=== PATIENT | male | born 1960 | race Caucasian/White ===

== ENCOUNTER → 2016-11-02 | Outpatient (CLI) | payer OTHER ==
[~2016-11-02] MED LIST: GADAVIST IV PRN
--- NOTE | 2016-11-02 22:40 | DIAGNOSTIC IMAGING REPORT ---
BRAIN COMBO FOR IAC CLINICAL HISTORY: Acute left-sided hearing loss. Evaluate for acoustic neuroma. COMPARISON STUDY: No previous studies for comparison. TECHNIQUE: Utilizing a 1.5 Marisol magnet, multiplanar, multi echo imaging of the brain was performed pre and postcontrast administration with thin cut imaging through the internal auditory canals. Injection of 19 cc of Gadavist IV was uneventful. FINDINGS: There are no areas of restricted diffusion. No acute intracranial hemorrhage, midline shift or mass effect is present. Ventricular system is unremarkable. There is a cavum of septum pellucidum. Flow-voids for the major intracranial vessels are present. There are no intracranial masses. Scattered white matter T2 hyperintense foci suggest small vessel disease. There is inherent T1 hyperintensity within the left cochlea with possible mild enhancement. There is no mass within the left internal auditory canal or the cerebellopontine angle. IMPRESSION: Asymmetric inherent T1 hyperintensity within the left cochlea and vestibule with possible minimal enhancement. This finding raises the possibility of left labyrinthine hemorrhage. No mass identified within the left internal auditory canal. Electronically signed by: Laureano Tucker M.D. 11/02/2016 10:38 PM Dictated Date/Time: 11/02/2016 4:12 PM
== END | disposition home or self-care (01) ==
LOC: C.MRI 14:06
PROVIDERS: ATTEND Internal Medicine Critical Care Medicine
DX: H91.92 Unspecified hearing loss, left ear (principal); R90.89 Other abnormal findings on diagnostic imaging of central nervous system

== ENCOUNTER → 2017-03-15 | Outpatient (CLI) | payer OTHER ==
[2017-03-15 09:56] LABS: BASO % 0.2 %; BASO ABS # 0.02 K/uL (0-0.2); COMPLETE YES; EOS % 1.5 %; HEMATOCRIT 37.7 % (42-52); IG% 0.2 %; LYMPH % 12.1 %; MEAN CELL VOLUME 84.2 fL (80-100); MEAN CORPUSCULAR HEMOGLOBIN 26.3 pg (25-34); MEAN CORPUSCULAR HGB CONC 31.3 g/dl (32-36); MEAN PLATELET VOLUME 9.3 fL (7.4-10.4); MONO % 9.8 %; NEUT % 76.2 %; PLATELET COUNT 231 K/uL (130-400); RED BLOOD COUNT 4.48 M/uL (4.7-6.1); WHITE BLOOD COUNT 8.24 K/uL (4.8-10.8)
[2017-03-15 10:03] LABS: ALT/SGPT 13 U/L (12-78); BLOOD UREA NITROGEN 20 mg/dl (7-18); CALCIUM 8.7 mg/dl (8.5-10.1); CARBON DIOXIDE 27 mmol/L (21-32); CHLORIDE 105 mmol/L (98-107); CREATININE 0.88 mg/dl (0.60-1.40); GLUCOSE 119 mg/dl (70-99); POTASSIUM 3.6 mmol/L (3.5-5.1); SODIUM 140 mmol/L (136-145)
[2017-03-15 10:06] LABS: ALB/GLOB RATIO 0.6 (0.9-2); ALKALINE PHOSPHATASE 104 U/L (45-117); AST/SGOT 15 U/L (15-37)
[2017-03-15 11:17] LABS: ESTIMATED AVERAGE GLUCOSE 117 mg/dl; HA1C FLAG Normal (Normal)
== END ==
LOC: C.LABUPNIT 09:23
PROVIDERS: ATTEND Nurse Practitioner Family
DX: E11.29 Type 2 diabetes mellitus with other diabetic kidney complication (principal)

== ENCOUNTER → 2017-03-19 | Outpatient (CLI) | payer OTHER | LOC: C.LABUPNIT 08:15 | PROVIDERS: ATTEND Nurse Practitioner Family | DX: Z11.59 Encounter for screening for other viral diseases (principal) ==

== ENCOUNTER → 2017-04-13 | Outpatient (CLI) | payer OTHER ==
[2017-04-13 06:51] LABS: BLOOD UREA NITROGEN 14 mg/dl (7-18); BUN/CREATININE RATIO 15.3 (10-20); CALCIUM 8.8 mg/dl (8.5-10.1); CARBON DIOXIDE 29 mmol/L (21-32); CHLORIDE 106 mmol/L (98-107); CREATININE 0.92 mg/dl (0.60-1.40); GLUCOSE 202 mg/dl (70-99); POTASSIUM 3.3 mmol/L (3.5-5.1); SODIUM 142 mmol/L (136-145)
== END | disposition home or self-care (01) ==
LOC: C.LABUPNIT 15:38
PROVIDERS: ATTEND Nurse Practitioner Family
DX: I25.10 Atherosclerotic heart disease of native coronary artery without angina pectoris (principal)

== ENCOUNTER → 2017-05-16 | Outpatient (CLI) | payer OTHER ==
[2017-05-16 21:51] LABS: URINE APPEARANCE CLOUDY (CLEAR); URINE BILIRUBIN NEG (NEG); URINE COLOR DK YELLOW; URINE NITRITE POS (NEG); URINE SPECIFIC GRAVITY 1.018 (1.000-1.030); UROBILINOGEN NEG (NEG)
[2017-05-16 21:52] LABS: MANUAL MICROSCOPIC REQUIRED? NO; REVIEW REQ? NO
[2017-05-16 23:19] LABS: BASO % 0.2 %; BASO ABS # 0.02 K/uL (0-0.2); COMPLETE YES; EOS % 0.4 %; HEMATOCRIT 35.1 % (42-52); IG% 0.4 %; LYMPH % 9.7 %; LYMPH ABS # 0.78 K/uL (1.2-3.4); MEAN CORPUSCULAR HEMOGLOBIN 28.8 pg (25-34); MEAN CORPUSCULAR HGB CONC 32.8 g/dl (32-36); MEAN PLATELET VOLUME 9.4 fL (7.4-10.4); MONO % 5.1 %; NEUT % 84.2 %; PLATELET COUNT 165 K/uL (130-400); RED BLOOD COUNT 3.99 M/uL (4.7-6.1); WHITE BLOOD COUNT 8.04 K/uL (4.8-10.8)
[2017-05-16 23:26] LABS: BLOOD UREA NITROGEN 20 mg/dl (7-18); BUN/CREATININE RATIO 16.4 (10-20); CALCIUM 8.5 mg/dl (8.5-10.1); CARBON DIOXIDE 28 mmol/L (21-32); CHLORIDE 102 mmol/L (98-107); CREATININE 1.19 mg/dl (0.60-1.40); GLUCOSE 108 mg/dl (70-99); POTASSIUM 3.5 mmol/L (3.5-5.1); SODIUM 137 mmol/L (136-145)
== END ==
LOC: C.LABUPNIT 17:16
PROVIDERS: ATTEND Nurse Practitioner Family
DX: R50.9 Fever, unspecified (principal)

== ENCOUNTER → 2017-07-15 | Outpatient (CLI) | payer OTHER ==
[2017-07-15 09:40] LABS: BLOOD UREA NITROGEN 24 mg/dl (7-18); CALCIUM 8.1 mg/dl (8.5-10.1); CARBON DIOXIDE 29 mmol/L (21-32); CREATININE 1.08 mg/dl (0.60-1.40); GLUCOSE 175 mg/dl (70-99); POTASSIUM 3.6 mmol/L (3.5-5.1); SODIUM 141 mmol/L (136-145)
== END ==
LOC: C.LABUPNIT 09:14 → EDSTATUS 07-17 09:56
PROVIDERS: ATTEND Nurse Practitioner Family
DX: M62.81 Muscle weakness (generalized) (principal)

== ENCOUNTER → 2017-07-18 | Outpatient (CLI) | payer OTHER ==
[2017-07-18 09:20] LABS: BLOOD UREA NITROGEN 20 mg/dl (7-18); CALCIUM 8.4 mg/dl (8.5-10.1); CARBON DIOXIDE 31 mmol/L (21-32); CREATININE 1.06 mg/dl (0.60-1.40); GLUCOSE 279 mg/dl (70-99); POTASSIUM 3.3 mmol/L (3.5-5.1); SODIUM 140 mmol/L (136-145)
--- NOTE | 2017-07-19 11:23 | CODING QUERY NO DIAGNOSIS ---
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 Please assist us with providing a diagnosis/symptom for the test(s) below: A diagnosis/symptom was not documented on your Order. A valid diagnosis/symptom is required to bill all insurances. Please remember that we are unable to code a diagnosis of rule out, probable, possible, questionable, or suspected. DOS 07/18/17 Tests that require a diagnosis: * BMP DIAGNOSIS: Provider Signature: Date: Thank you Payton Vela [employer] Information Management Once completed, please kindly fax back to [phone] For questions please call [phone]
== END ==
LOC: C.LABUPNIT 08:40
PROVIDERS: ATTEND Nurse Practitioner Family
DX: R60.9 Edema, unspecified (principal)

== ENCOUNTER → 2017-07-22 | Outpatient (CLI) | payer OTHER | END | disposition home or self-care (01) | LOC: C.LABUPNIT 07:35 | PROVIDERS: ATTEND Nurse Practitioner Family | DX: E87.6 Hypokalemia (principal) ==

== ENCOUNTER → 2017-07-24 | Outpatient (CLI) | payer OTHER ==
[2017-07-24 10:00] LABS: BLOOD UREA NITROGEN 20 mg/dl (7-18); CALCIUM 8.8 mg/dl (8.5-10.1); CARBON DIOXIDE 31 mmol/L (21-32); CREATININE 1.07 mg/dl (0.60-1.40); GLUCOSE 189 mg/dl (70-99); POTASSIUM 3.2 mmol/L (3.5-5.1); SODIUM 140 mmol/L (136-145)
== END ==
LOC: C.LABUPNIT 07:59
PROVIDERS: ATTEND Nurse Practitioner Family
DX: E11.40 Type 2 diabetes mellitus with diabetic neuropathy, unspecified (principal)

== ENCOUNTER → 2017-07-26 | Outpatient (CLI) | payer OTHER ==
[2017-07-26 08:41] LABS: BLOOD UREA NITROGEN 20 mg/dl (7-18); CALCIUM 8.9 mg/dl (8.5-10.1); CARBON DIOXIDE 31 mmol/L (21-32); CREATININE 1.18 mg/dl (0.60-1.40); GLUCOSE 173 mg/dl (70-99); POTASSIUM 3.6 mmol/L (3.5-5.1); SODIUM 142 mmol/L (136-145)
== END ==
LOC: C.LABUPNIT 07:59
PROVIDERS: ATTEND Nurse Practitioner Family
DX: E11.40 Type 2 diabetes mellitus with diabetic neuropathy, unspecified (principal)

== ENCOUNTER → 2017-07-31 | Outpatient (CLI) | payer OTHER ==
[2017-08-02 14:57] LABS: INFLUENZA B ANTIGEN Neg for Influ B (NEG)
== END ==
LOC: C.LABUPNIT 14:27
PROVIDERS: ATTEND Nurse Practitioner Family
DX: R50.9 Fever, unspecified (principal)

== ENCOUNTER → 2017-10-08 | Outpatient (CLI) | payer OTHER ==
[2017-10-08 15:46] LABS: BASO % 0.2 %; BASO ABS # 0.02 K/uL (0-0.2); EOS % 0.9 %; EOS ABS # 0.08 K/uL (0-0.5); HEMATOCRIT 38.2 % (42-52); HEMOGLOBIN 13.1 g/dL (14.0-18.0); IG# 0.04 K/uL (0.00-0.02); LYMPH % 13.3 %; LYMPH ABS # 1.14 K/uL (1.2-3.4); MEAN CELL VOLUME 86.6 fL (80-100); MEAN CORPUSCULAR HEMOGLOBIN 29.7 pg (25-34); MEAN PLATELET VOLUME 9.5 fL (7.4-10.4); MONO % 10.2 %; MONO ABS # 0.87 K/uL (0.11-0.59); NEUT % 74.9 %; PLATELET COUNT 179 K/uL (130-400); RED CELL DISTRIBUTION WIDTH CV 14.2 % (11.5-14.5); RED CELL DISTRIBUTION WIDTH SD 44.6 fL (36.4-46.3); WHITE BLOOD COUNT 8.55 K/uL (4.8-10.8)
[2017-10-08 15:54] LABS: MEAN CORPUSCULAR HGB CONC 34.3 g/dl (32-36)
[2017-10-08 16:21] LABS: ALBUMIN 2.9 gm/dl (3.4-5.0); ALKALINE PHOSPHATASE 98 U/L (45-117); ALT/SGPT 15 U/L (12-78); AST/SGOT 10 U/L (15-37); BLOOD UREA NITROGEN 20 mg/dl (7-18); CALCIUM 8.6 mg/dl (8.5-10.1); CARBON DIOXIDE 29 mmol/L (21-32); CREATININE 1.01 mg/dl (0.60-1.40); GLUCOSE 148 mg/dl (70-99); POTASSIUM 3.7 mmol/L (3.5-5.1); SODIUM 137 mmol/L (136-145); TOTAL PROTEIN 6.9 gm/dl (6.4-8.2)
== END ==
LOC: C.LABSPEC 15:29
PROVIDERS: ATTEND Nurse Practitioner Family
DX: I48.91 Unspecified atrial fibrillation (principal)

== ENCOUNTER → 2017-10-16 | Outpatient (CLI) | payer OTHER ==
[~2017-10-16] MED LIST changes: +ACET-1311 PO; +AMLO2.5T PO; +APIX1TAB PO; +APIX1TAB3 PO; +ARTISOL12 OPB; +ASPI-435 PO; +ATOR-24 PO; +BNC/40 PO; +CARV6.25 PO; +CHOL1000 PO; +CLR10 PO; +CYCL5TAB PO; +DOXA2TAB PO; +DULO-24 PO; +DULO60CA44 PO; +FLNIN NAE; +GABA-112 PO; -GADAVIST IV PRN; +LATA0.5S OPB; +LVMI SQ; +MISCCAP80 PO; +NTRGSL/4 UT; +NVLG SQ; +ONDA4TAB46 PO; +POTA-639 PO; +POTA10CA28 PO; +SENN-61 PO; +TORS20TA2 PO; +TRAM-10 PO; +TRAZ100T29 PO; +[UNRECOGNIZED DRUG - CODE] PO
[2017-10-16 12:44] LABS: BASO % 0.2 %; BASO ABS # 0.01 K/uL (0-0.2); EOS % 0.2 %; EOS ABS # 0.01 K/uL (0-0.5); HEMATOCRIT 39.2 % (42-52); HEMOGLOBIN 13.3 g/dL (14.0-18.0); IG# 0.02 K/uL (0.00-0.02); LYMPH % 18.3 %; LYMPH ABS # 0.95 K/uL (1.2-3.4); MEAN CELL VOLUME 86.5 fL (80-100); MEAN CORPUSCULAR HEMOGLOBIN 29.4 pg (25-34); MEAN CORPUSCULAR HGB CONC 33.9 g/dl (32-36); MEAN PLATELET VOLUME 9.3 fL (7.4-10.4); MONO % 14.5 %; MONO ABS # 0.75 K/uL (0.11-0.59); NEUT % 66.4 %; NEUT ABS # 3.44 K/uL (1.4-6.5); PLATELET COUNT 157 K/uL (130-400); RED CELL DISTRIBUTION WIDTH CV 14.5 % (11.5-14.5); RED CELL DISTRIBUTION WIDTH SD 45.9 fL (36.4-46.3); WHITE BLOOD COUNT 5.18 K/uL (4.8-10.8)
[2017-10-16 13:01] LABS: ALT/SGPT 50 U/L (12-78); AST/SGOT 39 U/L (15-37); BLOOD UREA NITROGEN 23 mg/dl (7-18); CALCIUM 8.5 mg/dl (8.5-10.1); CARBON DIOXIDE 27 mmol/L (21-32); CREATININE 1.24 mg/dl (0.60-1.40); GLUCOSE 103 mg/dl (70-99); LIPASE 118 U/L (73-393); POTASSIUM 3.6 mmol/L (3.5-5.1); SODIUM 135 mmol/L (136-145)
[2017-10-16 13:03] LABS: ALKALINE PHOSPHATASE 216 U/L (45-117); TOTAL PROTEIN 7.6 gm/dl (6.4-8.2)
== END | disposition home or self-care (01) ==
LOC: C.LABUPNIT 12:11
PROVIDERS: ATTEND Nurse Practitioner Family
DX: R10.9 Unspecified abdominal pain (principal); R50.9 Fever, unspecified

== ENCOUNTER → 2017-10-17 | Outpatient (CLI) | payer OTHER ==
--- NOTE | 2017-10-17 13:47 | DIAGNOSTIC IMAGING REPORT ---
ABDOMEN COMPLETE (US) CLINICAL HISTORY: 57 years-old Male presenting with Pain, elevated TEMP, patient over 400 pounds. TECHNIQUE: Real-time grayscale and limited color Doppler ultrasound imaging of the abdomen was performed. COMPARISON: CT from 03/02/2017. FINDINGS: Pancreas: Visualized portions of the pancreatic head and body normal. Liver: Normal echogenicity and echotexture. The liver measures 21.2 cm in maximal sagittal dimension. Main portal vein patent with normal directional flow. Biliary: No intrahepatic biliary ductal dilatation. Common bile duct measures up to 6-7 mm in diameter. Gallbladder: Gallstones and gallbladder sludge. Due to patient mobility issues related to body habitus, decubitus imaging was unable to be performed. Borderline gallbladder wall thickening measuring 4 mm though this may be impacted by increased pericholecystic fat in the gallbladder fossa. No evidence of gallbladder distention, pericholecystic fluid or inflammatory change. Sonographic Jones's sign negative. Spleen: Normal in echogenicity and size, measuring 15 cm in length. Kidneys: Normal in size and echogenicity. Right kidney measures 11.4 cm, and left kidney measures 11.0 cm. No hydronephrosis. Vasculature: Visualized portions of the IVC and abdominal aorta normal. Ascites: None. IMPRESSION: 1. Image quality limited by patient body habitus. This limits diagnostic sensitivity. 2. Cholelithiasis. No evidence of biliary ductal dilatation. Borderline wall thickening without convincing evidence of cholecystitis. Despite these findings, if there is clinical concern for cholecystitis, nuclear medicine HIDA scan could be obtained. 3. Mild hepatomegaly. 4. Mild splenomegaly. Electronically signed by: Yaniv Diamond M.D. 10/17/2017 1:45 PM Dictated Date/Time: 10/17/2017 1:39 PM
== END ==
LOC: C.ULTR 12:49
PROVIDERS: ATTEND Nurse Practitioner Family
DX: R10.9 Unspecified abdominal pain (principal); R50.9 Fever, unspecified; K80.20 Calculus of gallbladder without cholecystitis without obstruction

== ENCOUNTER → 2017-10-18 | Outpatient (CLI) | payer OTHER ==
--- NOTE | 2017-10-18 10:39 | DIAGNOSTIC IMAGING REPORT ---
CHEST 2 VIEWS ROUTINE CLINICAL HISTORY: Cough. COMPARISON STUDY: No previous studies for comparison. FINDINGS: Lung volumes are normal. No pneumothorax or pleural effusion is noted. There is no consolidation to suggest pneumonia. Mild cardiomegaly is noted. Extensive anterior osteophytosis of the thoracic spine is noted on the lateral projection. IMPRESSION: 1. No acute cardiopulmonary findings. 2. Mild cardiomegaly. Electronically signed by: Laureano Tucker M.D. 10/18/2017 10:38 AM Dictated Date/Time: 10/18/2017 10:37 AM
== END | disposition home or self-care (01) ==
LOC: C.RAD 10:11
PROVIDERS: ATTEND Family Medicine
DX: R05 Cough (principal); R50.9 Fever, unspecified

== ENCOUNTER 2017-10-24 10:41 | Emergency (ER) | payer OTHER ==
[~2017-10-24] VITALS: Ht 172.7 cm; Wt 194.0 kg
[2017-10-24 11:01] VITALS: Ht 172.7 cm; Wt 194.0 kg
[2017-10-24] MEDS ORDERED: SODIUM CHLORIDE 0.9% 1000ML 1,000 ML IV ONE (11:05)
[2017-10-24 11:15] VITALS: O2SAT 96
--- NOTE | 2017-10-24 11:38 | DIAGNOSTIC IMAGING REPORT ---
CHEST ONE VIEW PORTABLE CLINICAL HISTORY: Sepsis ABDOMINAL PAIN COMPARISON STUDY: 10/18/2017 FINDINGS: The heart is borderline enlarged. Mild vascular and interstitial prominence may be related to technical factors given the patient's large body habitus. There is no focal pulmonary consolidation. There are no pleural effusions.[ IMPRESSION: Difficult study to interpret due to the patient's large body habitus. No evidence of focal pulmonary consolidation. No evidence of overt failure. Electronically signed by: Tim Menezes M.D. 10/24/2017 11:37 AM Dictated Date/Time: 10/24/2017 11:35 AM
[2017-10-24 11:41] LABS: BASO % 0.1 %; BASO ABS # 0.01 K/uL (0-0.2); EOS % 0.1 %; EOS ABS # 0.01 K/uL (0-0.5); HEMATOCRIT 40.3 % (42-52); HEMOGLOBIN 13.6 g/dL (14.0-18.0); IG# 0.08 K/uL (0.00-0.02); LYMPH % 2.2 %; LYMPH ABS # 0.39 K/uL (1.2-3.4); MEAN CELL VOLUME 86.1 fL (80-100); MEAN CORPUSCULAR HEMOGLOBIN 29.1 pg (25-34); MEAN CORPUSCULAR HGB CONC 33.7 g/dl (32-36); MEAN PLATELET VOLUME 9.2 fL (7.4-10.4); MONO % 4.3 %; MONO ABS # 0.76 K/uL (0.11-0.59); NEUT % 92.8 %; NEUT ABS # 16.38 K/uL (1.4-6.5); PLATELET COUNT 197 K/uL (130-400); RED CELL DISTRIBUTION WIDTH SD 43.8 fL (36.4-46.3); WHITE BLOOD COUNT 17.63 K/uL (4.8-10.8)
[2017-10-24 11:58] LABS: INR 1.1 (0.9-1.1); PTT PATIENT 27.1 SECONDS (21.0-31.0)
[2017-10-24 12:09] LABS: ALBUMIN 2.9 gm/dl (3.4-5.0); CREATININE 1.67 mg/dl (0.60-1.40); POTASSIUM 3.8 mmol/L (3.5-5.1)
[2017-10-24] MEDS ORDERED: NTRGSL/4 UT (12:11)
[2017-10-24] MEDS ORDERED: GABA-112 PO (12:11)
[2017-10-24] MEDS ORDERED: POTA-639 PO (12:11)
[2017-10-24] MEDS ORDERED: DULO60CA44 PO (12:11)
[2017-10-24] MEDS ORDERED: ATOR-24 PO (12:11)
[2017-10-24] MEDS ORDERED: CHOL1000 PO (12:11)
[2017-10-24] MEDS ORDERED: FLNIN NAE (12:11)
[2017-10-24] MEDS ORDERED: DOXA2TAB PO (12:11)
[2017-10-24] MEDS ORDERED: CARV6.25 PO (12:11)
[2017-10-24] MEDS ORDERED: TRAM-10 PO (12:11)
[2017-10-24] MEDS ORDERED: CYCL5TAB PO (12:11)
[2017-10-24] MEDS ORDERED: NVLG SQ (12:11)
[2017-10-24] MEDS ORDERED: POTA10CA28 PO (12:11)
[2017-10-24] MEDS ORDERED: TRAZ100T29 PO (12:11)
[2017-10-24] MEDS ORDERED: ASPI-435 PO (12:11)
[2017-10-24] MEDS ORDERED: ACET-1311 PO (12:11)
[2017-10-24] MEDS ORDERED: LVMI SQ (12:11)
[2017-10-24] MEDS ORDERED: MISCCAP80 PO (12:11)
[2017-10-24] MEDS ORDERED: ONDA4TAB46 PO (12:11)
[2017-10-24] MEDS ORDERED: CLR10 PO (12:11)
[2017-10-24] MEDS ORDERED: TORS20TA2 PO (12:11)
[2017-10-24] MEDS ORDERED: APIX1TAB PO ×2 (12:11)
[2017-10-24] MEDS ORDERED: DULO-24 PO (12:11)
[2017-10-24] MEDS ORDERED: LATA0.5S OPB (12:11)
[2017-10-24] MEDS ORDERED: BNC/40 PO (12:11)
[2017-10-24] MEDS ORDERED: ARTISOL12 OPB (12:11)
[2017-10-24] MEDS ORDERED: APIX1TAB3 PO (12:11)
[2017-10-24] MEDS ORDERED: [UNRECOGNIZED DRUG - CODE] PO (12:11)
[2017-10-24] MEDS ORDERED: SENN-61 PO (12:11)
[2017-10-24] MEDS ORDERED: AMLO2.5T PO (12:11)
[2017-10-24 12:12] LABS: TOTAL PROTEIN 7.1 gm/dl (6.4-8.2)
[2017-10-24] MEDS ORDERED: PIPERACILLIN/TAZOBACTAM 4.5 GM/100ML D5W IV STA (12:15)
[2017-10-24] MEDS ORDERED: SODIUM CHLORIDE 0.9% 1000ML 1,000 ML IV STA (12:27)
--- NOTE | 2017-10-24 12:27 | DIAGNOSTIC IMAGING REPORT ---
GALLBLADDER-ABD LIMITED CLINICAL HISTORY: eval for cholecystitis pain. Nausea. TECHNIQUE: Ultrasound COMPARISON STUDY: 10/17/2017 FINDINGS: Somewhat limited exam due to body habitus. Gallstones as well as several small polyps within the gallbladder lumen. Moderate gallbladder wall thickening at 7 to 8 mm. No significant pericholecystic fluid. Common bile duct 6 mm. Liver is uniform. Right kidney is negative for hydronephrosis. IMPRESSION: 1. Combination of gallstones and sludge/polyps within the gallbladder lumen. 2. Somewhat progressive thickening of the gallbladder wall compared to the prior study currently at 7 to 8 mm. 3. Common bile duct is normal at 6 mm. 4. Possibility of chronic calculus cholecystitis must be considered The above report was generated using voice recognition software. It may contain grammatical, syntax or spelling errors. Electronically signed by: Gregory Beatty M.D. 10/24/2017 12:26 PM Dictated Date/Time: 10/24/2017 12:23 PM
--- NOTE | 2017-10-24 14:02 | Pharmacy Progress Note ---
ED Pharmacist Progress Note Date of Service: Oct 24, 2017. Situation Was asked by Dr. Weber for recommendation on reversal of anticoagulation for emergent surgery possibility Background Patient on apixaban as outpatient for Afib. Possibly in need of emergent lap nathan as patient is septic, hypotensive, with elevated lactate per Dr. Tia Weber discussed case with surgery YAW (Zhanna) who suggested reversal of anticoagulation Assessment Apixaban has no specific reversal agent. Very limited evidence to support use of KCentra to reverse apixaban. Furthermore, most evidence available is not based on clinical outcome (was studied in a small number of healthy volunteers) or it was used for reversal of active bleed in a small group of patients with varying success * Therefore patient likely poor candidate for KCentra. * However, I also contacted Dr. Delacruz to request her opinion (see below) Dr. Delacruz consultation * Agreed that KCentra would not be indicated * Requested confirmation of last dose of apixaban administered (see below) * If surgery would like to discuss further, she noted that surgeon could contact her Most recent apixaban dose * Patient was not sure if he took his dose this AM but he did not think he did * I looked at the medication administration records sent with the patient and confirmed that apixaban was *not* charted as administered this AM - last dose was 10/23 PM Recommendation * No specific agent available for reversal of anticoagulation due to apixaban * Recommend against use of KCentra
--- NOTE | 2017-10-24 15:33 | Medical Consult ---
Consultation Date of Consultation: Oct 24, 2017. Attending Physician: Reason for Consultation: Abnormal LFTS, Chronic Cholecystitis on ultrasound. History of Present Illness Mr. Morrison is a 57-year-old male with past medical history significant for diabetes and atrial fibrillation (on daily Eliquis) who presents to [facility] with complaints of right upper quadrant abdominal pain. Patient reports that pain has been intermittent for the last 2 weeks. He states that the pain occurs after a fatty or greasy meal. He denies nausea or vomiting. He denies constipation or diarrhea. He currently resides at a local long-term. On admission, patient is febrile, WBC 17.63, LFTs elevated, Lactic acid 3.19 Gallbladder ultrasound 1. Combination of gallstones and sludge/polyps within the gallbladder lumen. 2. Somewhat progressive thickening of the gallbladder wall compared to the prior study currently at 7 to 8 mm. 3. Common bile duct is normal at 6 mm. 4. Possibility of chronic calculus cholecystitis must be considered Currently, patient is not in acute distress. He reports that his abdominal pain has resolved. Abdomen is tender with deep palpation. He is not nauseous. Family History Diabetes mellitus Social History Smoking Status: Former Smoker Allergies Coded Allergies: AVIVA Inhibitors (Unverified Allergy, Unknown, ., 10/24/17) Sulfamethoxazole w/Trimethoprim (Unverified Allergy, Unknown, ., 10/24/17) Review of Systems Constitutional: + fever, + chills, + fatigue Abdomen: + pain, No nausea, No vomiting, No diarrhea, No constipation Physical Exam Date Time Temp Pulse Resp B/P (MAP) Pulse Ox O2 Delivery O2 Flow Rate FiO2 10/24/17 13:01 72 18 107/52 98 Room Air 10/24/17 12:41 75 10/24/17 12:32 78 18 98/54 96 Room Air 10/24/17 12:32 98/54 10/24/17 12:26 76/56 10/24/17 11:52 83 18 90/49 95 Room Air 10/24/17 11:41 85 18 95 10/24/17 11:31 90/49 10/24/17 11:15 91/44 10/24/17 11:15 96 Room Air 10/24/17 11:13 70/48 10/24/17 11:02 95/56 10/24/17 11:01 77/58 10/24/17 11:01 37.8 88 20 97/56 97 Room Air 10/24/17 10:57 84/55 10/24/17 10:56 93 10/24/17 10:54 86/53 10/24/17 10:51 95/69 General Appearance: WD/WN, no apparent distress Head: normocephalic, atraumatic Abdomen/GI: soft, + tenderness (right upper quadrant into epigastric region. ) Laboratory Results Last 24 Hours Test 10/24/17 11:30 10/24/17 11:39 White Blood Count 17.63 K/uL Red Blood Count 4.68 M/uL Hemoglobin 13.6 g/dL Hematocrit 40.3 % Mean Corpuscular Volume 86.1 fL Mean Corpuscular Hemoglobin 29.1 pg Mean Corpuscular Hemoglobin Concent 33.7 g/dl Platelet Count 197 K/uL Mean Platelet Volume 9.2 fL Neutrophils (%) (Auto) 92.8 % Lymphocytes (%) (Auto) 2.2 % Monocytes (%) (Auto) 4.3 % Eosinophils (%) (Auto) 0.1 % Basophils (%) (Auto) 0.1 % Neutrophils # (Auto) 16.38 K/uL Lymphocytes # (Auto) 0.39 K/uL Monocytes # (Auto) 0.76 K/uL Eosinophils # (Auto) 0.01 K/uL Basophils # (Auto) 0.01 K/uL RDW Standard Deviation 43.8 fL RDW Coefficient of Variation 14.0 % Immature Granulocyte % (Auto) 0.5 % Immature Granulocyte # (Auto) 0.08 K/uL Prothrombin Time 11.2 SECONDS Prothromb Time International Ratio 1.1 Activated Partial Thromboplast Time 27.1 SECONDS Partial Thromboplastin Ratio 1.0 Sodium Level 137 mmol/L Potassium Level 3.8 mmol/L Chloride Level 103 mmol/L Carbon Dioxide Level 26 mmol/L Anion Gap 8.0 mmol/L Blood Urea Nitrogen 19 mg/dl Creatinine 1.67 mg/dl Est Creatinine Clear Calc Drug Dose 82.9 ml/min Estimated GFR () 52.2 Estimated GFR (Non- 45.1 BUN/Creatinine Ratio 11.5 Random Glucose 196 mg/dl Calcium Level 9.0 mg/dl Total Bilirubin 2.6 mg/dl Aspartate Amino Transf (AST/SGOT) 245 U/L Alanine Aminotransferase (ALT/SGPT) 235 U/L Alkaline Phosphatase 227 U/L Total Protein 7.1 gm/dl Albumin 2.9 gm/dl Globulin 4.2 gm/dl Albumin/Globulin Ratio 0.7 Bedside Lactic Acid Venous 3.19 mmol/L Assessment & Plan 57-year-old male, currently resides in long-term, with elevated LFTs, right upper quadrant abdominal pain Patient seen and examined with Dr. Stephenson. Labs reviewed. Gallbladder ultrasound reviewed: Impression: 1. Combination of gallstones and sludge/polyps within the gallbladder lumen. 2. Somewhat progressive thickening of the gallbladder wall compared to the prior study currently at 7 to 8 mm. 3. Common bile duct is normal at 6 mm. 4. Possibility of chronic calculus cholecystitis must be considered Patient discussed with GI. Patient is on daily Eliquis, would need to be stopped prior to cholecystectomy or ERCP. Recommend that patient be transferred [facility]- if patient should become worse, may require cholecystostomy tube. Recommendations discussed with Dr. Weber.
[2017-10-24] MEDS ORDERED: FENTANYL CITRATE INJ 50 MCG/1 ML 2 ML VIAL IV STA (15:55)
--- NOTE | 2017-10-24 16:10 | EMERGENCY ROOM VISIT NOTE ---
History Report prepared by Saul: Angella Singh Under the Supervision of: Dr. Efrem Weber M.D. First contact with patient: 10:54 Chief Complaint: ABDOMINAL PAIN Stated Complaint: ABDOMINAL PAIN History of Present Illness The patient is a 57 year old male who presents to the Emergency Room with complaints of upper abdominal pain beginning at 2200 last night. The patient was febrile at 102.8 this morning. He describes the pain as being sharp and reports that he has had this abdominal pain intermittently for about 2 weeks. The patient states that his pain is exacerbated after eating fatty foods. He reports having a cough but denies having chest pain, vomiting, and diarrhea. He does report feeling light-headed earlier but not anymore. The patient reports that he is diabetic. He states he had a ultrasound on the which showed gallstones. He also has a long-standing inguinal hernia in the scrotum. He was told they could not operate on it until he lost weight. Source of History: patient Onset: 2200 last night Position: abdomen (upper ) Quality: sharp Timing: constant Modifying Factors (Worsening): eating (fatty foods ) Associated Symptoms: + fevers, + cough, No chest pain, No vomiting, No diarrhea Review of Systems See HPI for pertinent positives & negatives. A total of 10 systems reviewed and were otherwise negative. Past Medical & Surgical Medical Problems: (1) Diabetes Family History Diabetes mellitus Social History Smoking Status: Former Smoker Marital Status: single Current/Historical Medications Scheduled Apixaban (Eliquis), 5 MG PO BID Artificial Tear Solution (Artificial Tears), 1 DROPS OPB DAILY Aspirin (Aspirin 81), 81 MG PO QAM Atorvastatin (Lipitor), 40 MG PO HS Carvedilol (Coreg), 6.25 MG PO BID Cholecalciferol (Vitamin D3), 4,000 UNITS PO DAILY Doxazosin Mesylate (Cardura), 2 MG PO HS Duloxetine Hcl (Cymbalta), 60 MG PO DAILY Duloxetine Hcl (Cymbalta), 20 MG PO DAILY Ferrous Sulfate (Ferrousul), 325 MG PO BID Fluticasone Propionate (Fluticasone Propionate), 2 SPRAYS JAGDEEP DAILY Gabapentin (Neurontin), 200 MG PO TID Insulin Aspart (Novolog), 1 DOSE SQ ACHS Insulin Detemir (Levemir), 44 UNITS SQ BID Latanoprost (Xalatan 0.005% Oph [place]), 1 DROPS OPB DAILY Olmesartan Medoxomil (Benicar), 40 MG PO DAILY Potassium Chloride (Micro-K Ext Rel), 10 MEQ PO BID Potassium Ext Rel (Klor-Con), 20 MEQ PO BID Probiotic Product (Probiotic), 1 CAP PO BID Torsemide (Demadex), 40 MG PO DAILY Trazodone Hcl (Trazodone), 100 MG PO HS Scheduled PRN Acetaminophen (Tylenol), 650 MG PO Q6 PRN for Pain Cyclobenzaprine Hcl (Flexeril), 5 MG PO Q12 PRN for Pain Loratadine (Claritin), 10 MG PO DAILY PRN for ALLERGIES Nitroglycerin (Nitrostat), 0.4 MG UT PRN PRN for Chest Pain Ondansetron Hcl (Zofran), 4 MG PO Q6 PRN for Nausea Senna (Senokot), 1 TAB PO BID PRN for Constipation Tramadol (Ultram), 50 MG PO Q6 PRN for Pain Allergies Coded Allergies: AVIVA Inhibitors (Unverified Allergy, Unknown, ., 10/24/17) Sulfamethoxazole w/Trimethoprim (Unverified Allergy, Unknown, ., 10/24/17) Physical Exam Vital Signs Date Time Temp Pulse Resp B/P (MAP) Pulse Ox O2 Delivery O2 Flow Rate FiO2 10/24/17 15:06 98 10/24/17 15:01 73 18 175/70 98 10/24/17 14:32 150/56 10/24/17 14:06 73 16 97 10/24/17 14:01 105/59 10/24/17 13:31 104/59 10/24/17 13:06 78 21 96 10/24/17 13:01 72 18 107/52 98 Room Air 10/24/17 12:41 75 10/24/17 12:32 78 18 98/54 96 Room Air 10/24/17 12:32 98/54 10/24/17 12:26 76/56 10/24/17 11:52 83 18 90/49 95 Room Air 10/24/17 11:41 85 18 95 10/24/17 11:31 90/49 10/24/17 11:15 91/44 10/24/17 11:15 96 Room Air 10/24/17 11:13 70/48 10/24/17 11:02 95/56 10/24/17 11:01 77/58 10/24/17 11:01 37.8 88 20 97/56 97 Room Air 10/24/17 10:57 84/55 10/24/17 10:56 93 10/24/17 10:54 86/53 10/24/17 10:51 95/69 Physical Exam Constitutional: Vital signs reviewed. He is hypotensive. Eyes: Pupils are equal round reactive to light. Conjunctiva are noninjected. No scleral icterus. ENT: Pharynx is clear without erythema or exudate. Mucous membranes are moist. Neck supple without meningeal signs. Respiratory: Clear to auscultation bilaterally. Breath sounds are equal bilaterally. Cardiovascular: Regular rate and rhythm. No rubs or gallops. GI: Soft, nondistended. Right upper quadrant tenderness. No Jones's sign. Bowel sounds are present. Musculoskeletal: Bilateral left lower extremity with venous stasis discoloration. No cellulitis. Integumentary: No cyanosis. No jaundice. : Melon sized scrotal hernia without significant tenderness. Neurological: The patient is awake and alert. No focal deficits. Psychiatric: Normal affect. Medical Decision & Procedures ER Provider Diagnostic Interpretation: Radiology results as stated below per my review and the radiologist's interpretation: CHEST ONE VIEW PORTABLE CLINICAL HISTORY: Sepsis ABDOMINAL PAIN COMPARISON STUDY: 10/18/2017 FINDINGS: The heart is borderline enlarged. Mild vascular and interstitial prominence may be related to technical factors given the patient's large body habitus. There is no focal pulmonary consolidation. There are no pleural effusions.[ IMPRESSION: Difficult study to interpret due to the patient's large body habitus. No evidence of focal pulmonary consolidation. No evidence of overt failure. Electronically signed by: Tim Menezes M.D. 10/24/2017 11:37 AM Dictated Date/Time: 10/24/2017 11:35 AM GALLBLADDER-ABD LIMITED CLINICAL HISTORY: eval for cholecystitis pain. Nausea. TECHNIQUE: Ultrasound COMPARISON STUDY: 10/17/2017 FINDINGS: Somewhat limited exam due to body habitus. Gallstones as well as several small polyps within the gallbladder lumen. Moderate gallbladder wall thickening at 7 to 8 mm. No significant pericholecystic fluid. Common bile duct 6 mm. Liver is uniform. Right kidney is negative for hydronephrosis. IMPRESSION: 1. Combination of gallstones and sludge/polyps within the gallbladder lumen. 2. Somewhat progressive thickening of the gallbladder wall compared to the prior study currently at 7 to 8 mm. 3. Common bile duct is normal at 6 mm. 4. Possibility of chronic calculus cholecystitis must be considered The above report was generated using voice recognition software. It may contain grammatical, syntax or spelling errors. Electronically signed by: Gregory Beatty M.D. 10/24/2017 12:26 PM Dictated Date/Time: 10/24/2017 12:23 PM Laboratory Results 10/24/17 11:30 Red Blood Count 4.68, Mean Corpuscular Volume 86.1, Mean Corpuscular Hemoglobin 29.1, Mean Corpuscular Hemoglobin Concent 33.7, Mean Platelet Volume 9.2, Neutrophils (%) (Auto) 92.8, Lymphocytes (%) (Auto) 2.2, Monocytes (%) (Auto) 4.3, Eosinophils (%) (Auto) 0.1, Basophils (%) (Auto) 0.1, Neutrophils # (Auto) 16.38, Lymphocytes # (Auto) 0.39, Monocytes # (Auto) 0.76, Eosinophils # (Auto) 0.01, Basophils # (Auto) 0.01 10/24/17 11:30 Test 10/24/17 11:30 10/24/17 11:39 White Blood Count 17.63 K/uL (4.8-10.8) Red Blood Count 4.68 M/uL (4.7-6.1) Hemoglobin 13.6 g/dL (14.0-18.0) Hematocrit 40.3 % (42-52) Mean Corpuscular Volume 86.1 fL (80-100) Mean Corpuscular Hemoglobin 29.1 pg (25-34) Mean Corpuscular Hemoglobin Concent 33.7 g/dl (32-36) Platelet Count 197 K/uL (130-400) Mean Platelet Volume 9.2 fL (7.4-10.4) Neutrophils (%) (Auto) 92.8 % Lymphocytes (%) (Auto) 2.2 % Monocytes (%) (Auto) 4.3 % Eosinophils (%) (Auto) 0.1 % Basophils (%) (Auto) 0.1 % Neutrophils # (Auto) 16.38 K/uL (1.4-6.5) Lymphocytes # (Auto) 0.39 K/uL (1.2-3.4) Monocytes # (Auto) 0.76 K/uL (0.11-0.59) Eosinophils # (Auto) 0.01 K/uL (0-0.5) Basophils # (Auto) 0.01 K/uL (0-0.2) RDW Standard Deviation 43.8 fL (36.4-46.3) RDW Coefficient of Variation 14.0 % (11.5-14.5) Immature Granulocyte % (Auto) 0.5 % Immature Granulocyte # (Auto) 0.08 K/uL (0.00-0.02) Prothrombin Time 11.2 SECONDS (9.0-12.0) Prothromb Time International Ratio 1.1 (0.9-1.1) Activated Partial Thromboplast Time 27.1 SECONDS (21.0-31.0) Partial Thromboplastin Ratio 1.0 Anion Gap 8.0 mmol/L (3-11) Est Creatinine Clear Calc Drug Dose 82.9 ml/min Estimated GFR () 52.2 Estimated GFR (Non- 45.1 BUN/Creatinine Ratio 11.5 (10-20) Calcium Level 9.0 mg/dl (8.5-10.1) Total Bilirubin 2.6 mg/dl (0.2-1) Aspartate Amino Transf (AST/SGOT) 245 U/L (15-37) Alanine Aminotransferase (ALT/SGPT) 235 U/L (12-78) Alkaline Phosphatase 227 U/L (45-117) Total Protein 7.1 gm/dl (6.4-8.2) Albumin 2.9 gm/dl (3.4-5.0) Globulin 4.2 gm/dl (2.5-4.0) Albumin/Globulin Ratio 0.7 (0.9-2) Bedside Lactic Acid Venous 3.19 mmol/L (0.90-1.70) Laboratory results as reviewed by me. Medications Administered Medications (Trade) Dose Ordered Sig/Aaliyah Route Start Time Stop Time Status Last Admin Dose Admin Sodium Chloride 1,000 ml @ 999 mls/hr Q1H1M ONCE IV 10/24/17 11:05 10/24/17 12:05 DC 10/24/17 11:49 999 MLS/HR Piperacillin Sod/ Tazobactam Sod (Zosyn Iv) 4.5 gm NOW STAT IV 10/24/17 12:15 10/24/17 12:16 DC 10/24/17 12:36 4.5 GM Sodium Chloride 1,000 ml @ 999 mls/hr Q1H1M STAT IV 10/24/17 12:27 10/24/17 13:27 DC 10/24/17 12:36 999 MLS/HR ECG Per My Interpretation Indication: abdominal pain Rate (beats per minute): 80 Rhythm: atrial fibrillation Findings: Q waves (Inferior), other (no ST elevation ) ED Course 1100: The patient was evaluated in room C9. A complete history and physical exam was performed. 1105: Ordered Sodium Chloride 1,000 ml @ 999 mls/hr IV. 1215: Ordered Zosyn Iv 4.5 gm IV. 1227: Ordered Sodium Chloride 1,000 ml @ 999 mls/hr IV. 1228: I checked on the patient. He is still hypotensive but says that he feels better. 1237: I checked on the patient and his pressure is 98/50. He has no jaundice or scleral icterus. I paged surgery. 1309: I spoke with Zhanna Ferguson PA-C of surgery. We discussed the patient and his results. She said that she will talk to Dr. Stephenson regarding the patient. 1312: The patient's blood pressure is 107/52. 1316: The patient stated that his last dose of Eliquis was last night and that he took 5 mg. 1318: The pharmacist spoke to Dr. Delacruz about reversing the Eliquis. She said that she does not recommend PCC at this time and if the surgeon wants it she request that he talk to her directly. 1336: I spoke to Dr. Stephenson who says to admit the patient to medicine. He said that there are too many medical and anticoagulation issues for him to go to surgery. Dr. Stephenson recommends admission and GI consultation. 1348: Dr. Kaur says that if the hospitalist is uncomfortable caring for the patient, then they will take him in the ICU. 1350: Dr. Christianson said that he will be happy to take care of the patient as long as GI is able to consult on the patient and provide help. 1355: I spoke to Dr. Degroot who said that he does not believe a stent would be helpful at this time based on the patient's CT. 1359: Dr. Stephenson and Zhanna Ferguson PA-C will talk to Dr. Christianson. 1440: I checked on the patient and he is resting comfortably. His blood pressure is 105 systolic. I discussed the recommendations of surgery to transfer him and he is willing to go to [facility]. 1445: I spoke with Dr. Drummond from [facility]. He said that they would be happy to take the patient but that there are no ICU beds for another 3 hours so in the mean time it would be beneficial to try to find another hospital. They are paging [facility] for me. 1500: I spoke to Dr. Astudillo of [facility] who said that they have an SICU bed. They recommend that the patient get 2L of normal saline in the meantime. 1513: I checked on the patient and his blood pressure is now 179/70. He says that he is feeling better and I let him know that we are sending him to [place]. He notes that he had congestive heart failure once so I am holding off on the fluids. 1555: [facility] is here. He is requesting something for pain. His blood pressure is elevated. He was given fentanyl 50 mcg IV. 1635: I spoke to Dr. Astudillo. He and the transfer center said that a bed should be available very shortly and to just have the transport team wait. He requested that a Warren Catheter be placed and a repeat POC. Medical Decision This is a 57-year-old male presents with fever and abdominal pain. Differential diagnosis includes cholelithiasis, cholecystitis, cholangitis, sepsis, pancreatitis. I did perform a limited focused review of portions of the patient's old chart on the electronic medical record. The patient had an abdominal ultrasound done on 10/17/17. It had gallstones with borderline wall thickening without convincing evidence of cholecystitis. Mild hepatosplenomegaly. I did evaluate the patient as noted above. The patient is presenting with right upper quadrant pain for 2 weeks. It is worse after eating fatty foods. He has tenderness in the right upper quadrant but no Jones sign. IV access was established. The patient was placed on a continuous cardiac monitor technician. The patient is hypotensive and was given a liter normal saline IV. I did order and personally review the patient's 12-lead EKG and chest x-ray as described above. I did order and review the patient's blood work as noted in the electronic medical record. His white blood cell count and lactic acid are elevated. Creatinine is also slightly elevated. His transaminases are in the 200s. Bilirubin is 2.6. I did order an ultrasound of the right upper quadrant. I did review the images myself as well as the radiology report as described above. The patient has gallstones with sludge and gallbladder wall thickening. I did reassess the patient multiple times. His blood pressure did improve slightly. He was given another liter normal saline IV. I did consult surgery regarding patient. He was seen by Dr. Stephenson who recommended the medical admission with delayed surgery given his comorbidities and the fact that he is on Eliquis. Medicine and GI were consulted. They did not feel the patient would benefit from an ERCP at this time and recommended possible cholecystotomy versus cholecystectomy. They did talk to surgery further and after discussion decided that the patient would be best served at a tertiary care center. Initially I did call [facility] but they did not have any beds readily available and recommended we check elsewhere. I did speak to Dr. Astudillo from general surgery at [facility] who did accept the patient for transfer to the SICU. He did recommend that the patient get 2 more liters of normal saline IV but I did reassess the patient and his blood pressure improved significantly and he also stated he had a history of CHF and so I did not wish to fluid overload him. He was transferred via helicopter to [facility]. Medication Reconcilliation Current Medication List: was personally reviewed by me Blood Pressure Screening Patient's blood pressure: Low blood pressure Blood pressure disposition: Referred to PCP Consults Time Called: 1237 Consulting Physician: Zhanna Ferguson PA-C- [facility] Returned Call: [phone] I spoke with Zhanna Ferguson PA-C of surgery. We discussed the patient and his results. She said that she will talk to Dr. Stephenson regarding the patient. Additional Consults: Time Called: 1348 Consulted Physician: Dr. Kaur-[employer] Returned Call: [phone] Additional Comments: Dr. Kaur says that if the hospitalist is uncomfortable caring for the patient , then they will take him in the ICU. Time Called: 1339 Consulted Physician: Dr. Christianson- [facility] Returned Call: [phone] Additional Comments: Dr. Christianson said that he will be happy to take care of the patient as long as GI is able to consult on the patient and provide help. Impression Primary Impression: Cholecystitis Additional Impression: Sepsis Critical Care I have personally spent 80 minutes of critical care time in the direct management of this patient. This includes bedside care, interpretation of diagnostic studies, and testing, discussion with consultants, patient, and family members, and other required patient management activities. This 80 minutes is in excess of all separately billable procedures. Scribe Attestation The scribe's documentation has been prepared under my direct and personally reviewed by me in its entirety. I confirm that the note above accurately reflects all work, treatment, procedures, and medical decision making performed by me. Departure Information Dispostion Transfer Acute Care Facility Referrals No Doctor, Assigned (PCP) Patient Instructions My [facility] Problem Qualifiers Additional Impression: Sepsis Sepsis type: sepsis due to unspecified organism Qualified Codes: A41.9 - Sepsis, unspecified organism
[2017-10-24 16:15] VITALS: BP 142/62
[2017-10-24 17:00] VITALS: PULSE 82; TEMP 36.8; O2SAT 95
== END 2017-10-24 17:00 | disposition short-term general hospital (02) ==
LOC: EDBD 10:41 → C.EDC 10:43
DX: K81.9 Cholecystitis, unspecified (principal); A41.9 Sepsis, unspecified organism; E11.9 Type 2 diabetes mellitus without complications; K40.90 Unilateral inguinal hernia, without obstruction or gangrene, not specified as recurrent; I48.91 Unspecified atrial fibrillation; K80.20 Calculus of gallbladder without cholecystitis without obstruction; Z79.82 Long term (current) use of aspirin; Z79.4 Long term (current) use of insulin; Z79.52 Long term (current) use of systemic steroids; Z88.2 Allergy status to sulfonamides; Z88.6 Allergy status to analgesic agent; Z87.891 Personal history of nicotine dependence

== ENCOUNTER → 2017-11-01 | Outpatient (CLI) | payer OTHER ==
[~2017-11-01] MED LIST changes: -AMLO2.5T PO; -APIX1TAB PO
[2017-11-01 10:39] LABS: HEMATOCRIT 32.2 % (42-52); HEMOGLOBIN 10.3 g/dL (14.0-18.0); MEAN CELL VOLUME 88.7 fL (80-100); MEAN CORPUSCULAR HEMOGLOBIN 28.4 pg (25-34); MEAN PLATELET VOLUME 10.2 fL (7.4-10.4); PLATELET COUNT 226 K/uL (130-400); RED CELL DISTRIBUTION WIDTH CV 15.9 % (11.5-14.5); RED CELL DISTRIBUTION WIDTH SD 51.6 fL (36.4-46.3); WHITE BLOOD COUNT 8.95 K/uL (4.8-10.8)
[2017-11-01 10:48] LABS: ALBUMIN 1.9 gm/dl (3.4-5.0); ALT/SGPT 24 U/L (12-78); AST/SGOT 21 U/L (15-37); BLOOD UREA NITROGEN 19 mg/dl (7-18); CALCIUM 7.8 mg/dl (8.5-10.1); CARBON DIOXIDE 29 mmol/L (21-32); CREATININE 1.19 mg/dl (0.60-1.40); GLUCOSE 247 mg/dl (70-99); POTASSIUM 3.2 mmol/L (3.5-5.1); SODIUM 137 mmol/L (136-145)
[2017-11-01 10:51] LABS: ALKALINE PHOSPHATASE 205 U/L (45-117); TOTAL PROTEIN 6.4 gm/dl (6.4-8.2)
[2017-11-01 11:08] LABS: BASO % 0.6 %; BASO ABS # 0.05 K/uL (0-0.2); EOS ABS # 0.09 K/uL (0-0.5); IG# 0.72 K/uL (0.00-0.02); LYMPH % 13.3 %; LYMPH ABS # 1.19 K/uL (1.2-3.4); MONO % 11.8 %; MONO ABS # 1.06 K/uL (0.11-0.59); NEUT % 65.3 %; NEUT ABS # 5.84 K/uL (1.4-6.5)
== END ==
LOC: C.LABUPNIT 09:01
PROVIDERS: ATTEND Nurse Practitioner Family
DX: I50.9 Heart failure, unspecified (principal); N39.0 Urinary tract infection, site not specified

== ENCOUNTER → 2017-11-07 | Outpatient (CLI) | payer OTHER ==
[2017-11-07 10:20] LABS: BLOOD UREA NITROGEN 17 mg/dl (7-18); CALCIUM 8.6 mg/dl (8.5-10.1); CARBON DIOXIDE 34 mmol/L (21-32); CREATININE 1.15 mg/dl (0.60-1.40); GLUCOSE 85 mg/dl (70-99); POTASSIUM 3.6 mmol/L (3.5-5.1); SODIUM 137 mmol/L (136-145)
== END ==
LOC: C.LABUPNIT 09:15
PROVIDERS: ATTEND Nurse Practitioner Family
DX: E11.21 Type 2 diabetes mellitus with diabetic nephropathy (principal)

== ENCOUNTER → 2018-01-09 | Outpatient (CLI) | payer OTHER ==
[~2018-01-09] MED LIST changes: +BISA10SU3 PR; +GLGKIT; +HYDR1CRE TOP; +LINICRE52 TOP; +NYST80OI TOP; -POTA-639 PO; +SODI1ENE PR; -[UNRECOGNIZED DRUG - CODE] PO
[2018-01-09 12:44] LABS: HEMOGLOBIN A1C 6.4 % (4.5-5.6)
--- NOTE | 2018-01-17 11:09 | CODING QUERY NO DIAGNOSIS ---
TREATMENT RENDERED WITHOUT A DIAGNOSIS To promote full compliance with coding requirements relating to patient care, physician participation is requested in all cases of business consult uncertainty. Please assist us with providing a diagnosis/symptom for the test(s) below: A diagnosis/symptom was not documented on your Order. A valid diagnosis/symptom is required to bill all insurances. Please remember that we are unable to code a diagnosis of rule out, probable, possible, questionable, or suspected. Tests that require a diagnosis: DOS: 01/09/18 * HEMOGLOBIN A1C DIAGNOSIS: Provider Signature: Date: Thank you Meredith Vick [employer] Once completed, please kindly fax back to [phone] For questions please call [phone]
== END ==
LOC: C.LABUPNIT 11:05
PROVIDERS: ATTEND Nurse Practitioner Family
DX: E11.9 Type 2 diabetes mellitus without complications (principal)

== ENCOUNTER → 2018-01-24 | Outpatient (CLI) | payer OTHER ==
[2018-01-24 10:49] LABS: HEMOGLOBIN 12.2 g/dL (14.0-18.0); MEAN CORPUSCULAR HEMOGLOBIN 27.3 pg (25-34); MEAN CORPUSCULAR HGB CONC 32.1 g/dl (32-36); MEAN PLATELET VOLUME 9.8 fL (7.4-10.4); PLATELET COUNT 168 K/uL (130-400); RED CELL DISTRIBUTION WIDTH CV 15.5 % (11.5-14.5); RED CELL DISTRIBUTION WIDTH SD 47.9 fL (36.4-46.3); WHITE BLOOD COUNT 8.94 K/uL (4.8-10.8)
[2018-01-24 10:56] LABS: BLOOD UREA NITROGEN 24 mg/dl (7-18); CALCIUM 8.5 mg/dl (8.5-10.1); CARBON DIOXIDE 30 mmol/L (21-32); GLUCOSE 129 mg/dl (70-99); POTASSIUM 3.7 mmol/L (3.5-5.1); SODIUM 139 mmol/L (136-145)
== END | disposition home or self-care (01) ==
LOC: C.LABSPEC 10:28
PROVIDERS: ATTEND Nurse Practitioner Family
DX: R50.9 Fever, unspecified (principal)

== ENCOUNTER → 2018-02-11 | Outpatient (CLI) | payer OTHER ==
[2018-02-11 10:40] LABS: BASO % 0.3 %; BASO ABS # 0.02 K/uL (0-0.2); EOS % 0.9 %; EOS ABS # 0.07 K/uL (0-0.5); HEMATOCRIT 34.9 % (42-52); IG# 0.02 K/uL (0.00-0.02); LYMPH % 10.4 %; LYMPH ABS # 0.78 K/uL (1.2-3.4); MEAN CELL VOLUME 86.2 fL (80-100); MEAN CORPUSCULAR HEMOGLOBIN 27.2 pg (25-34); MEAN CORPUSCULAR HGB CONC 31.5 g/dl (32-36); MEAN PLATELET VOLUME 9.7 fL (7.4-10.4); MONO % 8.4 %; MONO ABS # 0.63 K/uL (0.11-0.59); NEUT % 79.7 %; NEUT ABS # 5.99 K/uL (1.4-6.5); PLATELET COUNT 128 K/uL (130-400); RED CELL DISTRIBUTION WIDTH CV 16.2 % (11.5-14.5); RED CELL DISTRIBUTION WIDTH SD 51.3 fL (36.4-46.3); WHITE BLOOD COUNT 7.51 K/uL (4.8-10.8)
[2018-02-11 11:01] LABS: BLOOD UREA NITROGEN 28 mg/dl (7-18); CALCIUM 8.2 mg/dl (8.5-10.1); CARBON DIOXIDE 31 mmol/L (21-32); CREATININE 1.62 mg/dl (0.60-1.40); GLUCOSE 106 mg/dl (70-99); POTASSIUM 3.8 mmol/L (3.5-5.1); SODIUM 140 mmol/L (136-145)
== END ==
LOC: C.LABUPNIT 07:47
PROVIDERS: ATTEND Nurse Practitioner Family
DX: R68.83 Chills (without fever) (principal); I50.9 Heart failure, unspecified

== ENCOUNTER → 2018-02-18 | Outpatient (CLI) | payer OTHER ==
[2018-02-18 08:35] LABS: BLOOD UREA NITROGEN 20 mg/dl (7-18); CALCIUM 8.8 mg/dl (8.5-10.1); CARBON DIOXIDE 32 mmol/L (21-32); CREATININE 1.05 mg/dl (0.60-1.40); GLUCOSE 89 mg/dl (70-99); POTASSIUM 3.4 mmol/L (3.5-5.1); SODIUM 142 mmol/L (136-145)
== END ==
LOC: C.LABUPNIT 07:45
PROVIDERS: ATTEND Nurse Practitioner Family
DX: I50.9 Heart failure, unspecified (principal)

== ENCOUNTER → 2018-02-24 | Outpatient (CLI) | payer OTHER ==
[2018-02-24 09:34] LABS: BLOOD UREA NITROGEN 25 mg/dl (7-18); CALCIUM 8.8 mg/dl (8.5-10.1); CARBON DIOXIDE 33 mmol/L (21-32); CREATININE 1.08 mg/dl (0.60-1.40); GLUCOSE 83 mg/dl (70-99); POTASSIUM 3.3 mmol/L (3.5-5.1); SODIUM 143 mmol/L (136-145)
== END ==
LOC: C.LABUPNIT 08:58
PROVIDERS: ATTEND Nurse Practitioner Family
DX: E11.21 Type 2 diabetes mellitus with diabetic nephropathy (principal)

== ENCOUNTER 2019-12-15 12:16 | Inpatient (IN) ==
[2019-12-15] MEDS ORDERED: SODIUM CHLORIDE 0.9% 500 ML IV ONE (13:15)
[2019-12-15] MEDS ORDERED: ACETAMINOPHEN 500 MG TAB PO STA (13:15)
[2019-12-15] MEDS ORDERED: fentaNYL citrate 100 MCG/2 ML VIAL IV STA (13:15)
[2019-12-15] MEDS ORDERED: PIPERACILL/TAZOBAC CONSULT ACTIVE PRN ×2 (13:18→19:41)
[2019-12-15] MEDS ORDERED: PIPERACILLIN/TAZOBACTAM 4.5 GM/120 ML BAG IV ONE (13:18)
--- NOTE | 2019-12-15 13:32 | Emergency Department Note ---
Impression & Plan Fall, Contusion of knee, right ED Provider Note Provider: Joseph Rangel MD DATE OF SERVICE: 12/15/2019 CHIEF COMPLAINT: Fall, rectal bleeding, scrotal pannicular pain HISTORY OF PRESENT ILLNESS: Patient is a 59-year-old gentleman with past medical history including atrial fibrillation on Coumadin, gout, diabetes, spina bifida, TIA, hypertension, lymphedema, CAD, GERD, and large pannus following with the wound clinic presenting today from home via ambulance. Patient states that he has several complaints. States that for the past several weeks he has had some more difficulty getting around and suffered a fall approximately 4 days ago his right leg gave out. States he was getting ready to the bath was somewhat difficult given his habitus. Complains of little bit of right leg pain and a bruise in his right knee. Patient states both of his legs feel heavy. Does not believe he struck his head during this denies a headache at this time. States he has some diffuse pain the rest of his lower abdomen and body but particularly in a large pannus that extends below his knees. Has been having wound care with this. States that home nursing detected a fever today they visited him every other day and just detected it today. He reports that they stated that it looks more red and irritated and somewhat swollen in the lower pannus into the scrotal area. Has been putting some nystatin powder and creams in the inguinal areas which did not with a rash there. States been wiping and noted some blood in the toilet paper no blood in the toilet denies having a bloody bowel movement. Is on Eliquis. Patient states he has had some urinary frequency but has not actually been able to urinate very much. Patient states a distant history of UTI. Patient states the tramadol he is been using at home for pain is not particularly helping. REVIEW OF SYSTEMS: A total of 10 review of systems was obtained and negative except as stated above in the HPI. PAST MEDICAL HISTORY: As noted above MEDICATIONS: Reviewed medication list include significantly insulin, Eliquis SOCIAL HISTORY: Lives alone in [place], non-smoker PHYSICAL EXAM: GENERAL: alert and oriented in no acute distress on stretcher Head: normocephalic and atraumatic EYES: No injection, discharge or icterus. PERRL NECK: Trachea midline. Supple. ENT: Mucous membranes pink and moist. LUNGS: Airway patent. No retractions. Breath sounds diminished due to habitus HEART: Regular rate and rhythm. No chest wall tenderness ABDOMEN: Soft and non-tender, without guarding or rebound over the upper abdomen, a large abdominal pannus extends below the knees and the more distal portion is swollen and erythematous. Some slightly clear serous discharge is noted here. Bandaging was in place over this. : With RN factory maintenance technician patient was rolled and some scrotal erythema and mild diffuse tenderness appreciated without areas of necrotic tissue noted or crepitus. Hemoccult trace positive some bleeding noted at the anal verge but no bloody or black stools. BACK: No bilateral flank tenderness. SKIN: Acyanotic, warm, dry, without rashes EXTREMITIES: Chronic stasis change of the bilateral lower extremities trace ed mari. Some contusion over the right knee appreciated. No crepitus or obvious deformity here. NEUROLOGICAL: No focal deficits. No aphasia. No facial droop or slurred speech. Intact sensation of the bilateral feet. EKG: Atrial fibrillation at a rate of 86 bpm. Right bundle branch block is noted. No acute ST segment elevation or depressions noted. QTC at 478. CONTINUOUS CARDIAC MONITORING: was ordered and showed a heart rate of 98 bpm in atrial fibrillation Patient's hypertension was referred to the hospitalist [facility] 15. HOSPITAL COURSE: 1255 Patient was first seen and H&P performed. 1435 Patient reassessed and updated. Patient was using the bedside commode just having gas. 1652 patient was updated with findings and recommendation for further care here. 1658 discussed with the hospitalist service for further evaluation as an inpatient. Patient's laboratory studies and imaging reviewed. Differential includes Viral syndrome, otitis, pharyngitis, pneumonia, influenza, meningitis, urinary tract infection, sepsis, bacteremia, traumatic injury, panniculitis, scrotal infection, GI bleed as well as other pathologies. IMPRESSION/MEDICAL DECISION MAKING: No sick contacts with respiratory symptoms of low suspicion for coronavirus at this time. Fall several days ago and is on Eliquis. Complains of some leg heaviness since then some diffuse lower body and back pain. Lower suspicion for fracture but given the continued complaints and the fact that he is on Eliquis, CT head cervical spine, lumbar spine, chest abdomen pelvis was ordered. Knee x- ray was also completed. Laboratory studies ordered including culture and lactate. Febrile here. Given some Tylenol some fentanyl for pain. Does have some trace rectal blood noted more from the anal verge than actual bright red b lood in the stool. No bright red stools reported. Is on a blood thinner. Wonder if this is more related to irritation of the skin area rather than true GI bleed. Not tachycardic or hypotensive here. Empirically given Zosyn and vancomycin. The pannus is erythematous without purulent discharge but with the tenderness concern for infection this does extend over the scrotal area. No crepitus in 40s is considered initially less likely but included in the differential. . Leukocytosis of 14.7 noted with a CRP of 28 and a pro calcitonin 3.1. Lactate of 1.6. Acute kidney injury with a creatinine of 1.7 noted. Given additional IV fluid. CT scan shows no evidence acute intracranial, cervical, or lumbar fractures. CT the chest without acute pathology. CT the abdomen pelvis including the pannus shows no evidence of fracture or intra-abdominal intrapelvic abnormality. The large pannus shows evidence of subcutaneous edema concerning for cellulitis without evidence of drainable collection. Reactive lymphadenopathy is noted. Given lack of abscess requiring debridement feel that medical treatment at this time with antibiotics is reasonable and can be accomplished here. Discussed with the [facility] hospitalist team who will evaluate for admission. Patient has been hemodynamically stable while here in ED. Patient updated. DIAGNOSIS: Fever, fall, right knee contusion, panniculitis DISPOSITION: Hospitalist will evaluate Patient was agreeable with this plan. 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, with long-term current use of insulin (Chronic) Diabetic neuropathy (Chronic) Diabetic retinopathy (Chronic) Dyslipidemia (Chronic) GERD (gastroesophageal reflux disease) (Chronic) Glaucoma (Chronic) Gout (Resolved) Hearing loss of left ear (Chronic) History of chronic atrial fibrillation (Resolved) History of TIA (transient ischemic attack) (Chronic) HTN (hypertension) (Chronic) Hyperlipidemia Lymphedema (Chronic) Major depressive disorder (Chronic) Myocardial infarction H/o 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 MICAH (obstructive sleep apnea) (Chronic) Presence of bare metal stent in right coronary artery (Chronic) Sepsis (Resolved) Spina bifida (Chronic) Vitamin D deficiency (Chronic) Surgical History H/O cardiac catheterization H/O colonoscopy H/O nasal septoplasty Hx of tonsillectomy (Resolved) Previous back surgery (Resolved) S/P cholecystectomy (Resolved) Status post uvulopalatopharyngoplasty (Resolved) Family History Mother Coronary heart disease Diabetes Hypertension Social History Preferred Language: Kyr[place]z Communication Ability: Effective Visual Impairment: Limited Hearing Ability: Hard of Hearing Quality Control Representative Required: No Beliefs That Will Affect Care: None marital status: Single Current Living Situation: Alone current occupational status: disabled Feels Safe at Home: Yes Smoking Status: Former smoker Tobacco Type: cigarettes ; packs per day: 1 ; Second Hand Exposure: No ; Hx Alcohol Use: No Hx Substance Use: No Childhood Exposure to Second-Hand Smoke: No Allergies Allergies Allergy/AdvReac Type Severity Reaction Status Date / Time AVIVA Inhibitors Allergy Unknown . Unverified 12/15/19 14:28 Bactrim Allergy Unknown . Unverified 12/06/17 15:09 sulfamethoxazole Allergy Unknown . Unverified 12/15/19 14:28 trimethoprim Allergy Unknown . Unverified 12/15/19 14:28 Home Meds Home Medications Medication Instructions Recorded Confirmed apixaban 5 mg tablet 5 mg PO BID 09/24/18 12/15/19 aspirin 81 mg tablet,delayed 81 mg PO QAM 09/24/18 12/15/19 release atorvastatin 40 mg tablet 40 mg PO HS 09/24/18 12/15/19 carvedilol 6.25 mg tablet 6.25 mg PO BID 09/24/18 12/15/19 cholecalciferol (vitamin D3) 100 4,000 units PO QAM 09/24/18 12/15/19 mcg (4,000 unit) capsule cyclobenzaprine 5 mg tablet 5 mg PO BID PRN tab 09/24/18 12/15/19 doxazosin 2 mg tablet 2 mg PO HS 09/24/18 12/15/19 glucagon HCl 1 mg/mL solution for 1 mg SQ Q20M PRN 09/24/18 12/15/19 injection lactobacillus combination no.8 3 3,000 mmu cells PO QAM 09/24/18 12/15/19 billion cell capsule latanoprost 0.005 % eye drops 1 drops OP HS 09/24/18 12/15/19 nitroglycerin 0.4 mg sublingual 0.4 mg SL Q5M PRN 09/24/18 12/15/19 tablet olmesartan 40 mg tablet 40 mg PO QAM 09/24/18 12/15/19 ondansetron HCl 4 mg tablet 4 mg PO QID PRN 09/24/18 12/15/19 potassium chloride 10 mEq 10 meq PO BID 09/24/18 12/15/19 capsule,extended release torsemide 20 mg tablet 40 mg PO BID tab 09/24/18 12/15/19 tramadol 50 mg tablet 50 mg PO Q6H PRN 09/24/18 12/15/19 trazodone 100 mg tablet 100 mg PO HS PRN 09/24/18 12/15/19 allopurinol 100 mg tablet 100 mg PO QAM 02/04/19 12/15/19 allopurinol 300 mg tablet 300 mg PO QAM 02/04/19 12/15/19 loratadine 10 mg disintegrating 10 mg PO DAILY PRN 02/04/19 12/15/19 tablet semaglutide 0.5 mg SQ FR ml 02/04/19 12/15/19 insulin glargine [Basaglar KwikPen 50 unit SUBCUT QAM 12/15/19 12/15/19 U-100 Insulin] iron,carbonyl-vitamin C [Vitron-C] 1 tab PO BID 12/15/19 12/15/19 lanolin carnbur-gp-g.pet-ceres 1 applic TOPICAL AMHS PRN 12/15/19 12/15/19 [Eucerin] metformin 1,000 mg PO BID 12/15/19 12/15/19 propylene glycol-glycerin 1 drp OPHTHALMIC (EYE) DAILY PRN 12/15/19 12/15/19 sennosides [Senna Lax] 8.6 mg PO DAILY 12/15/19 12/15/19 Results & Data (ED) Vital Signs Vital Signs - 24 hr 12/15/19 12:22 12/15/19 12:31 12/15/19 12:40 Temperature Temperature Source Pulse Rate 84 86 85 Pulse Rate from SpO2 Sensor Respiratory Rate 17 16 20 Blood Pressure 131/74 Blood Pressure Mean 90 Pulse Oximetry Oxygen Delivery Method Sepsis Recent Fever Within 48 Hours Sepsis New/Unexplained Change in Mental Status Sepsis Action Taken by Nursing 12/15/19 12:45 12/15/19 12:50 12/15/19 13:00 Temperature 38.3 C H Temperature Source Oral Pulse Rate 91 H 93 H 96 H Pulse Rate from SpO2 Sensor 88 93 H Respiratory Rate 18 22 15 Blood Pressure 131/74 Blood Pressure Mean 93 Pulse Oximetry 98 100 100 Oxygen Delivery Method Room Air Sepsis Recent Fever Within 48 Hours Yes Sepsis New/Unexplained Change in Mental Status No Sepsis Action Taken by Nursing No Action Required 12/15/19 13:10 12/15/19 13:20 12/15/19 13:28 Temperature Temperature Source Pulse Rate 102 H 96 H Pulse Rate from SpO2 Sensor Respiratory Rate 18 24 Blood Pressure Blood Pressure Mean Pulse Oximetry 98 Oxygen Delivery Method Room Air Sepsis Recent Fever Within 48 Hours Sepsis New/Unexplained Change in Mental Status Sepsis Action Taken by Nursing 12/15/19 13:30 12/15/19 13:40 12/15/19 13:50 Temperature Temperature Source Pulse Rate 94 H 94 H 95 H Pulse Rate from SpO2 Sensor 86 Respiratory Rate 20 16 24 Blood Pressure Blood Pressure Mean Pulse Oximetry 84 L Oxygen Delivery Method Sepsis Recent Fever Within 48 Hours Sepsis New/Unexplained Change in Mental Status Sepsis Action Taken by Nursing 12/15/19 14:00 12/15/19 14:10 12/15/19 14:20 Temperature Temperature Source Pulse Rate 96 H 93 H 96 H Pulse Rate from SpO2 Sensor 91 H 182 H 96 H Respiratory Rate 15 16 13 Blood Pressure Blood Pressure Mean Pulse Oximetry 99 98 98 Oxygen Delivery Method Sepsis Recent Fever Within 48 Hours Sepsis New/Unexplained Change in Mental Status Sepsis Action Taken by Nursing 12/15/19 14:30 12/15/19 15:06 12/15/19 15:07 Temperature Temperature Source Pulse Rate 88 94 H 91 H Pulse Rate from SpO2 Sensor 95 H 98 H 92 H Respiratory Rate 22 27 H 26 H Blood Pressure 135/62 Blood Pressure Mean 90 Pulse Oximetry 99 99 98 Oxygen Delivery Method Sepsis Recent Fever Within 48 Hours Sepsis New/Unexplained Change in Mental Status Sepsis Action Taken by Nursing 12/15/19 15:10 12/15/19 15:20 12/15/19 15:30 Temperature Temperature Source Pulse Rate 94 H 93 H 86 Pulse Rate from SpO2 Sensor 89 93 H 143 H Respiratory Rate 21 24 23 Blood Pressure Blood Pressure Mean Pulse Oximetry 98 98 98 Oxygen Delivery Method Sepsis Recent Fever Within 48 Hours Sepsis New/Unexplained Change in Mental Status Sepsis Action Taken by Nursing 12/15/19 16:11 12/15/19 16:13 12/15/19 16:14 Temperature Temperature Source Pulse Rate 80 81 88 Pulse Rate from SpO2 Sensor 161 H 143 H 90 Respiratory Rate 20 26 H 23 Blood Pressure Blood Pressure Mean Pulse Oximetry 97 95 98 Oxygen Delivery Method Sepsis Recent Fever Within 48 Hours Sepsis New/Unexplained Change in Mental Status Sepsis Action Taken by Nursing 12/15/19 16:15 12/15/19 16:16 12/15/19 16:17 Temperature Temperature Source Pulse Rate 88 82 82 Pulse Rate from SpO2 Sensor 90 81 86 Respiratory Rate 31 H 20 20 Blood Pressure Blood Pressure Mean Pulse Oximetry 96 97 97 Oxygen Delivery Method Sepsis Recent Fever Within 48 Hours Sepsis New/Unexplained Change in Mental Status Sepsis Action Taken by Nursing 12/15/19 16:19 12/15/19 16:20 12/15/19 16:30 Temperature Temperature Source Pulse Rate 95 H 81 91 H Pulse Rate from SpO2 Sensor 89 84 89 Respiratory Rate 20 24 25 H Blood Pressure 135/75 Blood Pressure Mean 92 Pulse Oximetry 96 97 98 Oxygen Delivery Method Room Air Sepsis Recent Fever Within 48 Hours Sepsis New/Unexplained Change in Mental Status Sepsis Action Taken by Nursing 12/15/19 16:36 12/15/19 16:40 12/15/19 16:41 Temperature Temperature Source Pulse Rate 83 81 86 Pulse Rate from SpO2 Sensor 89 83 91 H Respiratory Rate 20 29 H 25 H Blood Pressure 113/64 119/63 Blood Pressure Mean 86 75 Pulse Oximetry 99 100 98 Oxygen Delivery Method Room Air Room Air Room Air Sepsis Recent Fever Within 48 Hours Sepsis New/Unexplained Change in Mental Status Sepsis Action Taken by Nursing 12/15/19 16:45 12/15/19 16:50 12/15/19 16:51 Temperature Temperature Source Pulse Rate 89 84 92 H Pulse Rate from SpO2 Sensor 85 90 90 Respiratory Rate 27 H 25 H 28 H Blood Pressure 112/67 116/50 L Blood Pressure Mean 74 66 Pulse Oximetry 98 98 97 Oxygen Delivery Method Room Air Room Air Room Air Sepsis Recent Fever Within 48 Hours Sepsis New/Unexplained Change in Mental Status Sepsis Action Taken by Nursing 12/15/19 16:55 12/15/19 17:00 12/15/19 17:01 Temperature Temperature Source Pulse Rate 85 91 H 94 H Pulse Rate from SpO2 Sensor 88 90 93 H Respiratory Rate 19 25 H 20 Blood Pressure 111/67 116/78 Blood Pressure Mean 71 98 Pulse Oximetry 99 100 99 Oxygen Delivery Method Room Air Room Air Room Air Sepsis Recent Fever Within 48 Hours Sepsis New/Unexplained Change in Mental Status Sepsis Action Taken by Nursing 12/15/19 17:05 12/15/19 17:10 Temperature Temperature Source Pulse Rate 88 88 Pulse Rate from SpO2 Sensor 89 88 Respiratory Rate 16 21 Blood Pressure 131/85 134/89 Blood Pressure Mean 89 104 Pulse Oximetry 100 100 Oxygen Delivery Method Room Air Room Air Sepsis Recent Fever Within 48 Hours Sepsis New/Unexplained Change in Mental Status Sepsis Action Taken by Nursing Laboratory Data Result diagrams: 12/15/19 12:40 12/15/19 12:40 Lab Results 12/15/19 12/15/19 12/15/19 Range/Units 12:40 12:40 12:40 WBC 14.70 H (4.8-10.8) K/uL RBC 3.72 L (4.7-6.1) M/uL Hgb 9.2 L (14.0-18.0) g/dL Hct 28.9 L (42-52) % MCV 77.7 L (80-100) fL MCH 24.7 L (25-34) pg MCHC 31.8 L (32-36) g/dL RDW Std Deviation 49.6 H (36.4-46.3) fL RDW Coeff of Selvin 17.4 H (11.5-14.5) % Plt Count 218 (130-400) K/uL MPV 10.3 (7.4-10.4) fL Immature Gran % (Auto) 0.5 % Neut % (Auto) 90.4 % Lymph % (Auto) 3.5 % [place] % (Auto) 5.4 % Eos % (Auto) 0.1 % Baso % (Auto) 0.1 % Immature Gran # (Auto) 0.07 H (0.00-0.02) K/uL Neut # (Auto) 13.28 H (1.4-6.5) K/uL Lymph # (Auto) 0.52 L (1.2-3.4) K/uL [place] # (Auto) 0.80 H (0.11-0.59) K/uL Eos # (Auto) 0.01 (0-0.5) K/uL Baso # (Auto) 0.02 (0-0.2) K/uL PT 12.4 H (9.0-12.0) Seconds INR 1.2 H (0.9-1.1) APTT 35.6 H (21.0-31.0) Seconds PTT Ratio 1.3 Sodium 135 L (136-145) mmol/L Potassium 4.1 (3.5-5.1) mmol/L Chloride 103 (98-107) mmol/L Carbon Dioxide 25 (21-32) mmol/L Anion Gap 7.0 (3-11) BUN 39 H (7-18) mg/dl Creatinine 1.72 H (0.6-1.4) mg/dl Est Cr Clr Drug Dosing 79.6 ml/min Est GFR ( Amer) 49.7 Est GFR (Non-Af Amer) 42.9 BUN/Creatinine Ratio 22.8 H (10-20) Glucose 116 H (70-99) mg/dl Lactate (0.4-2.0) mmol/L Calcium 8.9 (8.5-10.1) mg/dl Magnesium 2.1 (1.8-2.4) mg/dl Total Bilirubin 2.4 H (0.2-1) mg/dl AST 37 (15-37) U/L ALT 21 (12-78) U/L Alkaline Phosphatase 106 (45-117) U/L Troponin I < 0.015 (0-0.045) ng/ml C-Reactive Protein 28.20 H (0-0.29) mg/dl Total Protein 7.7 (6.4-8.2) gm/dl Albumin 2.6 L (3.4-5.0) gm/dl Globulin 5.1 H (2.5-4.0) gm/dl Albumin/Globulin Ratio 0.5 L (0.9-2) Lipase 114 (73-393) U/L Procalcitonin (0-0.5) ng/ml 12/15/19 12/15/19 Range/Units 13:48 13:48 WBC (4.8-10.8) K/uL RBC (4.7-6.1) M/uL Hgb (14.0-18.0) g/dL Hct (42-52) % MCV (80-100) fL MCH (25-34) pg MCHC (32-36) g/dL RDW Std Deviation (36.4-46.3) fL RDW Coeff of Selvin (11.5-14.5) % Plt Count (130-400) K/uL MPV (7.4-10.4) fL Immature Gran % (Auto) % Neut % (Auto) % Lymph % (Auto) % [place] % (Auto) % Eos % (Auto) % Baso % (Auto) % Immature Gran # (Auto) (0.00-0.02) K/uL Neut # (Auto) (1.4-6.5) K/uL Lymph # (Auto) (1.2-3.4) K/uL [place] # (Auto) (0.11-0.59) K/uL Eos # (Auto) (0-0.5) K/uL Baso # (Auto) (0-0.2) K/uL PT (9.0-12.0) Seconds INR (0.9-1.1) APTT (21.0-31.0) Seconds PTT Ratio Sodium (136-145) mmol/L Potassium (3.5-5.1) mmol/L Chloride (98-107) mmol/L Carbon Dioxide (21-32) mmol/L Anion Gap (3-11) BUN (7-18) mg/dl Creatinine (0.6-1.4) mg/dl Est Cr Clr Drug Dosing ml/min Est GFR ( Amer) Est GFR (Non-Af Amer) BUN/Creatinine Ratio (10-20) Glucose (70-99) mg/dl Lactate 1.6 (0.4-2.0) mmol/L Calcium (8.5-10.1) mg/dl Magnesium (1.8-2.4) mg/dl Total Bilirubin (0.2-1) mg/dl AST (15-37) U/L ALT (12-78) U/L Alkaline Phosphatase (45-117) U/L Troponin I (0-0.045) ng/ml C-Reactive Protein (0-0.29) mg/dl Total Protein (6.4-8.2) gm/dl Albumin (3.4-5.0) gm/dl Globulin (2.5-4.0) gm/dl Albumin/Globulin Ratio (0.9-2) Lipase (73-393) U/L Procalcitonin 3.18 H (0-0.5) ng/ml Administered Medications Discontinued Medications Acetaminophen (Tylenol) 1,000 mg PO NOW STA Stop: 12/15/19 13:16 Last Admin: 12/15/19 13:41 Dose: 1,000 mg Documented by: [id number] Fentanyl Citrate (Fentanyl Citrate) 50 mcg IV NOW STA Stop: 12/15/19 13:16 Last Admin: 12/15/19 13:41 Dose: 50 mcg Documented by: [id number] Sodium Chloride (Nss) 500 mls @ 999 mls/hr IV .Q31M ONE Stop: 12/15/19 13:45 Last Infusion: 12/15/19 14:16 Dose: 0 mls/hr Documented by: [id number] Admin: 12/15/19 13:42 Dose: 999 mls/hr Documented by: [id number] Piperacillin Sod/Tazobactam Sod (Zosyn) 4.5 gm in 120 mls @ 240 mls/hr IV NOW ONE Stop: 12/15/19 13:47 Last Infusion: 12/15/19 14:48 Dose: 0 mls/hr Documented by: [id number] Admin: 12/15/19 14:10 Dose: 240 mls/hr Documented by: [id number] Lactated Ringer's (Lr) 1,000 mls @ 999 mls/hr IV .Q1H1M ONE Stop: 12/15/19 14:57 Last Infusion: 12/15/19 16:27 Dose: 0 mls/hr Documented by: [id number] Admin: 12/15/19 15:09 Dose: 999 mls/hr Documented by: [id number] Vancomycin HCl 2,750 mg/ (Sodium Chloride) 555 mls @ 200 mls/hr IV NOW ONE Stop: 12/15/19 17:55 Last Infusion: 12/15/19 19:11 Dose: 0 mls/hr Documented by: [id number] Admin: 12/15/19 16:20 Dose: 200 mls/hr Documented by: [id number] Ioversol (Optiray 320 125ml) 120 ml IV ONCE PRN PRN Reason: Interaction Checking Stop: 12/19/19 15:50 Last Admin: 12/15/19 15:52 Dose: 120 ml Documented by: [id number] Discharge Plan Visit Data *Final* Discharge Date/Time: 12/15/19 18:38 Chief Complaint: Illness Stated Complaint: rectal pain ED Provider: Joseph Rangel Discharge Problem: Fall, Contusion of knee, right Patient Disposition: Admitted As Inpatient Discharge Instructions Interventions: ED Discharge Assessment Last Done: 12/15/19 18:38 Discharge Problem: Fall Qualifiers: Encounter type: initial encounter Qualified Code(s): W19.XXXA - Unspecified fall, initial encounter Contusion of knee, right Qualifiers: Encounter type: initial encounter Qualified Code(s): S80.01XA - Contusion of right knee, initial encounter
[2019-12-15 13:36] LABS: Basophils # (auto) 0.02 K/uL (0-0.2); Basophils % (auto) 0.1 %; Eosinophils # (auto) 0.01 K/uL (0-0.5); Eosinophils % (auto) 0.1 %; Hematocrit (blood only) 28.9 % (42-52); Hemoglobin 9.2 g/dL (14.0-18.0); Immature Granulocytes # (auto) 0.07 K/uL (0.00-0.02); Immature Granulocytes % (auto) 0.5 %; Lymphocytes # (auto) 0.52 K/uL (1.2-3.4); Lymphocytes % (auto) 3.5 %; Mean Corpuscular Hemoglobin 24.7 pg (25-34); Mean Corpuscular Hgb Conc 31.8 g/dL (32-36); Mean Corpuscular Volume 77.7 fL (80-100); Mean Platelet Volume 10.3 fL (7.4-10.4); Monocytes % (auto) 5.4 %; Neutrophils # (auto) 13.28 K/uL (1.4-6.5); Neutrophils % (auto) 90.4 %; Platelet Count 218 K/uL (130-400); RDW Coefficient of Variation 17.4 % (11.5-14.5); RDW Standard Deviation 49.6 fL (36.4-46.3); Red Blood Count 3.72 M/uL (4.7-6.1)
[2019-12-15 13:45] LABS: Alanine Aminotransferase 21 U/L (12-78); Albumin Level 2.6 gm/dl (3.4-5.0); Aspartate Aminotransferase 37 U/L (15-37); BUN Creatinine Ratio 22.8 (10-20); Blood Urea Nitrogen 39 mg/dl (7-18); Calcium 8.9 mg/dl (8.5-10.1); Carbon Dioxide 25 mmol/L (21-32); Chloride 103 mmol/L (98-107); Creatinine Clr Calc Pharmacy 79.6 ml/min; Est GFR (African American) 49.7; Est GFR (Non-African American) 42.9; Glucose 116 mg/dl (70-99); Lipase 114 U/L (73-393); Magnesium 2.1 mg/dl (1.8-2.4); Potassium 4.1 mmol/L (3.5-5.1); Sodium 135 mmol/L (136-145)
--- NOTE | 2019-12-15 13:46 | XRay Report ---
XR chest 1V portable CLINICAL HISTORY: Sepsis. COMPARISON STUDY: Chest radiograph October 24, 2017. FINDINGS: Lung volumes are normal. There is no pneumothorax or pleural effusion. There is moderate en largement of the cardiac silhouette. There is no evidence for pulmonary edema. No consolidation is id entified. IMPRESSION: 1. No acute findings. 2. Moderate enlargement of the cardiac silhouette, accentuated by technique. ACT 112: Negative or not required by law. Electronically signed by: Laureano Tucker M.D. 12/15/2019 1:45 PM
[2019-12-15 13:47] LABS: INR 1.2 (0.9-1.1); Partial Thromboplastin Ratio 1.3; Partial Thromboplastin Time 35.6 Seconds (21.0-31.0); Prothrombin Time 12.4 Seconds (9.0-12.0)
--- NOTE | 2019-12-15 13:48 | XRay Report ---
XR knee RT 3V CLINICAL HISTORY: Right knee pain following fall. COMPARISON: None FINDINGS: Alignment of the right knee is anatomic. No acute fracture or joint effusion is noted. Pos itioning was somewhat difficult. Tricompartmental osteophytosis within the right knee is noted. IMPRESSION: 1. No acute fracture or joint effusion within the right knee. 2. Mild to moderate right knee osteoarthritis. ACT 112: Negative or not required by law. Electronically signed by: Laureano Tucker M.D. 12/15/2019 1:46 PM
[2019-12-15 13:54] LABS: Albumin Globulin Ratio 0.5 (0.9-2); Alkaline Phosphatase 106 U/L (45-117); Bilirubin,Total 2.4 mg/dl (0.2-1); Globulin 5.1 gm/dl (2.5-4.0); Total Protein 7.7 gm/dl (6.4-8.2); Troponin I < 0.015 ng/ml (0-0.045)
[2019-12-15] MEDS ORDERED: LACTATED RINGER'S 1,000 ML IV ONE (13:57)
[2019-12-15] MEDS ORDERED: VANCOMYCIN CONSULT ACTIVE PRN (15:02)
[2019-12-15] MEDS ORDERED: VANCOMYCIN HCL 2,750 MG in SODIUM CHLORIDE 0.9% 500 ML IV ONE (15:02)
[2019-12-15] MEDS ORDERED: OPTIRAY 320 125ml IV PRN (15:51)
--- NOTE | 2019-12-15 16:13 | CT Scan Report ---
CT cervical spine wo con CT DOSE: 8739.00 mGy.cm CLINICAL HISTORY: 59 years-old Male with fall. Acute head and neck injury status post fall COMPARISON: Head CT of same day TECHNIQUE: Multiple axial CT images of the cervical spine were obtained without contrast. A dose low ering technique was utilized adhering to the principles of ALARA. FINDINGS: Moderate multilevel spondylitic spurring with mild multilevel intervertebral disc space narrowing and at least moderate facet arthrosis. No acute fracture or subluxation. Mild convex right curvature. Ev aluation of the central canal and neuroforamina is better assessed by MRI. Multilevel foraminal narro wing is noted. Lung apices are clear. Mediastinal lipomatosis. No prevertebral soft tissue swelling. Streak artifact from dental amalgam hardware. IMPRESSION: No acute cervical spine fracture or subluxation. ACT 112: Negative or not required by law. The above report was generated using voice recognition software. It may contain grammatical, syntax o r spelling errors. Electronically signed by: Jayme Meng M.D. 12/15/2019 4:11 PM
--- NOTE | 2019-12-15 16:13 | CT Scan Report ---
CT head/brain wo con CLINICAL HISTORY: 59 years-old Male with fall. Acute head and neck injury status post fall TECHNIQUE: Multiple axial CT images of the head were obtained without contrast. A dose lowering tech nique was utilized adhering to the principles of ALARA. COMPARISON: CT cervical spine of same day, head CT 12/06/2017 FINDINGS: No acute intracranial hemorrhage, midline shift, intracranial mass, hydrocephalus, territorial ischem ia or abnormal extra-axial collection. Mild patchy white matter hypodensities suggest chronic microva scular ischemic disease. Cerebral vascular calcifications. Study is mildly motion degraded. The calvarium is intact. Hyperostosis frontalis interna. Soft tissues and orbits are unremarkable. Th e paranasal sinuses, mastoid air cells, and middle ear cavities are clear. IMPRESSION: No acute intracranial abnormality or calvarial fracture. ACT 112: Negative or not required by law. The above report was generated using voice recognition software. It may contain grammatical, syntax o r spelling errors. Electronically signed by: Jayme Meng M.D. 12/15/2019 4:08 PM
--- NOTE | 2019-12-15 16:19 | CT Scan Report ---
LUMBAR SPINE CT CT DOSE: HISTORY: fall TECHNIQUE: Multiaxial CT images of the lumbar spine were performed and reformatted in the sagittal an d coronal plane without the use of contrast. A dose lowering technique was utilized adhering to the principles of ALARA. COMPARISON: Outside hospital abdomen and pelvis CT 03/02/2017. FINDINGS: No acute fracture or subluxation. Moderate disc space narrowing at L3-L4. Mild disc space n arrowing at L2-L3 and L4-5. Llcr-eo-mnueaxvr facet degenerative changes within the lumbar spine. Ther e is posterior decompression from L3 through S1. There is a bony strut through the mid aspect of the central canal at the L4-5 level. This remains unchanged and is likely congenital. Moderate to severe central canal narrowing at L3-L4 due to a broad-based posterior disc osteophyte complex. IMPRESSION: 1. No acute fractures within the cervical spine. 2. Postoperative and congenital changes within the lower lumbar spine described above. 3. Moderate to severe central canal narrowing at L3-L4 due to a broad-based posterior disc osteophyte complex. ACT 112: Negative or not required by law. Electronically signed by: Nacho Simmons M.D. 12/15/2019 4:17 PM
--- NOTE | 2019-12-15 16:29 | CT Scan Report ---
CHEST CT WITH CONTRAST CT DOSE: HISTORY: fall TECHNIQUE: Multiaxial CT images of the chest were performed following the intravenous administration of contrast. A dose lowering technique was utilized adhering to the principles of ALARA. COMPARISON: None. FINDINGS: No fractures within the visualized osseous structures of the chest. No mediastinal hematoma . Small pericardial effusion. The heart is normal in size. Normal caliber thoracic aorta with no evid ence for dissection. Moderate calcified plaque within the coronary arteries. The central pulmonary ar teries are patent. Normal esophagus. No mediastinal hematoma or lymphadenopathy. No pleural effusions . Epidural calcifications within the thoracic spine and is likely chronic. Please refer to the same d ay abdomen and pelvis CT for further evaluation of the abdominal structures. Mild bilateral gynecomas tia. No pneumothorax. The central airways are patent. A few scattered punctate calcified granulomas s een throughout the lungs. IMPRESSION: 1. Small pericardial effusion. 2. Otherwise, no acute traumatic process within the chest. ACT 112: Negative or not required by law. Electronically signed by: Nacho Simmons M.D. 12/15/2019 4:28 PM
--- NOTE | 2019-12-15 16:34 | CT Scan Report ---
ABDOMEN AND PELVIS CT WITH IV CONTRAST HISTORY: Acute abdominal trauma status post fall fall, pannus pain and erythema, fever TECHNIQUE: Multiaxial CT images of the abdomen and pelvis were performed following the IV administrat ion of 120 cc of Optiray 320, A dose lowering technique was utilized adhering to the principles of A CHARLES. COMPARISON STUDY: CT chest of same day, CT abdomen and pelvis 03/02/2017 FINDINGS: Limited exam secondary to patient body habitus. Portions of the patient's anatomy extend outside the field of view. Cardiomegaly. Small pericardial effusion. Clear lung bases. No pneumatosis or pneumope ritoneum identified. Intrahepatic and extrahepatic pneumobilia is noted compatible with prior single carotid knee. Cholecystectomy. Hepatomegaly with suggestion of probable hepatic steatosis. Unremarkab le spleen. Pancreas and adrenal glands are unremarkable. Kidneys are within normal limits. Mild urina ry bladder distention. Calcific plaque of the abdominal aorta. No bowel obstruction or bowel wall thickening. Moderate fecal retention. There is a large pannus whic h extends inferiorly. A large amount of skin thickening with subcutaneous edema is again noted within this distribution which appears similar to the 2017 exam. Enlarged bilateral inguinal chain lymph no thompson measure up to approximately 1.46 cm in short axis. These are noted within the bilateral lower extremities. Calcifications of the posterior thecal sac ar e noted at the level of the lower thoracic spine, nonspecific. There is a minimal retained radiopaque linear device noted projecting over the posterior elements of the lumbar spine at L4. Large posterio r disc osteophyte complex at L3-L4. No acute fracture identified. IMPRESSION: 1. No acute posttraumatic intra-abdominal or intrapelvic abnormality identified. 2. No acute fracture. 3. Large lower abdominal wall pannus is again noted extending inferiorly below the level of the knees . Extensive associated skin thickening with subcutaneous edema is suggestive of cellulitis, similar t o the 2017 exam. No drainable fluid collection. 4. Bilateral inguinal chain adenopathy, likely reactive. 5. Additional findings as above. ACT 112: Negative or not required by law. The above report was generated using voice recognition software. It may contain grammatical, syntax o r spelling errors. Electronically signed by: Jayme Meng M.D. 12/15/2019 4:33 PM
--- NOTE | 2019-12-15 18:04 | History & Physical Report ---
Date of Service December 15, 2019 Assessment & Plan (1) Sepsis: (2) Cellulitis: (3) Abdominal pannus: This is a 59yo M with a PMH of DM II, atrial fibrillation on anticoagulation, spina bifida, gout, HTN, CAD (s/p stent) and large pannus following with the wound clinic who presents with pain of abdomen/pannus as well as generalized weakness and was found to have sepsis 2/2 cellulitis of pannus and acute kidney injury. -Increased pain, erythema and edema in distal pannus and scrotal area -Leukocytosis of 14.7, febrile at 38 C, HR of 95, RR of 25, procalcitonin of 3 -Continue empiric antibiotic coverage with Zosyn and Dapto. Follow cultures -Concern for possible UTI but difficult to obtain UA due to body habitus - receiving broad-spectrum antibiotics -Wound care for pannus. Continue nystatin powder (4) Generalized weakness: (5) Fall: (6) Contusion of knee, right: Deconditioning due to body habitus. PT/OT evaluation. All other CT imaging without acute change or injury (7) Acute kidney injury: Creatinine elevated at 1.7 (baseline ~1). Likely renal cause due to medications. Holding olmesartan and tonight's dose of torsemide. Continue Eliquis as prescribed (does not need to be renally dosed) (8) Diabetes mellitus, type II, insulin dependent: -Hold home agents -Basal/bolus insulin while in-patient -BSG AC HS (9) HTN (hypertension): Holding olmesartan in setting of HARINDER. Continue Carvedilol. May require PRN antihypertensives (10) History of chronic atrial fibrillation: Continue Carvedilol. Continue Eliquis for anticoagulation (11) CAD (coronary artery disease): History of stent placement in 2019. Continue aspirin, statin and carvedilol (12) MICAH (obstructive sleep apnea): CPAP HS DVT Ppx: Eliquis Code status: FULL PCP: Long Dispo: Admit to med tele. Discharge planning ordered. Patient seen in collaboration with Dr. Gallegos. Please see addendum. History of Present Illness Chief Complaint: Generalized weakness, abdominal/scrotal discomfort Primary Care Provider: Kalyn Brar MD This is a 59yo M with a PMH of DM II, atrial fibrillation on anticoagulation, spina bifida, gout, HTN, CAD (s/p stent) and large pannus following with the wound clinic who presents with pain of abdomen/pannus as well as generalized weakness. Patient has noted stinging constant pain of lower pannus and scrotal area for the past few weeks that is worsened. Follows with wound clinic and uses nystatin powder and barrier cream. Home health felt that area was more red and swollen than usual. Also noted more clear/yellow drainage lately and has been applying bandages to the area. Was found to be febrile today by home health but denies any chills or malaise. Also noting generalized weakness over the past few days. Ambulates with walker and wheelchair at baseline but fell onto knees 4 days ago with resulting bruise. Denies any loss of consciousness or head trauma. Feels deconditioned. Also endorses some urinary incontinence over the past few days when he gets up to use the restroom. No dysuria or hematuria noted. Had some BRB on toilet paper after bowel movement yesterday. Recent had bowel regimen adjusted by PCP and is taking senna-docusate daily. Has history of hemorrhoids but has not been experiencing the pain he normally feels. No melena. No lightheadedness, headache, visual changes, chest pain, palpitations, shortness of breath, nausea, vomiting, abdominal pain, or diarrhea. Allergies Allergy/AdvReac Type Severity Reaction Status Date / Time AVIVA Inhibitors Allergy Unknown . Unverified 12/15/19 14:28 Bactrim Allergy Unknown . Unverified 12/06/17 15:09 sulfamethoxazole Allergy Unknown . Unverified 12/15/19 14:28 trimethoprim Allergy Unknown . Unverified 12/15/19 14:28 Home Medications Home Medications Medication Instructions Recorded Confirmed Type apixaban 5 mg tablet 5 mg PO BID 09/24/18 12/15/19 History aspirin 81 mg tablet,delayed 81 mg PO QAM 09/24/18 12/15/19 History release atorvastatin 40 mg tablet 40 mg PO HS 09/24/18 12/15/19 History carvedilol 6.25 mg tablet 6.25 mg PO BID 09/24/18 12/15/19 History cholecalciferol (vitamin D3) 100 4,000 units PO QAM 09/24/18 12/15/19 History mcg (4,000 unit) capsule cyclobenzaprine 5 mg tablet 5 mg PO BID PRN tab 09/24/18 12/15/19 History doxazosin 2 mg tablet 2 mg PO HS 09/24/18 12/15/19 History glucagon HCl 1 mg/mL solution for 1 mg SQ Q20M PRN 09/24/18 12/15/19 History injection lactobacillus combination no.8 3 3,000 mmu cells PO QAM 09/24/18 12/15/19 History billion cell capsule latanoprost 0.005 % eye drops 1 drops OP HS 09/24/18 12/15/19 History nitroglycerin 0.4 mg sublingual 0.4 mg SL Q5M PRN 09/24/18 12/15/19 History tablet olmesartan 40 mg tablet 40 mg PO QAM 09/24/18 12/15/19 History ondansetron HCl 4 mg tablet 4 mg PO QID PRN 09/24/18 12/15/19 History potassium chloride 10 mEq 10 meq PO BID 09/24/18 12/15/19 History capsule,extended release torsemide 20 mg tablet 40 mg PO BID tab 09/24/18 12/15/19 History tramadol 50 mg tablet 50 mg PO Q6H PRN 09/24/18 12/15/19 History trazodone 100 mg tablet 100 mg PO HS PRN 09/24/18 12/15/19 History allopurinol 100 mg tablet 100 mg PO QAM 02/04/19 12/15/19 History allopurinol 300 mg tablet 300 mg PO QAM 02/04/19 12/15/19 History loratadine 10 mg disintegrating 10 mg PO DAILY PRN 02/04/19 12/15/19 History tablet semaglutide 0.5 mg SQ FR ml 02/04/19 12/15/19 History insulin glargine [Basaglar KwikPen 50 unit SUBCUT QAM 12/15/19 12/15/19 History U-100 Insulin] iron,carbonyl-vitamin C [Vitron-C] 1 tab PO BID 12/15/19 12/15/19 History lanolin hssknoz-hu-f.pet-ceres 1 applic TOPICAL AMHS PRN 12/15/19 12/15/19 History [Eucerin] metformin 1,000 mg PO BID 12/15/19 12/15/19 History propylene glycol-glycerin 1 drp OPHTHALMIC (EYE) DAILY PRN 12/15/19 12/15/19 History sennosides [Senna Lax] 8.6 mg PO DAILY 12/15/19 12/15/19 History 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, with long-term current use of insulin (Chronic) Diabetic neuropathy (Chronic) Diabetic retinopathy (Chronic) Dyslipidemia (Chronic) GERD (gastroesophageal reflux disease) (Chronic) Glaucoma (Chronic) Gout (Resolved) Hearing loss of left ear (Chronic) History of chronic atrial fibrillation (Resolved) History of TIA (transient ischemic attack) (Chronic) HTN (hypertension) (Chronic) Hyperlipidemia Lymphedema (Chronic) Major depressive disorder (Chronic) Myocardial infarction H/o 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 MICAH (obstructive sleep apnea) (Chronic) Presence of bare metal stent in right coronary artery (Chronic) Sepsis (Resolved) Spina bifida (Chronic) Vitamin D deficiency (Chronic) Surgical History H/O cardiac catheterization H/O colonoscopy H/O nasal septoplasty Hx of tonsillectomy (Resolved) Previous back surgery (Resolved) S/P cholecystectomy (Resolved) Status post uvulopalatopharyngoplasty (Resolved) Family History Mother Coronary heart disease Diabetes Hypertension Social History Preferred Language: Mohawk Communication Ability: Effective Visual Impairment: Limited Hearing 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 Beliefs That Will Affect Care: None marital status: Single Current Living Situation: Alone Current Living Situation Comment: ine apartment current occupational status: disabled Other Information That Helps Us Care for You: No Feels Safe at Home: Yes Safety Concerns: Feels Safe At This Time Smoking Status: Former smoker Tobacco Type: cigarettes ; packs per day: 1 ; Do You Dip or Chew Tobacco: No ; Second Hand Exposure: No ; Tobacco Cessation Education Requested by Patient: No Hx Alcohol Use: No Hx Substance Use: No Childhood Exposure to Second-Hand Smoke: No Review of Systems Review of Systems: At least ten systems reviewed and negative except as noted in the HPI. Physical Exam Physical Exam: General Appearance: WD/WN, vitals as above, NAD, sitting up in bed, pleasant, conversing easily, morbidly obese Head: normocephalic, atraumatic Eyes: normal inspection, PERRL, conjunctivae normal, anicteric sclerae ENT: external ear and nose normal, oropharynx normal Neck: trachea midline, no thyromegaly normal visual inspection Respiratory: normal respiratory effort, lungs clear to auscultation, no wheeze, rales, rhonchi. Normal insp/exp effort, no accessory muscle use Cardiovascular: regular rate, rhythm, no murmur, normal peripheral pulses. Vessels: no JVD or carotid bruit Abdomen/GI: normal bowel sounds, soft, nontender, no hepatosplenomegaly. Large pannus extending to knees with erythema and edema of distal portion, extending to scrotum. Serous drainage noted with bandages in place Extremities/Musculoskeletal: Hyperpigmentation noted on BLE. No cyanosis or clubbing, extremities motor strength 5/5 Neurologic: PERRL, EOMI, accommodation nl, no face palsy, no dysarthria, CN's II-XI intact bilaterally and moves all extremities Psychiatric: A+Ox3, euthymic affect Skin: no rashes, normal color, warm/dry Results & Data Results & Data ([facility]) Vital Signs (Past 12 Hours) Vital Signs Temp Pulse Resp BP Pulse Ox 12/15/19 17:55 93 H 24 148/94 H 100 12/15/19 17:51 96 H 21 93 12/15/19 17:50 91 H 28 H 131/81 93 12/15/19 17:45 87 24 135/88 100 12/15/19 17:41 94 H 22 152/100 H 100 12/15/19 17:40 91 H 23 100 12/15/19 17:35 94 H 25 H 159/99 H 100 12/15/19 17:31 97 H 26 H 172/93 H 100 12/15/19 17:30 86 23 100 12/15/19 17:25 91 H 23 131/70 100 12/15/19 17:21 90 22 129/68 100 12/15/19 17:20 89 23 100 12/15/19 17:16 83 23 156/89 H 94 12/15/19 17:11 87 24 99 12/15/19 17:10 88 21 134/89 100 12/15/19 17:05 88 16 131/85 100 12/15/19 17:01 94 H 20 116/78 99 12/15/19 17:00 91 H 25 H 100 12/15/19 16:55 85 19 111/67 99 12/15/19 16:51 92 H 28 H 97 12/15/19 16:50 84 25 H 116/50 L 98 12/15/19 16:45 89 27 H 112/67 98 12/15/19 16:41 86 25 H 98 12/15/19 16:40 81 29 H 119/63 100 12/15/19 16:36 83 20 113/64 99 12/15/19 16:30 91 H 25 H 98 12/15/19 16:20 81 24 97 12/15/19 16:19 95 H 20 135/75 96 12/15/19 16:17 82 20 97 12/15/19 16:16 82 20 97 12/15/19 16:15 88 31 H 96 12/15/19 16:14 88 23 98 12/15/19 16:13 81 26 H 95 12/15/19 16:11 80 20 97 12/15/19 15:30 86 23 98 12/15/19 15:20 93 H 24 98 12/15/19 15:10 94 H 21 98 12/15/19 15:07 91 H 26 H 98 12/15/19 15:06 94 H 27 H 135/62 99 12/15/19 14:30 88 22 99 12/15/19 14:20 96 H 13 98 12/15/19 14:10 93 H 16 98 12/15/19 14:00 96 H 15 99 12/15/19 13:50 95 H 24 84 L 12/15/19 13:40 94 H 16 12/15/19 13:30 94 H 20 12/15/19 13:28 98 12/15/19 13:20 96 H 24 06/09/20 13:10 102 H 18 12/15/19 13:00 96 H 15 100 12/15/19 12:50 93 H 22 100 12/15/19 12:45 38.3 C H 91 H 18 131/74 98 12/15/19 12:40 85 20 12/15/19 12:31 86 16 12/15/19 12:22 84 17 131/74 Laboratory Results Short CBC 12/15/19 Range/Units 12:40 WBC 14.70 H (4.8-10.8) K/uL Hgb 9.2 L (14.0-18.0) g/dL Hct 28.9 L (42-52) % Plt Count 218 (130-400) K/uL BMP 12/15/19 12:40 Sodium 135 L Potassium 4.1 Chloride 103 Carbon Dioxide 25 BUN 39 H Creatinine 1.72 H Glucose 116 H Calcium 8.9 Cardiac Enzymes 12/15/19 Range/Units 12:40 Troponin I < 0.015 (0-0.045) ng/ml Liver Function 12/15/19 Range/Units 12:40 Total Bilirubin 2.4 H (0.2-1) mg/dl AST 37 (15-37) U/L ALT 21 (12-78) U/L Alkaline Phosphatase 106 (45-117) U/L Albumin 2.6 L (3.4-5.0) gm/dl Diagnostic Findings CT head: IMPRESSION: No acute intracranial abnormality or calvarial fracture CT cervical spine: IMPRESSION: No acute cervical spine fracture or subluxation CXR: IMPRESSION: 1. No acute findings. 2. Moderate enlargement of the cardiac silhouette, accentuated by technique. CT chest: IMPRESSION: 1. Small pericardial effusion. 2. Otherwise, no acute traumatic process within the chest. R knee XR: IMPRESSION: 1. No acute fracture or joint effusion within the right knee. 2. Mild to moderate right knee osteoarthritis. CT lumbar: IMPRESSION: 1. No acute fractures within the cervical spine. 2. Postoperative and congenital changes within the lower lumbar spine described above. 3. Moderate to severe central canal narrowing at L3-L4 due to a broad-based post erior disc osteophyte complex. Code Status & VTE Plan VTE Prophylaxis Plan VTE Prophylaxis will be ordered: Yes Supervising Physician Co-Signing Physician Notes Attending Addendum: care coordinated with NIKOLAS Larkin please refer to her notes for full details, I agree with her notes patient seen and examined, records reviewed by myself as well on exam, patient seen sitting up in bed, and examined when laying flat Not in distress, comfortable appearing Reports some discomfort, intermittently on the lower part of the abdominal pannus Had some chills at home couple of days ago Denies unusual cough, shortness of breath, sputum production, chest pain no other symptoms VS noted and reviewed oriented x 3, not in distress, speaks in sentences with no effort nor accessory muscle use normal rate, regular rhythm, no murmurs clear breath sounds bilaterally non distended, soft, nontender Pannus-positive erythema at the base, with scant serous drainage, positive moderate tenderness, and erythema no bipedal edema, erythema, warmth no neuro deficits WBC 14.7 Hg 9[address] abdomen pelvis: 1. Findings consistent with a moderate grade small bowel obstruction with transition point within the right mid abdomen. Nonspecific mild wall thickening at site of obstruction with small bowel feces sign. 2. Loop of small bowel slightly extends into a right inguinal hernia which does not result in the obstruction. 3. Colonic and small bowel diverticulosis without evidence for acute diverticulitis. ASSESSMENT AND PLAN Sepsis likely secondary to underlying cellulitis of the abdominal pannus Follows with wound care center for the abdominal pannus Lactic acid level normal Blood cultures pending Covered with daptomycin plus Zosyn Per wound care center notes as of November 17, 2019: "Patient will follow-up with general surgery and plastic surgery in [place] on December 21, 2019." Acute kidney injury Likely secondary to underlying sepsis, component of dehydration Hold torsemide, potassium, olmesartan Received total of 1.5 L of IV fluids at the ER, will continue with NSS at 60 cc/h Monitor closely History of A. fib Continue carvedilol and a Eliquis other diagnoses and plan of care as per NIKOLAS Larkin's notes Rodney Gallegos MD (1) Fall Encounter type: initial encounter Qualified Code(s): W19.XXXA - Unspecified fall, initial encounter (2) Contusion of knee, right Encounter type: initial encounter Qualified Code(s): S80.01XA - Contusion of right knee, initial encounter
[2019-12-15] MEDS ORDERED: POLYETHYLENE (MIRALAX) 17 GM PACK PO PRN (19:10)
[2019-12-15] MEDS ORDERED: GLUCOSE 40% GEL 15 GM TUBE PO PRN (19:10)
[2019-12-15] MEDS ORDERED: TRAZODONE HCL 100 MG TAB PO PRN (19:10)
[2019-12-15] MEDS ORDERED: DEXTROSE 50% 50 ML SYRINGE IV PRN (19:10)
[2019-12-15] MEDS ORDERED: CONSULT PHARMACY STA (19:10)
[2019-12-15] MEDS ORDERED: CARBOHYDRATES FOR HYPOGLYCEMIA PO PRN (19:10)
[2019-12-15] MEDS ORDERED: CYCLOBENZAPRINE HCL 5 MG TAB PO PRN (19:10)
[2019-12-15] MEDS ORDERED: GLUCOSE 10 TABS/TUBE PO PRN (19:10)
[2019-12-15] MEDS ORDERED: GLUCAGON FOR INJ 1 MG VIAL SQ PRN (19:10)
[2019-12-15] MEDS ORDERED: ONDANSETRON INJ 2 MG/ML 2 ML VIAL IV PRN (19:10)
[2019-12-15] MEDS ORDERED: TRAMADOL HCL 50 MG TABLET PO PRN (19:10)
[2019-12-15] MEDS ORDERED: LORATADINE 10 MG TAB PO PRN (19:23)
[2019-12-15] MEDS ORDERED: EUCERIN CR 120 GM JAR EXT PRN (19:28)
[2019-12-15] MEDS ORDERED: NYSTATIN POWDER 15GM BTL EXT PRN (19:46)
[2019-12-15] MEDS ORDERED: ARTIFICIAL TEARS OP PRN (19:49)
[2019-12-15] MEDS ORDERED: DAPTOMYCIN CONSULT ACTIVE PRN (19:52)
[2019-12-15] MEDS ORDERED: SODIUM CHLORIDE 0.9% 1000ML 1,000 ML IV SCH (20:15)
[2019-12-15] MEDS: ACETAMINOPHEN 325 MG TAB PO PRN (20:47)
[2019-12-15] MEDS: APIXABAN 5 MG TABLET PO SCH (20:48)
[2019-12-15] MEDS: INSULIN GLARGINE SOLOSTAR 100 UNITS/ML 3 ML PEN SC SCH (20:49)
[2019-12-15] MEDS: carvediloL 6.25 MG TAB PO SCH (20:49)
[2019-12-15] MEDS: INSULIN ASPART 100 UNITS/ML 3 ML PEN SC SCH (20:50)
[2019-12-15] MEDS: PIPERACILLIN/TAZOBACTAM 4.5 GM in DEXTROSE 5% 100 ML IV SCH (20:53)
[2019-12-15] MEDS ORDERED: ATORVASTATIN 40 MG TAB PO SCH (21:00)
[2019-12-15] MEDS ORDERED: DOXAZosin MESYLATE TAB 2 MG TAB PO SCH (21:00)
[2019-12-15] MEDS ORDERED: NON-FORMULARY MEDICATION (Iron,Carbonyl-Vitamin C [Vitron-C] 1 TAB) PO SCH (21:00)
[2019-12-15] MEDS ORDERED: LATANOPROST 0.005% OP SOLN 2.5 ML BTL OP SCH (21:00)
[2019-12-15] MEDS ORDERED: DAPTOmycin 500 MG in SYRINGE 0 ML IV SCH (21:00)
--- NOTE | 2019-12-15 21:56 | Electrocardiogram Report ---
Test Reason : Blood Pressure : / mmHG Vent. Rate : 086 BPM Atrial Rate : 091 BPM P-R Int : 000 ms QRS Dur : 142 ms QT Int : 400 ms P-R-T Axes : 000 -26 038 degrees QTc Int : 478 ms Atrial fibrillation Right bundle branch block Cannot rule out Inferior infarct (cited on or before 24-OCT-2017) Abnormal ECG When compared with ECG of 24-OCT-2017 11:42, Right bundle branch block is now Present Confirmed by Garrett Barrios ([id number]) on 12/15/2019 9:55:25 PM Referred By: REFERRED SELF Confirmed By:Garrett Barrios
[2019-12-16] MEDS: ACETAMINOPHEN 325 MG TAB PO PRN (01:07)
[2019-12-16] MEDS: PIPERACILLIN/TAZOBACTAM 4.5 GM in DEXTROSE 5% 100 ML IV SCH ×2 (03:10→12:51)
[2019-12-16] MEDS ORDERED: SODIUM CHLORIDE 0.9% 500 ML IV ONE (03:53)
[2019-12-16 04:21] LABS: Basophils # (auto) 0.02 K/uL (0-0.2); Basophils % (auto) 0.1 %; Eosinophils # (auto) 0.03 K/uL (0-0.5); Eosinophils % (auto) 0.2 %; Hematocrit (blood only) 25.6 % (42-52); Hemoglobin 8.2 g/dL (14.0-18.0); Immature Granulocytes # (auto) 0.15 K/uL (0.00-0.02); Immature Granulocytes % (auto) 0.9 %; Lymphocytes # (auto) 0.66 K/uL (1.2-3.4); Lymphocytes % (auto) 3.8 %; Mean Corpuscular Hemoglobin 24.7 pg (25-34); Mean Corpuscular Volume 77.1 fL (80-100); Mean Platelet Volume 9.3 fL (7.4-10.4); Monocytes # (auto) 0.66 K/uL (0.11-0.59); Monocytes % (auto) 3.8 %; Neutrophils # (auto) 15.77 K/uL (1.4-6.5); Neutrophils % (auto) 91.2 %; Platelet Count 183 K/uL (130-400); RDW Coefficient of Variation 17.6 % (11.5-14.5); RDW Standard Deviation 50.1 fL (36.4-46.3); Red Blood Count 3.32 M/uL (4.7-6.1); White Blood Count 17.29 K/uL (4.8-10.8)
[2019-12-16 04:43] LABS: Albumin Level 2.1 gm/dl (3.4-5.0); BUN Creatinine Ratio 20.5 (10-20); Calcium 8.1 mg/dl (8.5-10.1); Creatinine Clr Calc Pharmacy 68.8 ml/min; Est GFR (African American) 41.7; Est GFR (Non-African American) 35.9; Magnesium 1.9 mg/dl (1.8-2.4); Potassium 4.1 mmol/L (3.5-5.1)
[2019-12-16 04:54] LABS: Albumin Globulin Ratio 0.5 (0.9-2); Bilirubin,Total 2.8 mg/dl (0.2-1); Globulin 4.5 gm/dl (2.5-4.0); Thyroid Stimulating Hormone 1.3 uIu/ml (0.300-4.500); Total Protein 6.6 gm/dl (6.4-8.2)
[2019-12-16] MEDS: SODIUM CHLORIDE 0.9% 1000ML 1,000 ML IV SCH ×2 (05:23→16:27)
[2019-12-16] MEDS ORDERED: SODIUM CHLORIDE 0.9% 1000ML 500 ML IV ONE (06:53)
[2019-12-16] MEDS ORDERED: ACETAMINOPHEN 325 MG TAB PO PRN (06:54)
[2019-12-16] MEDS: carvediloL 6.25 MG TAB PO SCH (07:59)
[2019-12-16] MEDS: APIXABAN 5 MG TABLET PO SCH (08:08)
[2019-12-16] MEDS ORDERED: ASPIRIN 81 MG ECTAB PO SCH (09:00)
[2019-12-16] MEDS ORDERED: SENNA 8.6 MG TAB PO SCH (09:00)
[2019-12-16] MEDS ORDERED: LACTOBACILLUS ACIDOPHILUS 1 GM PACK PO SCH (09:00)
[2019-12-16] MEDS ORDERED: allopurinoL 300 MG TAB PO SCH (09:00)
[2019-12-16] MEDS ORDERED: allopurinoL 100 MG TAB PO SCH (09:00)
[2019-12-16] MEDS ORDERED: POTASSIUM CHLORIDE 10 MEQ TABCR PO SCH (09:00)
[2019-12-16] MEDS ORDERED: CHOLECALCIFEROL 1,000 UNITS 25 MCG TAB PO SCH (09:00)
[2019-12-16] MEDS: INSULIN GLARGINE SOLOSTAR 100 UNITS/ML 3 ML PEN SC SCH (09:18)
[2019-12-16] MEDS: INSULIN ASPART 100 UNITS/ML 3 ML PEN SC SCH ×3 (09:20→17:39)
[2019-12-16] MEDS ORDERED: SODIUM CHLORIDE 0.9% 1000ML 250 ML IV ONE (12:37)
[2019-12-16 13:31] LABS: BUN Creatinine Ratio 19.1 (10-20); Calcium 8.3 mg/dl (8.5-10.1); Creatinine Clr Calc Pharmacy 56.6 ml/min; Est GFR (African American) 33.4; Est GFR (Non-African American) 28.8; Potassium 4.1 mmol/L (3.5-5.1)
--- NOTE | 2019-12-16 15:08 | Surgery Consultation ---
Date of Consultation December 16, 2019 Assessment & Plan (1) Cellulitis: This patient has a cellulitis of the skin that is quite thickened of the extension below his pubic area. This does not have the classic appearance of a pannus and that its origin seems to be below the pubic bone and is not originated above the lower abdominal crease. There is what appears to be scrotal skin extending off the back of this. It is difficult to tell whether this is an extension of the scrotum. There is no abscess requiring drainage however. I would continue with the antibiotics and symptomatic management. I feel that he would need to be transferred to a tertiary care center for evaluation and removal and that this will most likely require a multidisciplinary approach to most likely include general surgery, urology and plastic surgery. He was scheduled to be seen in [place] however those appoi ntments were delayed as a result of the COVID crisis. History of Present Illness Reason for Consultation: Large "pannus" with possible infection Requesting Physician: Jonathan Butler MD Attending Physician: Jonathan Butler MD History of Present Illness I been asked by Dr. Butler to see this 59-year-old male who was recommended to come to the emergency room by the staff at the wound care clinic. They have been following him regarding his large "pannus". It is been present for many years and has been increasing in size. It is an extension of his lower abdominal wall that extends between his thighs and extends down to below his knees. He has had cellulitis periodically associated with this. His blood pressure was slightly on the low side at one point. He has never had mental status changes however. He states that there is been pain associated with this but that is not new. He has had no fever since admission. He underwent a CT scan that demonstrated evidence of cellulitis. There was no fluid collection consistent with abscess. He has not noted any drainage from the skin although the posterior side of this would be difficult to evaluate. Allergies Allergy/AdvReac Type Severity Reaction Status Date / Time sulfamethoxazole Allergy Intermediate Rash Unverified 12/16/19 07:00 trimethoprim Allergy Intermediate Rash Unverified 12/16/19 07:00 AVIVA Inhibitors Allergy Unknown . Unverified 12/15/19 14:28 Bactrim Allergy Unknown . Unverified 12/06/17 15:09 lisinopril Allergy Unknown Unknown Verified 12/16/19 07:01 Home Medications Home Medications Medication Instructions Recorded Confirmed Type apixaban 5 mg tablet 5 mg PO BID 09/24/18 12/15/19 History aspirin 81 mg tablet,delayed 81 mg PO QAM 09/24/18 12/15/19 History release atorvastatin 40 mg tablet 40 mg PO HS 09/24/18 12/15/19 History carvedilol 6.25 mg tablet 6.25 mg PO BID 09/24/18 12/15/19 History cholecalciferol (vitamin D3) 100 4,000 units PO QAM 09/24/18 12/15/19 History mcg (4,000 unit) capsule cyclobenzaprine 5 mg tablet 5 mg PO BID PRN tab 09/24/18 12/15/19 History doxazosin 2 mg tablet 2 mg PO HS 09/24/18 12/15/19 History glucagon HCl 1 mg/mL solution for 1 mg SQ Q20M PRN 09/24/18 12/15/19 History injection lactobacillus combination no.8 3 3,000 mmu cells PO QAM 09/24/18 12/15/19 History billion cell capsule latanoprost 0.005 % eye drops 1 drops OP HS 09/24/18 12/15/19 History nitroglycerin 0.4 mg sublingual 0.4 mg SL Q5M PRN 09/24/18 12/15/19 History tablet olmesartan 40 mg tablet 40 mg PO QAM 09/24/18 12/15/19 History ondansetron HCl 4 mg tablet 4 mg PO QID PRN 09/24/18 12/15/19 History potassium chloride 10 mEq 10 meq PO BID 09/24/18 12/15/19 History capsule,extended release torsemide 20 mg tablet 40 mg PO BID tab 09/24/18 12/15/19 History tramadol 50 mg tablet 50 mg PO Q6H PRN 09/24/18 12/15/19 History trazodone 100 mg tablet 100 mg PO HS PRN 09/24/18 12/15/19 History allopurinol 100 mg tablet 100 mg PO QAM 02/04/19 12/15/19 History allopurinol 300 mg tablet 300 mg PO QAM 02/04/19 12/15/19 History loratadine 10 mg disintegrating 10 mg PO DAILY PRN 02/04/19 12/15/19 History tablet semaglutide 0.5 mg SQ FR ml 02/04/19 12/15/19 History insulin glargine [Basaglar KwikPen 50 unit SUBCUT QAM 12/15/19 12/15/19 History U-100 Insulin] iron,carbonyl-vitamin C [Vitron-C] 1 tab PO BID 12/15/19 12/15/19 History lanolin nmfspjw-vo-g.pet-ceres 1 applic TOPICAL AMHS PRN 12/15/19 12/15/19 History [Eucerin] metformin 1,000 mg PO BID 12/15/19 12/15/19 History propylene glycol-glycerin 1 drp OPHTHALMIC (EYE) DAILY PRN 12/15/19 12/15/19 Hi story sennosides [Senna Lax] 8.6 mg PO DAILY 12/15/19 12/15/19 History Patient History Medical History (Updated 12/15/19 @ 18:33 by Fransisca Larkin PA-C) Abdominal pannus (Chronic) Acquired buried penis Allergic rhinitis (Chronic) Arthritis of knee (Chronic) B-complex deficiency (Chronic) Bilateral scrotal hernia (Resolved) CAD (coronary artery disease) (Chronic) Decreased ambulation status (Chronic) 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, with long-term current use of insulin (Chronic) Diabetic neuropathy (Chronic) Diabetic retinopathy (Chronic) Dyslipidemia (Chronic) GERD (gastroesophageal reflux disease) (Chronic) Glaucoma (Chronic) Gout (Resolved) Hearing loss of left ear (Chronic) History of chronic atrial fibrillation (Resolved) History of TIA (transient ischemic attack) (Chronic) HTN (hypertension) (Chronic) Hyperlipidemia Lymphedema (Chronic) Major depressive disorder (Chronic) Myocardial infarction H/o 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 MICAH (obstructive sleep apnea) (Chronic) Presence of bare metal stent in right coronary artery (Chronic) Sepsis (Resolved) Spina bifida (Chronic) Vitamin D deficiency (Chronic) Surgical History H/O cardiac catheterization H/O colonoscopy H/O nasal septoplasty Hx of tonsillectomy (Resolved) Previous back surgery (Resolved) S/P cholecystectomy (Resolved) Status post uvulopalatopharyngoplasty (Resolved) Family History Mother Coronary heart disease Diabetes Hypertension Social History Preferred Language: Uzbek Communication Ability: Effective Visual Impairment: Limited Hearing Ability: Hard of Hearing [employer] 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 Beliefs That Will Affect Care: None marital status: Single Current Living Situation: Alone Current Living Situation Comment: ine apartment current occupational status: disabled Other Information That Helps Us Care for You: No Feels Safe at Home: Yes Safety Concerns: Feels Safe At This Time Smoking Status: Former smoker Tobacco Type: cigarettes ; packs per day: 1 ; Do You Dip or Chew Tobacco: No ; Second Hand Exposure: No ; Tobacco Cessation Education Requested by Patient: No Hx Alcohol Use: No Hx Substance Use: No Childhood Exposure to Second-Hand Smoke: No Physical Exam Constitutional: no acute distress Gastrointestinal (Abdomen): Inspection/Auscultation: abdomen not distended Percussion/Palpation: + abdomen tender (Mild diffuse) and abdomen soft Genitourinary: There is an extension of his lower abdominal wall that begins over the pubic area. It is large enough to extend below his knees while he is lying supine. This seems to begin below the lower abdominal crease. He does have an obese abdomen but this does not seem to be an extension of the abdominal wall skin musculature or fat. While laying on his side there was a redundant amount of skin that was more consistent with scrotal skin that extended off the posterior aspect of this enlargement. There was a cleft between the 2 areas that he said was where his urine drained from although the penile head was not visible. Results & Data Vital Signs (Past 12 Hours) Vital Signs Temp Pulse Pulse Resp BP BP Pulse Ox 12/16/19 11:43 37.0 C 110 H 20 71/43 L 97 12/16/19 08:00 94 H 12/16/19 07:49 37.6 C H 94 H 18 94/54 L 95 12/16/19 06:40 111/60 12/16/19 05:24 36.8 C 95/54 L 12/16/19 03:06 83/46 L 12/16/19 03:05 37.4 C 91 H 18 87/56 L 93 Laboratory Results 12/16/19 12/16/19 12/16/19 Range/Units 14:49 12:48 12:47 WBC (4.8-10.8) K/uL RBC (4.7-6.1) M/uL Hgb (14.0-18.0) g/dL Hct (42-52) % MCV (80-100) fL MCH (25-34) pg MCHC (32-36) g/dL RDW Std Deviation (36.4-46.3) fL RDW Coeff of Selvin (11.5-14.5) % Plt Count (130-400) K/uL MPV (7.4-10.4) fL Immature Gran % (Auto) % Neut % (Auto) % Lymph % (Auto) % [place] % (Auto) % Eos % (Auto) % Baso % (Auto) % Immature Gran # (Auto) (0.00-0.02) K/uL Neut # (Auto) (1.4-6.5) K/uL Lymph # (Auto) (1.2-3.4) K/uL [place] # (Auto) (0.11-0.59) K/uL Eos # (Auto) (0-0.5) K/uL Baso # (Auto) (0-0.2) K/uL Sodium 134 L (136-145) mmol/L Potassium 4.1 (3.5-5.1) mmol/L Chloride 102 (98-107) mmol/L Carbon Dioxide 23 (21-32) mmol/L Anion Gap 9.0 (3-11) BUN 46 H (7-18) mg/dl Creatinine 2.39 H D (0.6-1.4) mg/dl Est Cr Clr Drug Dosing 56.6 ml/min Est GFR ( Amer) 33.4 Est GFR (Non-Af Amer) 28.8 BUN/Creatinine Ratio 19.1 (10-20) Glucose 142 H (70-99) mg/dl POC Glucose (70-99) mg/dl Lactate Pending 2.5 H* (0.4-2.0) mmol/L Calcium 8.3 L (8.5-10.1) mg/dl Magnesium (1.8-2.4) mg/dl Total Bilirubin (0.2-1) mg/dl AST (15-37) U/L ALT (12-78) U/L Alkaline Phosphatase (45-117) U/L Total Protein (6.4-8.2) gm/dl Albumin (3.4-5.0) gm/dl Globulin (2.5-4.0) gm/dl Albumin/Globulin Ratio (0.9-2) TSH (0.300-4.500) uIu/ml Nasal Screen MRSA (PCR) (Negative) Hepatitis C Ab Screen (Neg) Blood Type Antibody Screen 12/16/19 12/16/19 12/16/19 Range/Units 11:25 07:58 04:12 WBC (4.8-10.8) K/uL RBC (4.7-6.1) M/uL Hgb (14.0-18.0) g/dL Hct (42-52) % MCV (80-100) fL MCH (25-34) pg MCHC (32-36) g/dL RDW Std Deviation (36.4-46.3) fL RDW Coeff of Selvin (11.5-14.5) % Plt Count (130-400) K/uL MPV (7.4-10.4) fL Immature Gran % (Auto) % Neut % (Auto) % Lymph % (Auto) % [place] % (Auto) % Eos % (Auto) % Baso % (Auto) % Immature Gran # (Auto) (0.00-0.02) K/uL Neut # (Auto) (1.4-6.5) K/uL Lymph # (Auto) (1.2-3.4) K/uL [place] # (Auto) (0.11-0.59) K/uL Eos # (Auto) (0-0.5) K/uL Baso # (Auto) (0-0.2) K/uL Sodium (136-145) mmol/L Potassium (3.5-5.1) mmol/L Chloride (98-107) mmol/L Carbon Dioxide (21-32) mmol/L Anion Gap (3-11) BUN (7-18) mg/dl Creatinine (0.6-1.4) mg/dl Est Cr Clr Drug Dosing ml/min Est GFR ( Amer) Est GFR (Non-Af Amer) BUN/Creatinine Ratio (10-20) Glucose (70-99) mg/dl POC Glucose 143 H 106 H (70-99) mg/dl Lactate (0.4-2.0) mmol/L Calcium (8.5-10.1) mg/dl Magnesium (1.8-2.4) mg/dl Total Bilirubin (0.2-1) mg/dl AST (15-37) U/L ALT (12-78) U/L Alkaline Phosphatase (45-117) U/L Total Protein (6.4-8.2) gm/dl Albumin (3.4-5.0) gm/dl Globulin (2.5-4.0) gm/dl Albumin/Globulin Ratio (0.9-2) TSH (0.300-4.500) uIu/ml Nasal Screen MRSA (PCR) (Negative) Hepatitis C Ab Screen (Neg) Blood Type O Positive Antibody Screen NEGATIVE 12/16/19 12/16/19 12/16/19 Range/Units 04:12 04:12 04:12 WBC 17.29 H (4.8-10.8) K/uL RBC 3.32 L (4.7-6.1) M/uL Hgb 8.2 L (14.0-18.0) g/dL Hct 25.6 L (42-52) % MCV 77.1 L (80-100) fL MCH 24.7 L (25-34) pg MCHC 32.0 (32-36) g/dL RDW Std Deviation 50.1 H (36.4-46.3) fL RDW Coeff of Selvin 17.6 H (11.5-14.5) % Plt Count 183 (130-400) K/uL MPV 9.3 (7.4-10.4) fL Immature Gran % (Auto) 0.9 % Neut % (Auto) 91.2 % Lymph % (Auto) 3.8 % [place] % (Auto) 3.8 % Eos % (Auto) 0.2 % Baso % (Auto) 0.1 % Immature Gran # (Auto) 0.15 H (0.00-0.02) K/uL Neut # (Auto) 15.77 H (1.4-6.5) K/uL Lymph # (Auto) 0.66 L (1.2-3.4) K/uL [place] # (Auto) 0.66 H (0.11-0.59) K/uL Eos # (Auto) 0.03 (0-0.5) K/uL Baso # (Auto) 0.02 (0-0.2) K/uL Sodium 136 (136-145) mmol/L Potassium 4.1 (3.5-5.1) mmol/L Chloride 105 (98-107) mmol/L Carbon Dioxide 24 (21-32) mmol/L Anion Gap 7.0 (3-11) BUN 41 H (7-18) mg/dl Creatinine 1.99 H (0.6-1.4) mg/dl Est Cr Clr Drug Dosing 68.8 ml/min Est GFR ( Amer) 41.7 Est GFR (Non-Af Amer) 35.9 BUN/Creatinine Ratio 20.5 H (10-20) Glucose 100 H (70-99) mg/dl POC Glucose (70-99) mg/dl Lactate 1.8 (0.4-2.0) mmol/L Calcium 8.1 L (8.5-10.1) mg/dl Magnesium 1.9 (1.8-2.4) mg/dl Total Bilirubin 2.8 H (0.2-1) mg/dl AST 27 (15-37) U/L ALT 18 (12-78) U/L Alkaline Phosphatase 98 (45-117) U/L Total Protein 6.6 (6.4-8.2) gm/dl Albumin 2.1 L (3.4-5.0) gm/dl Globulin 4.5 H (2.5-4.0) gm/dl Albumin/Globulin Ratio 0.5 L (0.9-2) TSH 1.300 (0.300-4.500) uIu/ml Nasal Screen MRSA (PCR) (Negative) Hepatitis C Ab Screen (Neg) Blood Type Antibody Screen 12/16/19 12/16/19 12/15/19 Range/Units 01:10 00:05 19:52 WBC (4.8-10.8) K/uL RBC (4.7-6.1) M/uL Hgb (14.0-18.0) g/dL Hct (42-52) % MCV (80-100) fL MCH (25-34) pg MCHC (32-36) g/dL RDW Std Deviation (36.4-46.3) fL RDW Coeff of Selvin (11.5-14.5) % Plt Count (130-400) K/uL MPV (7.4-10.4) fL Immature Gran % (Auto) % Neut % (Auto) % Lymph % (Auto) % [place] % (Auto) % Eos % (Auto) % Baso % (Auto) % Immature Gran # (Auto) (0.00-0.02) K/uL Neut # (Auto) (1.4-6.5) K/uL Lymph # (Auto) (1.2-3.4) K/uL [place] # (Auto) (0.11-0.59) K/uL Eos # (Auto) (0-0.5) K/uL Baso # (Auto) (0-0.2) K/uL Sodium (136-145) mmol/L Potassium (3.5-5.1) mmol/L Chloride (98-107) mmol/L Carbon Dioxide (21-32) mmol/L Anion Gap (3-11) BUN (7-18) mg/dl Creatinine (0.6-1.4) mg/dl Est Cr Clr Drug Dosing ml/min Est GFR ( Amer) Est GFR (Non-Af Amer) BUN/Creatinine Ratio (10-20) Glucose (70-99) mg/dl POC Glucose 102 H 108 H 102 H (70-99) mg/dl Lactate (0.4-2.0) mmol/L Calcium (8.5-10.1) mg/dl Magnesium (1.8-2.4) mg/dl Total Bilirubin (0.2-1) mg/dl AST (15-37) U/L ALT (12-78) U/L Alkaline Phosphatase (45-117) U/L Total Protein (6.4-8.2) gm/dl Albumin (3.4-5.0) gm/dl Globulin (2.5-4.0) gm/dl Albumin/Globulin Ratio (0.9-2) TSH (0.300-4.500) uIu/ml Nasal Screen MRSA (PCR) (Negative) Hepatitis C Ab Screen (Neg) Blood Type Antibody Screen 12/15/19 12/15/19 Range/Units 17:05 13:48 WBC (4.8-10.8) K/uL RBC (4.7-6.1) M/uL Hgb (14.0-18.0) g/dL Hct (42-52) % MCV (80-100) fL MCH (25-34) pg MCHC (32-36) g/dL RDW Std Deviation (36.4-46.3) fL RDW Coeff of Selvin (11.5-14.5) % Plt Count (130-400) K/uL MPV (7.4-10.4) fL Immature Gran % (Auto) % Neut % (Auto) % Lymph % (Auto) % [place] % (Auto) % Eos % (Auto) % Baso % (Auto) % Immature Gran # (Auto) (0.00-0.02) K/uL Neut # (Auto) (1.4-6.5) K/uL Lymph # (Auto) (1.2-3.4) K/uL [place] # (Auto) (0.11-0.59) K/uL Eos # (Auto) (0-0.5) K/uL Baso # (Auto) (0-0.2) K/uL Sodium (136-145) mmol/L Potassium (3.5-5.1) mmol/L Chloride (98-107) mmol/L Carbon Dioxide (21-32) mmol/L Anion Gap (3-11) BUN (7-18) mg/dl Creatinine (0.6-1.4) mg/dl Est Cr Clr Drug Dosing ml/min Est GFR ( Amer) Est GFR (Non-Af Amer) BUN/Creatinine Ratio (10-20) Glucose (70-99) mg/dl POC Glucose (70-99) mg/dl Lactate (0.4-2.0) mmol/L Calcium (8.5-10.1) mg/dl Magnesium (1.8-2.4) mg/dl Total Bilirubin (0.2-1) mg/dl AST (15-37) U/L ALT (12-78) U/L Alkaline Phosphatase (45-117) U/L Total Protein (6.4-8.2) gm/dl Albumin (3.4-5.0) gm/dl Globulin (2.5-4.0) gm/dl Albumin/Globulin Ratio (0.9-2) TSH (0.300-4.500) uIu/ml Nasal Screen MRSA (PCR) Negative (Negative) Hepatitis C Ab Screen Neg (Neg) Blood Type Antibody Screen Diagnostic Findings ABDOMEN AND PELVIS CT WITH IV CONTRAST HISTORY: Acute abdominal trauma status post fall fall, pannus pain and erythema, fever TECHNIQUE: Multiaxial CT images of the abdomen and pelvis were performed following the IV administration of 120 cc of Optiray 320, A dose lowering technique was utilized adhering to the principles of ALARA. COMPARISON STUDY: CT chest of same day, CT abdomen and pelvis 03/02/2017 FINDINGS: Limited exam secondary to patient body habitus. Portions of the patient's anatomy extend outside the field of view. Cardiomegaly. Small pericardial effusion. Clear lung bases. No pneumatosis or pneumoperitoneum identified. Intrahepatic and extrahepatic pneumobilia is noted compatible with prior single carotid knee. Cholecystectomy. Hepatomegaly with suggestion of probable hepatic steatosis. Unremarkable spleen. Pancreas and adrenal glands are unremarkable. Kidneys are within normal limits. Mild urinary bladder distention. Calcific plaque of the abdominal aorta. No bowel obstruction or bowel wall thickening. Moderate fecal retention. There is a large pannus which extends inferiorly. A large amount of skin thickening with subcutaneous edema is again noted within this distribution which appears similar to the 2017 exam. Enlarged bilateral inguinal chain lymph nodes measure up to approximately 1.46 cm in short axis. These are noted within the bilateral lower extremities. Calcifications of the posterior thecal sac are noted at the level of the lower thoracic spine, nonspecific. There is a minimal retained radiopaque linear device noted projecting over the posterior elements of the lumbar spine at L4. Large posterior disc osteophyte complex at L3-L4. No acute fracture identified. IMPRESSION: 1. No acute posttraumatic intra-abdominal or intrapelvic abnormality identified. 2. No acute fracture. 3. Large lower abdominal wall pannus is again noted extending inferiorly below the level of the knees. Extensive associated skin thickening with subcutaneous edema is suggestive of cellulitis, similar to the 2017 exam. No drainable fluid collection. 4. Bilateral inguinal chain adenopathy, likely reactive. 5. Additional findings as above.
--- NOTE | 2019-12-16 17:15 | Hospitalist Progress Note ---
Date of Service December 16, 2019 Assessment & Plan (1) Sepsis: (2) Cellulitis: as per 12/15/2019 HPI -This is a 59yo M with a PMH of DM II, atrial fibrillation on anticoagulation, spina bifida, gout, HTN, CAD (s/p stent) and large pannus following with the wound clinic who presents with pain of abdomen/pannus as well as generalized weakness. Patient has noted stinging constant pain of lower pannus and scrotal area for the past few weeks that is worsened. Follows with wound clinic and uses nystatin powder and barrier cream. Home health felt that area was more red and swollen than usual. Also noted more clear/yellow drainage lately and has been applying bandages to the area. Was found to be febrile today by home health but denies any chills or malaise. Also noting generalized weakness over the past few days. Ambulates with walker and wheelchair at baseline but fell onto knees 4 days ago with resulting bruise. Denies any loss of consciousness or head trauma. Feels deconditioned. Also endorses some urinary incontinence over the past few days when he gets up to use the restroom. No dysuria or hematuria noted. Had some BRB on toilet paper after bowel movement yesterday. Recent had bowel regimen adjusted by PCP and is taking senna-docusate daily. Has history of hemorrhoids but has not been experiencing the pain he normally feels. No melena. No lightheadedness, headache, visual changes, chest pain, palpitations, shortness of breath, nausea, vomiting, abdominal pain, or diarrhea. -on admission on 12/15/2019 with increased pain, erythema and edema in distal pannus and scrotal area, Leukocytosis of 14.7, febrile at 38 C, HR of 95, RR of 25, procalcitonin of 3 -patient was given a loading dose of Vancomycin of 2750 mg in the ED which is a large dose but patient of large body habitus and weight (194.3 kg), because of hospitalist team noted acute kidney injury on admission, patient was instead switch to Daptomycin and Zosyn on admission -continue IV Zosyn as 4.5 mg IV q8 hours and daptomycin 500 mg IV q24 hours, patient given additional IV fluids because of elevated lactic acid as 2.5 and for soft blood pressures - lactic acid last checked is normalized as 1.6 -general surgery completed initial consult evaluation on 12/16/2019 -see below on hospitalist concerns in regards to abdominal pannus and scrotal abnormality (3) Abdominal pannus: -12/15/2019 CT abdomen: Limited exam secondary to patient body habitus. Portions of the patient's anatomy extend outside the field of view. Cardiomegaly. Small pericardial effusion. Clear lung bases. No pneumatosis or pneumoperitoneum identified. Intrahepatic and extrahepatic pneumobilia is noted compatible with prior single carotid knee. Cholecystectomy. Hepatomegaly with suggestion of probable hepatic steatosis. Unremarkable spleen. Pancreas and adrenal glands are unremarkable. Kidneys are within normal limits. Mild urinary bladder distention. Calcific plaque of the abdominal aorta. No bowel obstruction or bowel wall thickening. Moderate fecal retention. There is a large pannus which extends inferiorly. A large amount of skin thickening with subcutaneous edema is again noted within this distribution which appears similar to the 2017 exam. Enlarged bilateral inguinal chain lymph nodes measure up to approximately 1.46 cm in short axis. These are noted within the bilateral lower extremities. Calcifications of the posterior thecal sac are noted at the level of the lower thoracic spine, nonspecific. There is a minimal retained radiopaque linear device noted projecting over the posterior elements of the lumbar spine at L4. Large posterior disc osteophyte complex at L3-L4. No acute fracture identified. IMPRESSION of radiologist 1. No acute posttraumatic intra-abdominal or intrapelvic abnormality identified. 2. No acute fracture. 3. Large lower abdominal wall pannus is again noted extending inferiorly below the level of the knees. Extensive associated skin thickening with subcutaneous edema is suggestive of cellulitis, similar to the 2017 exam. No drainable fluid collection. 4. Bilateral inguinal chain adenopathy, likely reactive. - 12/16/[address] Elliott "This patient has a cellulitis of the skin that is quite thickened of the extension below his pubic area. This does not have the classic appearance of a pannus and that its origin seems to be below the pubic bone and is not originated above the lower abdominal crease. There is what appears to be scrotal skin extending off the back of this. It is difficult to tell whether this is an extension of the scrotum. There is no abscess requiring drainage however. I would continue with the antibiotics and symptomatic management. I feel that he would need to be transferred to a tertiary care center for evaluation and removal and that this will most likely require a multidisciplinary approach to most likely include general surgery, urology and plastic surgery. He was scheduled to be seen in [place] however those appointments were delayed as a result of the COVID crisis" -discussed with patient that he may benefit with transfer to tertiary care center to evaluate abdominal and scrotal abnormality and perhaps with surgical approach to prevent recurrent infection of the skin. Dr. Bazan from [facility] in [place] is the accepting hospitalist (4) Acute kidney injury: -baseline creatinine of 1 -creatinine 1.7 on admission on 12/16/2019. -creatinine rising despite IV fluids likely due to vancomycin in the ED, recent lab on 12/16/2019 with creatinine 2.62 -continue IV fluids (5) HTN (hypertension): -Holding olmesartan in setting of HARINDER. Continue Carvedilol (6) History of chronic atrial fibrillation: -Continue Carvedilol. Continue Eliquis for anticoagulation until surgery assessment at [facility] in [place] (7) CAD (coronary artery disease): History of stent placement in 2019. Continue aspirin, statin and carvedilol (8) Generalized weakness: History of spinal bifida a per patient -CT spin 12/15/2019 radiology impressions "Moderate multilevel spondylitic spurring with mild multilevel intervertebral disc space narrowing and at least moderate facet arthrosis. No acute fracture or subluxation. Mild convex right curvature. Evaluation of the central canal and neuroforamina is better assessed by MRI. Multilevel foraminal narrowing is noted. Lung apices are clear. Mediastinal lipomatosis. No prevertebral soft tissue swelling. Streak artifact from dental amalgam hardware." -patient likely cannot fit into hospital MRI machine -weakness unlikeley due to spinal issues and more to large body habitus with encumbrance of abdomen pannus/scrotum (9) Fall: -fall at home with acute fractures (10) Contusion of knee, right: -Deconditioning due to body habitus. PT/OT evaluations as needed. All other CT imaging without acute change or injury (11) Diabetes mellitus, type II, insulin dependent: -Hold home agents -Basal/bolus insulin while in-patient -BSG AC HS (12) MICAH (obstructive sleep apnea): CPAP HS DVT Ppx: Eliquis Code status: FULL PCP: Long Admission and Anticipated Discharge Date Admission Date: December 15, 2019 Subjective patient breathing on room air. no shortness of breath. no dizziness. no headache. no chest pain. no acute abdomen pain. no vomiting. multiple evaluations by hospitalist and also with surgical evaluation. patient agreed to transfer to [facility] in [place] for further treatment and multi-specialty evaluation Review of Systems Review of Systems: All systems reviewed & are unremarkable except as noted in Subjective Physical Exam Constitutional: + obese and comfortable Eyes: PERRL, conjunctivae normal, anicteric sclerae EOM intact bilaterally ENMT: external ear and nose normal, oropharynx normal Neck: normal visual inspection Respiratory: normal respiratory effort, lungs clear to auscultation Cardiovascular: Rate/Rhythm: regular rate and regular rhythm Gastrointestinal (Abdomen): normal bowel sounds, soft, nontender, no hepatosplenomegaly Musculoskeletal: Head/Neck/Chest: normocephalic Skin: + skin hypertrophy (patient has merging of abdomen pannus into the scrotum) Neurologic: PERRL, EOMI, accommodation nl, no face palsy, no dysarthria CN's II-XI intact bilaterally Psychiatric: A+Ox3, euthymic affect Results & Data Results & Data ([facility]) Vital Signs (Past 12 Hours) Vital Signs Temp Pulse Pulse Resp BP BP Pulse Ox 12/16/19 15:31 37.1 C 98 H 18 98/62 L 95 12/16/19 11:43 37.0 C 110 H 20 71/43 L 97 12/16/19 08:00 94 H 12/16/19 07:49 37.6 C H 94 H 18 94/54 L 95 12/16/19 06:40 111/60 12/16/19 05:24 36.8 C 95/54 L (1) Fall Encounter type: initial encounter Qualified Code(s): W19.XXXA - Unspecified fall, initial encounter (2) Contusion of knee, right Encounter type: initial encounter Qualified Code(s): S80.01XA - Contusion of right knee, initial encounter
[2019-12-16 17:16] LABS: BUN Creatinine Ratio 18.2 (10-20); Calcium 8.4 mg/dl (8.5-10.1); Creatinine Clr Calc Pharmacy 51.6 ml/min; Est GFR (African American) 29.9; Est GFR (Non-African American) 25.8; Potassium 4.2 mmol/L (3.5-5.1)
--- NOTE | 2019-12-16 18:05 | Discharge Summary ---
Date of Service December 16, 2019 Admission HPI Per Admitting Provider This is a 59yo M with a PMH of DM II, atrial fibrillation on anticoagulation, spina bifida, gout, HTN, CAD (s/p stent) and large pannus following with the wound clinic who presents with pain of abdomen/pannus as well as generalized weakness. Patient has noted stinging constant pain of lower pannus and scrotal area for the past few weeks that is worsened. Follows with wound clinic and uses nystatin powder and barrier cream. Home health felt that area was more red and swollen than usual. Also noted more clear/yellow drainage lately and has been applying bandages to the area. Was found to be febrile today by home health but denies any chills or malaise. Also noting generalized weakness over the past few days. Ambulates with walker and wheelchair at baseline but fell onto knees 4 days ago with resulting bruise. Denies any loss of consciousness or head trauma. Feels deconditioned. Also endorses some urinary incontinence over the past few days when he gets up to use the restroom. No dysuria or hematuria noted. Had some BRB on toilet paper after bowel movement yesterday. Recent had bowel regimen adjusted by PCP and is taking senna-docusate daily. Has history of hemorrhoids but has not been experiencing the pain he normally feels. No melena. No lightheadedness, headache, visual changes, chest pain, palpitations, shortness of breath, nausea, vomiting, abdominal pain, or diarrhea. Principal Diagnosis Sepsis Cellulitis Abdominal pannus with scrotal deformity Acute kidney injury (possibly from vancomycin toxicity) HTN (hypertension) chronic atrial fibrillation on Eliquis anticoagulation Diabetes mellitus, type II, insulin dependent Discharge Exam Constitutional + obese and comfortable Eyes PERRL, conjunctivae normal, anicteric sclerae EOM intact bilaterally ENMT external ear and nose normal, oropharynx normal Neck normal visual inspection Respiratory normal respiratory effort, lungs clear to auscultation Cardiovascular Rate/Rhythm: regular rate and + irregularly irregular (atrial fibrillation) Gastrointestinal (Abdomen) normal bowel sounds, soft, nontender, no hepatosplenomegaly Musculoskeletal Head/Neck/Chest: normocephalic Skin + skin hypertrophy (patient has merging of abdomen pannus into the scrotum) Neurologic PERRL, EOMI, accommodation nl, no face palsy, no dysarthria CN's II-XI intact bilaterally Psychiatric A+Ox3, euthymic affect Discharge Data Allergies Allergy/AdvReac Type Severity Reaction Status Date / Time sulfamethoxazole Allergy Intermediate Rash Unverified 12/16/19 07:00 trimethoprim Allergy Intermediate Rash Unverified 12/16/19 07:00 AVIVA Inhibitors Allergy Unknown . Unverified 12/15/19 14:28 Bactrim Allergy Unknown . Unverified 12/06/17 15:09 lisinopril Allergy Unknown Unknown Verified 12/16/19 07:01 Consultations 12/15/19 16:58 ED Decision to Admit Stat 12/15/19 19:10 Consult Case Management - Discharge Planning Routine 12/16/19 11:50 Consult General Surgery Routine 12/16/19 15:52 Consult Nephrology Routine 12/16/19 17:11 Burn CD for patient Stat Ordered Studies 12/15/19 13:15 CT abd pelvis IV con only Stat CT cervical spine wo con Stat CT chest w con Stat CT head/brain wo con Stat CT lumbar spine wo con Stat Hospital Course (1) Sepsis: (2) Cellulitis: as per 12/15/2019 HPI -This is a 59yo M with a PMH of DM II, atrial fibrillation on anticoagulation, spina bifida, gout, HTN, CAD (s/p stent) and large pannus following with the wound clinic who presents with pain of abdomen/pannus as well as generalized weakness. Patient has noted stinging constant pain of lower pannus and scrotal area for the past few weeks that is worsened. Follows with wound clinic and uses nystatin powder and barrier cream. Home health felt that area was more red and swollen than usual. Also noted more clear/yellow drainage lately and has been applying bandages to the area. Was found to be febrile today by home health but denies any chills or malaise. Also noting generalized weakness over the past few days. Ambulates with walker and wheelchair at baseline but fell onto knees 4 days ago with resulting bruise. Denies any loss of consciousness or head trauma. Feels deconditioned. Also endorses some urinary incontinence over the past few days when he gets up to use the restroom. No dysuria or h ematuria noted. Had some BRB on toilet paper after bowel movement yesterday. Recent had bowel regimen adjusted by PCP and is taking senna-docusate daily. Has history of hemorrhoids but has not been experiencing the pain he normally feels. No melena. No lightheadedness, headache, visual changes, chest pain, palpitations, shortness of breath, nausea, vomiting, abdominal pain, or diarrhea. -on admission on 12/15/2019 with increased pain, erythema and edema in distal pannus and scrotal area, Leukocytosis of 14.7, febrile at 38 C, HR of 95, RR of 25, procalcitonin of 3 -patient was given a loading dose of Vancomycin of 2750 mg in the ED which is a large dose but patient of large body habitus and weight (194.3 kg), because of hospitalist team noted acute kidney injury on admission, patient was instead switch to Daptomycin and Zosyn on admission -continue IV Zosyn as 4.5 mg IV q8 hours and daptomycin 500 mg IV q24 hours, patient given additional IV fluids because of elevated lactic acid as 2.5 and for soft blood pressures - lactic acid last checked is normalized as 1.6 -general surgery completed initial consult evaluation on 12/16/2019 -see below on hospitalist concerns in regards to abdominal pannus and scrotal abnormality (3) Abdominal pannus: with scrotal deformity -12/15/2019 CT abdomen: Limited exam secondary to patient body habitus. Portions of the patient's anatomy extend outside the field of view. Cardiomegaly. Small pericardial effusion. Clear lung bases. No pneumatosis or pneumoperitoneum identified. Intrahepatic and extrahepatic pneumobilia is noted compatible with prior single carotid knee. Cholecystectomy. Hepatomegaly with suggestion of probable hepatic steatosis. Unremarkable spleen. Pancreas and adrenal glands are unremarkable. Kidneys are within normal limits. Mild urinary bladder distention. Calcific plaque of the abdominal aorta. No bowel obstruction or bowel wall thickening. Moderate fecal retention. There is a large pannus which extends inferiorly. A large amount of skin thickening with subcutaneous edema is again noted within this distribution which appears similar to the 2017 exam. Enlarged bilateral inguinal chain lymph nodes measure up to approximately 1.46 cm in short axis. These are noted within the bilateral lower extremities. Calcifications of the posterior thecal sac are noted at the level of the lower thoracic spine, nonspecific. There is a minimal retained radiopaque linear device noted projecting over the posterior elements of the lumbar spine at L4. Large posterior disc osteophyte complex at L3-L4. No acute fracture identified. IMPRESSION of radiologist 1. No acute posttraumatic intra-abdominal or intrapelvic abnormality identified. 2. No acute fracture. 3. Large lower abdominal wall pannus is again noted extending inferiorly below the level of the knees. Extensive associated skin thickening with subcutaneous edema is suggestive of cellulitis, similar to the 2017 exam. No drainable fluid collection. 4. Bilateral inguinal chain adenopathy, likely reactive. - 12/16/[address] Dr[address] Elliott "This patient has a cellulitis of the skin that is quite thickened of the extension below his pubic area. This does not have the classic appearance of a pannus and that its origin seems to be below the pubic bone and is not originated above the lower abdominal crease. There is what appears to be scrotal skin extending off the back of this. It is difficult to tell whether this is an extension of the scrotum. There is no abscess requiring drainage however. I would continue with the antibiotics and symptomatic management. I feel that he would need to be transferred to a tertiary care center for evaluation and removal and that this will most likely require a multidisciplinary approach to most likely include general surgery, urology and plastic surgery. He was scheduled to be seen in [place] however those appointments were delayed as a result of the COVID crisis" -discussed with patient that he may benefit with transfer to tertiary care center to evaluate abdominal and scrotal abnormality and perhaps with surgical approach to prevent recurrent infection of the skin. Dr. Bazan from [facility] in [place] is the accepting hospitalist (4) Acute kidney injury: Acute kidney injury (possibly from vancomycin toxicity) -baseline creatinine of 1 -creatinine 1.7 on admission on 12/16/2019. -creatinine rising despite IV fluids likely due to vancomycin in the ED, recent lab on 12/16/2019 with creatinine 2.62 -continue IV fluids (5) HTN (hypertension): -Holding olmesartan in setting of HARINDER. Continue Carvedilol (6) History of chronic atrial fibrillation: with Eliquis anticoagulation -Continue Carvedilol. Continue Eliquis for anticoagulation until surgery assessment at [facility] in [place] (7) CAD (coronary artery disease): History of stent placement in 2019. Continue aspirin, statin and carvedilol (8) Generalized weakness: History of spinal bifida a per patient -CT spin 12/15/2019 radiology impressions "Moderate multilevel spondylitic spurring with mild multilevel intervertebral disc space narrowing and at least moderate facet arthrosis. No acute fracture or subluxation. Mild convex right curvature. Evaluation of the central canal and neuroforamina is better assessed by MRI. Multilevel foraminal narrowing is noted. Lung apices are clear. Mediastinal lipomatosis. No prevertebral soft tissue swelling. Streak artifact from dental amalgam hardware." -patient likely cannot fit into hospital MRI machine -weakness unlikeley due to spinal issues and more to large body habitus with encumbrance of abdomen pannus/scrotum (9) Fall: -fall at home with acute fractures (10) Contusion of knee, right: -Deconditioning due to body habitus. PT/OT evaluations as needed. All other CT imaging without acute change or injury (11) Diabetes mellitus, type II, insulin dependent: -Hold home agents -Basal/bolus insulin while in-patient -BSG AC HS (12) MICAH (obstructive sleep apnea): CPAP HS DVT Ppx: Eliquis Code status: FULL PCP: Long Total Time Total Time Spent Total Time Spent (In Minutes): 40 minutes Total Time Includes: Examination of the Patient, Discharge Planning, Medication Reconciliation and Communication With Other Providers Discharge Plan Discharge Items Patient Disposition: Transfer Acute Care Hospital Reason For Visit: SEPSIS 2/2 CELLULITIS,HARINDER Discharge Diagnosis: Sepsis Cellulitis Abdominal pannus with scrotal deformity Acute kidney injury (possibly from vancomycin toxicity) HTN (hypertension) chronic atrial fibrillation on Eliquis anticoagulation Diabetes mellitus, type II, insulin dependent Condition on Discharge: Fair Activity: Per Instructions section Non-emergency contact: Primary Care Provider Call non-emergency contact if: you have any medication questions Follow-up/Referrals: Kalyn Brar MD [Primary Care Provider] - Diet: Carb Consistent or DM2 Addtl Attending Provider Instructions: (1) Sepsis: (2) Cellulitis: as per 12/15/2019 HPI -This is a 59yo M with a PMH of DM II, atrial fibrillation on anticoagulation, spina bifida, gout, HTN, CAD (s/p stent) and large pannus following with the wound clinic who presents with pain of abdomen/pannus as well as generalized weakness. Patient has noted stinging constant pain of lower pannus and scrotal area for the past few weeks that is worsened. Follows with wound clinic and uses nystatin powder and barrier cream. Home health felt that area was more red and swollen than usual. Also noted more clear/yellow drainage lately and has been applying bandages to the area. Was found to be febrile today by home health but denies any chills or malaise. Also noting generalized weakness over the past few days. Ambulates with walker and wheelchair at baseline but fell onto knees 4 days ago with resulting bruise. Denies any loss of consciousness or head trauma. Feels deconditioned. Also endorses some urinary incontinence over the past few days when he gets up to use the restroom. No dysuria or hematuria noted. Had some BRB on toilet paper after bowel movement yesterday. Recent had bowel regimen adjusted by PCP and is taking senna-docusate daily. Has history of hemorrhoids but has not been experiencing the pain he normally feels. No melena. No lightheadedness, headache, visual changes, chest pain, palpitations, shortness of breath, nausea, vomiting, abdominal pain, or diarrhea. -on admission on 12/15/2019 with increased pain, erythema and edema in distal pannus and scrotal area, Leukocytosis of 14.7, febrile at 38 C, HR of 95, RR of 25, procalcitonin of 3 -patient was given a loading dose of Vancomycin of 2750 mg in the ED which is a large dose but patient of large body habitus and weight (194.3 kg), because of hospitalist team noted acute kidney injury on admission, patient was instead switch to Daptomycin and Zosyn on admission -continue IV Zosyn as 4.5 mg IV q8 hours and daptomycin 500 mg IV q24 hours, patient given additional IV fluids because of elevated lactic acid as 2.5 and for soft blood pressures - lactic acid last checked is normalized as 1.6 -general surgery completed initial consult evaluation on 12/16/2019 -see below on hospitalist concerns in regards to abdominal pannus and scrotal abnormality (3) Abdominal pannus: -12/15/2019 CT abdomen: Limited exam secondary to patient body habitus. Portions of the patient's anatomy extend outside the field of view. Cardiomegaly. Small pericardial effusion. Clear lung bases. No pneumatosis or pneumoperitoneum identified. Intrahepatic and extrahepatic pneumobilia is noted compatible with prior single carotid knee. Cholecystectomy. Hepatomegaly with suggestion of probable hepatic steatosis. Unremarkable spleen. Pancreas and adrenal glands are unremarkable. Kidneys are within normal limits. Mild urinary bladder distention. Calcific plaque of the abdominal aorta. No bowel obstruction or bowel wall thickening. Moderate fecal retention. There is a large pannus which extends inferiorly. A large amount of skin thickening with subcutaneous edema is again noted within this distribution which appears similar to the 2017 exam. Enlarged bilateral inguinal chain lymph nodes measure up to approximately 1.46 cm in short axis. These are noted within the bilateral lower extremities. Calcifications of the posterior thecal sac are noted at the level of the lower thoracic spine, nonspecific. There is a minimal retained radiopaque linear device noted projecting over the posterior elements of the lumbar spine at L4. Large posterior disc osteophyte complex at L3-L4. No acute fracture identified. IMPRESSION of radiologist 1. No acute posttraumatic intra-abdominal or intrapelvic abnormality identified. 2. No acute fracture. 3. Large lower abdominal wall pannus is again noted extending inferiorly below the level of the knees. Extensive associated skin thickening with subcutaneous edema is suggestive of cellulitis, similar to the 2017 exam. No drainable fluid collection. 4. Bilateral inguinal chain adenopathy, likely reactive. - 12/16/[address] general [address] evaluation [address] Dr[address] Elliott "This patient has a cellulitis of the skin that is quite thickened of the extension below his pubic area. This does not have the classic appearance of a pannus and that its origin seems to be below the pubic bone and is not origin ated above the lower abdominal crease. There is what appears to be scrotal skin extending off the back of this. It is difficult to tell whether this is an extension of the scrotum. There is no abscess requiring drainage however. I would continue with the antibiotics and symptomatic management. I feel that he would need to be transferred to a tertiary care center for evaluation and removal and that this will most likely require a multidisciplinary approach to most likely include general surgery, urology and plastic surgery. He was scheduled to be seen in [place] however those appointments were delayed as a result of the COVID crisis" -discussed with patient that he may benefit with transfer to tertiary care center to evaluate abdominal and scrotal abnormality and perhaps with surgical approach to prevent recurrent infection of the skin. Dr. Bazan from [facility] in [place] is the accepting hospitalist (4) Acute kidney injury: -baseline creatinine of 1 -creatinine 1.7 on admission on 12/16/2019. -creatinine rising despite IV fluids likely due to vancomycin in the ED, recent lab on 12/16/2019 with creatinine 2.62 -continue IV fluids (5) HTN (hypertension): -Holding olmesartan in setting of HARINDER. Continue Carvedilol (6) History of chronic atrial fibrillation: -Continue Carvedilol. Continue Eliquis for anticoagulation until surgery assessment at [facility] in [place] (7) CAD (coronary artery disease): History of stent placement in 2019. Continue aspirin, statin and carvedilol (8) Generalized weakness: History of spinal bifida a per patient -CT spin 12/15/2019 radiology impressions "Moderate multilevel spondylitic spurring with mild multilevel intervertebral disc space narrowing and at least moderate facet arthrosis. No acute fracture or subluxation. Mild convex right curvature. Evaluation of the central canal and neuroforamina is better assessed by MRI. Multilevel foraminal narrowing is noted. Lung apices are clear. Mediastinal lipomatosis. No prevertebral soft tissue swelling. Streak artifact from dental amalgam hardware." -patient likely cannot fit into hospital MRI machine -weakness unlikeley due to spinal issues and more to large body habitus with encumbrance of abdomen pannus/scrotum (9) Fall: -fall at home with acute fractures (10) Contusion of knee, right: -Deconditioning due to body habitus. PT/OT evaluations as needed. All other CT imaging without acute change or injury (11) Diabetes mellitus, type II, insulin dependent: -Hold home agents -Basal/bolus insulin while in-patient -BSG AC HS (12) MICAH (obstructive sleep apnea): CPAP HS DVT Ppx: Eliquis Code status: FULL PCP: Long Pending Studies at Discharge: Yes Studies:: blood cultures from 12/15/2019 admission Stand-Alone Forms: My [facility] Skilled Items Patient informed of condition?: Yes DNR: No Discharge Level of Care: Other Communicable Disease: No Discharge Prognosis: Other Lines: Peripheral IV Urinary Catheter: No Medications and DC Order Prescriptions: Continued apixaban 5 mg tablet 5 mg PO BID RF: 0 aspirin 81 mg tablet,delayed release (DR/EC) 81 mg PO QAM RF: 0 atorvastatin 40 mg tablet 40 mg PO HS RF: 0 carvedilol 6.25 mg tablet 6.25 mg PO BID RF: 0 cholecalciferol (vitamin D3) 4,000 unit capsule 4,000 units PO QAM RF: 0 cyclobenzaprine 5 mg tablet 5 mg PO BID PRN (Reason: Muscle Spasm) RF: 0 doxazosin [Cardura] 2 mg tablet 2 mg PO HS RF: 0 glucagon HCl 1 mg recon soln 1 mg SQ Q20M PRN (Reason: .) RF: 0 ondansetron HCl [Zofran] 4 mg tablet 4 mg PO QID PRN (Reason: Nausea) RF: 0 Adult Probiotic 3 billion cell capsule 3,000 mmu cells PO QAM RF: 0 tramadol 50 mg tablet 50 mg PO Q6H PRN (Reason: pain) RF: 0 trazodone 100 mg tablet 100 mg PO HS PRN (Reason: Insomnia) RF: 0 nitroglycerin [Nitrostat] 0.4 mg tablet, sublingual 0.4 mg SL Q5M PRN (Reason: Chest Pain) RF: 0 latanoprost 0.005 % drops 1 drops OP HS RF: 0 loratadine [Claritin RediTabs] 10 mg tablet,disintegrating 10 mg PO DAILY PRN (Reason: allergy symptoms) RF: 0 allopurinol 100 mg tablet 100 mg PO QAM RF: 0 allopurinol 300 mg tablet 300 mg PO QAM RF: 0 Basagljose RegaladoikPen U-100 Insulin 100 unit/mL (3 mL) insulin pen 50 unit SUBCUT QAM RF: 0 sennosides [Senna Lax] 8.6 mg Tablet 8.6 mg PO DAILY RF: 0 propylene glycol-glycerin 1-0.3 % Drops 1 drp OPHTHALMIC (EYE) DAILY PRN (Reason: Dry Eye(S)) RF: 0 Eucerin Cream 1 applic TOPICAL AMHS PRN (Reason: skin) RF: 0 Vitron-C 65 mg iron- 125 mg Tablet,Delayed Release (Dr/Ec) 1 tab PO BID RF: 0 Discontinued olmesartan [Benicar] 40 mg tablet 40 mg PO QAM RF: 0 potassium chloride 10 mEq capsule, extended release 10 meq PO BID RF: 0 torsemide 20 mg tablet 40 mg PO BID RF: 0 Ozempic 0.25 mg or 0.5 mg(2 mg/1.5 mL) pen injector 0.5 mg SQ FR RF: 0 metformin 500 mg Tablet 1,000 mg PO BID RF: 0 Discharge Orders: Discharge Order (Routine); Ordered 12/16/19 Ordered By: Jonathan Butler Admission Data Admit Date/Time: 12/15/19 17:11 Attending Provider: Jonathan Butler Admit Provider: Rodney Gallegos Primary Care Provider: Kalyn Brar Other Providers: Rodney Gallegos ; Gregory Elliott Roshan
== END 2019-12-16 19:55 | disposition short-term general hospital (02) | DRG 872 ==
LOC: ED 12:16 → 2N 17:11 → SUATTDRO 17:11 → 2N 18:38

== ENCOUNTER 2020-04-17 21:52 | Observation (INO) ==
[2020-04-17] MEDS ORDERED: SODIUM CHLORIDE 0.9% 1000ML 1,000 ML IV SCH (22:15)
--- NOTE | 2020-04-17 22:19 | Emergency Department Note ---
History of Present Illness General Chief complaint: Hematuria Time Seen by Provider: 04/17/20 21:56 History of Present Illness This is a 59yo M with a PMH of DM II, atrial fibrillation on anticoagulation, spina bifida, gout, HTN, CAD (s/p stent) and large pannus following with the wound clinic who presents with pain of hematuria as well as generalized weakness and not feeling well. Location: Generalized Quality: Weak Severity: Moderate Duration: Today Timing: Today Context: Symptoms got worse and patient came in Modifying factors: better with nothing; worse with activity Patient states initially he noticed blood in his Warren and then he started to feel weak and achy. He then summoned EMS. He has an indwelling Warren. He follows with the wound clinic. He is to have pannus surgery next month in [place]. Patient denies chest pain, dyspnea, vomiting, diarrhea. Home Medications Home Medications Medication Instructions Recorded Confirmed Type apixaban 5 mg tablet 5 mg PO BID 09/24/18 04/17/20 History aspirin 81 mg tablet,delayed 81 mg PO QAM 09/24/18 04/17/20 History release atorvastatin 40 mg tablet 40 mg PO HS 09/24/18 04/17/20 History carvedilol 6.25 mg tablet 6.25 mg PO BID 09/24/18 04/17/20 History cholecalciferol (vitamin D3) 100 4,000 units PO QAM 09/24/18 04/17/20 History mcg (4,000 unit) capsule cyclobenzaprine 5 mg tablet 5 mg PO BID PRN tab 09/24/18 04/17/20 History doxazosin 2 mg tablet 2 mg PO HS 09/24/18 04/17/20 History glucagon HCl 1 mg/mL solution for 1 mg SQ Q20M PRN 09/24/18 04/17/20 History injection lactobacillus combination no.8 3 3,000 mmu cells PO QAM 09/24/18 04/17/20 History billion cell capsule latanoprost 0.005 % eye drops 1 drops OP HS 09/24/18 04/17/20 History nitroglycerin 0.4 mg sublingual 0.4 mg SL Q5M PRN 09/24/18 04/17/20 History tablet ondansetron HCl 4 mg tablet 4 mg PO QID PRN 09/24/18 04/17/20 History tramadol 50 mg tablet 50 mg PO Q6H PRN 09/24/18 04/17/20 History trazodone 100 mg tablet 100 mg PO HS PRN 09/24/18 04/17/20 History allopurinol 300 mg tablet 300 mg PO QAM 02/04/19 04/17/20 History loratadine 10 mg disintegrating 10 mg PO DAILY PRN 02/04/19 04/17/20 History tablet Basaglar KwikPen U-100 Insulin 50 unit SUBCUT QPM 12/15/19 04/17/20 History Eucerin 1 applic TOPICAL AMHS PRN 12/15/19 04/17/20 History Vitron-C 1 tab PO BID 12/15/19 04/17/20 History propylene glycol-glycerin 1 drp OPHTHALMIC (EYE) DAILY PRN 12/15/19 04/17/20 History sennosides [Senna Lax] 8.6 mg PO DAILY 12/15/19 04/17/20 History metformin 500 mg PO BID 04/17/20 04/17/20 History nystatin [Nystop] 1 applic TOPICAL BID 04/17/20 04/17/20 History Allergies Allergy/AdvReac Type Severity Reaction Status Date / Time sulfamethoxazole Allergy Intermediate Rash Unverified 04/14/20 12:53 trimethoprim Allergy Intermediate Rash Unverified 04/14/20 12:53 AVIVA Inhibitors Allergy Unknown . Unverified 04/14/20 12:53 Bactrim Allergy Unknown . Unverified 12/06/17 15:09 lisinopril Allergy Unknown Unknown Verified 04/14/20 12:53 Past Med/Surg History Medical History Abdominal pannus Acquired buried penis Allergic rhinitis Arthritis of knee B-complex deficiency Bilateral scrotal hernia CAD (coronary artery disease) Decreased ambulation status 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, with long-term current use of insulin Diabetic neuropathy Diabetic retinopathy Dyslipidemia GERD (gastroesophageal reflux disease) Glaucoma Gout Hearing loss of left ear History of chronic atrial fibrillation History of TIA (transient ischemic attack) HTN (hypertension) Hyperlipidemia Lymphedema Major depressive disorder Myocardial infarction H/o 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 MICAH (obstructive sleep apnea) Presence of bare metal stent in right coronary artery Sepsis Spina bifida Vitamin D deficiency Surgical History H/O cardiac catheterization H/O colonoscopy H/O nasal septoplasty Hx of tonsillectomy Previous back surgery S/P cholecystectomy Status post uvulopalatopharyngoplasty Family History Mother Coronary heart disease Diabetes Hypertension Social History Smoking Status: Former smoker packs per day: 1; Second Hand Exposure: No; Hx Alcohol Use: No Hx Substance Use: No Preferred Language: Sinhala Communication Ability: Effective Visual Impairment: Limited Hearing Ability: Hard of Hearing Desk Interviewer Required: No Beliefs That Will Affect Care: None marital status: Single Current Living Situation: Alone Current Living Situation Comment: ine apartment current occupational status: disabled Feels Safe at Home: Yes Childhood Exposure to Second-Hand Smoke: No Assistive Devices: Walker Review of Systems A total of 10 systems reviewed and were otherwise negative Physical Exam Vital Signs Vital Signs - 24 hr 04/17/20 22:55 04/17/20 23:09 Temperature 36.8 C Temperature Source Oral Pulse Rate 68 Pulse Rhythm Irregular Respiratory Rate 16 Respiratory Effort / Characteristics Non-Labored Non-Labored Blood Pressure 173/88 H Blood Pressure Mean 116 Pulse Oximetry 98 Oxygen Delivery Method Room Air Sepsis Recent Fever Within 48 Hours No Sepsis New/Unexplained Change in Mental Status N/A Sepsis Action Taken by Nursing No Action Required VITALS: Vitals are noted on the nurse's note and reviewed by myself. Vital signs stable. GENERAL: Pleasant male, in no acute distress, nondiaphoretic, well-developed well-nourished. SKIN: Capillary reflex less than 2 seconds. Wound ulcers to the pannus and scrotum appearing worse than the pictures from the wound clinic from the other day HEENT: Normocephalic. PERRLA. EOMI. Nares patent. Mucous membranes moist. Neck is supple without nuchal rigidity. HEART: Regular rate and rhythm LUNGS: Clear to auscultation bilaterally without wheezes, rales or rhonchi. No retractions or accessory muscle use. ABDOMEN: Positive bowel sounds x 4. Normal tympanic percussion. Soft, tender to palpation lower abdomen, large pannus present, without masses or organomegaly. Jones sign negative. No guarding or rebound tenderness. No CVA tenderness exam: Large pannus and underneath the pannus is the opening to where the Warren tube is seen but I am unable to visualize the penis. I am unable to visualize the penis. Warren is draining but urine appears cloudy and bloody. No perineum tenderness. MUSCULOSKELETAL: No gross musculoskeletal defects. NEURO: Patient was alert and oriented to person place and time. No focal neurological deficits. Course Administered Medications Discontinued Medications Sodium Chloride (Nss 1000ml) 1,000 mls @ 999 mls/hr IV .Q1H1M RAJWINDER Stop: 04/17/20 23:15 Last Infusion: 04/18/20 01:05 Dose: 0 mls/hr Documented by: [id number] Admin: 04/18/20 00:00 Dose: 999 mls/hr Documented by: [id number] Ceftriaxone Sodium (Rocephin) 2,000 mg in 70 mls @ 140 mls/hr IV NOW STA Stop: 04/18/20 00:23 Last Infusion: 04/18/20 00:30 Dose: 0 mls/hr Documented by: [id number] Admin: 04/18/20 00:00 Dose: 140 mls/hr Documented by: [id number] Medical Decision Making Medical Records Attestation: I reviewed the patient's medical records. Home Medications Current Medication List: was personally reviewed by me Laboratory Data Attestation: I reviewed the patient's lab results. Result diagrams: 04/17/20 22:26 04/17/20 22:26 Lab Results 04/17/20 04/17/20 04/17/20 Range/Units 22:26 22:26 22:26 WBC 9.13 (4.8-10.8) K/uL RBC 3.96 L (4.7-6.1) M/uL Hgb 10.6 L (14.0-18.0) g/dL Hct 33.2 L (42-52) % MCV 83.8 (80-100) fL MCH 26.8 (25-34) pg MCHC 31.9 L (32-36) g/dL RDW Std Deviation 48.2 H (36.4-46.3) fL RDW Coeff of Selvin 15.6 H (11.5-14.5) % Plt Count 212 (130-400) K/uL MPV 9.0 (7.4-10.4) fL Immature Gran % (Auto) 0.2 % Neut % (Auto) 79.1 % Lymph % (Auto) 13.5 % [place] % (Auto) 5.4 % Eos % (Auto) 1.6 % Baso % (Auto) 0.2 % Neut # (Auto) 7.22 H (1.4-6.5) K/uL Lymph # (Auto) 1.23 (1.2-3.4) K/uL Sp[place] # (Auto) 0.49 (0.11-0.59) K/uL Eos # (Auto) 0.15 (0-0.5) K/uL Baso # (Auto) 0.02 (0-0.2) K/uL Immature Gran # (Auto) 0.02 (0.00-0.02) K/uL PT 12.1 H (9.0-12.0) Seconds INR 1.2 H (0.9-1.1) APTT 28.2 (21.0-31.0) Seconds PTT Ratio 1.0 Sodium 142 (136-145) mmol/L Potassium 3.4 L (3.5-5.1) mmol/L Chloride 106 (98-107) mmol/L Carbon Dioxide 28 (21-32) mmol/L Anion Gap 7.0 (3-11) BUN 18 (7-18) mg/dl Creatinine 1.24 (0.6-1.4) mg/dl Est Cr Clr Drug Dosing Not Reportable Est GFR ( Amer) 73.8 Est GFR (Non-Af Amer) 63.7 BUN/Creatinine Ratio 14.4 (10-20) Glucose 100 H (70-99) mg/dl Lactate (0.4-2.0) mmol/L Calcium 9.4 (8.5-10.1) mg/dl Magnesium 2.3 (1.8-2.4) mg/dl Total Bilirubin 1.5 H (0.2-1) mg/dl AST 15 (15-37) U/L ALT 14 (12-78) U/L Alkaline Phosphatase 100 (45-117) U/L Total Creatine Kinase 67 (39-308) U/L Troponin I < 0.015 (0-0.045) ng/ml Total Protein 7.4 (6.4-8.2) gm/dl Albumin 3.2 L (3.4-5.0) gm/dl Globulin 4.2 H (2.5-4.0) gm/dl Albumin/Globulin Ratio 0.8 L (0.9-2) Urine Color Urine Appearance (Clear) Urine pH (4.5-7.5) Ur Specific [place] (1.000-1.030) Urine Protein (Negative) Urine Glucose (UA) (Negative) Urine Ketones (Negative) Urine Blood (Negative) Urine Nitrite (Negative) Urine Bilirubin (Negative) Urine Urobilinogen (Negative) Ur Leukocyte Esterase (Negative) Urine WBC (Auto) (0-5) /hpf Urine RBC (Auto) (0-4) /hpf U Hyaline Cast (Auto) (0-5) /lpf U Epithel Cells (Auto) (0-5) /lpf Urine Bacteria (Auto) (Negative) Triple Phos Crystals (None Prsent) Urine Yeast 04/17/20 04/17/20 Range/Units 22:26 23:05 WBC (4.8-10.8) K/uL RBC (4.7-6.1) M/uL Hgb (14.0-18.0) g/dL Hct (42-52) % MCV (80-100) fL MCH (25-34) pg MCHC (32-36) g/dL RDW Std Deviation (36.4-46.3) fL RDW Coeff of Selvin (11.5-14.5) % Plt Count (130-400) K/uL MPV (7.4-10.4) fL Immature Gran % (Auto) % Neut % (Auto) % Lymph % (Auto) % [place] % (Auto) % Eos % (Auto) % Baso % (Auto) % Neut # (Auto) (1.4-6.5) K/uL Lymph # (Auto) (1.2-3.4) K/uL [place] # (Auto) (0.11-0.59) K/uL Eos # (Auto) (0-0.5) K/uL Baso # (Auto) (0-0.2) K/uL Immature Gran # (Auto) (0.00-0.02) K/uL PT (9.0-12.0) Seconds INR (0.9-1.1) APTT (21.0-31.0) Seconds PTT Ratio Sodium (136-145) mmol/L Potassium (3.5-5.1) mmol/L Chloride (98-107) mmol/L Carbon Dioxide (21-32) mmol/L Anion Gap (3-11) BUN (7-18) mg/dl Creatinine (0.6-1.4) mg/dl Est Cr Clr Drug Dosing Est GFR ( Amer) Est GFR (Non-Af Amer) BUN/Creatinine Ratio (10-20) Glucose (70-99) mg/dl Lactate 0.8 (0.4-2.0) mmol/L Calcium (8.5-10.1) mg/dl Magnesium (1.8-2.4) mg/dl Total Bilirubin (0.2-1) mg/dl AST (15-37) U/L ALT (12-78) U/L Alkaline Phosphatase (45-117) U/L Total Creatine Kinase (39-308) U/L Troponin I (0-0.045) ng/ml Total Protein (6.4-8.2) gm/dl Albumin (3.4-5.0) gm/dl Globulin (2.5-4.0) gm/dl Albumin/Globulin Ratio (0.9-2) Urine Color Red Urine Appearance Turbid A (Clear) Urine pH >= 9.0 H (4.5-7.5) Ur Specific [place] 1.015 (1.000-1.030) Urine Protein 2+ H (Negative) Urine Glucose (UA) Negative (Negative) Urine Ketones Negative (Negative) Urine Blood 3+ H (Negative) Urine Nitrite Positive A (Negative) Urine Bilirubin Negative (Negative) Urine Urobilinogen Negative (Negative) Ur Leukocyte Esterase 3+ H (Negative) Urine WBC (Auto) >30 H (0-5) /hpf Urine RBC (Auto) >30 H (0-4) /hpf U Hyaline Cast (Auto) 0 (0-5) /lpf U Epithel Cells (Auto) >30 H (0-5) /lpf Urine Bacteria (Auto) 4+ H (Negative) Triple Phos Crystals Present A (None Prsent) Urine Yeast Not Reportable Imaging Data Attestation: I personally reviewed and interpreted this imaging study as follows: MDM Narrative Prior records/ancillary studies reviewed and summarized above. Nursing notes reviewed. Additional history obtained from EMS. The patient's history was concerning for Warren problems and feeling weak. Differential diagnosis: Etiologies such as metabolic, infection, hypo/hyperglycemia, electrolyte abnormalities, cardiac sources, intracerebral event, toxicologic, neurologic, as well as others were entertained. Physical examination: As above. ER treatment provided: IV Lock An order was placed for continuous cardiac monitoring. The monitor shows a rate of 60-1 10 with a sinus rhythm. IV fluids, Rocephin, vancomycin On reassessment the patient felt better. Diagnostics interpretation by me: ECG: Ordered for weakness EKG: Irregularly irregular with no acute ST-T wave changes, right bundle branch block, rate of 64. Impression A. fib with a right bundle branch block interpreted myself The labs revealed no leukocytosis. Negative lactic acid Urine concerning for infection sent for culture Blood cultures pending Spec: [id number] Collected: 09/07/19-UNK Received: 09/08/[address]: Erika Kendall CRNP Source: Abdomen OV Order: Ordered: Surf Wnd Cul/Sm Comments: PANNUS Procedure Result Verified Site Gram Stain Final 09/08/19 Gram Stain Result Many Gram Positive Cocci Many Gram Negative Bacilli Few Gram Positive Bacilli Rare Gram Positive Cocci Surface Wound Culture Final 09/10/19-1242 Organism 1 Group B Beta Strep Quantity Moderate Sens Sensitivities to Follow Organism 2 Staphylococcus aureus Quantity Few Sens Sensitivities to Follow Grp.B Strp S aureus RX M.I.C. RX M.I.C. --- --------- --- --------- Ampicillin S 0.12 Azithromycin S <=0.25 Cefepime S <=0.25 Cefotaxime S <=0.25 Ceftriaxone S <=0.25 Chloramphenicol S 4 Clindamycin S <=0.06 S <=0.5 Daptomycin S <=0.5 Erythromycin S <=0.06 S <=0.5 Oxacillin S <=0.25 Penicillin S 0.06 Tetracycline S <=4 Trimeth/Sulfa S <=0.5/9.5 Vancomycin S 0.5 S 1 S = SENSITIVE I = INTERMEDIATE R = RESISTANT Imaging studies: Preliminary Findings Only See Final Report For Complete Findings CT ABDOMEN & PELVIS With Contrast: Comparison: 12/15/2019. Mild posterior dependent atelectasis. Normal cardiac size with mild pericardial effusion. Coronary artery calcifications. No pleural effusion or pneumothorax. Status post cholecystectomy otherwise unremarkable liver, spleen, bilateral adrenal glands. There is evidence of pneumobilia. Bilateral kidneys within normal limits. No hydronephrosis. Atherosclerotic disease of aorta and bilateral renal arteries. No aneurysm. Normal small bowel. Nonspecific fecal debris within the colon. Normal appendix. Large pannus extending from the perineal region to the level of the knee with extensive edema/diffuse fluid accumulation mostly in the dependent portion. A catheter following the trajectory of the urethra with the balloon demonstrated just below the prostate gland and tip below the urinary bladder requiring repositioning if this represents a Warren catheter. There is a low-attenuation fluid collection just to the right of the entry site of the catheter noted posteriorly on image 623, series 3 measuring 4.9 x 4.2 cm. Very small the wall demonstrated this could represent a cyst, infectious process or abscess not entirely excluded. Radiologist: Yloande Dominguez MD Consultation: A consultation was placed with Dr. Leo and recommends keeping the Warren as is as it is draining and consulting urology in the morning. He agrees with antibiotics. I consulted Dr. Monteiro, the hospitalist. The case was discussed and diagnostics were reviewed. The patient was evaluated in the ER for further treatment. Exam and history seem consistent with UTI and pannus infection. Patient was started antibiotics. Medicine was consulted. Urology was consulted. He will be admitted. Urology states that the Warren is draining and not to move the Fo paulo. Patient is agreeable to treatment plan of admission. By the evaluation outlined above emergent etiologies such as electrolyte abnormalities, cardiac sources, intracerebral event, toxologic, neurologic, abnormalities blood glucose, metabolic, as well as others were deemed relatively unlikely. The pt informed about the findings as listed above. All questions were answered and pleased with the treatment. The chart was completed utilizing [employer] voice recognition software. Grammatical errors, random word insertions, pronoun errors, and incomplete sentences are an occassional consequence of this system due to software limitations, ambient noise, and hardware issues. Any formal questions or concerns about the content, text, or information contained within the body of this dictation should be directly addressed to the physician bus assistant for clarification. Impression & Plan Urinary tract infection, Cellulitis, Dislodged Warren catheter Discharge Plan Visit Data Chief Complaint: Hematuria ED Provider: Huan Fung ED Midlevel Provider: Marixa Gamboa Discharge Problem: Urinary tract infection, Cellulitis, Dislodged Warren catheter Patient Disposition: Admitted As Inpatient Condition: Fair Forms Stand Alone Forms: [facility] Prescriptions Prescriptions: No Action apixaban 5 mg tablet 5 mg PO BID RF: 0 aspirin 81 mg tablet,delayed release (DR/EC) 81 mg PO QAM RF: 0 atorvastatin 40 mg tablet 40 mg PO HS RF: 0 carvedilol 6.25 mg tablet 6.25 mg PO BID RF: 0 cholecalciferol (vitamin D3) 4,000 unit capsule 4,000 units PO QAM RF: 0 cyclobenzaprine 5 mg tablet 5 mg PO BID PRN (Reason: Muscle Spasm) RF: 0 doxazosin [Cardura] 2 mg tablet 2 mg PO HS RF: 0 glucagon HCl 1 mg recon soln 1 mg SQ Q20M PRN (Reason: .) RF: 0 ondansetron HCl [Zofran] 4 mg tablet 4 mg PO QID PRN (Reason: Nausea) RF: 0 Adult Probiotic 3 billion cell capsule 3,000 mmu cells PO QAM RF: 0 tramadol 50 mg tablet 50 mg PO Q6H PRN (Reason: pain) RF: 0 trazodone 100 mg tablet 100 mg PO HS PRN (Reason: Insomnia) RF: 0 nitroglycerin [Nitrostat] 0.4 mg tablet, sublingual 0.4 mg SL Q5M PRN (Reason: Chest Pain) RF: 0 latanoprost 0.005 % drops 1 drops OP HS RF: 0 loratadine [Claritin RediTabs] 10 mg tablet,disintegrating 10 mg PO DAILY PRN (Reason: allergy symptoms) RF: 0 allopurinol 300 mg tablet 300 mg PO QAM RF: 0 nystatin [Nystop] 100,000 unit/gram powder 1 applic TOPICAL BID RF: 0 metformin 500 mg tablet extended release 24 hr 500 mg PO BID RF: 0 Basaglar KwikPen U-100 Insulin 100 unit/mL (3 mL) insulin pen 50 unit SUBCUT QPM RF: 0 sennosides [Senna Lax] 8.6 mg Tablet 8.6 mg PO DAILY RF: 0 propylene glycol-glycerin 1-0.3 % Drops 1 drp OPHTHALMIC (EYE) DAILY PRN (Reason: Dry Eye(S)) RF: 0 Eucerin Cream 1 applic TOPICAL AMHS PRN (Reason: skin) RF: 0 Vitron-C 65 mg iron- 125 mg Tablet,Delayed Release (Dr/Ec) 1 tab PO BID RF: 0 Referrals Referrals: Kalyn Brar MD [Primary Care Provider] - Discharge Problem: Urinary tract infection Qualifiers: Urinary tract infection type: catheter-associated UTI Indwelling urinary catheter type: indwelling urethral catheter Encounter type: initial encounter Qualified Code(s): T83.511A - Infection and inflammatory reaction due to indwelling urethral catheter, initial encounter Cellulitis Qualifiers: Site of cellulitis: trunk Site of cellulitis of trunk: unspecified site Qualified Code(s): L03.319 - Cellulitis of trunk, unspecified
[2020-04-17 22:37] LABS: Basophils # (auto) 0.02 K/uL (0-0.2); Basophils % (auto) 0.2 %; Eosinophils # (auto) 0.15 K/uL (0-0.5); Eosinophils % (auto) 1.6 %; Hematocrit (blood only) 33.2 % (42-52); Hemoglobin 10.6 g/dL (14.0-18.0); Immature Granulocytes # (auto) 0.02 K/uL (0.00-0.02); Immature Granulocytes % (auto) 0.2 %; Lymphocytes # (auto) 1.23 K/uL (1.2-3.4); Lymphocytes % (auto) 13.5 %; Mean Corpuscular Hemoglobin 26.8 pg (25-34); Mean Corpuscular Hgb Conc 31.9 g/dL (32-36); Mean Corpuscular Volume 83.8 fL (80-100); Monocytes # (auto) 0.49 K/uL (0.11-0.59); Monocytes % (auto) 5.4 %; Neutrophils # (auto) 7.22 K/uL (1.4-6.5); Neutrophils % (auto) 79.1 %; Platelet Count 212 K/uL (130-400); RDW Coefficient of Variation 15.6 % (11.5-14.5); RDW Standard Deviation 48.2 fL (36.4-46.3); Red Blood Count 3.96 M/uL (4.7-6.1); White Blood Count 9.13 K/uL (4.8-10.8)
[2020-04-17 22:48] LABS: INR 1.2 (0.9-1.1); Partial Thromboplastin Time 28.2 Seconds (21.0-31.0); Prothrombin Time 12.1 Seconds (9.0-12.0)
[2020-04-17 23:01] LABS: Alanine Aminotransferase 14 U/L (12-78); Albumin Level 3.2 gm/dl (3.4-5.0); Aspartate Aminotransferase 15 U/L (15-37); BUN Creatinine Ratio 14.4 (10-20); Blood Urea Nitrogen 18 mg/dl (7-18); Calcium 9.4 mg/dl (8.5-10.1); Carbon Dioxide 28 mmol/L (21-32); Chloride 106 mmol/L (98-107); Est GFR (African American) 73.8; Est GFR (Non-African American) 63.7; Glucose 100 mg/dl (70-99); Magnesium 2.3 mg/dl (1.8-2.4); Potassium 3.4 mmol/L (3.5-5.1); Sodium 142 mmol/L (136-145)
[2020-04-17 23:06] LABS: Albumin Globulin Ratio 0.8 (0.9-2); Alkaline Phosphatase 100 U/L (45-117); Bilirubin,Total 1.5 mg/dl (0.2-1); Creatine Kinase 67 U/L (39-308); Globulin 4.2 gm/dl (2.5-4.0); Total Protein 7.4 gm/dl (6.4-8.2); Troponin I < 0.015 ng/ml (0-0.045)
[2020-04-17 23:15] LABS: Appearance Urine Turbid (Clear); Bacteria Urine Automated 4+ (Negative); Blood Urine 3+ (Negative); Color Urine Red; Epithelial Cell Urine Auto >30 /lpf (0-5); Glucose Urine UA Negative (Negative); Ketones Urine Negative (Negative); Leukocyte Esterase Urine 3+ (Negative); Nitrite Urine Positive (Negative); Specific Gravity Urine 1.015 (1.000-1.030); Urobilinogen Urine Negative (Negative); WBC Urine Automated >30 /hpf (0-5); pH Urine >= 9.0 (4.5-7.5)
[2020-04-17 23:43] LABS: Protein Urine 2+ (Negative)
[2020-04-17 23:44] LABS: Bilirubin Urine Negative (Negative); Ictotest Urine Negative (Negative); Sulfosalicylic Acid Urine Positive (Negative)
[2020-04-17 23:49] LABS: Cast Urine Automated 0 /lpf (0-5); RBC Urine Automated >30 /hpf (0-4)
[2020-04-17 23:50] LABS: Triple Phosphate Crystal Urine Present (None Prsent)
[2020-04-17] MEDS ORDERED: cefTRIAXone SODIUM 2,000 MG/70 ML BAG IV STA (23:54)
[2020-04-18] MEDS ORDERED: DOXAZosin MESYLATE TAB 2 MG TAB PO STA (01:07)
[2020-04-18] MEDS ORDERED: VANCOMYCIN HCL 2,500 MG in SODIUM CHLORIDE 0.9% 500 ML IV ONE (01:07)
[2020-04-18] MEDS ORDERED: POTASSIUM CHLORIDE 20 MEQ TABCR PO STA (01:07)
[2020-04-18] MEDS ORDERED: VANCOMYCIN CONSULT ACTIVE PRN (01:07)
--- NOTE | 2020-04-18 01:52 | History & Physical Report ---
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 chronic diastolic heart failure as per records (EF 55-59% TTE 2018), patient euvolemic CAD status post stent A. fib on Eliquis hypertension, elevated secondary discomfort hyperlipidemia on statin Rx spina bifida as per records DM2 insulin requiring, well-controlled as of recent outpatient hemoglobin A1c of 5.12 February 2020 MICAH on CPAP chronic anemia, hemoglobin at baseline chronic lymphedema OBS GMF Follow urine cultures, IV Ceftriaxone for complicated UTI and infected lymphedematous suprapubic mass Urology consult Re: Hematuria, displaced Warren catheter (ER provider already in touch with Dr. Leo.) N.p.o. until patient seen by Urology in anticipation of procedure Hold aspirin, Eliquis for now until patient seen by Urology. Analgesia Facilitate home BP meds, may need titration Basal insulin adjusted for n.p.o. status, ISS BG goal [id number] DVT prophylaxis. SCDs while Eliquis on hold RE possible procedure, hematuria Full code Text document was generated using [employer] voice recognition software. It may contain grammatical or spelling errors. Kindly contact undersigned for clarification of any documentation item in question. 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 Medical history significant for chronic diastolic heart failure as per records (EF 55-59% TTE 2018), CAD status post stent, A. 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 Last confinement December 2019 for sepsis secondary to abdominal panniculitis with scrotal deformity. Patient transferred to [facility] for further management. No growth on cultures. No surgical intervention for panniculitis during [facility] confinement. Urinary retention noted during confinement at [facility]. External genitalia to facilitate Warren catheter placement could not be visualized due to patient morbid obesity and pannus as per documentation. Patient taken to the OR by urologist with use of flexible cystoscope to place Warren catheter. Patient seen by [facility] Plastic surgery outpatient 2 months ago for evaluation for panniculectomy. As per documentation, large suprapubic lymphedematous mass hanging between patient's legs and burying patient's genitalia was not pannus. Removal of suprapubic mass along with urologic procedure for patient's urinary retention contemplated next month at [facility] pending Cardiology preop eval/stress test. Patient seen on follow-up at [facility] urologist office 3 weeks ago. Warren catheter exchange done at the office using Soloflex wire as per documentation. Patient noted gradual swelling of suprapubic mass in the last few weeks. No fever, no chills. Increased difficulty in moving around at home. Yesterday, patient experienced urethral pain after Warren catheter inadvertently pulled during bed transfer while home health nurse was attending the patient. Patient consulted ER to evaluate displaced Warren catheter. Patient sent home with note of Warren catheter drainage. At home yesterday afternoon, patient noted hematuria symptoms with some abdominal discomfort. No fever, no chills. No chest pain, no S OB. At the ER, patient received IV ceftriaxone for UTI/suprapubic mass cellulitis. Medical History as above Surgical History : Cystoscopy urethroscopy, uvulopalatopharyngoplasty, cholecystectomy, eye surgeries, tonsillectomy, septoplasty Family History : Heart disease, diabetes, alcoholism Personal/Social history : Past tobacco abuse, no EtOH intake, disabled Allergies Allergy/AdvReac Type Severity Reaction Status Date / Time sulfamethoxazole Allergy Intermediate Rash Unverified 04/14/20 12:53 trimethoprim Allergy Intermediate Rash Unverified 04/14/20 12:53 AVIVA Inhibitors Allergy Unknown . Unverified 04/14/20 12:53 Bactrim Allergy Unknown . Unverified 12/06/17 15:09 lisinopril Allergy Unknown Unknown Verified 04/14/20 12:53 Home Medications Home Medications Medication Instructions Recorded Confirmed Type apixaban 5 mg tablet 5 mg PO BID 09/24/18 04/17/20 History aspirin 81 mg tablet,delayed 81 mg PO QAM 09/24/18 04/17/20 History release atorvastatin 40 mg tablet 40 mg PO HS 09/24/18 04/17/20 History carvedilol 6.25 mg tablet 6.25 mg PO BID 09/24/18 04/17/20 History cholecalciferol (vitamin D3) 100 4,000 units PO QAM 09/24/18 04/17/20 History mcg (4,000 unit) capsule cyclobenzaprine 5 mg tablet 5 mg PO BID PRN tab 09/24/18 04/17/20 History doxazosin 2 mg tablet 2 mg PO HS 09/24/18 04/17/20 History glucagon HCl 1 mg/mL solution for 1 mg SQ Q20M PRN 09/24/18 04/17/20 History injection lactobacillus combination no.8 3 3,000 mmu cells PO QAM 09/24/18 04/17/20 History billion cell capsule latanoprost 0.005 % eye drops 1 drops OP HS 09/24/18 04/17/20 History nitroglycerin 0.4 mg sublingual 0.4 mg SL Q5M PRN 09/24/18 04/17/20 History tablet ondansetron HCl 4 mg tablet 4 mg PO QID PRN 09/24/18 04/17/20 History tramadol 50 mg tablet 50 mg PO Q6H PRN 09/24/18 04/17/20 History trazodone 100 mg tablet 100 mg PO HS PRN 09/24/18 04/17/20 History allopurinol 300 mg tablet 300 mg PO QAM 02/04/19 04/17/20 History loratadine 10 mg disintegrating 10 mg PO DAILY PRN 02/04/19 04/17/20 History tablet Basaglar KwikPen U-100 Insulin 50 unit SUBCUT QPM 12/15/19 04/17/20 History Eucerin 1 applic TOPICAL AMHS PRN 12/15/19 04/17/20 History Vitron-C 1 tab PO BID 12/15/19 04/17/20 History propylene glycol-glycerin 1 drp OPHTHALMIC (EYE) DAILY PRN 12/15/19 04/17/20 History sennosides [Senna Lax] 8.6 mg PO DAILY 12/15/19 04/17/20 History metformin 500 mg PO BID 04/17/20 04/17/20 History nystatin [Nystop] 1 applic TOPICAL BID 04/17/20 04/17/20 History Past Med/Surg History Medical History Abdominal pannus Acquired buried penis Allergic rhinitis Arthritis of knee B-complex deficiency Bilateral scrotal hernia CAD (coronary artery disease) Decreased ambulation status 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, with long-term current use of insulin Diabetic neuropathy Diabetic retinopathy Dyslipidemia GERD (gastroesophageal reflux disease) Glaucoma Gout Hearing loss of left ear History of chronic atrial fibrillation History of TIA (transient ischemic attack) HTN (hypertension) Hyperlipidemia Lymphedema Major depressive disorder Myocardial infarction H/o 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 MICAH (obstructive sleep apnea) Presence of bare metal stent in right coronary artery Sepsis Spina bifida Vitamin D deficiency Surgical History H/O cardiac catheterization H/O colonoscopy H/O nasal septoplasty Hx of tonsillectomy Previous back surgery S/P cholecystectomy Status post uvulopalatopharyngoplasty Family History Mother Coronary heart disease Diabetes Hypertension Social History Smoking Status: Former smoker packs per day: 1; Second Hand Exposure: No; Hx Alcohol Use: No Hx Substance Use: No Preferred Language: Malaysian Communication Ability: Effective Visual Impairment: Limited Hearing Ability: Hard of Hearing Car Cooper Required: No Beliefs That Will Affect Care: None marital status: Single Current Living Situation: Alone Current Living Situation Comment: ine apartment current occupational status: disabled Feels Safe at Home: Yes Safety Concerns: Feels Safe At This Time Childhood Exposure to Second-Hand Smoke: No Assistive Devices: Glasses and Walker Review of Systems Review of Systems: As per HPI, all 10 systems reviewed, all other ROS negative Physical Exam Physical Exam: GENERAL: Comfortable, pleasant, morbidly obese, no respiratory distress SKIN: Pallor , warm HEENT: Partial alopecia, pale palpebral conjunctivae, no ptosis, dry buccal mucosa NECK : Supple, short neck, no tenderness CHEST : Decreased breath sounds , no tenderness HEART : Irregular, no obvious murmurs ABDOMEN: distention, indurated suprapubic mass dangling between patient's legs with minimal tenderness. EXTREMITIES : Bilateral LE induration/venous stasis, no LE tenderness, no other conspicuous deformities noted NEUROLOGIC : Coherent, no facial asymmetry, no other gross focality Results & Data Results & Data ([facility]) Vital Signs (Past 12 Hours) Vital Signs Temp Pulse Resp BP Pulse Ox 04/17/20 22:55 36.8 C 68 16 173/88 H 98 Laboratory Results Laboratory Results WBC 9.13 K/uL (4.8-10.8) 04/17/20 22: RBC 3.96 M/uL (4.7-6.1) L 04/17/20 22:26 Hgb 10.6 g/dL (14.0-18.0) L 04/17/20: Hct 33.2 % (42-52) L 04/17/20 22: MCV 83.8 fL (80-100) 04/17/20 22: MCH 26.8 pg (25-34) 04/17/20: MCHC 31.9 g/dL (32-36) L 04/17/20: RDW Std Deviation 48.2 fL (36.4-46.3) H 04/17/20: RDW Coeff of Selvin 15.6 % (11.5-14.5) H 04/17/20: Plt Count 212 K/uL (130-400) 04/17/20 22:26 MPV 9.0 fL (7.4-10.4) 04/17/20 22: Immature Gran % (Auto) 0.2 % 04/17/20: Neut % (Auto) 79.1 % 04/17/20: Lymph % (Auto) 13.5 % 04/17/20: [place] % (Auto) 5.4 % 04/17/20: Eos % (Auto) 1.6 % 04/17/20: Baso % (Auto) 0.2 % 04/17/20: Neut # (Auto) 7.22 K/uL (1.4-6.5) H 04/17/20 22: Lymph # (Auto) 1.23 K/uL (1.2-3.4) 04/17/20 22: [place] # (Auto) 0.49 K/uL (0.11-0.59) 04/17/20 22:26 Eos # (Auto) 0.15 K/uL (0-0.5) 04/17/20 22: Baso # (Auto) 0.02 K/uL (0-0.2) 04/17/20 22: Immature Gran # (Auto) 0.02 K/uL (0.00-0.02) 04/17/20 22: PT 12.1 Seconds (9.0-12.0) H 04/17/20 22: INR 1.2 (0.9-1.1) H 04/17/20: APTT 28.2 Seconds (21.0-31.0) 04/17/20: PTT Ratio 1.0 04/17/20 22: Sodium 142 mmol/L (136-145) 04/17/20 22: Potassium 3.4 mmol/L (3.5-5.1) L 04/17/20: Chloride 106 mmol/L (98-107) 04/17/20 22: Carbon Dioxide 28 mmol/L (21-32) 04/17/20 22:26 Anion Gap 7.0 (3-11) 04/17/20 22: BUN 18 mg/dl (7-18) 04/17/20: Creatinine 1.24 mg/dl (0.6-1.4) 04/17/20 22: Est Cr Clr Drug Dosing Not Reportable 04/17/20: Est GFR ( Amer) 73.8 04/17/20 22: Est GFR (Non-Af Amer) 63.7 04/17/20 22: BUN/Creatinine Ratio 14.4 (10-20) 04/17/20 22: Glucose 100 mg/dl (70-99) H 04/17/20: Lactate 0.8 mmol/L (0.4-2.0) 04/17/20 22: Calcium 9.4 mg/dl (8.5-10.1) 04/17/20 22: Magnesium 2.3 mg/dl (1.8-2.4) 04/17/20 22: Total Bilirubin 1.5 mg/dl (0.2-1) H 04/17/20 22:26 AST 15 U/L (15-37) 04/17/20 22: ALT 14 U/L (12-78) 04/17/20 22: Alkaline Phosphatase 100 U/L (45-117) 04/17/20 22:26 Total Creatine Kinase 67 U/L (39-308) 04/17/20 22: Troponin I < 0.015 ng/ml (0-0.045) 04/17/20 22: Total Protein 7.4 gm/dl (6.4-8.2) 04/17/20 22: Albumin 3.2 gm/dl (3.4-5.0) L 04/17/20: Globulin 4.2 gm/dl (2.5-4.0) H 04/17/20: Albumin/Globulin Ratio 0.8 (0.9-2) L 04/17/20 22:26 Urine Color Red 04/17/20 23:05 Urine Appearance Turbid (Clear) A 04/17/20 23: Urine pH >= 9.0 (4.5-7.5) H 04/17/20 23:05 Ur Specific [place] 1.015 (1.000-1.030) 04/17/20 23: Urine Protein 2+ (Negative) H 04/17/20 23:05 Urine Glucose (UA) Negative (Negative) 04/17/20 23: Urine Ketones Negative (Negative) 04/17/20 23:05 Urine Blood 3+ (Negative) H 04/17/20 23:05 Urine Nitrite Positive (Negative) A 04/17/20 23: Urine Bilirubin Negative (Negative) 04/17/20 23:05 Urine Urobilinogen Negative (Negative) 04/17/20 23:05 Ur Leukocyte Esterase 3+ (Negative) H 04/17/20 23:05 Urine WBC (Auto) >30 /hpf (0-5) H 04/17/20 23:05 Urine RBC (Auto) >30 /hpf (0-4) H 04/17/20 23:05 U Hyaline Cast (Auto) 0 /lpf (0-5) 04/17/20 23:05 U Epithel Cells (Auto) >30 /lpf (0-5) H 04/17/20 23:05 Urine Bacteria (Auto) 4+ (Negative) H 04/17/20 23:05 Triple Phos Crystals Present (None Prsent) A 04/17/20 23:05 Urine Yeast Not Reportable 04/17/20 23:[address] abdomen pelvis initial read: Large pannus extending from the renal region to the level of the knee with extensive edema/diffuse fluid accumulation mostly in the dependent portion. A catheter following the trajectory of the urethra with balloon demonstrated just below the prostate gland and tip below the urinary bladder requiring repositioning if this represents a Warren catheter. Low-attenuation fluid collection right of entry site of catheter noted posterior measuring 4.9 x 4.2 cm. Chest x-ray as per my interpretation atelectasis, cardiomegaly EKG as per my interpretation : Rate 65, A. fib, LAD, LAFB, RBBB, low voltage
[2020-04-18] MEDS ORDERED: GLUCAGON FOR INJ 1 MG VIAL SQ PRN (03:14)
[2020-04-18] MEDS ORDERED: GLUCOSE 10 TABS/TUBE PO PRN (03:14)
[2020-04-18] MEDS ORDERED: POTASSIUM CHLORIDE 40 MEQ in SODIUM CHLORIDE 0.9% 1000ML 1,000 ML IV SCH (03:14)
[2020-04-18] MEDS ORDERED: DEXTROSE 50% 50 ML SYRINGE IV PRN (03:14)
[2020-04-18] MEDS ORDERED: MoRPHine SULFATE 4 MG/ML 1 ML CARP\\VIAL IV PRN (03:14)
[2020-04-18] MEDS ORDERED: traMADol HCL 50 MG TABLET PO PRN (03:14)
[2020-04-18] MEDS ORDERED: NITROGLYCERIN SL 0.4 MG/TAB TAB SL PRN (03:14)
[2020-04-18] MEDS ORDERED: GLUCOSE 40% GEL 15 GM TUBE PO PRN (03:14)
[2020-04-18] MEDS ORDERED: ACETAMINOPHEN 325 MG TAB PO PRN (03:14)
[2020-04-18] MEDS ORDERED: CARBOHYDRATES FOR HYPOGLYCEMIA PO PRN (03:14)
[2020-04-18] MEDS ORDERED: PROMETHAZINE HCL 12.5 MG in SODIUM CHLORIDE 0.9% 50 ML IV PRN (03:14)
[2020-04-18] MEDS ORDERED: CYCLOBENZAPRINE HCL 5 MG TAB PO PRN (03:14)
[2020-04-18] MEDS ORDERED: traZODone HCL 50 MG TAB PO PRN (03:20)
[2020-04-18] MEDS ORDERED: ARTIFICIAL TEARS OP PRN (03:23)
[2020-04-18] MEDS: INSULIN ASPART 100 UNITS/ML 3 ML PEN SC SCH ×4 (03:56→18:22)
[2020-04-18] MEDS: carvediloL 6.25 MG TAB PO SCH ×2 (04:06→21:02)
[2020-04-18 06:31] LABS: Basophils # (auto) 0.02 K/uL (0-0.2); Basophils % (auto) 0.3 %; Eosinophils # (auto) 0.12 K/uL (0-0.5); Eosinophils % (auto) 1.6 %; Hematocrit (blood only) 32.1 % (42-52); Hemoglobin 10.2 g/dL (14.0-18.0); Immature Granulocytes # (auto) 0.01 K/uL (0.00-0.02); Immature Granulocytes % (auto) 0.1 %; Lymphocytes # (auto) 1.02 K/uL (1.2-3.4); Lymphocytes % (auto) 13.7 %; Mean Corpuscular Hemoglobin 26.6 pg (25-34); Mean Corpuscular Hgb Conc 31.8 g/dL (32-36); Mean Corpuscular Volume 83.8 fL (80-100); Mean Platelet Volume 8.7 fL (7.4-10.4); Monocytes # (auto) 0.48 K/uL (0.11-0.59); Monocytes % (auto) 6.5 %; Neutrophils # (auto) 5.78 K/uL (1.4-6.5); Neutrophils % (auto) 77.8 %; Platelet Count 176 K/uL (130-400); RDW Coefficient of Variation 15.7 % (11.5-14.5); RDW Standard Deviation 48.2 fL (36.4-46.3); Red Blood Count 3.83 M/uL (4.7-6.1); White Blood Count 7.43 K/uL (4.8-10.8)
[2020-04-18 07:00] LABS: BUN Creatinine Ratio 14.4 (10-20); Calcium 8.8 mg/dl (8.5-10.1); Creatinine Clr Calc Pharmacy 124.3 ml/min; Est GFR (African American) 89.2; Potassium 3.5 mmol/L (3.5-5.1)
--- NOTE | 2020-04-18 07:35 | XRay Report ---
XR chest 1V portable CLINICAL HISTORY: Sepsis. COMPARISON STUDY: Chest radiograph and chest CT December 15, 2019. FINDINGS: There is no pneumothorax or pleural effusion. There is no consolidation or evidence for pul monary edema. Cardiomegaly is noted. IMPRESSION: 1. No acute findings. 2. Cardiomegaly. ACT 112: Negative or not required by law. Electronically signed by: Laureano Tucker M.D. 04/18/2020 7:34 AM
--- NOTE | 2020-04-18 08:10 | CT Scan Report ---
ABDOMEN AND PELVIS CT WITH IV CONTRAST CT DOSE: 4547.71 mGy.cm HISTORY: lower abd pain, henriquez, hematuria TECHNIQUE: Multiaxial CT images of the abdomen and pelvis were performed following the use of intrave nous contrast. A dose lowering technique was utilized adhering to the principles of ALARA. COMPARISON STUDY: Abdomen and pelvis CT 12/15/2019. FINDINGS: There is again noted extensive pannus within the peritoneum which extends to the level of t he knees. There is diffuse skin thickening and edema within this pannus without definite loculated fl uid collection to suggest an abscess. This is similar to the prior study. Low density oval-shaped str uctures posteriorly on image 125 likely represent the patient's testes. These measure 4.8 cm. There i s a Henriquez catheter with the balloon located at the bulbous urethra. This is not located within the bl adder and should be repositioned. The bladder is not significantly distended. No bowel wall thickenin g or obstruction. Normal appendix. Redemonstration of the bony strut extending through the central ca nal at the L4-L5 level. Posterior fusion defect at S1. Small pericardial effusion, unchanged. The lidia g bases are clear. Small amount of pneumobilia. The gallbladder surgically absent. The unenhanced august creas, spleen, adrenal glands, and kidneys are unremarkable. No retroperitoneal lymphadenopathy. Norm al caliber abdominal aorta. Decrease in size in the prominent right external iliac lymph node. IMPRESSION: 1. No significant change in the large pannus extending from the perineal region to the level of the k nees with extensive edema and skin thickening. No abscess identified at this time. 2. There is a Henriquez catheter with the balloon/tip terminating at the bulbous urethra. This is not loc ated within the bladder and should be repositioned. The bladder is not significantly distended at thi s time. 3. Improvement in the right external iliac lymphadenopathy. 4. Small pericardial effusion, unchanged. ACT 112: Negative or not required by law. Electronically signed by: Nacho Simmons M.D. 04/18/2020 8:09 AM
[2020-04-18] MEDS ORDERED: Nursing to Pharmacy Communication SCH ×3 (08:30→22:45)
[2020-04-18] MEDS: allopurinoL 300 MG TAB PO SCH (08:44)
[2020-04-18] MEDS: LACTOBACILLUS ACIDOPHILUS (FLORANEX) TAB PO SCH (08:45)
[2020-04-18] MEDS: SENNA 8.6 MG TAB PO SCH (08:45)
[2020-04-18] MEDS ORDERED: carvediloL 6.25 MG TAB PO SCH (09:00)
--- NOTE | 2020-04-18 09:31 | Urology Consultation ---
Date of Consultation April 18, 2020 Assessment & Plan (1) Dislodged Henriquez catheter: 59 yo M admitted for suspected UTI and displaced Henriquez catheter. - Keep NPO. - Findings reviewed with Dr. Leo. - Will proceed with OR for cystoscopy, possible urethral fulguration, fulguration, and clot evacuation and Henriquez catheter placement with Dr. Leo. - Risks and benefits to be reviewed with patient by Dr. Leo. OR notified. Preoperative CXR and EKG completed while inpatient. He is on IV Ceftriaxone preoperatively. History of Present Illness Reason for Consultation: Hematuria, displaced henriquez Requesting Physician: Dr. Blaine Monteiro Attending Physician: Koko Galloway MD History of Present Illness 59 yo M admitted for suspected UTI and displaced Henriquez catheter. PMHx significant for chronic diastolic heart failure, CAD status post stent, atrial fibrillation on Eliquis, hypertension, hyperlipidemia, spina bifida, DM2 insulin requiring, MICAH, chronic anemia, chronic lymphedema. Past records reviewed. Pt with complicated history including urinary retention and buried genitalia secondary to chronic lymphedematous suprapubic mass with indwelling Henriquez catheter. He was hospitalized in December 2019 for sepsis secondary to abdominal panniculitis with scrotal deformity. Patient transferred to [facility] for further management. Patient taken to the OR by urology to place Henriquez catheter. Patient presented to [facility] ED on 04/17/2020 with c/o Henriquez catheter displaced at home during a transfer with home nursing. Henriquez appeared to be draining appropriately in ED, so he was discharged to home. He presented again that evening after large episode of hematuria and abdominal pain. Lab work on arrival: creatinine 1.24, WBC 9.13, Lactate 0.8. UA suggestive of infection, UC&S collected. BCx collected. He was admitted for further evaluation and management. Our service is consulted for hematuria and displaced Henriquez. Contrast-enhanced CT A/P demonstrated no significant change in the large pannus extending from the perineal region to the level of the knees with extensive edema and skin thickening. No abscess identified at this time. There is a Henriquez catheter with the balloon/tip terminating at the bulbous urethra. The bladder is not significantly distended at this time. Improvement in the right external iliac lymphadenopathy. Small pericardial effusion, unchanged. Chart review: Creatinine 1.06 WBC 7.43 Hgb 10.2 UC&S - pending BCx - pending On IV Ceftriaxone Pt examined at bedside this AM. Awake and laying in bed. No issues overnight. Reports some discomfort from Henriquez catheter. Otherwise denies pain. Reports hematuria intermittently. No dysuria. Henriquez catheter intact, draining clear yellow urine. Bowel movement yesterday. No f/c/n/v. He is following with urology at [facility] in [place], Dr. Khan. Prior to December 2019, he was voiding without difficulty. He does not take any medications for voiding. Requiring Henriquez catheter changes monthly in the OR. He is pending panniculectomy at [facility]. No additional concerns today. Allergies Allergy/AdvReac Type Severity Reaction Status Date / Time sulfamethoxazole Allergy Intermediate Rash Unverified 04/14/20 12:53 trimethoprim Allergy Intermediate Rash Unverified 04/14/20 12:53 AVIVA Inhibitors Allergy Unknown . Unverified 04/14/20 12:53 Bactrim Allergy Unknown . Unverified 12/06/17 15:09 lisinopril Allergy Unknown Unknown Verified 04/14/20 12:53 Home Medications Home Medications Medication Instructions Recorded Confirmed Type apixaban 5 mg tablet 5 mg PO BID 09/24/18 04/17/20 History aspirin 81 mg tablet,delayed 81 mg PO QAM 09/24/18 04/17/20 History release atorvastatin 40 mg tablet 40 mg PO HS 09/24/18 04/17/20 History carvedilol 6.25 mg tablet 6.25 mg PO BID 09/24/18 04/17/20 History cholecalciferol (vitamin D3) 100 4,000 units PO QAM 09/24/18 04/17/20 History mcg (4,000 unit) capsule cyclobenzaprine 5 mg tablet 5 mg PO BID PRN tab 09/24/18 04/17/20 History doxazosin 2 mg tablet 2 mg PO HS 09/24/18 04/17/20 History glucagon HCl 1 mg/mL solution for 1 mg SQ Q20M PRN 09/24/18 04/17/20 History injection lactobacillus combination no.8 3 3,000 mmu cells PO QAM 09/24/18 04/17/20 History billion cell capsule latanoprost 0.005 % eye drops 1 drops OP HS 09/24/18 04/17/20 History nitroglycerin 0.4 mg sublingual 0.4 mg SL Q5M PRN 09/24/18 04/17/20 History tablet ondansetron HCl 4 mg tablet 4 mg PO QID PRN 09/24/18 04/17/20 History tramadol 50 mg tablet 50 mg PO Q6H PRN 09/24/18 04/17/20 History trazodone 100 mg tablet 100 mg PO HS PRN 09/24/18 04/17/20 History allopurinol 300 mg tablet 300 mg PO QAM 02/04/19 04/17/20 History loratadine 10 mg disintegrating 10 mg PO DAILY PRN 02/04/19 04/17/20 History tablet Basaglar KwikPen U-100 Insulin 50 unit SUBCUT QPM 12/15/19 04/17/20 History Eucerin 1 applic TOPICAL AMHS PRN 12/15/19 04/17/20 History Vitron-C 1 tab PO BID 12/15/19 04/17/20 History propylene glycol-glycerin 1 drp OPHTHALMIC (EYE) DAILY PRN 12/15/19 04/17/20 History sennosides [Senna Lax] 8.6 mg PO DAILY 12/15/19 04/17/20 History metformin 500 mg PO BID 04/17/20 04/17/20 History nystatin [Nystop] 1 applic TOPICAL BID 04/17/20 04/17/20 History Patient History Medical History Abdominal pannus Acquired buried penis Allergic rhinitis Arthritis of knee B-complex deficiency Bilateral scrotal hernia CAD (coronary artery disease) Decreased ambulation status 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, with long-term current use of insulin Diabetic neuropathy Diabetic retinopathy Dyslipidemia GERD (gastroesophageal reflux disease) Glaucoma Gout Hearing loss of left ear History of chronic atrial fibrillation History of TIA (transient ischemic attack) HTN (hypertension) Hyperlipidemia Lymphedema Major depressive disorder Myocardial infarction H/o 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 MICAH (obstructive sleep apnea) Presence of bare metal stent in right coronary artery Sepsis Spina bifida Vitamin D deficiency Surgical History H/O cardiac catheterization H/O colonoscopy H/O nasal septoplasty Hx of tonsillectomy Previous back surgery S/P cholecystectomy Status post uvulopalatopharyngoplasty Family History Mother Coronary heart disease Diabetes Hypertension Social History Smoking Status: Former smoker packs per day: 1; Second Hand Exposure: No; Hx Alcohol Use: No Hx Substance Use: No Preferred Language: Slovak Communication Ability: Effective Visual Impairment: Limited Hearing Ability: Hard of Hearing Small Animal Veterinarian Required: No Beliefs That Will Affect Care: None marital status: Single Current Living Situation: Alone Current Living Situation Comment: ine apartment current occupational status: disabled Feels Safe at Home: Yes Safety Concerns: Feels Safe At This Time Childhood Exposure to Second-Hand Smoke: No Assistive Devices: Glasses and Walker Review of Systems Constitutional: as per Subjective / HPI Gastrointestinal: as per Subjective / HPI Genitourinary: + as per Subjective / HPI Physical Exam Constitutional: well developed, well nourished and + morbidly obese; no acute distress and not ill appearing Respiratory: normal respiratory effort and able to speak in complete sentences; no respiratory distress, no labored breathing and no audible wheezes Cardiovascular: Extremities: no pedal edema Gastrointestinal (Abdomen): Inspection/Auscultation: abdomen normal to inspection; abdomen not distended Percussion/Palpation: abdomen soft; abdomen nontender and no guarding obese abdomen, large pannus with thickened skin Musculoskeletal: Head/Neck/Chest: normocephalic and head atraumatic Neurologic: moves all extremities and awake Psychiatric: Orientation: alert, oriented x 3 and cooperative Genitourinary: Unable to assess genitalia secondary to pannus. Henriquez catheter intact, patent, draining clear yellow urine, collected bag recently emptied Results & Data ([facility]) Vital Signs (Past 12 Hours) Vital Signs Temp Pulse Pulse Resp BP BP Pulse Ox 04/18/20 07:02 36.7 C 70 18 118/62 96 04/18/20 04:25 64 18 98 04/18/20 04:03 75 158/84 H 04/18/20 03:15 36.5 C 74 18 165/77 H 99 04/18/20 03:01 137/66 04/18/20 02:00 139/65 04/18/20 00:00 124/76 04/17/20 23:45 141/75 H 04/17/20 23:30 130/71 04/17/20 23:24 142/65 H 04/17/20 23:09 136/68 04/17/20 22:55 36.8 C 68 16 173/88 H 98 PG Care Time/CCT Total # of Minutes Spent Total Time Spent with Patient: Total time spent is greater than 50% in coordination of care (as documented) at patient's floor/unit and/or counseling patient: Coding Level of Care Code 16349 Office/OBS Consult Lvl 3 Diagnoses Dislodged Henriquez catheter T83.021A
--- NOTE | 2020-04-18 10:25 | Anesthesiology Consultation ---
Date of Service April 18, 2020 Assessment & Plan (1) Encounter for pre-operative examination: Chart Review Chart Review: Acceptable Risk for Surgery and Patient NOT seen in Pre Admission Testing Consults Requested none Additional Notes Question of whether patient may have some new ECG changes, but procedure cannot be postponed. In addition, patient denying any CP per report and had a negative troponin yesterday. OK to proceed to OR without additional testing due to urgent need to place folley catheter. Patient supposed to get cardiac workup prior to planned surgery at [facility]. History Surgery Operation Date: 04/18/20 12:15 Proposed Procedures p Cystoscopy, Possible Ureteral Fulguration, Fulguration, and Clot Evacuation - Bright Leo, Height/Weight Height: 5 ft 9 in Weight: 183.1 kg Allergies Allergy/AdvReac Type Severity Reaction Status Date / Time sulfamethoxazole Allergy Intermediate Rash Unverified 04/14/20 12:53 trimethoprim Allergy Intermediate Rash Unverified 04/14/20 12:53 AVIVA Inhibitors Allergy Unknown . Unverified 04/14/20 12:53 Bactrim Allergy Unknown . Unverified 12/06/17 15:09 lisinopril Allergy Unknown Unknown Verified 04/14/20 12:53 Medications Home Medications Medication Instructions Recorded Confirmed Last Taken apixaban 5 mg tablet 5 mg PO BID 09/24/18 04/17/20 04/17/20 16:00 aspirin 81 mg tablet,delayed 81 mg PO QAM 09/24/18 04/17/20 12/15/19 release atorvastatin 40 mg tablet 40 mg PO HS 09/24/18 04/17/20 12/14/19 carvedilol 6.25 mg tablet 6.25 mg PO BID 09/24/18 04/17/20 12/15/19 cholecalciferol (vitamin D3) 100 4,000 units PO QAM 09/24/18 04/17/20 12/15/19 mcg (4,000 unit) capsule cyclobenzaprine 5 mg tablet 5 mg PO BID PRN tab 09/24/18 04/17/20 Unknown doxazosin 2 mg tablet 2 mg PO HS 09/24/18 04/17/20 12/15/19 glucagon HCl 1 mg/mL solution for 1 mg SQ Q20M PRN 09/24/18 04/17/20 Unknown injection lactobacillus combination no.8 3 3,000 mmu cells PO QAM 09/24/18 04/17/20 12/15/19 billion cell capsule latanoprost 0.005 % eye drops 1 drops OP HS 09/24/18 04/17/20 12/14/19 nitroglycerin 0.4 mg sublingual 0.4 mg SL Q5M PRN 09/24/18 04/17/20 Unknown tablet ondansetron HCl 4 mg tablet 4 mg PO QID PRN 09/24/18 04/17/20 Unknown tramadol 50 mg tablet 50 mg PO Q6H PRN 09/24/18 04/17/20 Unknown trazodone 100 mg tablet 100 mg PO HS PRN 09/24/18 04/17/20 Unknown allopurinol 300 mg tablet 300 mg PO QAM 02/04/19 04/17/20 12/15/19 loratadine 10 mg disintegrating 10 mg PO DAILY PRN 02/04/19 04/17/20 Unknown tablet Basaglar KwikPen U-100 Insulin 50 unit SUBCUT QPM 12/15/19 04/17/20 12/15/19 Eucerin 1 applic TOPICAL AMHS PRN 12/15/19 04/17/20 Unknown Vitron-C 1 tab PO BID 12/15/19 04/17/20 Unknown propylene glycol-glycerin 1 drp OPHTHALMIC (EYE) DAILY PRN 12/15/19 04/17/20 Unknown sennosides [Senna Lax] 8.6 mg PO DAILY 12/15/19 04/17/20 Unknown metformin 500 mg PO BID 04/17/20 04/17/20 Unknown nystatin [Nystop] 1 applic TOPICAL BID 04/17/20 04/17/20 Unknown Active Medications Generic Name Dose Route Start Last Admin Trade Name Freq PRN Reason Stop Dose Admin Allopurinol 300 mg 04/18/20 09:00 04/18/20 08:44 Allopurinol 300 Mg Tab PO 05/18/20 08:59 300 mg QAM RAJWINDER Administration Carvedilol 6.25 mg 04/18/20 03:45 04/18/20 04:06 Carvedilol 6.25 Mg Tab PO 05/18/20 03:44 6.25 mg BID RAJWINDER Administration Potassium Chloride 40 meq/ 1,020 mls @ 50 mls/hr 04/18/20 03:14 04/18/20 03:44 Sodium Chloride IV 05/18/20 03:13 50 mls/hr .[id number] RAJWINDER Administration Lactobacillus Acidophilus 4 tab 04/18/20 09:00 04/18/20 08:45 Lactobacillus Acidophilus (Floranex) Tab PO 05/18/20 08:59 4 tab QAM RAJWINDER Administration Sennosides 8.6 mg 04/18/20 09:00 04/18/20 08:45 Senna 8.6 Mg Tab PO 05/18/20 08:59 8.6 mg DAILY RAJWINDER Administration Past Medical History Medical History Abdominal pannus Acquired buried penis Allergic rhinitis Arthritis of knee B-complex deficiency Bilateral scrotal hernia CAD (coronary artery disease) Decreased ambulation status 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, with long-term current use of insulin Diabetic neuropathy Diabetic retinopathy Dyslipidemia GERD (gastroesophageal reflux disease) Glaucoma Gout Hearing loss of left ear History of chronic atrial fibrillation History of TIA (transient ischemic attack) HTN (hypertension) Hyperlipidemia Lymphedema Major depressive disorder Myocardial infarction H/o 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 MICAH (obstructive sleep apnea) Presence of bare metal stent in right coronary artery Sepsis Spina bifida Vitamin D deficiency Past Family History Family History Mother Coronary heart disease Diabetes Hypertension Past Surgical History Surgical History H/O cardiac catheterization H/O colonoscopy H/O nasal septoplasty Hx of tonsillectomy Previous back surgery S/P cholecystectomy Status post uvulopalatopharyngoplasty Social History Smoking Status: Former smoker tobacco type: cigarettes Hx Alcohol Use: No Hx Substance Use: No substance use type: does not use Physical Exam Vital Signs Last Vital Signs Temp 36.7 C 04/18/20 07:02 Pulse 70 04/18/20 07:02 Resp 18 04/18/20 07:02 BP 118/62 04/18/20 07:02 Pulse Ox 96 04/18/20 07:02 Testing Laboratory Results 04/18/20 06:18 04/18/20 06:18 PT 12.1 Seconds (9.0-12.0) H 04/17/20 22: INR 1.2 (0.9-1.1) H 04/17/20 22:26 APTT 28.2 Seconds (21.0-31.0) 04/17/20 22:26 Urine Color Red 04/17/20 23:05 Urine Appearance Turbid (Clear) A 04/17/20 23:05 Urine pH >= 9.0 (4.5-7.5) H 04/17/20 23:05 Ur Specific [place] 1.015 (1.000-1.030) 04/17/20 23:05 Urine Protein 2+ (Negative) H 04/17/20 23:05 Urine Glucose (UA) Negative (Negative) 04/17/20 23: Urine Ketones Negative (Negative) 04/17/20 23: Urine Nitrite Positive (Negative) A 04/17/20 23:05 Ur Leukocyte Esterase 3+ (Negative) H 04/17/20 23:05 Urine WBC (Auto) >30 /hpf (0-5) H 04/17/20 23:05 Urine RBC (Auto) >30 /hpf (0-4) H 04/17/20 23:05 U Hyaline Cast (Auto) 0 /lpf (0-5) 04/17/20 23:05 U Epithel Cells (Auto) >30 /lpf (0-5) H 04/17/20 23:05 Urine Bacteria (Auto) 4+ (Negative) H 04/17/20 23:05 Blood Type O Positive 04/18/20 06:18 Antibody Screen NEGATIVE 04/18/20 06:18 04/18/20 03:43 POC Glucose 129 H troponin negative Covid negative Electrocardiogram Date: 04/17/20 Findings: + AFIB @ (65) Left axis deviation, Right bundle branch block, Possible Lateral infarct, age undetermined, Inferior infarct (cited on or before 24-OCT-2017) When compared with ECG of 15-DEC-2019 12:25, Borderline criteria for Lateral infarct are now Present, T wave inversion now evident in Anterior leads Chest X-Ray Date: 04/17/20 cardiomegaly, NAD
--- NOTE | 2020-04-18 11:08 | History & Physical Bridge Note ---
Date of Service April 18, 2020 History & Physical Bridge Note I have examined the patient, reviewed the History & Physical and in the interval since the performance of the History & Physical I have noted the following changes of clinical significance: no changes noted
[2020-04-18] MEDS ORDERED: MIDAZOLAM HCL 1 MG/ML 2ML VIAL ONE ×2 (11:16→11:20)
[2020-04-18] MEDS ORDERED: ONDANSETRON INJ 2 MG/ML 2 ML VIAL IV PRN (11:23)
[2020-04-18] MEDS ORDERED: PROPOFOL IV EMULSION 10 MG/ML 20 ML VIAL IV ONE ×2 (11:23→12:00)
[2020-04-18] MEDS ORDERED: fentaNYL citrate 100 MCG/2 ML VIAL IV PRN (11:23)
[2020-04-18] MEDS ORDERED: ATROPINE SULFATE 0.1 MG/ML 10ML SYR IV PRN (11:23)
[2020-04-18] MEDS ORDERED: ePHEDrine sulfate 50 MG/ML AMP IV PRN (11:23)
--- NOTE | 2020-04-18 11:52 | Hospitalist Progress Note ---
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 Urology consult Re: Hematuria, displaced Warren catheter (ER provider already in touch with Dr. Leo.) Pt now s/p Warren catheter exchange in OR by Dr. Sood (04/18/20) Follow urine cultures, IV Ceftriaxone for complicated UTI and infected lymphedematous suprapubic mass Analgesia Pt presented w/ hematuria, will recheck Hgb in the afternoon chronic diastolic heart failure as per records (EF 55-59% TTE 2018), patient euvolemic CAD status post stent A. fib on Eliquis, Hold aspirin, Eliquis for now until patient seen by Urology Hypertension, elevated secondary discomfort, Facilitate home BP meds, may need titration Hyperlipidemia on statin Rx Spina bifida as per records DM2 insulin requiring, well-controlled as of recent outpatient hemoglobin A1c of 5.12 February 2020 , Basal insulin adjusted for n.p.o. status, ISS BG goal [id number] MICAH on CPAP chronic anemia, hemoglobin at baseline chronic lymphedema DVT prophylaxis. SCDs while Eliquis on hold RE possible procedure, hematuria Full code Admission and Anticipated Discharge Date Admission Date: April 18, 2020 Subjective Pt underwent procedure with urology, Warren catheter exchanged in OR. Currently pt feels well, in NAD. Denies any fever, chills, chest pain, shortness of breaths. Review of Systems Review of Systems: All systems reviewed & are unremarkable except as noted in HPI & below Constitutional: no fever and no chills Respiratory: no cough and no dyspnea Cardiovascular: no chest pain and no palpitations Gastrointestinal: no abdominal pain, no nausea and no vomiting Physical Exam Physical Exam: GENERAL: morbidly obese male, laying in bed, comfortable, in no respiratory distress HEENT: NC/AT, EOMI, PERRL, pale palpebral conjunctivae NECK : Supple, short neck, no tenderness CHEST : Decreased breath sounds , no tenderness HEART : Irregular, no obvious murmurs ABDOMEN: distention, indurated suprapubic mass between patient's legs with minimal tenderness. EXTREMITIES : Bilateral LE induration/venous stasis, no LE tenderness SKIN: Pallor , warm NEUROLOGIC : alert and oriented x3, no facial asymmetry, speech fluent, moves extremities Results & Data Results & Data ([facility]) Vital Signs (Past 12 Hours) Vital Signs Temp Pulse Pulse Resp BP BP Pulse Ox 04/18/20 10:45 36.9 C 74 22 143/73 H 98 04/18/20 10:21 36.9 C 72 18 137/65 96 04/18/20 07:02 36.7 C 70 18 118/62 96 04/18/20 04:25 64 18 98 04/18/20 04:03 75 158/84 H 04/18/20 03:15 36.5 C 74 18 165/77 H 99 04/18/20 03:01 137/66 04/18/20 02:00 139/65 04/18/20 00:00 124/76 Laboratory Results 04/18/20 04/18/20 04/18/20 Range/Units 10:28 08:45 08:45 WBC (4.8-10.8) K/uL RBC (4.7-6.1) M/uL Hgb (14.0-18.0) g/dL Hct (42-52) % MCV (80-100) fL MCH (25-34) pg MCHC (32-36) g/dL RDW Std Deviation (36.4-46.3) fL RDW Coeff of Selvin (11.5-14.5) % Plt Count (130-400) K/uL MPV (7.4-10.4) fL Immature Gran % (Auto) % Neut % (Auto) % Lymph % (Auto) % Sharkey % (Auto) % Eos % (Auto) % Baso % (Auto) % Neut # (Auto) (1.4-6.5) K/uL Lymph # (Auto) (1.2-3.4) K/uL Sharkey # (Auto) (0.11-0.59) K/uL Eos # (Auto) (0-0.5) K/uL Baso # (Auto) (0-0.2) K/uL Immature Gran # (Auto) (0.00-0.02) K/uL PT (9.0-12.0) Seconds INR (0.9-1.1) APTT (21.0-31.0) Seconds PTT Ratio Sodium (136-145) mmol/L Potassium (3.5-5.1) mmol/L Chloride (98-107) mmol/L Carbon Dioxide (21-32) mmol/L Anion Gap (3-11) BUN (7-18) mg/dl Creatinine (0.6-1.4) mg/dl Est Cr Clr Drug Dosing Est GFR ( Amer) Est GFR (Non-Af Amer) BUN/Creatinine Ratio (10-20) Glucose (70-99) mg/dl POC Glucose 105 H (70-99) mg/dl Lactate (0.4-2.0) mmol/L Calcium (8.5-10.1) mg/dl Magnesium (1.8-2.4) mg/dl Total Bilirubin (0.2-1) mg/dl AST (15-37) U/L ALT (12-78) U/L Alkaline Phosphatase (45-117) U/L Total Creatine Kinase (39-308) U/L Troponin I (0-0.045) ng/ml Total Protein (6.4-8.2) gm/dl Albumin (3.4-5.0) gm/dl Globulin (2.5-4.0) gm/dl Albumin/Globulin Ratio (0.9-2) Urine Color Urine Appearance (Clear) Urine pH (4.5-7.5) Ur Specific [place] (1.000-1.030) Urine Protein (Negative) Urine Glucose (UA) (Negative) Urine Ketones (Negative) Urine Blood (Negative) Urine Nitrite (Negative) Urine Bilirubin (Negative) Urine Urobilinogen (Negative) Ur Leukocyte Esterase (Negative) Urine WBC (Auto) (0-5) /hpf Urine RBC (Auto) (0-4) /hpf U Hyaline Cast (Auto) (0-5) /lpf U Epithel Cells (Auto) (0-5) /lpf Urine Bacteria (Auto) (Negative) Triple Phos Crystals (None Prsent) Urine Yeast COVID-19 Eval [facility] SARS-CoV-2, RNA, NAAT NEGATIVE (NEGATIVE) Blood Type Antibody Screen 04/18/20 04/18/20 04/18/20 Range/Units 06:18 06:18 06:18 WBC 7.43 (4.8-10.8) K/uL RBC 3.83 L (4.7-6.1) M/uL Hgb 10.2 L (14.0-18.0) g/dL Hct 32.1 L (42-52) % MCV 83.8 (80-100) fL MCH 26.6 (25-34) pg MCHC 31.8 L (32-36) g/dL RDW Std Deviation 48.2 H (36.4-46.3) fL RDW Coeff of Selvin 15.7 H (11.5-14.5) % Plt Count 176 (130-400) K/uL MPV 8.7 (7.4-10.4) fL Immature Gran % (Auto) 0.1 % Neut % (Auto) 77.8 % Lymph % (Auto) 13.7 % Sharkey % (Auto) 6.5 % Eos % (Auto) 1.6 % Baso % (Auto) 0.3 % Neut # (Auto) 5.78 (1.4-6.5) K/uL Lymph # (Auto) 1.02 L (1.2-3.4) K/uL Sharkey # (Auto) 0.48 (0.11-0.59) K/uL Eos # (Auto) 0.12 (0-0.5) K/uL Baso # (Auto) 0.02 (0-0.2) K/uL Immature Gran # (Auto) 0.01 (0.00-0.02) K/uL PT (9.0-12.0) Seconds INR (0.9-1.1) APTT (21.0-31.0) Seconds PTT Ratio Sodium 142 (136-145) mmol/L Potassium 3.5 (3.5-5.1) mmol/L Chloride 108 H (98-107) mmol/L Carbon Dioxide 28 (21-32) mmol/L Anion Gap 6.0 (3-11) BUN 15 (7-18) mg/dl Creatinine 1.06 (0.6-1.4) mg/dl Est Cr Clr Drug Dosing 124.3 Est GFR ( Amer) 89.2 Est GFR (Non-Af Amer) 77.0 BUN/Creatinine Ratio 14.4 (10-20) Glucose 95 (70-99) mg/dl POC Glucose (70-99) mg/dl Lactate (0.4-2.0) mmol/L Calcium 8.8 (8.5-10.1) mg/dl Magnesium (1.8-2.4) mg/dl Total Bilirubin (0.2-1) mg/dl AST (15-37) U/L ALT (12-78) U/L Alkaline Phosphatase (45-117) U/L Total Creatine Kinase (39-308) U/L Troponin I (0-0.045) ng/ml Total Protein (6.4-8.2) gm/dl Albumin (3.4-5.0) gm/dl Globulin (2.5-4.0) gm/dl Albumin/Globulin Ratio (0.9-2) Urine Color Urine Appearance (Clear) Urine pH (4.5-7.5) Ur Specific [place] (1.000-1.030) Urine Protein (Negative) Urine Glucose (UA) (Negative) Urine Ketones (Negative) Urine Blood (Negative) Urine Nitrite (Negative) Urine Bilirubin (Negative) Urine Urobilinogen (Negative) Ur Leukocyte Esterase (Negative) Urine WBC (Auto) (0-5) /hpf Urine RBC (Auto) (0-4) /hpf U Hyaline Cast (Auto) (0-5) /lpf U Epithel Cells (Auto) (0-5) /lpf Urine Bacteria (Auto) (Negative) Triple Phos Crystals (None Prsent) Urine Yeast COVID-19 Eval Order SARS-CoV-2, RNA, NAAT (NEGATIVE) Blood Type O Positive Antibody Screen NEGATIVE 04/18/20 04/17/20 04/17/20 Range/Units 03:43 23:05 22:26 WBC (4.8-10.8) K/uL RBC (4.7-6.1) M/uL Hgb (14.0-18.0) g/dL Hct (42-52) % MCV (80-100) fL MCH (25-34) pg MCHC (32-36) g/dL RDW Std Deviation (36.4-46.3) fL RDW Coeff of Selvin (11.5-14.5) % Plt Count (130-400) K/uL MPV (7.4-10.4) fL Immature Gran % (Auto) % Neut % (Auto) % Lymph % (Auto) % Sharkey % (Auto) % Eos % (Auto) % Baso % (Auto) % Neut # (Auto) (1.4-6.5) K/uL Lymph # (Auto) (1.2-3.4) K/uL Sharkey # (Auto) (0.11-0.59) K/uL Eos # (Auto) (0-0.5) K/uL Baso # (Auto) (0-0.2) K/uL Immature Gran # (Auto) (0.00-0.02) K/uL PT (9.0-12.0) Seconds INR (0.9-1.1) APTT (21.0-31.0) Seconds PTT Ratio Sodium (136-145) mmol/L Potassium (3.5-5.1) mmol/L Chloride (98-107) mmol/L Carbon Dioxide (21-32) mmol/L Anion Gap (3-11) BUN (7-18) mg/dl Creatinine (0.6-1.4) mg/dl Est Cr Clr Drug Dosing Est GFR ( Amer) Est GFR (Non-Af Amer) BUN/Creatinine Ratio (10-20) Glucose (70-99) mg/dl POC Glucose 129 H (70-99) mg/dl Lactate 0.8 (0.4-2.0) mmol/L Calcium (8.5-10.1) mg/dl Magnesium (1.8-2.4) mg/dl Total Bilirubin (0.2-1) mg/dl AST (15-37) U/L ALT (12-78) U/L Alkaline Phosphatase (45-117) U/L Total Creatine Kinase (39-308) U/L Troponin I (0-0.045) ng/ml Total Protein (6.4-8.2) gm/dl Albumin (3.4-5.0) gm/dl Globulin (2.5-4.0) gm/dl Albumin/Globulin Ratio (0.9-2) Urine Color Red Urine Appearance Turbid A (Clear) Urine pH >= 9.0 H (4.5-7.5) Ur Specific [place] 1.015 (1.000-1.030) Urine Protein 2+ H (Negative) Urine Glucose (UA) Negative (Negative) Urine Ketones Negative (Negative) Urine Blood 3+ H (Negative) Urine Nitrite Positive A (Negative) Urine Bilirubin Negative (Negative) Urine Urobilinogen Negative (Negative) Ur Leukocyte Esterase 3+ H (Negative) Urine WBC (Auto) >30 H (0-5) /hpf Urine RBC (Auto) >30 H (0-4) /hpf U Hyaline Cast (Auto) 0 (0-5) /lpf U Epithel Cells (Auto) >30 H (0-5) /lpf Urine Bacteria (Auto) 4+ H (Negative) Triple Phos Crystals Present A (None Prsent) Urine Yeast Not Reportable COVID-19 Eval Order SARS-CoV-2, RNA, NAAT (NEGATIVE) Blood Type Antibody Screen 04/17/20 04/17/20 04/17/20 Range/Units 22:26 22:26 22:26 WBC 9.13 (4.8-10.8) K/uL RBC 3.96 L (4.7-6.1) M/uL Hgb 10.6 L (14.0-18.0) g/dL Hct 33.2 L (42-52) % MCV 83.8 (80-100) fL MCH 26.8 (25-34) pg MCHC 31.9 L (32-36) g/dL RDW Std Deviation 48.2 H (36.4-46.3) fL RDW Coeff of Selvin 15.6 H (11.5-14.5) % Plt Count 212 (130-400) K/uL MPV 9.0 (7.4-10.4) fL Immature Gran % (Auto) 0.2 % Neut % (Auto) 79.1 % Lymph % (Auto) 13.5 % Sharkey % (Auto) 5.4 % Eos % (Auto) 1.6 % Baso % (Auto) 0.2 % Neut # (Auto) 7.22 H (1.4-6.5) K/uL Lymph # (Auto) 1.23 (1.2-3.4) K/uL Sharkey # (Auto) 0.49 (0.11-0.59) K/uL Eos # (Auto) 0.15 (0-0.5) K/uL Baso # (Auto) 0.02 (0-0.2) K/uL Immature Gran # (Auto) 0.02 (0.00-0.02) K/uL PT 12.1 H (9.0-12.0) Seconds INR 1.2 H (0.9-1.1) APTT 28.2 (21.0-31.0) Seconds PTT Ratio 1.0 Sodium 142 (136-145) mmol/L Potassium 3.4 L (3.5-5.1) mmol/L Chloride 106 (98-107) mmol/L Carbon Dioxide 28 (21-32) mmol/L Anion Gap 7.0 (3-11) BUN 18 (7-18) mg/dl Creatinine 1.24 (0.6-1.4) mg/dl Est Cr Clr Drug Dosing Not Reportable Est GFR ( Amer) 73.8 Est GFR (Non-Af Amer) 63.7 BUN/Creatinine Ratio 14.4 (10-20) Glucose 100 H (70-99) mg/dl POC Glucose (70-99) mg/dl Lactate (0.4-2.0) mmol/L Calcium 9.4 (8.5-10.1) mg/dl Magnesium 2.3 (1.8-2.4) mg/dl Total Bilirubin 1.5 H (0.2-1) mg/dl AST 15 (15-37) U/L ALT 14 (12-78) U/L Alkaline Phosphatase 100 (45-117) U/L Total Creatine Kinase 67 (39-308) U/L Troponin I < 0.015 (0-0.045) ng/ml Total Protein 7.4 (6.4-8.2) gm/dl Albumin 3.2 L (3.4-5.0) gm/dl Globulin 4.2 H (2.5-4.0) gm/dl Albumin/Globulin Ratio 0.8 L (0.9-2) Urine Color Urine Appearance (Clear) Urine pH (4.5-7.5) Ur Specific [place] (1.000-1.030) Urine Protein (Negative) Urine Glucose (UA) (Negative) Urine Ketones (Negative) Urine Blood (Negative) Urine Nitrite (Negative) Urine Bilirubin (Negative) Urine Urobilinogen (Negative) Ur Leukocyte Esterase (Negative) Urine WBC (Auto) (0-5) /hpf Urine RBC (Auto) (0-4) /hpf U Hyaline Cast (Auto) (0-5) /lpf U Epithel Cells (Auto) (0-5) /lpf Urine Bacteria (Auto) (Negative) Triple Phos Crystals (None Prsent) Urine Yeast COVID-19 Eval Order SARS-CoV-2, RNA, NAAT (NEGATIVE) Blood Type Antibody Screen Medications Administered Current Inpatient Medications Acetaminophen (Acetaminophen 325 Mg Tab) 650 mg PO Q4H PRN PRN Reason: pain/fever Stop: 05/18/20 03:13 Allopurinol (Allopurinol 300 Mg Tab) 300 mg PO QAM RAJWINDER Stop: 05/18/20 08:59 Last Admin: 04/18/20 08:44 Dose: 300 mg Documented by: Artificial Tears (Artificial Tears) 1 drops OP DAILY PRN PRN Reason: Dry Eye(S) Stop: 05/18/20 03:22 Atropine Sulfate (Atropine Sulfate 0.1 Mg/Ml 10ml Syr) 0.5 mg IV Q1M PRN PRN Reason: PACU Use-HR<40 &/or Bradycardi Stop: 04/18/20 19:23 Carvedilol (Carvedilol 6.25 Mg Tab) 6.25 mg PO BID RAJWINDER Stop: 05/18/20 03:44 Last Admin: 04/18/20 04:06 Dose: 6.25 mg Documented by: Cyclobenzaprine HCl (Cyclobenzaprine Hcl 5 Mg Tab) 5 mg PO BID PRN PRN Reason: Muscle Spasm Stop: 05/18/20 03:13 Dextrose (Dextrose 50% 50 Ml Syringe) 25 - 50 ml IV UD PRN; Protocol PRN Reason: Hypoglycemia Protocol Stop: 05/18/20 03:13 Doxazosin Mesylate (Doxazosin Mesylate Tab 2 Mg Tab) 2 mg PO HS RAJWINDER Stop: 05/18/20 20:59 Ephedrine Sulfate (Ephedrine Sulfate 50 Mg/Ml Amp) 5 mg IV Q5M PRN PRN Reason: PACU Use Only-SBP<90 mmHg Stop: 04/18/20 19:23 Fentanyl Citrate (Fentanyl Citrate 100 Mcg/2 Ml Vial) 50 mcg IV Q5M PRN PRN Reason: PACU Use Only-Pain Stop: 04/18/20 19:24 Glucagon (Glucagon For Inj 1 Mg Vial) 1 mg SQ UD PRN; Protocol PRN Reason: Hypoglycemia Protocol Stop: 05/18/20 03:13 Glucose (Glucose 10 Tabs/Tube) 4 - 8 tabs PO UD PRN; Protocol PRN Reason: Hypoglycemia Protocol Stop: 05/18/20 03:13 Glucose (Glucose 40% Gel 15 Gm Tube) 15 - 30 gm PO UD PRN; Protocol PRN Reason: Hypoglycemia Protocol Stop: 05/18/20 03:13 Promethazine HCl 12.5 mg/ (Sodium Chloride) 50.5 mls @ 202 mls/hr IV Q6H PRN PRN Reason: Nausea And Vomiting Stop: 05/18/20 03:13 Ceftriaxone Sodium 2,000 mg/ (Dextrose) 70 mls @ 100 mls/hr IV Q24H RAJWINDER; Protocol Stop: 04/27/20 00:41 Potassium Chloride 40 meq/ (Sodium Chloride) 1,020 mls @ 50 mls/hr IV .[id number] RAJWINDER Stop: 05/18/20 03:13 Last Admin: 04/18/20 03:44 Dose: 50 mls/hr Documented by: Influenza Virus Vaccine Quadrival (Influenza Virus Quad Vaccine 0.5 Ml Syr) 0.5 ml IM .ONCE ONE Stop: 04/21/20 09:01 Insulin Aspart (Insulin Aspart 100 Units/Ml 3 Ml Pen) 0 units SC Q6 RAJWINDER Stop: 05/18/20 11:59 Insulin Glargine (Insulin Glargine Solostar 100 Units/Ml 3 Ml Pen) 10 units SC HS [facility] Stop: 05/18/20 20:59 Lactobacillus Acidophilus (Lactobacillus Acidophilus (Floranex) Tab) 4 tab PO QAM RAJWINDER Stop: 05/18/20 08:59 Last Admin: 04/18/20 08:45 Dose: 4 tab Documented by: Latanoprost (Latanoprost 0.005% Op Soln 2.5 Ml Btl) 1 drops OP HS RAJWINDER Stop: 05/18/20 20:59 Loratadine (Loratadine 10 Mg Tab) 10 mg PO DAILY PRN PRN Reason: allergy symptoms Stop: 05/18/20 03:20 Miscellaneous (Carbohydrates For Hypoglycemia ) 15 - 30 gm PO UD PRN PRN Reason: Hypoglycemia Protocol Stop: 05/18/20 03:13 Morphine Sulfate (Morphine Sulfate 4 Mg/Ml 1 Ml Carp\Vial) 4 mg IV Q4H PRN PRN Reason: Pain Stop: 05/02/20 03:13 Nitroglycerin (Nitroglycerin Sl 0.4 Mg/Tab Tab) 0.4 mg SL Q5M PRN PRN Reason: Chest Pain Stop: 05/18/20 03:13 Ondansetron HCl (Ondansetron Inj 2 Mg/Ml 2 Ml Vial) 4 mg IV ONCE PRN PRN Reason: PACU Use Only-Nausea/Vomiting Stop: 04/18/20 19:24 Sennosides (Senna 8.6 Mg Tab) 8.6 mg PO DAILY RAJWINDER Stop: 05/18/20 08:59 Last Admin: 04/18/20 08:45 Dose: 8.6 mg Documented by: Tramadol HCl (Tramadol Hcl 50 Mg Tablet) 50 mg PO Q6H PRN PRN Reason: pain Stop: 05/18/20 03:13 Trazodone HCl (Trazodone Hcl 50 Mg Tab) 100 mg PO HS PRN PRN Reason: Insomnia Stop: 05/18/20 03:19
[2020-04-18] MEDS ORDERED: ONDANSETRON INJ 2 MG/ML 2 ML VIAL ONE (12:01)
--- NOTE | 2020-04-18 12:11 | Operative Report ---
PG Post Operative Report Pre & Post Diagnosis Operation Date: 04/18/20 12:15 Pre-Op Diagnosis: Traumatic and malfunctioning henriquez Post-Op Diagnosis: Traumatic and malfunctioning henriquez I identified the patient and participated in the time-out.: Yes Procedure Operation Date: 04/18/20 12:15 Actual Procedures p Cystoscopy, Urethral dilation, Difficult henriquez insertion - Bright Leo, Surgeon Bright Leo, II, DO [employer]iliate Marketing Specialist None Estimated Blood Loss 1 Findings Consistent with Post-Op Diagnosis Bladder lesions found and assessed. Displacement and malfunction of catheter. Extremely large edematous and ulcerated pannus Specimens None Drains 20 Tristanian chickaloon tip Anesthesia Type MAC Complications none Disposition Disposition: Recovery Room Indications Patient with extremely large pannus which obliterates the mons pubis causing an extremely buried penis. Catheter which had been placed in [place] had become disrupted and is malfunctioning and found within the urethra. Risks and benefits discussed at length. Description of Procedure Patient was consented and brought back to the operating room. Patient was placed under anesthesia in the supine position. Patient's extreme large pannus was retracted exposing the mons/penile tissue with the catheter displaced and out of position. Patient was prepped and draped in the regular sterile fashion. A time out was completed. A wire was attempted to be placed. The catheter was cut to allow wire placement. Once the wire was able to be advanced. The catheter was removed. The patient was reprepped. A flexible cystoscope was placed into the bladder and the entire bladder was examined. The urethra did appear to be injured mildl y from the henriquez being displaced into the urethra and the distal urethra had been dilated in order to place the scope. The UO's were identified as well as the bladder neck, trigone, dome, and the other important landmarks. A mild area of irritation and edema was noted. The bladder was filled. The scope was removed. A 20 Fr [place] tip catheter was placed over the wire into the bladder. It was overfilled to 30 cc and the bladder drained. The patient was cleaned, aroused from anesthesia, and transferred to the pacu in stable condition having tolerated the procedure well with no complications. I was present and participated in all aspects of the procedure. The patient will be monitored in the PACU until transferred. I attest to the content of the Intraoperative Record and any orders documented therein. Any exceptions are noted below.
--- NOTE | 2020-04-18 14:02 | Anesthesiology Progress Note ---
Date of Service April 18, 2020 Anesthesia Post Procedure Vital Signs Vital Signs: Temp Pulse Pulse Pulse Resp BP BP 04/18/20 13:35 37.2 C 63 16 142/80 H 04/18/20 13:12 37.0 C 63 16 137/71 04/18/20 12:46 71 22 04/18/20 12:36 36.2 C L 65 19 04/18/20 12:26 72 14 04/18/20 12:16 36 C L 67 22 04/18/20 10:45 36.9 C 74 22 04/18/20 10:21 36.9 C 72 18 04/18/20 07:02 36.7 C 70 18 04/18/20 04:25 64 18 04/18/20 04:03 75 04/18/20 03:15 36.5 C 74 18 04/18/20 03:01 137/66 04/18/20 02:00 04/18/20 00:00 04/17/20 23:45 04/17/20 23:30 04/17/20 23:24 04/17/20 23:09 04/17/20 22:55 36.8 C 68 16 173/88 H BP Pulse Ox 04/18/20 13:35 97 04/18/20 13:12 95 04/18/20 12:46 133/75 96 04/18/20 12:36 140/68 95 04/18/20 12:26 141/65 H 97 04/18/20 12:16 139/74 100 04/18/20 10:45 143/73 H 98 04/18/20 10:21 137/65 96 04/18/20 07:02 118/62 96 04/18/20 04:25 98 04/18/20 04:03 158/84 H 04/18/20 03:15 165/77 H 99 04/18/20 03:01 04/18/20 02:00 139/65 04/18/20 00:00 124/76 04/17/20 23:45 141/75 H 04/17/20 23:30 130/71 04/17/20 23:24 142/65 H 04/17/20 23:09 136/68 04/17/20 22:55 98 Pain Intensity Penis: Pain Intensity: 4 Transfer of Care Handoff Completed per policy Notes Mental Status: alert / awake / arousable and participated in evaluation Patient Amnestic to Procedure: Yes Nausea / Vomiting: adequately controlled Pain: adequately controlled Airway Patency, RR, SpO2: stable & adequate BP & HR: stable & adequate Hydration State: stable & adequate Anesthetic Complications: no major complications apparent and Pt Satisfied with anesthetic care
--- NOTE | 2020-04-18 16:02 | Electrocardiogram Report ---
Test Reason : Blood Pressure : / mmHG Vent. Rate : 064 BPM Atrial Rate : 375 BPM P-R Int : 000 ms QRS Dur : 158 ms QT Int : 464 ms P-R-T Axes : 000 -39 020 degrees QTc Int : 478 ms Poor data quality, interpretation may be adversely affected Atrial fibrillation Left axis deviation Right bundle branch block Inferior infarct (cited on or before 24-OCT-2017) Abnormal ECG When compared with ECG of 15-DEC-2019 12:25, T wave inversion now evident in Anterior leads Confirmed by Bob Coronel ([id number]) on 04/18/2020 4:02:07 PM Referred By: REFERRED SELF Confirmed By:Bob Coronel
[2020-04-18 17:10] LABS: Hematocrit (blood only) 32.9 % (42-52); Hemoglobin 10.3 g/dL (14.0-18.0)
[2020-04-18] MEDS: LATANOPROST 0.005% OP SOLN 2.5 ML BTL OP SCH (21:00)
[2020-04-18] MEDS: DOXAZosin MESYLATE TAB 2 MG TAB PO SCH (21:00)
[2020-04-18] MEDS: INSULIN GLARGINE SOLOSTAR 100 UNITS/ML 3 ML PEN SC SCH (21:05)
[2020-04-18] MEDS: cefTRIAXone SODIUM 2,000 MG in DEXTROSE 5% 50 ML IV SCH (23:38)
[2020-04-19] MEDS: LORATADINE 10 MG TAB PO PRN ×2 (00:52→23:49)
[2020-04-19 06:52] LABS: Hematocrit (blood only) 30.8 % (42-52); Hemoglobin 9.6 g/dL (14.0-18.0); Mean Corpuscular Hemoglobin 26.4 pg (25-34); Mean Corpuscular Hgb Conc 31.2 g/dL (32-36); Mean Corpuscular Volume 84.8 fL (80-100); Mean Platelet Volume 9.2 fL (7.4-10.4); Platelet Count 164 K/uL (130-400); RDW Coefficient of Variation 15.8 % (11.5-14.5); RDW Standard Deviation 48.5 fL (36.4-46.3); Red Blood Count 3.63 M/uL (4.7-6.1); White Blood Count 6.27 K/uL (4.8-10.8)
[2020-04-19 07:22] LABS: BUN Creatinine Ratio 12.1 (10-20); Calcium 8.4 mg/dl (8.5-10.1); Creatinine Clr Calc Pharmacy 124.3 ml/min; Est GFR (African American) 89.2; Potassium 3.7 mmol/L (3.5-5.1)
[2020-04-19] MEDS: carvediloL 6.25 MG TAB PO SCH ×2 (08:38→20:27)
[2020-04-19] MEDS: SENNA 8.6 MG TAB PO SCH (08:38)
[2020-04-19] MEDS: allopurinoL 300 MG TAB PO SCH (08:38)
[2020-04-19] MEDS: LACTOBACILLUS ACIDOPHILUS (FLORANEX) TAB PO SCH (08:38)
[2020-04-19] MEDS: INSULIN ASPART 100 UNITS/ML 3 ML PEN SC SCH ×4 (08:41→20:56)
--- NOTE | 2020-04-19 09:48 | Urology Progress Note ---
Date of Service April 19, 2020 Assessment & Plan (1) Dislodged Warren catheter: 59 yo M POD #1 s/p cystoscopy, urethral dilation and difficult Warren catheter insertion with Dr. Leo. - Doing well post-op, subjectively improved - Pt tolerating Warren catheter - functioning well - Recommend patient continue follow-up outpatient with his established urologist in [place], monthly catheter changes. Thank you for allowing us to participate in the acute care of Mr. Morrison. Please reconsult us with additional questions, concerns or changes in patient status. Admission and Anticipated Discharge Date Admission Date: April 18, 2020 Subjective 59 yo M POD #1 s/p cystoscopy, urethral dilation and difficult Warren catheter insertion with Dr. Leo. Pt sitting up in bed. Feeling well this AM, offers no complaints. No abdominal or suprapubic discomfort. Tolerating diet, no nausea or vomiting. No dysuria. He reports some hematuria post op. Tolerating Warren catheter. Warren catheter intact, patent, and draining clear yellow urine, minimal pink tinge in collection bag. No fever or chills. Chart review: UC&S showed three types of organisms present, all high counts. BCx no growth x 24 hours. On IV Ceftriaxone Creatinine 1.06 WBC 6.27 Hgb 9.6. No additional concerns today. Review of Systems Constitutional: as per Subjective / HPI Gastrointestinal: as per Subjective / HPI Genitourinary: + as per Subjective / HPI Physical Exam Constitutional: well developed, well nourished and + morbidly obese; no acute distress and not ill appearing Respiratory: normal respiratory effort and able to speak in complete sentences; no respiratory distress and no labored breathing Cardiovascular: Extremities: no pedal edema Gastrointestinal (Abdomen): Morbidly obese abdomen with large pannus Musculoskeletal: Head/Neck/Chest: normocephalic and head atraumatic Neurologic: moves all extremities and awake Psychiatric: A+Ox3, euthymic affect Genitourinary: Warren catheter intact, patent, draining clear yellow urine, minimal pink tinge in collection bag Results & Data ([facility]) Vital Signs (Past 12 Hours) Vital Signs Temp Pulse Pulse Resp BP BP Pulse Ox 04/19/20 08:22 36.8 C 64 18 110/77 95 04/19/20 03:58 36.7 C 77 16 121/71 93 04/19/20 03:05 65 16 97 04/19/20 00:12 36.4 C L 64 16 126/74 95 04/18/20 22:55 69 16 95 PG Care Time/CCT Total # of Minutes Spent Total Time Spent with Patient: Total time spent is greater than 50% in coordination of care (as documented) at patient's floor/unit and/or counseling patient: Coding Level of Care Code 69361 Subseq Hosp Care Lvl 3 Diagnoses Dislodged Warren catheter T83.021A
--- NOTE | 2020-04-19 16:58 | Hospitalist Progress Note ---
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 Urology consult Re: Hematuria, displaced Warren catheter Pt now s/p Warren catheter exchange in OR by Dr. Sood (04/18/20) Follow urine cultures, IV Ceftriaxone for complicated UTI and infected lymphedematous suprapubic mass Patient was prescribed today antibiotic, cefdinir from his wound clinic. This antibiotic will cover UTI/cellulitis as wll Pt presented w/ hematuria, will recheck Hgb in the afternoon, hemoglobin stable Patient will need to follow-up with his urologist in [place] for his monthly regular Warren exchanges chronic diastolic heart failure as per records (EF 55-59% TTE 2018), patient euvolemic CAD status post stent A. fib on Eliquis, Hold aspirin, Eliquis for now, can restart on discharge Hypertension, elevated secondary discomfort, Facilitate home BP meds, may need titration Hyperlipidemia on statin Rx Spina bifida as per records DM2 insulin requiring, well-controlled as of recent outpatient hemoglobin A1c of 5.12 February 2020 , Basal insulin adjusted for n.p.o. status, ISS BG goal [id number] MICAH on CPAP chronic anemia, hemoglobin at baseline chronic lymphedema DVT prophylaxis. SCDs while Eliquis on hold RE possible procedure, hematuria Full code Admission and Anticipated Discharge Date Admission Date: April 18, 2020 Subjective Patient is lying in bed, in no acute distress, says that he feels well. Denies any chest pain, shortness of breath, nausea vomiting, fevers or chills, abdominal pain. Draining clear yellow urine from his Warren catheter. Patient tells me that he was called from a wound clinic, and because his wound culture grew bacteria they sent antibiotic, cefdinir to his pharmacy. Review of Systems Review of Systems: All systems reviewed & are unremarkable except as noted in HPI & below Constitutional: no fever and no chills Respiratory: no cough and no dyspnea Cardiovascular: no chest pain and no palpitations Gastrointestinal: no abdominal pain, no nausea and no vomiting Physical Exam Physical Exam: GENERAL: morbidly obese male, laying in bed, comfortable, in no distress HEENT: NC/AT, EOMI, PERRL, pale palpebral conjunctivae NECK : Supple, short neck, no tenderness CHEST : Decreased breath sounds , no tenderness HEART : Irregular, no obvious murmurs ABDOMEN: distention, indurated suprapubic mass between patient's legs with minimal tenderness. : Warren catheter in place, draining clear yellow urine EXTREMITIES : Bilateral LE induration/venous stasis, no LE tenderness SKIN: warm, dry, and well-perfused NEUROLOGIC : alert and oriented x3, no facial asymmetry, speech fluent, moves extremities Results & Data Results & Data ([facility]) Vital Signs (Past 12 Hours) Vital Signs Temp Pulse Resp BP BP Pulse Ox 04/19/20 15:47 37.5 C 64 16 126/70 95 04/19/20 08:22 36.8 C 64 18 110/77 95 Laboratory Results 04/19/20 04/19/20 04/19/20 Range/Units 12:14 08:18 06:38 WBC (4.8-10.8) K/uL RBC (4.7-6.1) M/uL Hgb (14.0-18.0) g/dL Hct (42-52) % MCV (80-100) fL MCH (25-34) pg MCHC (32-36) g/dL RDW Std Deviation (36.4-46.3) fL RDW Coeff of Selvin (11.5-14.5) % Plt Count (130-400) K/uL MPV (7.4-10.4) fL Sodium 141 (136-145) mmol/L Potassium 3.7 (3.5-5.1) mmol/L Chloride 109 H (98-107) mmol/L Carbon Dioxide 27 (21-32) mmol/L Anion Gap 5.0 (3-11) BUN 13 (7-18) mg/dl Creatinine 1.06 (0.6-1.4) mg/dl Est Cr Clr Drug Dosing 124.3 ml/min Est GFR ( Amer) 89.2 Est GFR (Non-Af Amer) 77.0 BUN/Creatinine Ratio 12.1 (10-20) Glucose 93 (70-99) mg/dl POC Glucose 142 H 112 H (70-99) mg/dl Calcium 8.4 L (8.5-10.1) mg/dl 1004/18/20 04/18/20 Range/Units 06:38 20:34 17:05 WBC 6.27 (4.8-10.8) K/uL RBC 3.63 L (4.7-6.1) M/uL Hgb 9.6 L (14.0-18.0) g/dL Hct 30.8 L (42-52) % MCV 84.8 (80-100) fL MCH 26.4 (25-34) pg MCHC 31.2 L (32-36) g/dL RDW Std Deviation 48.5 H (36.4-46.3) fL RDW Coeff of Selvin 15.8 H (11.5-14.5) % Plt Count 164 (130-400) K/uL MPV 9.2 (7.4-10.4) fL Sodium (136-145) mmol/L Potassium (3.5-5.1) mmol/L Chloride (98-107) mmol/L Carbon Dioxide (21-32) mmol/L Anion Gap (3-11) BUN (7-18) mg/dl Creatinine (0.6-1.4) mg/dl Est Cr Clr Drug Dosing ml/min Est GFR ( Amer) Est GFR (Non-Af Amer) BUN/Creatinine Ratio (-20) Glucose (70-99) mg/dl POC Glucose 111 H 100 H (70-99) mg/dl Calcium (8.5-10.1) mg/dl 04/18/20 Range/Units 17:02 WBC (4.8-10.8) K/uL RBC (4.7-6.1) M/uL Hgb 10.3 L (14.0-18.0) g/dL Hct 32.9 L (42-52) % MCV (80-100) fL MCH (25-34) pg MCHC (32-36) g/dL RDW Std Deviation (36.4-46.3) fL RDW Coeff of Selvin (11.5-14.5) % Plt Count (130-400) K/uL MPV (7.4-10.4) fL Sodium (136-145) mmol/L Potassium (3.5-5.1) mmol/L Chloride (98-107) mmol/L Carbon Dioxide (21-32) mmol/L Anion Gap (3-11) BUN (7-18) mg/dl Creatinine (0.6-1.4) mg/dl Est Cr Clr Drug Dosing ml/min Est GFR ( Amer) Est GFR (Non-Af Amer) BUN/Creatinine Ratio (10-20) Glucose (70-99) mg/dl POC Glucose (70-99) mg/dl Calcium (8.5-10.1) mg/dl Medications Administered Current Inpatient Medications Acetaminophen (Acetaminophen 325 Mg Tab) 650 mg PO Q4H PRN PRN Reason: pain/fever Stop: 05/18/20 03:13 Allopurinol (Allopurinol 300 Mg Tab) 300 mg PO QAM [facility] Stop: 05/18/20 08:59 Last Admin: 04/19/20 08:38 Dose: 300 mg Documented by: Artificial Tears (Artificial Tears) 1 drops OP DAILY PRN PRN Reason: Dry Eye(S) Stop: 05/18/20 03:22 Carvedilol (Carvedilol 6.25 Mg Tab) 6.25 mg PO BID [facility] Stop: 05/18/20 03:44 Last Admin: 04/19/20 08:38 Dose: 6.25 mg Documented by: Cyclobenzaprine HCl (Cyclobenzaprine Hcl 5 Mg Tab) 5 mg PO BID PRN PRN Reason: Muscle Spasm Stop: 05/18/20 03:13 Dextrose (Dextrose 50% 50 Ml Syringe) 25 - 50 ml IV UD PRN; Protocol PRN Reason: Hypoglycemia Protocol Stop: 05/18/20 03:13 Doxazosin Mesylate (Doxazosin Mesylate Tab 2 Mg Tab) 2 mg PO HS [facility] Stop: 05/18/20 20:59 Last Admin: 04/18/20 21:00 Dose: 2 mg Documented by: Glucagon (Glucagon For Inj 1 Mg Vial) 1 mg SQ UD PRN; Protocol PRN Reason: Hypoglycemia Protocol Stop: 05/18/20 03:13 Glucose (Glucose 10 Tabs/Tube) 4 - 8 tabs PO UD PRN; Protocol PRN Reason: Hypoglycemia Protocol Stop: 05/18/20 03:13 Glucose (Glucose 40% Gel 15 Gm Tube) 15 - 30 gm PO UD PRN; Protocol PRN Reason: Hypoglycemia Protocol Stop: 05/18/20 03:13 Promethazine HCl 12.5 mg/ (Sodium Chloride) 50.5 mls @ 202 mls/hr IV Q6H PRN PRN Reason: Nausea And Vomiting Stop: 05/18/20 03:13 Ceftriaxone Sodium 2,000 mg/ (Dextrose) 70 mls @ 100 mls/hr IV Q24H [facility]; Protocol Stop: 04/27/20 00:41 Last Infusion: 04/19/20 00:24 Dose: Infused Documented by: Influenza Virus Vaccine Quadrival (Influenza Virus Quad Vaccine 0.5 Ml Syr) 0.5 ml IM .ONCE ONE Stop: 04/21/20 09:01 Insulin Aspart (Insulin Aspart 100 Units/Ml 3 Ml Pen) 0 units SC [facility] Stop: 05/19/20 07:29 Last Admin: 04/19/20 13:28 Dose: 2 units Documented by: Insulin Glargine (Insulin Glargine Solostar 100 Units/Ml 3 Ml Pen) 10 units SC [facility] Stop: 05/18/20 20:59 Last Admin: 04/18/20 21:05 Dose: 10 units Documented by: Lactobacillus Acidophilus (Lactobacillus Acidophilus (Floranex) Tab) 4 tab PO QAM [facility] Stop: 05/18/20 08:59 Last Admin: 04/19/20 08:38 Dose: 4 tab Documented by: Latanoprost (Latanoprost 0.005% Op Soln 2.5 Ml Btl) 1 drops OP HS [facility] Stop: 05/18/20 20:59 Last Admin: 04/18/20 21:00 Dose: 1 drops Documented by: Loratadine (Loratadine 10 Mg Tab) 10 mg PO DAILY PRN PRN Reason: allergy symptoms Stop: 05/18/20 03:20 Last Admin: 04/19/20 00:52 Dose: 10 mg Documented by: Miscellaneous (Carbohydrates For Hypoglycemia ) 15 - 30 gm PO UD PRN PRN Reason: Hypoglycemia Protocol Stop: 05/18/20 03:13 Morphine Sulfate (Morphine Sulfate 4 Mg/Ml 1 Ml Carp\Vial) 4 mg IV Q4H PRN PRN Reason: Pain Stop: 05/02/20 03:13 Nitroglycerin (Nitroglycerin Sl 0.4 Mg/Tab Tab) 0.4 mg SL Q5M PRN PRN Reason: Chest Pain Stop: 05/18/20 03:13 Sennosides (Senna 8.6 Mg Tab) 8.6 mg PO DAILY [facility]JWINDER Stop: 05/18/20 08:59 Last Admin: 04/19/20 08:38 Dose: 8.6 mg Documented by: Tramadol HCl (Tramadol Hcl 50 Mg Tablet) 50 mg PO Q6H PRN PRN Reason: pain Stop: 05/18/20 03:13 Trazodone HCl (Trazodone Hcl 50 Mg Tab) 100 mg PO HS PRN PRN Reason: Insomnia Stop: 05/18/20 03:19
--- NOTE | 2020-04-19 17:40 | Discharge Summary ---
Date of Service April 19, 2020 Admission HPI Per Admitting Provider History obtained from patient and records. Medical history significant for chronic diastolic heart failure as per records (EF 55-59% TTE 2018), CAD status post stent, A. 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 Last confinement December 2019 for sepsis secondary to abdominal panniculitis with scrotal deformity. Patient transferred to [facility] for further management. No growth on cultures. No surgical intervention for panniculitis during [facility] confinement. Urinary retention noted during confinement at [facility]. External genitalia to facilitate Henriquez catheter placement could not be visualized due to patient morbid obesity and pannus as per documentation. Patient taken to the OR by urologist with use of flexible cystoscope to place Henriquez catheter. Patient seen by [facility] Plastic surgery outpatient 2 months ago for evaluation for panniculectomy. As per documentation, large suprapubic lymphedematous mass hanging between patient's legs and burying patient's genitalia was not pannus. Removal of suprapubic mass along with urologic procedure for patient's urinary retention contemplated next month at [facility] pending Cardiology preop eval/stress test. Patient seen on follow-up at [facility] urologist office 3 weeks ago. Henriquez catheter exchange done at the office using Soloflex wire as per documentation. Patient noted gradual swelling of suprapubic mass in the last few weeks. No fever, no chills. Increased difficulty in moving around at home. Yesterday, patient experienced urethral pain after Henriquez catheter inadvertently pulled during bed transfer while home health nurse was attending the patient. Patient consulted ER to evaluate displaced Henriquez catheter. Patient sent home with note of Henriquez catheter drainage. At home yesterday afternoon, patient noted hematuria symptoms with some abdominal discomfort. No fever, no chills. No chest pain, no S OB. At the ER, patient received IV ceftriaxone for UTI/suprapubic mass cellulitis. Medical History as above Surgical History : Cystoscopy urethroscopy, uvulopalatopharyngoplasty, cholecystectomy, eye surgeries, tonsillectomy, septoplasty Family History : Heart disease, diabetes, alcoholism Personal/Social history : Past tobacco abuse, no EtOH intake, disabled Admission Exam Per Admitting Provider GENERAL: Comfortable, pleasant, morbidly obese, no respiratory distress SKIN: Pallor , warm HEENT: Partial alopecia, pale palpebral conjunctivae, no ptosis, dry buccal mucosa NECK : Supple, short neck, no tenderness CHEST : Decreased breath sounds , no tenderness HEART : Irregular, no obvious murmurs ABDOMEN: distention, indurated suprapubic mass dangling between patient's legs with minimal tenderness. EXTREMITIES : Bilateral LE induration/venous stasis, no LE tenderness, no other conspicuous deformities noted NEUROLOGIC : Coherent, no facial asymmetry, no other gross focality Principal Diagnosis UTI, malfunctioning Henriquez catheter, hematuria Discharge Exam GENERAL: morbidly obese male, laying in bed, comfortable, in no distress HEENT: NC/AT, EOMI, PERRL, pale palpebral conjunctivae NECK : Supple, short neck, no tenderness CHEST : Decreased breath sounds , no tenderness HEART : Irregular, no obvious murmurs ABDOMEN: distention, indurated suprapubic mass between patient's legs with minimal tenderness. : Henriquez catheter in place, draining clear yellow urine EXTREMITIES : Bilateral LE induration/venous stasis, no LE tenderness SKIN: warm, dry, and well-perfused NEUROLOGIC : alert and oriented x3, no facial asymmetry, speech fluent, moves extremities Discharge Data Allergies Allergy/AdvReac Type Severity Reaction Status Date / Time sulfamethoxazole Allergy Intermediate Rash Unverified 04/14/20 12:53 trimethoprim Allergy Intermediate Rash Unverified 04/14/20 12:53 AVIVA Inhibitors Allergy Unknown . Unverified 04/14/20 12:53 Bactrim Allergy Unknown . Unverified 12/06/17 15:09 lisinopril Allergy Unknown Unknown Verified 04/14/20 12:53 Consultations 04/18/20 00:59 ED Decision to Admit Stat 04/18/20 03:14 Consult Urology Routine Procedures Performed Operation Date: 04/18/20 12:15 Actual Procedures p Cystoscopy, Urethral dilation, Difficult henriquez insertion - Bright Leo, Ordered Studies 04/17/20 22:09 CT abd pelvis IV con only Stat IMPRESSION: 1. No significant change in the large pannus extending from the perineal region to the level of the knees with extensive edema and skin thickening. No abscess identified at this time. 2. There is a Henriquez catheter with the balloon/tip terminating at the bulbous urethra. This is not located within the bladder and should be repositioned. The bladder is not significantly distended at this time. 3. Improvement in the right external iliac lymphadenopathy. 4. Small pericardial effusion, unchanged. Hospital Course (1) Complicated UTI (urinary tract infection): Secondary to inadvertent Henriquez catheter displacement hx urinary retention/buried genitalia secondary to infected chronic lymphedematous suprapubic mass with indwelling Henriquez catheter Patient currently not septic. Urology consult Re: Hematuria, displaced Henriquez catheter Pt now s/p Henriquez catheter exchange in OR by Dr. Sood (04/18/20) Follow urine cultures, IV Ceftriaxone for complicated UTI and infected lymphed ematous suprapubic mass Patient was prescribed today antibiotic, cefdinir from his wound clinic. This antibiotic will cover UTI/cellulitis as well Pt presented w/ hematuria, will recheck Hgb in the afternoon, hemoglobin stable Patient will need to follow-up with his urologist in [place] for his monthly regular Henriquez exchanges chronic diastolic heart failure as per records (EF 55-59% TTE 2019), patient euvolemic CAD status post stent A. fib on Eliquis, Hold aspirin, Eliquis for now, can restart on discharge Hypertension, elevated secondary discomfort, Facilitate home BP meds, may need titration Hyperlipidemia on statin Rx Spina bifida as per records DM2 insulin requiring, well-controlled as of recent outpatient hemoglobin A1c of 5.12 February 2020 , Basal insulin adjusted for n.p.o. status, ISS BG goal [id number] MICAH on CPAP chronic anemia, hemoglobin at baseline chronic lymphedema Total Time Total Time Spent Total Time Spent (In Minutes): 40 Total Time Includes: Examination of the Patient, Discharge Planning, Medication Reconciliation and Communication With Other Providers Discharge Plan Discharge Items Patient Disposition: Home - Home Health Services Reason For Visit: COMP UTI Discharge Diagnosis: UTI, malfunctioning Henriquez catheter, hematuria Activity: Per Instructions section Non-emergency contact: Primary Care Provider and Urologist Call non-emergency contact if: you have any medication questions and your symptoms worsen Follow-up/Referrals: Kalyn Brar MD [Primary Care Provider] - Diet: Carb Consistent or DM2, Heart Healthy and Low Sodium (2gm) Addtl Attending Provider Instructions: Follow-up with your urologist in [place] for your regular Henriquez catheter exchanges. Continue antibiotic that was prescribed for you by wound clinic (cefdinir). This antibiotic will also cover possible UTI. Pending Studies at Discharge: Yes Studies:: Blood cultures Stand-Alone Forms: My [facility] [place], Smoking Cessation Medications and DC Order Prescriptions: Continued apixaban 5 mg tablet 5 mg PO BID RF: 0 aspirin 81 mg tablet,delayed release (DR/EC) 81 mg PO QAM RF: 0 atorvastatin 40 mg tablet 40 mg PO HS RF: 0 carvedilol 6.25 mg tablet 6.25 mg PO BID RF: 0 cholecalciferol (vitamin D3) 4,000 unit capsule 4,000 units PO QAM RF: 0 cyclobenzaprine 5 mg tablet 5 mg PO BID PRN (Reason: Muscle Spasm) RF: 0 doxazosin [Cardura] 2 mg tablet 2 mg PO HS RF: 0 glucagon HCl 1 mg recon soln 1 mg SQ Q20M PRN (Reason: .) RF: 0 ondansetron HCl [Zofran] 4 mg tablet 4 mg PO QID PRN (Reason: Nausea) RF: 0 Adult Probiotic 3 billion cell capsule 3,000 mmu cells PO QAM RF: 0 tramadol 50 mg tablet 50 mg PO Q6H PRN (Reason: pain) RF: 0 trazodone 100 mg tablet 100 mg PO HS PRN (Reason: Insomnia) RF: 0 nitroglycerin [Nitrostat] 0.4 mg tablet, sublingual 0.4 mg SL Q5M PRN (Reason: Chest Pain) RF: 0 latanoprost 0.005 % drops 1 drops OP HS RF: 0 loratadine [Claritin RediTabs] 10 mg tablet,disintegrating 10 mg PO DAILY PRN (Reason: allergy symptoms) RF: 0 allopurinol 300 mg tablet 300 mg PO QAM RF: 0 cefdinir 300 mg capsule 300 mg PO BID Qty: 20 RF: 1 nystatin [Nystop] 100,000 unit/gram powder 1 applic TOPICAL BID RF: 0 metformin 500 mg tablet extended release 24 hr 500 mg PO BID RF: 0 Basaglar KwikPen U-100 Insulin 100 unit/mL (3 mL) insulin pen 50 unit SUBCUT QPM RF: 0 sennosides [Senna Lax] 8.6 mg Tablet 8.6 mg PO DAILY RF: 0 propylene glycol-glycerin 1-0.3 % Drops 1 drp OPHTHALMIC (EYE) DAILY PRN (Reason: Dry Eye(S)) RF: 0 Eucerin Cream 1 applic TOPICAL AMHS PRN (Reason: skin) RF: 0 Vitron-C 65 mg iron- 125 mg Tablet,Delayed Release (Dr/Ec) 1 tab PO BID RF: 0 Discharge Orders: Discharge Order (Routine); Ordered 04/19/20 Ordered By: Koko Galloway Admission Data Admit Date/Time: 04/18/20 02:14 Attending Provider: Koko Galloway Admit Provider: Blaine Monteiro Primary Care Provider: Kalyn Brar Other Providers: Blaine Monteiro ; Bright Leo
[2020-04-19] MEDS: LATANOPROST 0.005% OP SOLN 2.5 ML BTL OP SCH (20:25)
[2020-04-19] MEDS: DOXAZosin MESYLATE TAB 2 MG TAB PO SCH (20:27)
[2020-04-19] MEDS: INSULIN GLARGINE SOLOSTAR 100 UNITS/ML 3 ML PEN SC SCH (20:56)
[2020-04-19] MEDS: cefTRIAXone SODIUM 2,000 MG in DEXTROSE 5% 50 ML IV SCH (23:34)
[2020-04-20] MEDS: carvediloL 6.25 MG TAB PO SCH (08:45)
[2020-04-20] MEDS: SENNA 8.6 MG TAB PO SCH (08:46)
[2020-04-20] MEDS: LACTOBACILLUS ACIDOPHILUS (FLORANEX) TAB PO SCH (08:46)
[2020-04-20] MEDS: allopurinoL 300 MG TAB PO SCH (08:46)
[2020-04-20] MEDS: INSULIN ASPART 100 UNITS/ML 3 ML PEN SC SCH (09:53)
--- NOTE | 2020-04-20 11:10 | Hospitalist Progress Note ---
Date of Service April 20, 2020 Assessment & Plan (1) Complicated UTI (urinary tract infection): Secondary to inadvertent Warren catheter displacement hx urinary retention/buried genitalia secondary to infected chronic lymphedematous suprapubic mass with indwelling Warren catheter Patient currently not septic. Had been on intravenous ceftriaxone and now on oral cefdinir Appreciate urology input and recommendation Status post Warren catheter exchange in OR by Dr. Sood (04/18/20) Follow urine cultures, IV Ceftriaxone for complicated UTI and infected lymphedematous suprapubic mass Has had hematuria which has been controlled and hemoglobin remained stable Patient will need to follow-up with his urologist in [place] for his monthly regular Warren exchanges-already has an appointmenC chronic diastolic heart failure as per records (EF 55-59% TTE 2018), patient euvolemic CAD status post stent A. fib on Eliquis, Hold aspirin, Eliquis for now, can restart on discharge Eliquis has been restarted Hypertension, elevated secondary discomfort, Facilitate home BP meds, may need titration Blood pressure seems to be controlled Hyperlipidemia on statin Rx Spina bifida as per records DM2 insulin requiring, well-controlled as of recent outpatient hemoglobin A1c of 5.12 February 2020 , Basal insulin adjusted for n.p.o. status, ISS BG goal [id number] Received SSI while in the hospital MICAH on CPAP No acute issues Chronic anemia, hemoglobin at baseline Chronic lymphedema Will be discharged this afternoon Admission and Anticipated Discharge Date Admission Date: April 18, 2020 Subjective 04/20/2020 The patient was seen and examined in the medical floor He denies any symptoms as of today and is almost ready to leave He has been waiting for the ride Review of Systems Review of Systems: All systems reviewed and are unremarkable except as noted below Genitourinary: no dysuria, no urinary frequency, no hematuria and no flank pain Physical Exam Physical Exam: Lying in bed comfortably Constitutional: well developed, well nourished and + morbidly obese; no acute distress and not ill appearing Eyes: PERRL, conjunctivae normal, anicteric sclerae ENMT: external ear and nose normal, oropharynx normal Neck: trachea midline, no thyromegaly Respiratory: normal respiratory effort; no respiratory distress Auscultation: lungs clear to auscultation bilaterally and + diminished lung so unds Cardiovascular: Rate/Rhythm: regular rate and regular rhythm Heart Sounds: no murmur Gastrointestinal (Abdomen): Inspection/Auscultation: abdomen normal to inspection, + abdomen distended and normal bowel sounds Percussion/Palpation: abdomen soft; abdomen nontender Musculoskeletal: No acute arthritis involving any joint Neurologic: moves all extremities; no focal motor deficits Psychiatric: A+Ox3, euthymic affect Genitourinary: Has indwelling Warren catheter Lymphatic: no cervical or axillary lymphadenopathy Results & Data Results & Data ([facility]) Vital Signs (Past 12 Hours) Vital Signs Temp Pulse Pulse Pulse Pulse Pulse Resp 04/20/20 10:44 36.6 C 56 L 58 L 53 L 50 L 18 04/20/20 08:31 36.6 C 50 L 18 04/20/20 03:36 48 L 22 BP BP Pulse Ox 04/20/20 10:44 144/78 H 143/78 H 97 04/20/20 08:31 144/78 H 97 04/20/20 03:36 95 Medications Administered Current Inpatient Medications Acetaminophen (Acetaminophen 325 Mg Tab) 650 mg PO Q4H PRN PRN Reason: pain/fever Stop: 05/18/20 03:13 Allopurinol (Allopurinol 300 Mg Tab) 300 mg PO QAM RAJWINDER Stop: 05/18/20 08:59 Last Admin: 04/20/20 08:46 Dose: 300 mg Documented by: Artificial Tears (Artificial Tears) 1 drops OP DAILY PRN PRN Reason: Dry Eye(S) Stop: 05/18/20 03:22 Carvedilol (Carvedilol 6.25 Mg Tab) 6.25 mg PO BID RAJWINDER Stop: 05/18/20 03:44 Last Admin: 04/20/20 08:45 Dose: Not Given Documented by: Cyclobenzaprine HCl (Cyclobenzaprine Hcl 5 Mg Tab) 5 mg PO BID PRN PRN Reason: Muscle Spasm Stop: 05/18/20 03:13 Dextrose (Dextrose 50% 50 Ml Syringe) 25 - 50 ml IV UD PRN; Protocol PRN Reason: Hypoglycemia Protocol Stop: 05/18/20 03:13 Doxazosin Mesylate (Doxazosin Mesylate Tab 2 Mg Tab) 2 mg PO HS RAJWINDER Stop: 05/18/20 20:59 Last Admin: 04/19/20 20:27 Dose: 2 mg Documented by: Glucagon (Glucagon For Inj 1 Mg Vial) 1 mg SQ UD PRN; Protocol PRN Reason: Hypoglycemia Protocol Stop: 05/18/20 03:13 Glucose (Glucose 10 Tabs/Tube) 4 - 8 tabs PO UD PRN; Protocol PRN Reason: Hypoglycemia Protocol Stop: 05/18/20 03:13 Glucose (Glucose 40% Gel 15 Gm Tube) 15 - 30 gm PO UD PRN; Protocol PRN Reason: Hypoglycemia Protocol Stop: 05/18/20 03:13 Promethazine HCl 12.5 mg/ (Sodium Chloride) 50.5 mls @ 202 mls/hr IV Q6H PRN PRN Reason: Nausea And Vomiting Stop: 05/18/20 03:13 Ceftriaxone Sodium 2,000 mg/ (Dextrose) 70 mls @ 100 mls/hr IV Q24H RAJWINDER; Protocol Stop: 04/27/20 00:41 Last Infusion: 04/20/20 00:28 Dose: Infused Documented by: Influenza Virus Vaccine Quadrival (Influenza Virus Quad Vaccine 0.5 Ml Syr) 0.5 ml IM .ONCE ONE Stop: 04/21/20 09:01 Insulin Aspart (Insulin Aspart 100 Units/Ml 3 Ml Pen) 0 units SC [facility] Stop: 05/19/20 07:29 Last Admin: 04/20/20 09:53 Dose: 2 units Documented by: Insulin Glargine (Insulin Glargine Solostar 100 Units/Ml 3 Ml Pen) 10 units SC [facility] Stop: 05/18/20 20:59 Last Admin: 04/19/20 20:56 Dose: 10 units Documented by: Lactobacillus Acidophilus (Lactobacillus Acidophilus (Floranex) Tab) 4 tab PO QAM [facility] Stop: 05/18/20 08:59 Last Admin: 04/20/20 08:46 Dose: 4 tab Documented by: Latanoprost (Latanoprost 0.005% Op Soln 2.5 Ml Btl) 1 drops OP HS [facility] Stop: 05/18/20 20:59 Last Admin: 04/19/20 20:25 Dose: 1 drops Documented by: Loratadine (Loratadine 10 Mg Tab) 10 mg PO DAILY PRN PRN Reason: allergy symptoms Stop: 05/18/20 03:20 Last Admin: 04/19/20 23:49 Dose: 10 mg Documented by: Miscellaneous (Carbohydrates For Hypoglycemia ) 15 - 30 gm PO UD PRN PRN Reason: Hypoglycemia Protocol Stop: 05/18/20 03:13 Morphine Sulfate (Morphine Sulfate 4 Mg/Ml 1 Ml Carp\Vial) 4 mg IV Q4H PRN PRN Reason: Pain Stop: 05/02/20 03:13 Nitroglycerin (Nitroglycerin Sl 0.4 Mg/Tab Tab) 0.4 mg SL Q5M PRN PRN Reason: Chest Pain Stop: 05/18/20 03:13 Sennosides (Senna 8.6 Mg Tab) 8.6 mg PO DAILY RAJWINDER Stop: 05/18/20 08:59 Last Admin: 04/20/20 08:46 Dose: 8.6 mg Documented by: Tramadol HCl (Tramadol Hcl 50 Mg Tablet) 50 mg PO Q6H PRN PRN Reason: pain Stop: 05/18/20 03:13 Trazodone HCl (Trazodone Hcl 50 Mg Tab) 100 mg PO HS PRN PRN Reason: Insomnia Stop: 05/18/20 03:19
--- NOTE | 2020-04-21 08:41 | Discharge Summary ---
Date of Service April 21, 2020 Admission HPI Per Admitting Provider History obtained from patient and records. Medical history significant for chronic diastolic heart failure as per records (EF 55-59% TTE 2018), CAD status post stent, A. 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 Last confinement December 2019 for sepsis secondary to abdominal panniculitis with scrotal deformity. Patient transferred to [facility] for further management. No growth on cultures. No surgical intervention for panniculitis during [facility] confinement. Urinary retention noted during confinement at [facility]. External genitalia to facilitate Henriquez catheter placement could not be visualized due to patient morbid obesity and pannus as per documentation. Patient taken to the OR by urologist with use of flexible cystoscope to place Henriquez catheter. Patient seen by [facility] Plastic surgery outpatient 2 months ago for evaluation for panniculectomy. As per documentation, large suprapubic lymphedematous mass hanging between patient's legs and burying patient's genitalia was not pannus. Removal of suprapubic mass along with urologic procedure for patient's urinary retention contemplated next month at [facility] pending Cardiology preop eval/stress test. Patient seen on follow-up at [facility] urologist office 3 weeks ago. Henriquez catheter exchange done at the office using Soloflex wire as per documentation. Patient noted gradual swelling of suprapubic mass in the last few weeks. No fever, no chills. Increased difficulty in moving around at home. Yesterday, patient experienced urethral pain after Henriquez catheter inadvertently pulled during bed transfer while home health nurse was attending the patient. Patient consulted ER to evaluate displaced Henriquez catheter. Patient sent home with note of Henriquez catheter drainage. At home yesterday afternoon, patient noted hematuria symptoms with some abdominal discomfort. No fever, no chills. No chest pain, no S OB. At the ER, patient received IV ceftriaxone for UTI/suprapubic mass cellulitis. Medical History as above Surgical History : Cystoscopy urethroscopy, uvulopalatopharyngoplasty, cholecystectomy, eye surgeries, tonsillectomy, septoplasty Family History : Heart disease, diabetes, alcoholism Personal/Social history : Past tobacco abuse, no EtOH intake, disabled Admission Exam Per Admitting Provider Physical Exam: GENERAL: Comfortable, pleasant, morbidly obese, no respiratory distress SKIN: Pallor , warm HEENT: Partial alopecia, pale palpebral conjunctivae, no ptosis, dry buccal mucosa NECK : Supple, short neck, no tenderness CHEST : Decreased breath sounds , no tenderness HEART : Irregular, no obvious murmurs ABDOMEN: distention, indurated suprapubic mass dangling between patient's legs with minimal tenderness. EXTREMITIES : Bilateral LE induration/venous stasis, no LE tenderness, no other conspicuous deformities noted NEUROLOGIC : Coherent, no facial asymmetry, no other gross focality Principal Diagnosis UTI, malfunctioning Henriquez catheter, hematuria Discharge Exam Constitutional well developed, well nourished and + morbidly obese; no acute distress and not ill appearing Eyes PERRL, conjunctivae normal, anicteric sclerae ENMT external ear and nose normal, oropharynx normal Neck trachea midline, no thyromegaly Respiratory normal respiratory effort; no respiratory distress Auscultation: lungs clear to auscultation bilaterally and + diminished lung sounds Cardiovascular Rate/Rhythm: regular rate and regular rhythm Heart Sounds: no murmur Gastrointestinal (Abdomen) Inspection/Auscultation: abdomen normal to inspection, + abdomen distended and normal bowel sounds Percussion/Palpation: abdomen soft; abdomen nontender Neurologic moves all extremities; no focal motor deficits Psychiatric A+Ox3, euthymic affect Lymphatic no cervical or axillary lymphadenopathy Discharge Data Allergies Allergy/AdvReac Type Severity Reaction Status Date / Time sulfamethoxazole Allergy Intermediate Rash Unverified 04/14/20 12:53 trimethoprim Allergy Intermediate Rash Unverified 04/14/20 12:53 AVIVA Inhibitors Allergy Unknown . Unverified 04/14/20 12:53 Bactrim Allergy Unknown . Unverified 12/06/17 15:09 lisinopril Allergy Unknown Unknown Verified 04/14/20 12:53 ceftriaxone AdvReac Mild Rash Verified 04/20/20 00:09 Consultations 04/18/20 00:59 ED Decision to Admit Stat 04/18/20 03:14 Consult Urology Routine Procedures Performed Operation Date: 04/18/20 12:15 Actual Procedures p Cystoscopy, Urethral dilation, Difficult henriquez insertion - Bright Leo DO Ordered Studies 04/17/20 22:09 CT abd pelvis IV con only Stat Hospital Course (1) Complicated UTI (urinary tract infection): Secondary to inadvertent Henriquez catheter displacement hx urinary retention/buried genitalia secondary to infected chronic lymphedematous suprapubic mass with indwelling Henriquez catheter Patient currently not septic. Had been on intravenous ceftriaxone and now on oral cefdinir Appreciate urology input and recommendation Status post Henriquez catheter exchange in OR by Dr. Sood (04/18/20) Follow urine cultures, IV Ceftriaxone for complicated UTI and infected lymphedematous suprapubic mass Has had hematuria which has been controlled and hemoglobin remained stable Patient will need to follow-up with his urologist in [place] for his monthly regular Henriquez exchanges-already has an appointmenC chronic diastolic heart failure as per records (EF 55-59% TTE 2019), patient euvolemic CAD status post stent A. fib on Eliquis, Hold aspirin, Eliquis for now, can restart on discharge Eliquis has been restarted Hypertension, elevated secondary discomfort, Facilitate home BP meds, may need titration Blood pressure seems to be controlled Hyperlipidemia on statin Rx Spina bifida as per records DM2 insulin requiring, well-controlled as of recent outpatient hemoglobin A1c of 5.12 February 2020 , Basal insulin adjusted for n.p.o. status, ISS BG goal [id number] Received SSI while in the hospital MICAH on CPAP No acute issues Chronic anemia, hemoglobin at baseline Chronic lymphedema Will be discharged this afternoon Total Time Total Time Spent Total Time Spent (In Minutes): 35 minutes Total Time Includes: Examination of the Patient, Discharge Planning, Medication Reconciliation and Communication With Other Providers Discharge Plan Discharge Items Patient Disposition: Home - Home Health Services Reason For Visit: COMP UTI Discharge Diagnosis: UTI, malfunctioning Henriquez catheter, hematuria Activity: Per Instructions section Non-emergency contact: Primary Care Provider and Urologist Call non-emergency contact if: you have any medication questions and your symptoms worsen Follow-up/Referrals: Kalyn Brar MD [Primary Care Provider] - (Date & Time 04/25/2020 11:20 AM Provider Gregory Botello MD [facility] ) Dorian Khan MD [Outside Practitioners] - (Date & Time 04/26/2020 1:00 PM Provider Dorian Khan MD Department Urology, [place] ) Diet: Carb Consistent or DM2, Heart Healthy and Low Sodium (2gm) Addtl Attending Provider Instructions: Follow-up with your urologist in [place] for your regular Henriquez catheter exchanges. Continue antibiotic that was prescribed for you by wound clinic (cefdinir). This antibiotic will also cover possible UTI. Pending Studies at Discharge: Yes Studies:: Blood cultures Stand-Alone Forms: My [facility], Smoking Cessation Medications and DC Order Prescriptions: Continued apixaban 5 mg tablet 5 mg PO BID RF: 0 aspirin 81 mg tablet,delayed release (DR/EC) 81 mg PO QAM RF: 0 atorvastatin 40 mg tablet 40 mg PO HS RF: 0 carvedilol 6.25 mg tablet 6.25 mg PO BID RF: 0 cholecalciferol (vitamin D3) 4,000 unit capsule 4,000 units PO QAM RF: 0 cyclobenzaprine 5 mg tablet 5 mg PO BID PRN (Reason: Muscle Spasm) RF: 0 doxazosin [Cardura] 2 mg tablet 2 mg PO HS RF: 0 glucagon HCl 1 mg recon soln 1 mg SQ Q20M PRN (Reason: .) RF: 0 ondansetron HCl [Zofran] 4 mg tablet 4 mg PO QID PRN (Reason: Nausea) RF: 0 Adult Probiotic 3 billion cell capsule 3,000 mmu cells PO QAM RF: 0 tramadol 50 mg tablet 50 mg PO Q6H PRN (Reason: pain) RF: 0 trazodone 100 mg tablet 100 mg PO HS PRN (Reason: Insomnia) RF: 0 nitroglycerin [Nitrostat] 0.4 mg tablet, sublingual 0.4 mg SL Q5M PRN (Reason: Chest Pain) RF: 0 latanoprost 0.005 % drops 1 drops OP HS RF: 0 loratadine [Claritin RediTabs] 10 mg tablet,disintegrating 10 mg PO DAILY PRN (Reason: allergy symptoms) RF: 0 allopurinol 300 mg tablet 300 mg PO QAM RF: 0 cefdinir 300 mg capsule 300 mg PO BID Qty: 20 RF: 1 nystatin [Nystop] 100,000 unit/gram powder 1 applic TOPICAL BID RF: 0 metformin 500 mg tablet extended release 24 hr 500 mg PO BID RF: 0 Basaglar KwikPen U-100 Insulin 100 unit/mL (3 mL) insulin pen 50 unit SUBCUT QPM RF: 0 sennosides [Senna Lax] 8.6 mg Tablet 8.6 mg PO DAILY RF: 0 propylene glycol-glycerin 1-0.3 % Drops 1 drp OPHTHALMIC (EYE) DAILY PRN (Reason: Dry Eye(S)) RF: 0 Eucerin Cream 1 applic TOPICAL AMHS PRN (Reason: skin) RF: 0 Vitron-C 65 mg iron- 125 mg Tablet,Delayed Release (Dr/Ec) 1 tab PO BID RF: 0 Discharge Orders: Discharge Order (Routine); Ordered 04/20/20 Ordered By: Koko Wills/Other Patient Handouts: Emptying and Cleaning Your ..., Indwelling Urinary Catheter Dc Admission Data Admit Date/Time: 04/18/20 02:14 Attending Provider: Marjorie Johnson Admit Provider: Blaine Monteiro Primary Care Provider: Kalyn Brar Other Providers: Blaine Monteiro ; Bright Leo ; Koko Galloway ; [facility] Other Interventions: Discharge Summary Assessment (RN) Last Done: 04/20/20 10:44
[2020-04-21] MEDS ORDERED: INFLUENZA VIRUS QUAD VACCINE 0.5 ML SYR IM ONE (09:00)
[2020-04-21] MEDS ORDERED: INFLUENZA ADMINISTRATION CHARGE ONE (09:00)
== END 2020-04-20 13:23 | disposition home health service (06) ==
LOC: 3N 21:52 → ED 21:52 → SUATTDRO 04-18 02:14 → 3N 04-18 03:01

== ENCOUNTER 2021-04-21 13:30 | Observation (INO) ==
[2021-04-21] MEDS ORDERED: ASPIRIN CHEW 324 MG PO STA (13:41)
[2021-04-21] MEDS ORDERED: NITROGLYCERIN 2% OINTMENT 30GM TUBE EXT STA (13:41)
--- NOTE | 2021-04-21 13:46 | Emergency Department Note ---
Impression & Plan Precordial chest pain, Hypertension, History of coronary artery disease, Hand tingling ED Provider Note NAME: ELBA GRAHAM AGE: 60 SEX: M : 1960 ARRIVES VIA: Ambulance INFORMANT: [Patient][ems] ED PROVIDER(S): [Alberto Ashby MD] CHIEF COMPLAINT: Chest pain, hypertension HISTORY OF PRESENT ILLNESS: The patient is a 60-year-old male with a history of coronary disease and hypertension. He states back in August, several months ago, his blood pressure medications were decreased. In the last week, he has noticed some higher blood pressure readings. He spoke with his doctors office yesterday and they increased his Benicar. The patient states that today, about an hour and half ago, he was sitting and suddenly developed some tightness across the chest, some shortness of breath, a mild headache, some lightheadedness, some tingling in his left arm fingers and some mid upper back pain. All the pain is a 4/10. He presents by ambulance for evaluation. He did not take any medications prior to arrival. The patient denies any cough or congestion. He has not had any recent respiratory complaints. REVIEW OF SYSTEMS: See HPI for pertinent positives and negatives. A total of ten systems were reviewed and were otherwise negative. PMHx/PSHx: See Below SOCIAL HISTORY: See Below. PHYSICAL EXAM: GENERAL: Patient is in no acute distress. HEENT: No acute trauma, normocephalic atraumatic, mucous membranes moist, no nasal congestion, no scleral icterus. NECK: No stridor, no adenopathy, no meningismus, trachea is midline. LUNGS: Clear to auscultation bilaterally, no wheeze, no rhonchi, breath sounds equal. HEART: Without murmurs gallops or rubs, regular rate and rhythm. ABDOMEN: Soft, nontender, bowel sounds positive, no hernias, no peritonitis. EXTREMITIES: No cyanosis, mild bilateral pedal edema with chronic skin change, full range of motion of all the joints without pain or difficulty, no signs for acute trauma. NEUROLOGIC: Oriented x 3, no acute motor or sensory deficits, no focal weakness. SKIN: No rash, no jaundice, no diaphoresis. DIFFERENTIAL DIAGNOSIS: Cardiac ischemia, hypertensive urgency, aortic dissection, pulmonary embolism, pneumothorax, pneumonia, pericarditis, myocarditis, esophageal rupture, GERD, cholecystitis, pancreatitis, musculoskeletal, as well as other pathologies. EMERGENCY DEPARTMENT COURSE/PROCEDURES: ECG: Indication was chest pain. The ECG shows a sinus rhythm with a long first-degree AV block. The rate is 87. There is a right bundle branch block. No ST elevation, no PVCs. There is a potential old inferior infarct noted. QTC is 534. Compared to an ECG from 10 June 2020, the atrial fibrillation has resolved. Continuous Cardiac Monitoring: An order was placed for continuous cardiac monitoring. The monitor shows a rate of 85 with sinus rhythm with a first- degree AV block. MEDICAL DECISION MAKING: There is no leukocytosis or concerning anemia. There is a normal platelet count. No significant electrolyte abnormality or kidney failure. Bilirubin is mildly elevated, the remaining liver enzymes are unremarkable. No evidence for pancreatitis. ECG shows a sinus rhythm with a first-degree AV block, no acute ischemia. Cardiac enzyme testing x1 is not consistent with acute cardiac injury. Covid testing returned negative. Chest film did not show CHF, pneumonia or mediastinal widening. The patient presented hypertensive with chest pain. He has known coronary d isease. He had not used nitroglycerin prior to arrival. The patient was given oral aspirin and nitroglycerin paste. He feels improved, his blood pressure is improved. The patient is in need of a hospital stay. His blood pressure needs controlled, he needs serial troponin testing. Certainly, cardiac ischemia is a concern with his presentation. I spoke with the patient, I talked with the egg caser. The on-call hospitalist was consulted. 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, with long-term current use of insulin Diabetic neuropathy Diabetic retinopathy Dyslipidemia GERD (gastroesophageal reflux disease) Glaucoma Gout Hearing loss of left ear History of chronic atrial fibrillation History of TIA (transient ischemic attack) HTN (hypertension) Hyperlipidemia Lymphedema Major depressive disorder Myocardial infarction H/o 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 MICAH (obstructive sleep apnea) Presence of bare metal stent in right coronary artery Sepsis Spina bifida Vitamin D deficiency Surgical History H/O cardiac catheterization H/O colonoscopy H/O nasal septoplasty Hx of tonsillectomy Previous back surgery S/P cholecystectomy Status post uvulopalatopharyngoplasty Family History Mother Coronary heart disease Diabetes Hypertension Social History Smoking Status: Never smoker Tobacco Type: Cigarettes packs per day: 1; Second Hand Exposure: No; Hx Alcohol Use: No Hx Substance Use: No Preferred Language: Kiswahili Communication Ability: Effective Visual Impairment: Limited Hearing Ability: Hard of Hearing Kosher Butcher Required: No Beliefs That Will Affect Care: None marital status: Single Current Living Situation: Alone Current Living Situation Comment: ine apartment current occupational status: disabled Feels Safe at Home: Yes Childhood Exposure to Second-Hand Smoke: No Assistive Devices: Walker Allergies Allergies Allergy/AdvReac Type Severity Reaction Status Date / Time sulfamethoxazole Allergy Intermediate Rash Unverified 09/09/20 10:20 trimethoprim Allergy Intermediate Rash Unverified 09/09/20 10:20 AVIVA Inhibitors Allergy Unknown . Unverified 09/09/20 10:20 Bactrim Allergy Unknown . Unverified 12/06/17 15:09 lisinopril Allergy Unknown Unknown Verified 09/09/20 10:20 ceftriaxone AdvReac Mild Rash Verified 09/09/20 10:20 Home Meds Home Medications Medication Instructions Recorded Confirmed aspirin 81 mg tablet,delayed 81 mg PO QAM 09/24/18 09/09/20 release cholecalciferol (vitamin D3) 100 4,000 units PO QAM 09/24/18 09/09/20 mcg (4,000 unit) capsule latanoprost 0.005 % eye drops 1 drops OPB HS 09/24/18 09/09/20 nitroglycerin 0.4 mg sublingual 0.4 mg SL Q5M PRN 09/24/18 09/09/20 tablet (Nitrostat) allopurinol 300 mg tablet 300 mg PO QAM 05/25/20 09/09/20 docusate sodium 100 mg capsule 100 mg PO BID 05/25/20 09/09/20 ferrous sulfate 325 mg (65 mg 325 mg PO BID 05/25/20 09/09/20 iron) tablet folic acid 1 mg tablet 1 mg PO QAM 05/25/20 09/09/20 multivitamin with minerals 1 tab PO QAM 05/25/20 09/09/20 (Multiple Vitamin-Minerals) torsemide 20 mg tablet 40 mg PO BID 05/25/20 09/09/20 Floranex 1 tab PO BID 09/04/20 09/09/20 acetaminophen 325 mg tablet 650 mg PO QID PRN 09/04/20 09/09/20 ascorbic acid (vitamin C) 250 mg 250 mg PO BID 09/04/20 09/09/20 tablet atorvastatin 10 mg tablet 5 mg PO HS 09/04/20 09/09/20 bisacodyl 10 mg rectal suppository 10 mg NE DAILY PRN 09/04/20 09/09/20 heparin (porcine) 7,500 unit/mL 7,500 unit Q8H 09/04/20 09/09/20 injection syringe insulin glargine 100 unit/mL 10 unit SUBCUT HS 09/04/20 09/09/20 subcutaneous cartridge insulin regular human 100 unit/mL 1 sliding scale dose SUBCUT 09/04/20 09/09/20 injection solution cartridge USEASDIRECTD PRN polyethylene glycol 3350 17 gram 17 g PO DAILY PRN 09/04/20 09/09/20 oral powder packet (Miralax) psyllium husk 3.4 gram/5.4 gram 1 tbsp PO DAILY PRN 09/04/20 09/09/20 oral powder (Metamucil) semaglutide 1 mg/dose (2 mg/1.5 2 mg SUBCUT Q7D 09/04/20 09/09/20 mL) subcutaneous pen injector (Ozempic) sennosides 8.6 mg tablet (Senokot) 8.6 mg PO PM PRN 09/04/20 09/09/20 vancomycin 1,000 mg intravenous 1,500 g IV Q12 09/09/20 09/09/20 injection Results & Data (ED) Vital Signs Vital Signs - 24 hr 04/21/21 13:40 04/21/21 13:45 04/21/21 14:00 Temperature 36.8 C Temperature Source Oral Pulse Rate 85 86 Pulse Rate [Apical] Pulse Rate from SpO2 Sensor 85 Pulse Rhythm Regular Pulse Rhythm [Apical] Pulse Strength Normal Pulse Strength [Apical] Respiratory Rate 17 19 Respiratory Effort / Characteristics Non-Labored Spontaneous Non-Labored Spontaneous Respiratory Depth Normal Normal Respiratory Pattern Regular Blood Pressure 185/113 H 182/95 H Blood Pressure [Right Arm] Blood Pressure Mean 137 124 Blood Pressure Mean [Right Arm] Blood Pressure Position Lying Blood Pressure Position [Right Arm] Pulse Oximetry 97 97 Oxygen Delivery Method Room Air Sepsis Recent Fever Within 48 Hours No Sepsis New/Unexplained Change in Mental Status N/A Sepsis Action Taken by Nursing No Action Required 04/21/21 14:30 04/21/21 15:00 04/21/21 15:05 Temperature Temperature Source Pulse Rate 85 82 Pulse Rate [Apical] 83 Pulse Rate from SpO2 Sensor 86 82 Pulse Rhythm Pulse Rhythm [Apical] Regular Pulse Strength Pulse Strength [Apical] Normal Respiratory Rate 22 20 17 Respiratory Effort / Characteristics Non-Labored Respiratory Depth Normal Respiratory Pattern Regular Blood Pressure 168/96 H 183/92 H Blood Pressure [Right Arm] 183/92 H Blood Pressure Mean 120 122 Blood Pressure Mean [Right Arm] 122 Blood Pressure Position Blood Pressure Position [Right Arm] Lying Pulse Oximetry 98 97 98 Oxygen Delivery Method Room Air Sepsis Recent Fever Within 48 Hours Sepsis New/Unexplained Change in Mental Status Sepsis Action Taken by Correction Medications Current Medication List: was personally reviewed by me Laboratory Data Attestation: I reviewed the patient's lab results. Result diagrams: 04/21/21 13:40 04/21/21 13:40 Lab Results 04/21/21 04/21/21 04/21/21 Range/Units 13:40 13:40 14:03 WBC 6.09 (4.8-10.8) K/uL RBC 4.55 L (4.7-6.1) M/uL Hgb 14.0 (14.0-18.0) g/dL Hct 40.3 L (42-52) % MCV 88.6 (80-100) fL MCH 30.8 (25-34) pg MCHC 34.7 (32-36) g/dL RDW Std Deviation 44.4 (36.4-46.3) fL RDW Coeff of Selvin 13.7 (11.5-14.5) % Plt Count 166 (130-400) K/uL MPV 9.2 (7.4-10.4) fL Immature Gran % (Auto) 0.2 % Neut % (Auto) 68.9 % Lymph % (Auto) 19.4 % Crane % (Auto) 9.7 % Eos % (Auto) 1.5 % Baso % (Auto) 0.3 % Neut # (Auto) 4.20 (1.4-6.5) K/uL Lymph # (Auto) 1.18 L (1.2-3.4) K/uL Crane # (Auto) 0.59 (0.11-0.59) K/uL Eos # (Auto) 0.09 (0-0.5) K/uL Baso # (Auto) 0.02 (0-0.2) K/uL Immature Gran # (Auto) 0.01 (0.00-0.02) K/uL Sodium 137 (136-145) mmol/L Potassium 3.4 L (3.5-5.1) mmol/L Chloride 103 (98-107) mmol/L Carbon Dioxide 29 (21-32) mmol/L Anion Gap 5.0 (3-11) BUN 12 (7-18) mg/dl Creatinine 1.25 (0.6-1.4) mg/dl Est Cr Clr Drug Dosing 100.9 ml/min Est GFR ( Amer) 72.6 ml/min Est GFR (Non-Af Amer) 62.6 ml/min BUN/Creatinine Ratio 9.9 L (10-20) Glucose 188 H (70-99) mg/dl Calcium 9.1 (8.5-10.1) mg/dl Magnesium 2.9 H (1.8-2.4) mg/dl Total Bilirubin 2.6 H (0.2-1) mg/dl AST 11 L (15-37) U/L ALT 19 (12-78) U/L Alkaline Phosphatase 103 (45-117) U/L Troponin I < 0.015 (0-0.045) ng/ml Total Protein 7.3 (6.4-8.2) gm/dl Albumin 3.5 (3.4-5.0) gm/dl Globulin 3.8 (2.5-4.0) gm/dl Albumin/Globulin Ratio 0.9 (0.9-2) Lipase 116 (73-393) U/L COVID-19 Eval Order Covid19 at [facility] SARS-CoV-2 (PCR) (Negative) 04/21/21 Range/Units 14:03 WBC (4.8-10.8) K/uL RBC (4.7-6.1) M/uL Hgb (14.0-18.0) g/dL Hct (42-52) % MCV (80-100) fL MCH (25-34) pg MCHC (32-36) g/dL RDW Std Deviation (36.4-46.3) fL RDW Coeff of Selvin (11.5-14.5) % Plt Count (130-400) K/uL MPV (7.4-10.4) fL Immature Gran % (Auto) % Neut % (Auto) % Lymph % (Auto) % Crane % (Auto) % Eos % (Auto) % Baso % (Auto) % Neut # (Auto) (1.4-6.5) K/uL Lymph # (Auto) (1.2-3.4) K/uL Crane # (Auto) (0.11-0.59) K/uL Eos # (Auto) (0-0.5) K/uL Baso # (Auto) (0-0.2) K/uL Immature Gran # (Auto) (0.00-0.02) K/uL Sodium (136-145) mmol/L Potassium (3.5-5.1) mmol/L Chloride (98-107) mmol/L Carbon Dioxide (21-32) mmol/L Anion Gap (3-11) BUN (7-18) mg/dl Creatinine (0.6-1.4) mg/dl Est Cr Clr Drug Dosing ml/min Est GFR ( Amer) ml/min Est GFR (Non-Af Amer) ml/min BUN/Creatinine Ratio (10-20) Glucose (70-99) mg/dl Calcium (8.5-10.1) mg/dl Magnesium (1.8-2.4) mg/dl Total Bilirubin (0.2-1) mg/dl AST (15-37) U/L ALT (12-78) U/L Alkaline Phosphatase (45-117) U/L Troponin I (0-0.045) ng/ml Total Protein (6.4-8.2) gm/dl Albumin (3.4-5.0) gm/dl Globulin (2.5-4.0) gm/dl Albumin/Globulin Ratio (0.9-2) Lipase (73-393) U/L COVID-19 Eval Order SARS-CoV-2 (PCR) NEGATIVE (Negative) Administered Medications Discontinued Medications Aspirin (Aspirin Chew 324 Mg) 324 mg PO NOW STA Stop: 04/21/21 13:42 Last Admin: 04/21/21 13:50 Dose: 324 mg Documented by: [id number] Nitroglycerin (Nitroglycerin 2% Ointment 30gm Tube) 2 inch EXT NOW STA Stop: 04/21/21 13:42 Last Admin: 04/21/21 13:50 Dose: 2 inch Documented by: [id number] Imaging Data Radiologist's Impression: Chest X-Ray 04/21/21 13:41 XR chest 1V portable CLINICAL HISTORY: Atypical chest pain. COMPARISON STUDY: Chest radiograph June 10, 2020. FINDINGS: Lung volumes are normal. Lungs are clear. There is no pneumothorax or pleural effusion. Cardiomegaly is unchanged. Mediastinal contours are normal. There is no evidence for pulmonary edema. IMPRESSION: No acute cardiopulmonary findings. No change in appearance of the chest. ACT 112: Negative or not required by law. Electronically signed by: Laureano Tucker M.D. 04/21/2021 2:01 PM Discharge Plan Visit Data Chief Complaint: Chest Pain Stated Complaint: Chest Pain ED Provider: Alberto Ashby Discharge Problem: Precordial chest pain, Hypertension, History of coronary artery disease, Hand tingling Patient Disposition: Admitted As Inpatient Condition: Fair Forms Stand Alone Forms: [facility] [employer] Prescriptions Prescriptions: No Action aspirin 81 mg tablet,delayed release (DR/EC) 81 mg PO QAM RF: 0 cholecalciferol (vitamin D3) 4,000 unit capsule 4,000 units PO QAM RF: 0 nitroglycerin [Nitrostat] 0.4 mg tablet, sublingual 0.4 mg SL Q5M PRN (Reason: Chest Pain) RF: 0 latanoprost 0.005 % drops 1 drops OPB HS RF: 0 vancomycin 1,000 mg Recon Soln 1,500 g IV Q12 RF: 0 allopurinol 300 mg tablet 300 mg PO QAM RF: 0 torsemide 20 mg tablet 40 mg PO BID RF: 0 docusate sodium 100 mg Capsule 100 mg PO BID RF: 0 ferrous sulfate 325 mg (65 mg iron) Tablet 325 mg PO BID RF: 0 folic acid 1 mg Tablet 1 mg PO QAM RF: 0 multivitamin with minerals [Multiple Vitamin-Minerals] Tablet 1 tab PO QAM RF: 0 acetaminophen 325 mg Tablet 650 mg PO QID PRN (Reason: Pain) RF: 0 polyethylene glycol 3350 [Miralax] 17 gram Powder In Packet 17 g PO DAILY PRN (Reason: Constipation) RF: 0 atorvastatin 10 mg tablet 5 mg PO HS RF: 0 bisacodyl 10 mg Suppository 10 mg NE DAILY PRN (Reason: Constipation) RF: 0 heparin (porcine) 7,500 unit/mL Syringe 7,500 unit Q8H RF: 0 Metamucil 3.4 gram/5.4 gram Powder 1 tbsp PO DAILY PRN (Reason: Constipation) RF: 0 Ozempic 1 mg/dose (2 mg/1.5 mL) Pen Injector 2 mg SUBCUT Q7D RF: 0 ascorbic acid (vitamin C) 250 mg Tablet 250 mg PO BID RF: 0 Humulin R Regular U-100 Insuln 100 unit/mL Cartridge 1 sliding scale dose SUBCUT USEASDIRECTD PRN (Reason: Hyperglycemia) RF: 0 Lantus U-100 Insulin 100 unit/mL Cartridge 10 unit SUBCUT HS RF: 0 Floranex 1 tab PO BID RF: 0 sennosides [Senokot] 8.6 mg tablet 8.6 mg PO PM PRN (Reason: Constipation) RF: 0 Referrals Referrals: Gregory Botello MD [Primary Care Provider] -
[2021-04-21 13:54] LABS: Basophils # (auto) 0.02 K/uL (0-0.2); Basophils % (auto) 0.3 %; Eosinophils # (auto) 0.09 K/uL (0-0.5); Eosinophils % (auto) 1.5 %; Hematocrit (blood only) 40.3 % (42-52); Immature Granulocytes # (auto) 0.01 K/uL (0.00-0.02); Immature Granulocytes % (auto) 0.2 %; Lymphocytes # (auto) 1.18 K/uL (1.2-3.4); Lymphocytes % (auto) 19.4 %; Mean Corpuscular Hemoglobin 30.8 pg (25-34); Mean Corpuscular Hgb Conc 34.7 g/dL (32-36); Mean Corpuscular Volume 88.6 fL (80-100); Mean Platelet Volume 9.2 fL (7.4-10.4); Monocytes # (auto) 0.59 K/uL (0.11-0.59); Monocytes % (auto) 9.7 %; Neutrophils % (auto) 68.9 %; Platelet Count 166 K/uL (130-400); RDW Coefficient of Variation 13.7 % (11.5-14.5); RDW Standard Deviation 44.4 fL (36.4-46.3); Red Blood Count 4.55 M/uL (4.7-6.1); White Blood Count 6.09 K/uL (4.8-10.8)
--- NOTE | 2021-04-21 14:02 | XRay Report ---
XR chest 1V portable CLINICAL HISTORY: Atypical chest pain. COMPARISON STUDY: Chest radiograph June 10, 2020. FINDINGS: Lung volumes are normal. Lungs are clear. There is no pneumothorax or pleural effusion. Car diomegaly is unchanged. Mediastinal contours are normal. There is no evidence for pulmonary edema. IMPRESSION: No acute cardiopulmonary findings. No change in appearance of the chest. ACT 112: Negative or not required by law. Electronically signed by: Laureano Tucker M.D. 04/21/2021 2:01 PM
[2021-04-21 14:13] LABS: Alanine Aminotransferase 19 U/L (12-78); Albumin Level 3.5 gm/dl (3.4-5.0); Aspartate Aminotransferase 11 U/L (15-37); BUN Creatinine Ratio 9.9 (10-20); Blood Urea Nitrogen 12 mg/dl (7-18); Calcium 9.1 mg/dl (8.5-10.1); Carbon Dioxide 29 mmol/L (21-32); Chloride 103 mmol/L (98-107); Creatinine Clr Calc Pharmacy 100.9 ml/min; Est GFR (African American) 72.6 ml/min; Est GFR (Non-African American) 62.6 ml/min; Glucose 188 mg/dl (70-99); Lipase 116 U/L (73-393); Magnesium 2.9 mg/dl (1.8-2.4); Potassium 3.4 mmol/L (3.5-5.1); Sodium 137 mmol/L (136-145)
[2021-04-21 14:19] LABS: Albumin Globulin Ratio 0.9 (0.9-2); Alkaline Phosphatase 103 U/L (45-117); Bilirubin,Total 2.6 mg/dl (0.2-1); Globulin 3.8 gm/dl (2.5-4.0); Total Protein 7.3 gm/dl (6.4-8.2); Troponin I < 0.015 ng/ml (0-0.045)
--- NOTE | 2021-04-21 16:23 | Electrocardiogram Report ---
Test Reason : Blood Pressure : / mmHG Vent. Rate : 087 BPM Atrial Rate : 087 BPM P-R Int : 254 ms QRS Dur : 142 ms QT Int : 444 ms P-R-T Axes : 086 -46 052 degrees QTc Int : 534 ms Sinus rhythm with 1st degree A-V block Right bundle branch block Left anterior fascicular block Bifascicular block Inferior infarct (cited on or before 24-OCT-2017) Abnormal ECG When compared with ECG of 10-JUN-2020 10:01, Sinus rhythm has replaced Atrial fibrillation T wave inversion no longer evident in Inferior leads QT has lengthened Confirmed by Bob Coronel ([id number]) on 04/21/2021 4:22:41 PM Referred By: REFERRED SELF Confirmed By:Bbo Coronel
[2021-04-21] MEDS ORDERED: carvediloL 6.25 MG TAB PO STA (16:43)
--- NOTE | 2021-04-21 16:59 | History & Physical Report ---
Date of Service April 21, 2021 Assessment & Plan (1) Precordial chest pain: (2) Hypertension: (3) CKD (chronic kidney disease) stage 3, GFR 30-59 ml/min: (4) Diabetes mellitus, type II, insulin dependent: (5) MICAH (obstructive sleep apnea): (6) History of chronic atrial fibrillation: (7) HTN (hypertension): (8) CAD (coronary artery disease): Plan: Pt presents with acute onset of chest heaviness, SOB, left hand tingling, and lightheadedness this morning in the setting of markedly elevated blood pressure. Symptoms currently resolved except minimal residual tingling after nitro paste x 2 inches and aspirin 324 mg. - Admit and monitor on telemetry - Serial troponin - Check ECHO - Consult cardiology - Repeat EKG prn chest pain and in AM - Increase Coreg to 12.5 mg BID - will give additional 6.25 mg now and start increased dose at bedtime - Continue other BP meds as taking at home including increased Benicar - Repeat labs in AM - Insulin sliding scale - Check A1c in AM, diabetic diet, BSG ACHS - Continue other home meds as appropriate - CPAP at HS with outpatient settings Pt seen and reviewed with attending physician, Dr. Johnson. Plan of care discussed and as outlined above. DVT Prophylaxis: on Eliquis, SCDs Code Status: Full code Brown Brooke PA-C History of Present Illness Chief Complaint: chest discomfort and elevated blood pressure Primary Care Provider: Gregory Botello MD This is a 60 y/o male with a complicated PMH including CAD, hx PR, chronic atrial fibrillation on chronic AC, insulin-requiring diabetes with polyneuropathy and retinopathy, spina bifida, HTN, dyslipidemia, depression, CKD 3a, gout, and obesity who presented to the ED via EMS with chest heaviness, SOB, left arm tingling and elevated blood pressure. Pt notes that his BP meds were adjusted earlier this year after panniculectomy in August. He felt like he had been doing fine until the past week when he noticed markedly elevated BPs averaging 200/100 with associated headaches and lightheadedness at times. He is unsure what his BP was averaging before this as he just got this monitor but notes that his symptoms are new. 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 However, this morning he noticed some lightheadedness so he checked his BP and found it elevated. This worsened and he developed associated SEXTON, pain between his shoulder blades, chest heaviness/discomfort, and tingling in his left > right hand so he called 911. He was given nitro paste x 2 inches and aspirin 81 mg x 4 with improvement in his symptoms. The only residual symptom at present is minimal left hand tingling. Today's symptoms felt similar to his prior PR. Allergies Allergy/AdvReac Type Severity Reaction Status Date / Time sulfamethoxazole Allergy Intermediate Rash Unverified 04/21/21 15:39 trimethoprim Allergy Intermediate Rash Unverified 04/21/21 15:39 AVIVA Inhibitors Allergy Unknown . Unverified 04/21/21 15:39 Bactrim Allergy Unknown . Unverified 12/06/17 15:09 lisinopril Allergy Unknown Unknown Verified 04/21/21 15:39 ceftriaxone AdvReac Mild Rash Verified 04/21/21 15:39 Home Medications Medication Instructions Recorded Confirmed Type aspirin 81 mg tablet,delayed 81 mg PO QAM 09/24/18 04/21/21 History release cholecalciferol (vitamin D3) 100 4,000 units PO QAM 09/24/18 04/21/21 History mcg (4,000 unit) capsule latanoprost 0.005 % eye drops 1 drops OPB HS 09/24/18 04/21/21 History nitroglycerin 0.4 mg sublingual 0.4 mg SL Q5M PRN 09/24/18 04/21/21 History tablet (Nitrostat) allopurinol 300 mg tablet 300 mg PO QAM 05/25/20 04/21/21 History docusate sodium 100 mg capsule 100 mg PO DAILY 05/25/20 04/21/21 History ferrous sulfate 325 mg (65 mg 325 mg PO BID 05/25/20 04/21/21 History iron) tablet folic acid 1 mg tablet 1 mg PO QAM 05/25/20 04/21/21 History multivitamin with minerals 1 tab PO QAM 05/25/20 04/21/21 History (Multiple Vitamin-Minerals) torsemide 20 mg tablet 40 mg PO BID 05/25/20 04/21/21 History Lactobacillus acidoph-L.bulgaricus 1 tab PO BID 09/04/20 04/21/21 History 1 million cell tablet (Floranex) ascorbic acid (vitamin C) 250 mg 250 mg PO BID 09/04/20 04/21/21 History tablet atorvastatin 10 mg tablet 5 mg PO HS 09/04/20 04/21/21 History insulin glargine 100 unit/mL 24 unit SUBCUT HS 09/04/20 04/21/21 History subcutaneous cartridge semaglutide 1 mg/dose (2 mg/1.5 2 mg SUBCUT Q7D 09/04/20 04/21/21 History mL) subcutaneous pen injector (Ozempic) acetaminophen 500 mg tablet 1,000 mg PO HS PRN 04/21/21 04/21/21 History (Tylenol Extra Strength) apixaban 5 mg tablet (Eliquis) 5 mg PO BID 04/21/21 04/21/21 History carvedilol 6.25 mg tablet 6.25 mg PO BID 04/21/21 04/21/21 History olmesartan 20 mg tablet 20 mg PO QAM 04/21/21 04/21/21 History Past Med/Surg History Medical History Abdominal pannus Acquired buried penis Allergic rhinitis Arthritis of knee B-complex deficiency Bilateral scrotal hernia CAD (coronary artery disease) CKD (chronic kidney disease) stage 3, GFR 30-59 ml/min Decreased ambulation status 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, with long-term current use of insulin Diabetic neuropathy Diabetic retinopathy Dyslipidemia GERD (gastroesophageal reflux disease) Glaucoma Gout Hearing loss of left ear History of chronic atrial fibrillation History of TIA (transient ischemic attack) HTN (hypertension) Hyperlipidemia Lymphedema Major depressive disorder Myocardial infarction H/o 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 MICAH (obstructive sleep apnea) Presence of bare metal stent in right coronary artery Sepsis Spina bifida Vitamin D deficiency Surgical History H/O cardiac catheterization H/O colonoscopy H/O nasal septoplasty Hx of tonsillectomy Previous back surgery S/P cholecystectomy S/P panniculectomy Status post uvulopalatopharyngoplasty Family History Mother Coronary heart disease Diabetes Hypertension Social History Smoking Status: Never smoker Tobacco Type: Cigarettes packs per day: 1; Second Hand Exposure: No; Hx Alcohol Use: No Hx Substance Use: No Preferred Language: Israeli Communication Ability: Effective Visual Impairment: Limited Hearing Ability: Hard of Hearing 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 Beliefs That Will Affect Care: None marital status: Single Current Living Situation: Alone Current Living Situation Comment: ine apartment current occupational status: disabled Feels Safe at Home: Yes Childhood Exposure to Second-Hand Smoke: No Assistive Devices: Walker Review of Systems Review of Systems: All systems reviewed & are unremarkable except as noted in HPI & below Constitutional: + fatigue; no fever, no chills and no sweats Eyes: no diplopia and no worsening vision Ear, Nose, Mouth, Throat: no nasal congestion, no nasal discharge, no sore throat and no dysphagia Respiratory: no cough, no dyspnea, no hemoptysis and no wheezing Cardiovascular: as per Subjective / HPI; no palpitations, no syncope and no edema Gastrointestinal: no abdominal pain, no nausea, no vomiting, no diarrhea/loose stools and no blood in stools Genitourinary: no urinary frequency or no hematuria Musculoskeletal: + joint pain (chronic arthritis pains); no back pain and no neck pain Integumentary: no rash and no yellowing of the skin Neurologic: + tingling and + headache(s); no localized weakness, no seizure- like activity and no syncope Psychiatric: no anxiety and no confusion Physical Exam Constitutional: well developed and well nourished; no acute distress Eyes: + anicteric sclerae Neck: trachea midline Respiratory: no respiratory distress and no labored breathing Auscultation: lungs clear to auscultation bilaterally; no rales, no rhonchi and no wheezes Cardiovascular: Rate/Rhythm: regular rate and regular rhythm Heart Sounds: no gallop, no murmur and no cardiac rub Vessels: dorsalis pedis pulses present and radial pulses present; no carotid bruit Gastrointestinal (Abdomen): Inspection/Auscultation: normal bowel sounds; abdomen not distended Percussion/Palpation: abdomen soft; abdomen nontender Musculoskeletal: Head/Neck/Chest: normocephalic, head atraumatic and neck supple Skin: no jaundice Neurologic: moves all extremities; no focal motor deficits Psychiatric: A+Ox3, euthymic affect Results & Data Results & Data ([facility]) Vital Signs (Past 12 Hours) Vital Signs Temp Pulse Pulse Resp BP BP Pulse Ox 04/21/21 16:21 79 18 178/101 H 96 04/21/21 16:18 87 18 98 04/21/21 15:05 83 17 183/92 H 98 04/21/21 15:00 82 20 183/92 H 97 04/21/21 14:30 85 22 168/96 H 98 04/21/21 14:00 86 19 182/95 H 97 04/21/21 13:45 36.8 C 85 17 185/113 H 97 Laboratory Results Laboratory Results - last 24 hr 04/21/21 04/21/21 04/21/21 13:40 13:40 14:03 WBC 6.09 RBC 4.55 L Hgb 14.0 Hct 40.3 L MCV 88.6 MCH 30.8 MCHC 34.7 RDW Std Deviation 44.4 RDW Coeff of Selvin 13.7 Plt Count 166 MPV 9.2 Immature Gran % (Auto) 0.2 Neut % (Auto) 68.9 Lymph % (Auto) 19.4 [place] % (Auto) 9.7 Eos % (Auto) 1.5 Baso % (Auto) 0.3 Neut # (Auto) 4.20 Lymph # (Auto) 1.18 L [place] # (Auto) 0.59 Eos # (Auto) 0.09 Baso # (Auto) 0.02 Immature Gran # (Auto) 0.01 Sodium 137 Potassium 3.4 L Chloride 103 Carbon Dioxide 29 Anion Gap 5.0 BUN 12 Creatinine 1.25 Est Cr Clr Drug Dosing 100.9 Est GFR ( Amer) 72.6 Est GFR (Non-Af Amer) 62.6 BUN/Creatinine Ratio 9.9 L Glucose 188 H Calcium 9.1 Magnesium 2.9 H Total Bilirubin 2.6 H AST 11 L ALT 19 Alkaline Phosphatase 103 Troponin I < 0.015 Total Protein 7.3 Albumin 3.5 Globulin 3.8 Albumin/Globulin Ratio 0.9 Lipase 116 COVID-19 Eval Order Covid19 at [facility] SARS-CoV-2 (PCR) 04/21/21 14:03 WBC RBC Hgb Hct MCV MCH MCHC RDW Std Deviation RDW Coeff of Selvin Plt Count MPV Immature Gran % (Auto) Neut % (Auto) Lymph % (Auto) [place] % (Auto) Eos % (Auto) Baso % (Auto) Neut # (Auto) Lymph # (Auto) [place] # (Auto) Eos # (Auto) Baso # (Auto) Immature Gran # (Auto) Sodium Potassium Chloride Carbon Dioxide Anion Gap BUN Creatinine Est Cr Clr Drug Dosing Est GFR ( Amer) Est GFR (Non-Af Amer) BUN/Creatinine Ratio Glucose Calcium Magnesium Total Bilirubin AST ALT Alkaline Phosphatase Troponin I Total Protein Albumin Globulin Albumin/Globulin Ratio Lipase COVID-19 Eval Order SARS-CoV-2 (PCR) NEGATIVE Diagnostic Findings Chest X-ray 04/21/21 - IMPRESSION: No acute cardiopulmonary findings. No change in appearance of the chest. Medications Administered Discontinued Medications Aspirin (Aspirin Chew 324 Mg) 324 mg PO NOW STA Stop: 04/21/21 13:42 Last Admin: 04/21/21 13:50 Dose: 324 mg Documented by: [id number] Nitroglycerin (Nitroglycerin 2% Ointment 30gm Tube) 2 inch EXT NOW STA Stop: 04/21/21 13:42 Last Admin: 04/21/21 13:50 Dose: 2 inch Documented by: [id number] Code Status & VTE Plan VTE Prophylaxis Plan VTE Prophylaxis will be ordered: Yes Supervising Physician Co-Signing Physician Notes Attending addendum The patient was seen and examined in emergency room He is morbidly obese with multiple comorbid conditions as mentioned in H&P has been complaining of chest pain while sitting down The pain is associated with some shortness of breath and radiated to the left fingertips Has had a headache associated with the pain as well Pain seems to be controlled during examination On examination Morbidly obese without any apparent distress in bed Blood pressure to very high at 186/102 Chest-decreased breath sounds bilaterally Heart-S1-S2 regular Abdomen-distended, soft, bowel sound present Extremities-trace to 1+ edema bilaterally with chronic skin changes [employer]-alert, awake and oriented x3 His admission labs, EKG and imaging studies reviewed Chest pain rule out PR-serial cardiac enzymes, echo and cardiology consult Hypertensive urgency-we will increase carvedilol, received Nitropaste, will give labetalol intravenously to control blood pressure Agree with assessment and plan as outlined above by DASIA Soliman DR (1) Hypertension Hypertension type: unspecified Qualified Code(s): I10 - Essential (primary) hypertension
[2021-04-21] MEDS ORDERED: LABETALOL HCL IV 5 MG/ML 20ML IV STA ×2 (17:13→17:24)
[2021-04-21] MEDS ORDERED: GLUCOSE 10 TABS/TUBE PO PRN (20:30)
[2021-04-21] MEDS ORDERED: GLUCAGON FOR INJ 1 MG VIAL SQ PRN (20:30)
[2021-04-21] MEDS ORDERED: NITROGLYCERIN SL 0.4 MG/TAB TAB SL PRN (20:30)
[2021-04-21] MEDS ORDERED: CARBOHYDRATES FOR HYPOGLYCEMIA PO PRN (20:30)
[2021-04-21] MEDS ORDERED: DEXTROSE 50% 50 ML SYRINGE IV PRN (20:30)
[2021-04-21] MEDS ORDERED: ACETAMINOPHEN 325 MG TAB PO PRN (20:30)
[2021-04-21] MEDS ORDERED: GLUCOSE 40% GEL 15 GM TUBE PO PRN (20:30)
[2021-04-21] MEDS ORDERED: FLUARIX QUADRIVALENT 0.5 ML SYR IM ONE (21:15)
[2021-04-21] MEDS: LATANOPROST 0.005% OP SOLN 2.5 ML BTL OPB SCH (21:26)
[2021-04-21] MEDS: FERROUS SULFATE 325 MG TAB PO SCH (21:26)
[2021-04-21] MEDS: carvediloL 12.5 MG TAB PO SCH (21:30)
[2021-04-21] MEDS: ATORVASTATIN 10 MG TAB PO SCH (21:31)
[2021-04-21] MEDS: APIXABAN 5 MG TABLET PO SCH (21:31)
[2021-04-21] MEDS: TORSEMIDE 20 MG TAB PO SCH (21:31)
[2021-04-21] MEDS: INSULIN ASPART 100 UNITS/ML 3 ML PEN SC SCH (21:32)
[2021-04-22 04:00] LABS: Basophils # (auto) 0.03 K/uL (0-0.2); Basophils % (auto) 0.4 %; Eosinophils # (auto) 0.12 K/uL (0-0.5); Eosinophils % (auto) 1.6 %; Hematocrit (blood only) 39.8 % (42-52); Hemoglobin 13.8 g/dL (14.0-18.0); Immature Granulocytes # (auto) 0.02 K/uL (0.00-0.02); Immature Granulocytes % (auto) 0.3 %; Lymphocytes % (auto) 23.4 %; Mean Corpuscular Hemoglobin 30.9 pg (25-34); Mean Corpuscular Hgb Conc 34.7 g/dL (32-36); Mean Corpuscular Volume 89.2 fL (80-100); Mean Platelet Volume 9.3 fL (7.4-10.4); Monocytes % (auto) 8.2 %; Neutrophils # (auto) 4.81 K/uL (1.4-6.5); Neutrophils % (auto) 66.1 %; Platelet Count 146 K/uL (130-400); RDW Coefficient of Variation 13.6 % (11.5-14.5); RDW Standard Deviation 44.7 fL (36.4-46.3); Red Blood Count 4.46 M/uL (4.7-6.1); White Blood Count 7.28 K/uL (4.8-10.8)
[2021-04-22 04:23] LABS: BUN Creatinine Ratio 12.6 (10-20); Blood Urea Nitrogen 15 mg/dl (7-18); Calcium 8.9 mg/dl (8.5-10.1); Carbon Dioxide 27 mmol/L (21-32); Chloride 106 mmol/L (98-107); Creatinine Clr Calc Pharmacy 98.9 ml/min; Est GFR (African American) 75.5 ml/min; Est GFR (Non-African American) 65.1 ml/min; Glucose 143 mg/dl (70-99); Potassium 3.1 mmol/L (3.5-5.1); Sodium 139 mmol/L (136-145)
[2021-04-22 04:27] LABS: Troponin I < 0.015 ng/ml (0-0.045)
[2021-04-22] MEDS ORDERED: POTASSIUM CHLORIDE CRTAB 20 MEQ TABCR PO STA ×2 (04:28→09:34)
[2021-04-22] MEDS: POTASSIUM CHLORIDE / WTR 10 MEQ/100 ML PLCT IV SCH ×2 (06:00→07:04)
[2021-04-22 07:50] LABS: Estimated Average Glucose 171 mg/dl; Hemoglobin A1C 7.6 % (4.5-5.6)
[2021-04-22] MEDS: INSULIN ASPART 100 UNITS/ML 3 ML PEN SC SCH ×4 (08:14→20:51)
[2021-04-22] MEDS: APIXABAN 5 MG TABLET PO SCH ×2 (08:18→20:51)
[2021-04-22] MEDS: carvediloL 12.5 MG TAB PO SCH ×2 (08:18→20:48)
[2021-04-22] MEDS: ASPIRIN 81 MG ECTAB PO SCH (08:18)
[2021-04-22] MEDS: CHOLECALCIFEROL 1,000 UNITS 25 MCG TAB PO SCH (08:18)
[2021-04-22] MEDS: allopurinoL 300 MG TAB PO SCH (08:19)
[2021-04-22] MEDS: FERROUS SULFATE 325 MG TAB PO SCH ×2 (08:19→18:23)
[2021-04-22] MEDS: FOLIC ACID 1 MG TAB PO SCH (08:19)
[2021-04-22] MEDS: TORSEMIDE 20 MG TAB PO SCH ×2 (08:19→20:51)
[2021-04-22] MEDS: DOCUSATE SODIUM 100 MG CAP PO SCH (08:19)
[2021-04-22] MEDS ORDERED: OLMESARTAN MEDOXOMIL 20 MG TAB PO SCH (09:00)
--- NOTE | 2021-04-22 09:09 | Cardiology Consultation ---
Date of Consultation April 22, 2021 Assessment & Plan (1) Precordial chest pain: (2) Hypertensive urgency: (3) History of coronary artery disease: The patient's blood pressure is under better control however I think the addition of medications is indicated as outlined by the hospitalist. I do not believe any additional cardiac testing is indicated at this time. If the patient's blood pressure is under controlled and I believe he can be discharged to outpatient follow-up. History of Present Illness Attending Physician: Marjorie Johnson MD History of Present Illness This is a 60-year-old male patient with the history as outlined below. He presented with chest and left arm discomfort with markedly elevated blood pressures. Cardiac markers are negative and his EKG is unchanged. I think that this is a hypertensive crisis or urgency.The patient has no ongoing complaints and feels well today after his blood pressure has been treated. Past cardiac history: 1. Coronary artery disease with acute inferior wall myocardial infarction 2009 status post RCA stenting in [place] 2. Permanent atrial fibrillation 3. Hypertension 4. Dyslipidemia 5. DM-2 Allergies Allergy/AdvReac Type Severity Reaction Status Date / Time sulfamethoxazole Allergy Intermediate Rash Unverified 04/21/21 15:39 trimethoprim Allergy Intermediate Rash Unverified 04/21/21 15:39 AVIVA Inhibitors Allergy Unknown . Unverified 04/21/21 15:39 Bactrim Allergy Unknown . Unverified 12/06/17 15:09 lisinopril Allergy Unknown Unknown Verified 04/21/21 15:39 ceftriaxone AdvReac Mild Rash Verified 04/21/21 15:39 Home Medications Medication Instructions Recorded Confirmed Type aspirin 81 mg tablet,delayed 81 mg PO QAM 09/24/18 04/21/21 History release cholecalciferol (vitamin D3) 100 4,000 units PO QAM 09/24/18 04/21/21 History mcg (4,000 unit) capsule latanoprost 0.005 % eye drops 1 drops OPB HS 09/24/18 04/21/21 History nitroglycerin 0.4 mg sublingual 0.4 mg SL Q5M PRN 09/24/18 04/21/21 History tablet (Nitrostat) allopurinol 300 mg tablet 300 mg PO QAM 05/25/20 04/21/21 History docusate sodium 100 mg capsule 100 mg PO DAILY 05/25/20 04/21/21 History ferrous sulfate 325 mg (65 mg 325 mg PO BID 05/25/20 04/21/21 History iron) tablet folic acid 1 mg tablet 1 mg PO QAM 05/25/20 04/21/21 History multivitamin with minerals 1 tab PO QAM 05/25/20 04/21/21 History (Multiple Vitamin-Minerals) torsemide 20 mg tablet 40 mg PO BID 05/25/20 04/21/21 History Lactobacillus acidoph-L.bulgaricus 1 tab PO BID 09/04/20 04/21/21 History 1 million cell tablet (Floranex) ascorbic acid (vitamin C) 250 mg 250 mg PO BID 09/04/20 04/21/21 History tablet atorvastatin 10 mg tablet 5 mg PO HS 09/04/20 04/21/21 History insulin glargine 100 unit/mL 24 unit SUBCUT HS 09/04/20 04/21/21 History subcutaneous cartridge semaglutide 1 mg/dose (2 mg/1.5 2 mg SUBCUT Q7D 09/04/20 04/21/21 History mL) subcutaneous pen injector (Ozempic) acetaminophen 500 mg tablet 1,000 mg PO HS PRN 04/21/21 04/21/21 History (Tylenol Extra Strength) apixaban 5 mg tablet (Eliquis) 5 mg PO BID 04/21/21 04/21/21 History carvedilol 6.25 mg tablet 6.25 mg PO BID 04/21/21 04/21/21 History olmesartan 20 mg tablet 20 mg PO QAM 04/21/21 04/21/21 History Patient History Medical History Abdominal pannus Acquired buried penis Allergic rhinitis Arthritis of knee B-complex deficiency Bilateral scrotal hernia CAD (coronary artery disease) CKD (chronic kidney disease) stage 3, GFR 30-59 ml/min Decreased ambulation status 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, with long-term current use of insulin Diabetic neuropathy Diabetic retinopathy Dyslipidemia GERD (gastroesophageal reflux disease) Glaucoma Gout Hearing loss of left ear History of chronic atrial fibrillation History of TIA (transient ischemic attack) HTN (hypertension) Hyperlipidemia Lymphedema Major depressive disorder Myocardial infarction H/o 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 MICAH (obstructive sleep apnea) Presence of bare metal stent in right coronary artery Sepsis Spina bifida Vitamin D deficiency Surgical History H/O cardiac catheterization H/O colonoscopy H/O nasal septoplasty Hx of tonsillectomy Previous back surgery S/P cholecystectomy S/P panniculectomy Status post uvulopalatopharyngoplasty Family History Mother Coronary heart disease Diabetes Hypertension Social History Smoking Status: Never smoker Tobacco Type: Cigarettes packs per day: 1; Second Hand Exposure: No; Hx Alcohol Use: No Hx Substance Use: No Preferred Language: Kazakh Communication Ability: Effective Visual Impairment: Limited Hearing Ability: Hard of Hearing Computer Architect Required: No Beliefs That Will Affect Care: None marital status: Single Current Living Situation: Alone Current Living Situation Comment: ine apartment current occupational status: disabled Feels Safe at Home: Yes Childhood Exposure to Second-Hand Smoke: No Assistive Devices: Wheelchair Review of Systems Review of Systems: Review of Systems: See HPI for pertinent positives. All other 10 point review of systems are negative. Physical Exam Physical Exam: General: no acute distress and stated age Head: normocephalic, no masses, lesions, tenderness or abnormalities Eyes: conjunctiva are pink and non-injected, sclera clear Neck: supple, no adenopathy, no bruits, normal jugular venous pulse, no hepatojugular reflux Chest: normal shape and normal respiratory effort Lungs: clear to auscultation and percussion Cardiac Exam: - regular rate & rhythm, no murmurs gallops or rubs - normal S1, normal S2 Pulses: 2(+) throughout Abdomen: abdomen soft, non-tender, no abnormal masses and no hepatosplenomegaly Musculoskeletal: no gait disturbance, no joint inflammation, no deforming arthritis Extremities: no edema and no cyanosis Neuro: grossly normal exam Results & Data ([facility]) Vital Signs (Past 12 Hours) Vital Signs Temp Pulse Pulse Resp BP Pulse Ox 04/22/21 07:00 36.7 C 80 14 170/81 H 96 04/22/21 03:35 36.6 C 71 18 155/68 H 96 04/21/21 23:09 36.5 C 81 20 167/84 H 98 04/21/21 23:05 81 21 99 Laboratory Results Laboratory Results - last 24 hr 04/21/21 04/21/21 04/21/21 13:40 13:40 14:03 WBC 6.09 RBC 4.55 L Hgb 14.0 Hct 40.3 L MCV 88.6 MCH 30.8 MCHC 34.7 RDW Std Deviation 44.4 RDW Coeff of Selvin 13.7 Plt Count 166 MPV 9.2 Immature Gran % (Auto) 0.2 Neut % (Auto) 68.9 Lymph % (Auto) 19.4 [place] % (Auto) 9.7 Eos % (Auto) 1.5 Baso % (Auto) 0.3 Neut # (Auto) 4.20 Lymph # (Auto) 1.18 L [place] # (Auto) 0.59 Eos # (Auto) 0.09 Baso # (Auto) 0.02 Immature Gran # (Auto) 0.01 Sodium 137 Potassium 3.4 L Chloride 103 Carbon Dioxide 29 Anion Gap 5.0 BUN 12 Creatinine 1.25 Est Cr Clr Drug Dosing 100.9 Est GFR ( Amer) 72.6 Est GFR (Non-Af Amer) 62.6 BUN/Creatinine Ratio 9.9 L Glucose 188 H POC Glucose Estimat Average Glucose Hemoglobin A1c Calcium 9.1 Magnesium 2.9 H Total Bilirubin 2.6 H AST 11 L ALT 19 Alkaline Phosphatase 103 Troponin I < 0.015 Total Protein 7.3 Albumin 3.5 Globulin 3.8 Albumin/Globulin Ratio 0.9 Lipase 116 Nasal Screen MRSA (PCR) COVID-19 Eval Order Covid19 at [facility] SARS-CoV-2 (PCR) 04/21/21 04/21/21 04/21/21 14:03 20:50 21:07 WBC RBC Hgb Hct MCV MCH MCHC RDW Std Deviation RDW Coeff of Selvin Plt Count MPV Immature Gran % (Auto) Neut % (Auto) Lymph % (Auto) [place] % (Auto) Eos % (Auto) Baso % (Auto) Neut # (Auto) Lymph # (Auto) [place] # (Auto) Eos # (Auto) Baso # (Auto) Immature Gran # (Auto) Sodium Potassium Chloride Carbon Dioxide Anion Gap BUN Creatinine Est Cr Clr Drug Dosing Est GFR ( Amer) Est GFR (Non-Af Amer) BUN/Creatinine Ratio Glucose POC Glucose 121 H Estimat Average Glucose Hemoglobin A1c Calcium Magnesium Total Bilirubin AST ALT Alkaline Phosphatase Troponin I < 0.015 Total Protein Albumin Globulin Albumin/Globulin Ratio Lipase Nasal Screen MRSA (PCR) COVID-19 Eval Order SARS-CoV-2 (PCR) NEGATIVE 04/21/21 04/22/21 04/22/21 21:21 03:43 03:43 WBC 7.28 RBC 4.46 L Hgb 13.8 L Hct 39.8 L MCV 89.2 MCH 30.9 MCHC 34.7 RDW Std Deviation 44.7 RDW Coeff of Selvin 13.6 Plt Count 146 MPV 9.3 Immature Gran % (Auto) 0.3 Neut % (Auto) 66.1 Lymph % (Auto) 23.4 Du[place] % (Auto) 8.2 Eos % (Auto) 1.6 Baso % (Auto) 0.4 Neut # (Auto) 4.81 Lymph # (Auto) 1.70 Du[place] # (Auto) 0.60 H Eos # (Auto) 0.12 Baso # (Auto) 0.03 Immature Gran # (Auto) 0.02 Sodium 139 Potassium 3.1 L Chloride 106 Carbon Dioxide 27 Anion Gap 6.0 BUN 15 Creatinine 1.21 Est Cr Clr Drug Dosing 98.9 Est GFR ( Amer) 75.5 Est GFR (Non-Af Amer) 65.1 BUN/Creatinine Ratio 12.6 Glucose 143 H POC Glucose Estimat Average Glucose Hemoglobin A1c Calcium 8.9 Magnesium Total Bilirubin AST ALT Alkaline Phosphatase Troponin I < 0.015 Total Protein Albumin Globulin Albumin/Globulin Ratio Lipase Nasal Screen MRSA (PCR) Positive A COVID-19 Eval Order SARS-CoV-2 (PCR) 04/22/21 04/22/21 03:43 08:12 WBC RBC Hgb Hct MCV MCH MCHC RDW Std Deviation RDW Coeff of Selvin Plt Count MPV Immature Gran % (Auto) Neut % (Auto) Lymph % (Auto) [place] % (Auto) Eos % (Auto) Baso % (Auto) Neut # (Auto) Lymph # (Auto) [place] # (Auto) Eos # (Auto) Baso # (Auto) Immature Gran # (Auto) Sodium Potassium Chloride Carbon Dioxide Anion Gap BUN Creatinine Est Cr Clr Drug Dosing Est GFR ( Amer) Est GFR (Non-Af Amer) BUN/Creatinine Ratio Glucose POC Glucose 231 H Estimat Average Glucose 171 Hemoglobin A1c 7.6 H Calcium Magnesium Total Bilirubin AST ALT Alkaline Phosphatase Troponin I Total Protein Albumin Globulin Albumin/Globulin Ratio Lipase Nasal Screen MRSA (PCR) COVID-19 Eval Order SARS-CoV-2 (PCR) Medications Administered Current Inpatient Medications Acetaminophen (Acetaminophen 325 Mg Tab) 650 mg PO Q4H PRN PRN Reason: Pain or Fever Stop: 05/21/21 20:29 Last Admin: 04/21/21 21:26 Dose: 650 mg Documented by: Allopurinol (Allopurinol 300 Mg Tab) 300 mg PO QAM RAJWINDER Stop: 05/22/21 08:59 Last Admin: 04/22/21 08:19 Dose: 300 mg Documented by: Apixaban (Apixaban 5 Mg Tablet) 5 mg PO BID RAJWINDER Stop: 05/21/21 20:59 Last Admin: 04/22/21 08:18 Dose: 5 mg Documented by: Aspirin (Aspirin 81 Mg Ectab) 81 mg PO QAM RAJWINDER Stop: 05/22/21 08:59 Last Admin: 04/22/21 08:18 Dose: 81 mg Documented by: Atorvastatin Calcium (Atorvastatin 10 Mg Tab) 5 mg PO HS [facility] Stop: 05/21/21 20:59 Last Admin: 04/21/21 21:31 Dose: 5 mg Documented by: Carvedilol (Carvedilol 12.5 Mg Tab) 12.5 mg PO BID RAJWINDER Stop: 05/21/21 20:59 Last Admin: 04/22/21 08:18 Dose: 12.5 mg Documented by: Dextrose (Dextrose 50% 50 Ml Syringe) 25 - 50 ml IV UD PRN; Protocol PRN Reason: Hypoglycemia Protocol Stop: 05/21/21 20:29 Docusate Sodium (Docusate Sodium 100 Mg Cap) 100 mg PO DAILY RAJWINDER Stop: 05/22/21 08:59 Last Admin: 04/22/21 08:19 Dose: 100 mg Documented by: Ferrous Sulfate (Ferrous Sulfate 325 Mg Tab) 325 mg PO BIDM RAJWINDER Stop: 05/21/21 20:59 Last Admin: 04/22/21 08:19 Dose: 325 mg Documented by: Folic Acid (Folic Acid 1 Mg Tab) 1 mg PO QAM RAJWINDER Stop: 05/22/21 08:59 Last Admin: 04/22/21 08:19 Dose: 1 mg Documented by: Glucagon (Glucagon For Inj 1 Mg Vial) 1 mg SQ UD PRN; Protocol PRN Reason: Hypoglycemia Protocol Stop: 05/21/21 20:29 Glucose (Glucose 10 Tabs/Tube) 4 - 8 tabs PO UD PRN; Protocol PRN Reason: Hypoglycemia Protocol Stop: 05/21/21 20:29 Glucose (Glucose 40% Gel 15 Gm Tube) 15 - 30 gm PO UD PRN; Protocol PRN Reason: Hypoglycemia Protocol Stop: 05/21/21 20:29 Insulin Aspart (Insulin Aspart 100 Units/Ml 3 Ml Pen) 0 units SC ACHS RAJWINDER Stop: 05/21/21 20:59 Last Admin: 04/22/21 08:14 Dose: 17 units Documented by: Latanoprost (Latanoprost 0.005% Op Soln 2.5 Ml Btl) 1 drops OPB HS RAJWINDER Stop: 05/21/21 20:59 Last Admin: 04/21/21 21:26 Dose: 1 drops Documented by: Miscellaneous (Carbohydrates For Hypoglycemia ) 15 - 30 gm PO UD PRN PRN Reason: Hypoglycemia Protocol Stop: 05/21/21 20:29 Nitroglycerin (Nitroglycerin Sl 0.4 Mg/Tab Tab) 0.4 mg SL UD PRN PRN Reason: Chest Pain Stop: 05/21/21 20:29 Olmesartan (Olmesartan Medoxomil 20 Mg Tab) 20 mg PO QAM RAJWINDER Stop: 05/22/21 08:59 Last Admin: 04/22/21 08:19 Dose: 20 mg Documented by: Torsemide (Torsemide 20 Mg Tab) 40 mg PO BID RAJWINDER Stop: 05/21/21 20:59 Last Admin: 04/22/21 08:19 Dose: 40 mg Documented by: Vitamin D (Cholecalciferol 1,000 Units 25 Mcg Tab) 4,000 units PO QAM RAJWINDER Stop: 05/22/21 08:59 Last Admin: 04/22/21 08:18 Dose: 4,000 units Documented by:
--- NOTE | 2021-04-22 13:31 | Hospitalist Progress Note ---
Date of Service April 22, 2021 Assessment & Plan (1) Precordial chest pain: Plan: Pt presents with acute onset of chest heaviness, SOB, left hand tingling, and lightheadedness this morning in the setting of markedly elevated blood pressure. Symptoms currently resolved except minimal residual tingling after nitro paste x 2 inches and aspirin 324 mg. - Serial troponins have been negative - Check ECHO-not done yet - Consult cardiology-appreciate input and recommendation -If the blood pressure remains controlled he can be discharged home (2) Hypertension: Plan: Presented with hypertensive urgency -His Benicar was increased recently to 20 mg a day - Increase Coreg to 12.5 mg BID - will give additional 6.25 mg now and start increased dose at bedtime - Continue other BP meds as taking at home including increased Benicar -Blood pressure is still remains elevated at systolic more than 170 (3) CKD (chronic kidney disease) stage 3, GFR 30-59 ml/min: (4) Diabetes mellitus, type II, insulin dependent: Plan: - Insulin sliding scale - Check A1c in AM, diabetic diet, BSG ACHS - Continue other home meds as appropriate (5) MICAH (obstructive sleep apnea): Plan: - CPAP at with outpatient settings (6) History of chronic atrial fibrillation: (7) CAD (coronary artery disease): Plan: DVT Prophylaxis: on Eliquis, SCDs Code Status: Full code Brown Brooke PA-C Admission and Anticipated Discharge Date Admission Date: April 21, 2021 Subjective 04/22/2021 The patient was seen and examined in ICU Denies any more chest pain and no headache His blood pressure remains elevated Review of Systems Review of Systems: All systems reviewed and are unremarkable except as noted below Physical Exam Physical Exam: Lying in bed comfortably Constitutional: well developed, well nourished and + obese; not ill appearing Eyes: PERRL, conjunctivae normal, anicteric sclerae ENMT: external ear and nose normal, oropharynx normal Neck: trachea midline, no thyromegaly Respiratory: no respiratory distress and no cough Auscultation: lungs clear to auscultation bilaterally and + diminished lung sounds Cardiovascular: Rate/Rhythm: regular rate and regular rhythm; not tachycardic Heart Sounds: normal S1 and normal S2; no murmur Gastrointestinal (Abdomen): Inspection/Auscultation: normal bowel sounds; abdomen not distended Percussion/Palpation: abdomen soft; abdomen nontender Musculoskeletal: No acute arthritis in any joint Neurologic: Alert, awake and oriented x3. No focal sensory or motor deficit appreciated Results & Data Results & Data ([facility]) Vital Signs (Past 12 Hours) Vital Signs Temp Pulse Pulse Resp BP Pulse Ox 04/22/21 12:14 36.3 C L 78 19 174/82 H 95 04/22/21 08:00 76 04/22/21 07:00 36.7 C 80 14 170/81 H 96 04/22/21 03:35 36.6 C 71 18 155/68 H 96 Laboratory Results Short CBC 04/21/21 04/22/21 Range/Units 13:40 03:43 WBC 6.09 7.28 (4.8-10.8) K/uL Hgb 14.0 13.8 L (14.0-18.0) g/dL Hct 40.3 L 39.8 L (42-52) % Plt Count 166 146 (130-400) K/uL BMP 04/21/21 04/22/21 13:40 03:43 Sodium 137 139 Potassium 3.4 L 3.1 L Chloride 103 106 Carbon Dioxide 29 27 BUN 12 15 Creatinine 1.25 1.21 Glucose 188 H 143 H Calcium 9.1 8.9 Cardiac Enzymes 04/21/21 04/21/21 04/22/21 Range/Units 13:40 20:50 03:43 Troponin I < 0.015 < 0.015 < 0.015 (0-0.045) ng/ml Liver Function 04/21/21 Range/Units 13:40 Total Bilirubin 2.6 H (0.2-1) mg/dl AST 11 L (15-37) U/L ALT 19 (12-78) U/L Alkaline Phosphatase 103 (45-117) U/L Albumin 3.5 (3.4-5.0) gm/dl Medications Administered Current Inpatient Medications Acetaminophen (Acetaminophen 325 Mg Tab) 650 mg PO Q4H PRN PRN Reason: Pain or Fever Stop: 05/21/21 20:29 Last Admin: 04/21/21 21:26 Dose: 650 mg Documented by: Allopurinol (Allopurinol 300 Mg Tab) [facility] Stop: 05/22/21 08:59 Last Admin: 04/22/21 08:19 Dose: 300 mg Documented by: Apixaban (Apixaban 5 Mg Tablet) 5 mg PO BID [facility] Stop: 05/21/21 20:59 Last Admin: 04/22/21 08:18 Dose: 5 mg Documented by: Aspirin (Aspirin 81 Mg Ectab) 81 mg PO QAM [facility] Stop: 05/22/21 08:59 Last Admin: 04/22/21 08:18 Dose: 81 mg Documented by: Atorvastatin Calcium (Atorvastatin 10 Mg Tab) 5 mg PO HS [facility] Stop: 05/21/21 20:59 Last Admin: 04/21/21 21:31 Dose: 5 mg Documented by: Carvedilol (Carvedilol 12.5 Mg Tab) 12.5 mg PO BID [facility] Stop: 05/21/21 20:59 Last Admin: 04/22/21 08:18 Dose: 12.5 mg Documented by: Dextrose (Dextrose 50% 50 Ml Syringe) 25 - 50 ml IV UD PRN; Protocol PRN Reason: Hypoglycemia Protocol Stop: 05/21/21 20:29 Docusate Sodium (Docusate Sodium 100 Mg Cap) 100 mg PO DAILY [facility] Stop: 05/22/21 08:59 Last Admin: 04/22/21 08:19 Dose: 100 mg Documented by: Ferrous Sulfate (Ferrous Sulfate 325 Mg Tab) 325 mg PO BIDM [facility] Stop: 05/21/21 20:59 Last Admin: 04/22/21 08:19 Dose: 325 mg Documented by: Folic Acid (Folic Acid 1 Mg Tab) 1 mg PO QAM [facility] Stop: 05/22/21 08:59 Last Admin: 04/22/21 08:19 Dose: 1 mg Documented by: Glucagon (Glucagon For Inj 1 Mg Vial) 1 mg SQ UD PRN; Protocol PRN Reason: Hypoglycemia Protocol Stop: 05/21/21 20:29 Glucose (Glucose 10 Tabs/Tube) 4 - 8 tabs PO UD PRN; Protocol PRN Reason: Hypoglycemia Protocol Stop: 05/21/21 20:29 Glucose (Glucose 40% Gel 15 Gm Tube) 15 - 30 gm PO UD PRN; Protocol PRN Reason: Hypoglycemia Protocol Stop: 05/21/21 20:29 Insulin Aspart (Insulin Aspart 100 Units/Ml 3 Ml Pen) 0 units SC ACHS [facility] Stop: 05/21/21 20:59 Last Admin: 04/22/21 12:13 Dose: 11 units Documented by: Latanoprost (Latanoprost 0.005% Op Soln 2.5 Ml Btl) 1 drops OPB HS [facility] Stop: 05/21/21 20:59 Last Admin: 04/21/21 21:26 Dose: 1 drops Documented by: Miscellaneous (Carbohydrates For Hypoglycemia ) 15 - 30 gm PO UD PRN PRN Reason: Hypoglycemia Protocol Stop: 05/21/21 20:29 Nitroglycerin (Nitroglycerin Sl 0.4 Mg/Tab Tab) 0.4 mg SL UD PRN PRN Reason: Chest Pain Stop: 05/21/21 20:29 Olmesartan (Olmesartan Medoxomil 20 Mg Tab) 20 mg PO QAM [facility] Stop: 05/22/21 08:59 Last Admin: 04/22/21 08:19 Dose: 20 mg Documented by: Torsemide (Torsemide 20 Mg Tab) 40 mg PO BID [facility] Stop: 05/21/21 20:59 Last Admin: 04/22/21 08:19 Dose: 40 mg Documented by: Vitamin D (Cholecalciferol 1,000 Units 25 Mcg Tab) 4,000 units PO QAM [facility] Stop: 05/22/21 08:59 Last Admin: 04/22/21 08:18 Dose: 4,000 units Documented by: (1) Hypertension Hypertension type: unspecified Qualified Code(s): I10 - Essential (primary) hypertension
--- NOTE | 2021-04-22 13:56 | Electrocardiogram Report ---
Test Reason : Blood Pressure : / mmHG Vent. Rate : 071 BPM Atrial Rate : 071 BPM P-R Int : 296 ms QRS Dur : 152 ms QT Int : 474 ms P-R-T Axes : 056 -39 029 degrees QTc Int : 515 ms Sinus rhythm with marked sinus arrhythmia with 1st degree A-V block Left axis deviation Right bundle branch block Inferior infarct (cited on or before 24-OCT-2017) Abnormal ECG When compared with ECG of 21-APR-2021 13:39, No significant change was found Confirmed by Vern Ramirez [id number] on 04/22/2021 1:56:30 PM Referred By: REFERRED SELF Confirmed By:Vern Ramirez
[2021-04-22] MEDS: ATORVASTATIN 10 MG TAB PO SCH (20:49)
[2021-04-22] MEDS: LATANOPROST 0.005% OP SOLN 2.5 ML BTL OPB SCH (20:51)
[2021-04-23] MEDS: INSULIN ASPART 100 UNITS/ML 3 ML PEN SC SCH ×4 (08:42→20:36)
[2021-04-23] MEDS: ASPIRIN 81 MG ECTAB PO SCH (08:44)
[2021-04-23] MEDS: APIXABAN 5 MG TABLET PO SCH ×2 (08:44→20:32)
[2021-04-23] MEDS: FERROUS SULFATE 325 MG TAB PO SCH ×2 (08:44→17:13)
[2021-04-23] MEDS: carvediloL 12.5 MG TAB PO SCH ×2 (08:44→20:31)
[2021-04-23] MEDS: allopurinoL 300 MG TAB PO SCH (08:44)
[2021-04-23] MEDS: TORSEMIDE 20 MG TAB PO SCH ×2 (08:45→20:30)
[2021-04-23] MEDS: FOLIC ACID 1 MG TAB PO SCH (08:45)
[2021-04-23] MEDS: DOCUSATE SODIUM 100 MG CAP PO SCH (08:45)
[2021-04-23] MEDS: OLMESARTAN MEDOXOMIL 40 MG TAB PO SCH (09:17)
--- NOTE | 2021-04-23 14:03 | Hospitalist Progress Note ---
Date of Service April 23, 2021 Assessment & Plan (1) Precordial chest pain: Plan: Pt presents with acute onset of chest heaviness, SOB, left hand tingling, and lightheadedness this morning in the setting of markedly elevated blood pressure. Symptoms currently resolved except minimal residual tingling after nitro paste x 2 inches and aspirin 324 mg. - Serial troponins have been negative - Check ECHO-there is severe concentric LVH, LV cavity is small, EF 65 to 70%, RV systolic function is normal, left atrial size is normal and normal right atrial size - Consult cardiology-appreciate input and recommendation -No more chest pain and/or palpitation (2) Hypertension: Plan: Presented with hypertensive urgency -His Benicar was increased recently to 20 mg a day - Increase Coreg to 12.5 mg BID - will give additional 6.25 mg now and start increased dose at bedtime - Continue other BP meds as taking at home including increased Benicar -Blood pressure is still remains elevated at systolic more than 170 -Blood pressure remains high even this morning and Benicar was increased to 40 mg once daily -If the blood pressure remains below 170 by evening he will be discharged home (3) CKD (chronic kidney disease) stage 3, GFR 30-59 ml/min: Plan: Kidney function remains NEUROLOGICAL: Alert, oriented, and cooperative. Cranial nerves, sensation and strength grossly intact. Pupils round, equal, and react to light, EOMs are full. (4) Diabetes mellitus, type II, insulin dependent: Plan: - Insulin sliding scale - Check A1c in AM-7.6 - diabetic diet, BSG ACHS - Continue other home meds as appropriate (5) MICAH (obstructive sleep apnea): Plan: - CPAP at with outpatient settings (6) History of chronic atrial fibrillation: (7) CAD (coronary artery disease): Plan: DVT Prophylaxis: on Eliquis, SCDs Code Status: Full code Likely discharge this afternoon if systolic blood pressure remains below 170 Admission and Anticipated Discharge Date Admission Date: April 21, 2021 Subjective 04/22/2021 The patient was seen and examined in ICU Denies any more chest pain and no headache His blood pressure remains elevated 04/23/2021 The patient was seen and examined in ICU He denies any symptoms and no more chest pain and/or palpitation Still has a high blood pressure noted to be around systolic 190 this morning His Benicar has been increased to 40 mg once daily Review of Systems Review of Systems: All systems reviewed and are unremarkable except as noted below Physical Exam Physical Exam: Lying in bed comfortably Constitutional: well developed, well nourished and + obese; not ill appearing Eyes: PERRL, conjunctivae normal, anicteric sclerae ENMT: external ear and nose normal, oropharynx normal Neck: trachea midline, no thyromegaly Respiratory: no respiratory distress and no cough Auscultation: lungs clear to auscultation bilaterally and + diminished lung sounds Cardiovascular: Rate/Rhythm: regular rate and regular rhythm; not tachycardic Heart Sounds: normal S1 and normal S2; no murmur Gastrointestinal (Abdomen): Inspection/Auscultation: normal bowel sounds; abdomen not distended Percussion/Palpation: abdomen soft; abdomen nontender Musculoskeletal: Acute arthritis in any joint this Neurologic: Alert, awake and oriented x3. No focal sensory and motor deficit appreciated Results & Data Results & Data ([facility]) Vital Signs (Past 12 Hours) Vital Signs Temp Pulse Pulse Resp BP Pulse Ox 04/23/21 12:52 170/95 H 04/23/21 11:54 36.8 C 78 23 157/84 H 96 04/23/21 08:59 163/79 H 04/23/21 07:50 79 04/23/21 07:30 36.7 C 77 12 192/95 H 96 04/23/21 04:57 36.6 C 69 18 146/71 H 94 Medications Administered Current Inpatient Medications Acetaminophen (Acetaminophen 325 Mg Tab) 650 mg PO Q4H PRN PRN Reason: Pain or Fever Stop: 05/21/21 20:29 Last Admin: 04/21/21 21:26 Dose: 650 mg Documented by: Allopurinol (Allopurinol 300 Mg Tab) 300 mg PO QAM [facility] Stop: 05/22/21 08:59 Last Admin: 04/23/21 08:44 Dose: 300 mg Documented by: Apixaban (Apixaban 5 Mg Tablet) 5 mg PO BID [facility] Stop: 05/21/21 20:59 Last Admin: 04/23/21 08:44 Dose: 5 mg Documented by: Aspirin (Aspirin 81 Mg Ectab) 81 mg PO QAM [facility] Stop: 05/22/21 08:59 Last Admin: 04/23/21 08:44 Dose: 81 mg Documented by: Atorvastatin Calcium (Atorvastatin 10 Mg Tab) 5 mg PO HS [facility] Stop: 05/21/21 20:59 Last Admin: 04/22/21 20:49 Dose: 5 mg Documented by: Carvedilol (Carvedilol 12.5 Mg Tab) 12.5 mg PO BID [facility] Stop: 05/21/21 20:59 Last Admin: 04/23/21 08:44 Dose: 12.5 mg Documented by: Dextrose (Dextrose 50% 50 Ml Syringe) 25 - 50 ml IV UD PRN; Protocol PRN Reason: Hypoglycemia Protocol Stop: 05/21/21 20:29 Docusate Sodium (Docusate Sodium 100 Mg Cap) 100 mg PO DAILY [facility] Stop: 05/22/21 08:59 Last Admin: 04/23/21 08:45 Dose: 100 mg Documented by: Ferrous Sulfate (Ferrous Sulfate 325 Mg Tab) 325 mg PO BIDM [facility] Stop: 05/21/21 20:59 Last Admin: 04/23/21 08:44 Dose: 325 mg Documented by: Folic Acid (Folic Acid 1 Mg Tab) 1 mg PO QAM [facility] Stop: 05/22/21 08:59 Last Admin: 04/23/21 08:45 Dose: 1 mg Documented by: Glucagon (Glucagon For Inj 1 Mg Vial) 1 mg SQ UD PRN; Protocol PRN Reason: Hypoglycemia Protocol Stop: 05/21/21 20:29 Glucose (Glucose 10 Tabs/Tube) 4 - 8 tabs PO UD PRN; Protocol PRN Reason: Hypoglycemia Protocol Stop: 05/21/21 20:29 Glucose (Glucose 40% Gel 15 Gm Tube) 15 - 30 gm PO UD PRN; Protocol PRN Reason: Hypoglycemia Protocol Stop: 05/21/21 20:29 Insulin Aspart (Insulin Aspart 100 Units/Ml 3 Ml Pen) 0 units SC ACHS [facility] Stop: 05/21/21 20:59 Last Admin: 04/23/21 12:16 Dose: 12 units Documented by: Latanoprost (Latanoprost 0.005% Op Soln 2.5 Ml Btl) 1 drops OPB HS [facility] Stop: 05/21/21 20:59 Last Admin: 04/22/21 20:51 Dose: 1 drops Documented by: Miscellaneous (Carbohydrates For Hypoglycemia ) 15 - 30 gm PO UD PRN PRN Reason: Hypoglycemia Protocol Stop: 05/21/21 20:29 Nitroglycerin (Nitroglycerin Sl 0.4 Mg/Tab Tab) 0.4 mg SL UD PRN PRN Reason: Chest Pain Stop: 05/21/21 20:29 Olmesartan (Olmesartan Medoxomil 40 Mg Tab) 40 mg PO QAM [facility] Stop: 05/22/21 08:59 Last Admin: 04/23/21 09:17 Dose: 40 mg Documented by: Torsemide (Torsemide 20 Mg Tab) 40 mg PO BID [facility] Stop: 05/21/21 20:59 Last Admin: 04/23/21 08:45 Dose: 40 mg Documented by: Vitamin D (Cholecalciferol 1,000 Units 25 Mcg Tab) 4,000 units PO QAM [facility] Stop: 05/22/21 08:59 Last Admin: 04/22/21 08:18 Dose: 4,000 units Documented by: (1) Hypertension Hypertension type: unspecified Qualified Code(s): I10 - Essential (primary) hypertension
[2021-04-23] MEDS: LATANOPROST 0.005% OP SOLN 2.5 ML BTL OPB SCH (20:30)
[2021-04-23] MEDS: ATORVASTATIN 10 MG TAB PO SCH (20:31)
[2021-04-24] MEDS: INSULIN ASPART 100 UNITS/ML 3 ML PEN SC SCH ×2 (08:02→12:13)
[2021-04-24] MEDS: carvediloL 12.5 MG TAB PO SCH (08:03)
[2021-04-24] MEDS: allopurinoL 300 MG TAB PO SCH (08:03)
[2021-04-24] MEDS: TORSEMIDE 20 MG TAB PO SCH (08:03)
[2021-04-24] MEDS: DOCUSATE SODIUM 100 MG CAP PO SCH (08:04)
[2021-04-24] MEDS: FOLIC ACID 1 MG TAB PO SCH (08:04)
[2021-04-24] MEDS: ASPIRIN 81 MG ECTAB PO SCH (08:04)
[2021-04-24] MEDS: FERROUS SULFATE 325 MG TAB PO SCH (08:04)
[2021-04-24] MEDS: APIXABAN 5 MG TABLET PO SCH (08:04)
[2021-04-24] MEDS: OLMESARTAN MEDOXOMIL 40 MG TAB PO SCH (08:04)
--- NOTE | 2021-04-24 08:24 | Cardiology Progress Note ---
Date of Service April 24, 2021 Assessment & Plan (1) Precordial chest pain: (2) Hypertensive urgency: (3) History of coronary artery disease: Plan: No recurrent chest pain since admission. Echo reveals severe concentric LVH, secondary to hypertension. Continue higher dose olmesartan 40 mg daily. Carvedilol increased to 25 mg BID Continue torsemide 40 mg BID Potassium supplement added at 20 meq daily 2-4 week Cardiology Hospital f/u to be arranged. Primary environmental department manager is Dr. Sullivan. Case discussed with Dr. Morley Admission and Anticipated Discharge Date Admission Date: April 21, 2021 Supervising Physician Co-Signing Physician Notes I have reviewed the medical record and discussed the case with Ms. Cazares. I agree with the plan as outlined. His blood pressure is actually better today and I believe he could be discharged home with outpatient follow-up. Subjective Patient resting in chair OOB. Feeling well. Denies recurrent chest pain or SOB since admission. No dizziness or lightheadedness. No syncope or near syncope. BP reading was good overnight but then spiked again this morning at 168/90. No headaches or vision changes. No orthopnea, PND or edema. No palpitations. Review of Systems 2 Review of Systems: Review of Systems: See HPI for pertinent positives. All other 10 point review of systems are negative. Physical Exam Physical Exam: General: Obese. no acute distress and stated age Head: normocephalic, no masses, lesions, tenderness or abnormalities Eyes: conjunctiva are pink and non-injected, sclera clear Neck: supple, no adenopathy, no bruits, normal jugular venous pulse, no hepatojugular reflux Chest: normal shape and normal respiratory effort Lungs: clear to auscultation and percussion Cardiac Exam: Irregularly irregular, no murmurs gallops or rubs - normal S1, normal S2 Pulses: 2(+) throughout Abdomen: abdomen soft, non-tender, no abnormal masses and no hepatosplenomegaly Musculoskeletal: no gait disturbance, no joint inflammation, no deforming arthritis Extremities: no edema and no cyanosis Neuro: grossly normal exam Results & Data ([facility]) Vital Signs (Past 12 Hours) Vital Signs Temp Pulse Resp BP Pulse Ox 04/24/21 03:47 36.5 C 68 16 125/75 95 04/23/21 23:13 36.6 C 70 18 160/89 H 96 04/23/21 20:25 36.6 C 78 17 168/110 H 96 Laboratory Results 04/24/21 04/24/21 04/23/21 Range/Units 07:56 07:15 20:23 Sodium 138 (136-145) mmol/L Potassium 3.5 (3.5-5.1) mmol/L Chloride 104 (98-107) mmol/L Carbon Dioxide 25 (21-32) mmol/L Anion Gap 9.0 (3-11) BUN 25 H (7-18) mg/dl Creatinine 1.37 (0.6-1.4) mg/dl Est Cr Clr Drug Dosing 85.4 ml/min Est GFR ( Amer) 65.0 ml/min Est GFR (Non-Af Amer) 56.1 ml/min BUN/Creatinine Ratio 17.9 (10-20) Glucose 263 H (70-99) mg/dl POC Glucose 174 H 130 H (70-99) mg/dl Calcium 8.8 (8.5-10.1) mg/dl Magnesium 1.9 (1.8-2.4) mg/dl 04/23/21 04/23/21 Range/Units 15:58 10:52 Sodium (136-145) mmol/L Potassium (3.5-5.1) mmol/L Chloride (98-107) mmol/L Carbon Dioxide (21-32) mmol/L Anion Gap (3-11) BUN (7-18) mg/dl Creatinine (0.6-1.4) mg/dl Est Cr Clr Drug Dosing ml/min Est GFR ( Amer) ml/min Est GFR (Non-Af Amer) ml/min BUN/Creatinine Ratio (10-20) Glucose (70-99) mg/dl POC Glucose 156 H 218 H (70-99) mg/dl Calcium (8.5-10.1) mg/dl Magnesium (1.8-2.4) mg/dl Diagnostic Findings Telemetry reviewed - persistent afib rates ranging 70-90 bpm at rest. Echocardiogram report reviewed dated 04/23/2021: Study was technically limited. Grossly normal valve structure and function. Severe concentric LVH. LV cavity is small. Ejection fraction 65 to 70%. RV systolic function is normal. Left atrial size is normal. Right atrial size is normal. Medications Administered Current Inpatient Medications Acetaminophen (Acetaminophen 325 Mg Tab) 650 mg PO Q4H PRN PRN Reason: Pain or Fever Stop: 05/21/21 20:29 Last Admin: 04/21/21 21:26 Dose: 650 mg Documented by: Allopurinol (Allopurinol 300 Mg Tab) 300 mg PO QAM [facility] Stop: 05/22/21 08:59 Last Admin: 04/24/21 08:03 Dose: 300 mg Documented by: Apixaban (Apixaban 5 Mg Tablet) 5 mg PO BID [facility] Stop: 05/21/21 20:59 Last Admin: 04/24/21 08:04 Dose: 5 mg Documented by: Aspirin (Aspirin 81 Mg Ectab) 81 mg PO QAM [facility] Stop: 05/22/21 08:59 Last Admin: 04/24/21 08:04 Dose: 81 mg Documented by: Atorvastatin Calcium (Atorvastatin 10 Mg Tab) 5 mg PO HS [facility] Stop: 05/21/21 20:59 Last Admin: 04/23/21 20:31 Dose: 5 mg Documented by: Carvedilol (Carvedilol 12.5 Mg Tab) 12.5 mg PO BID [facility] Stop: 05/21/21 20:59 Last Admin: 04/24/21 08:03 Dose: 12.5 mg Documented by: Dextrose (Dextrose 50% 50 Ml Syringe) 25 - 50 ml IV UD PRN; Protocol PRN Reason: Hypoglycemia Protocol Stop: 05/21/21 20:29 Docusate Sodium (Docusate Sodium 100 Mg Cap) 100 mg PO DAILY [facility] Stop: 05/22/21 08:59 Last Admin: 04/24/21 08:04 Dose: 100 mg Documented by: Ferrous Sulfate (Ferrous Sulfate 325 Mg Tab) 325 mg PO BIDM [facility] Stop: 05/21/21 20:59 Last Admin: 04/24/21 08:04 Dose: 325 mg Documented by: Folic Acid (Folic Acid 1 Mg Tab) 1 mg PO QAM [facility] Stop: 05/22/21 08:59 Last Admin: 04/24/21 08:04 Dose: 1 mg Documented by: Glucagon (Glucagon For Inj 1 Mg Vial) 1 mg SQ UD PRN; Protocol PRN Reason: Hypoglycemia Protocol Stop: 05/21/21 20:29 Glucose (Glucose 10 Tabs/Tube) 4 - 8 tabs PO UD PRN; Protocol PRN Reason: Hypoglycemia Protocol Stop: 05/21/21 20:29 Glucose (Glucose 40% Gel 15 Gm Tube) 15 - 30 gm PO UD PRN; Protocol PRN Reason: Hypoglycemia Protocol Stop: 05/21/21 20:29 Insulin Aspart (Insulin Aspart 100 Units/Ml 3 Ml Pen) 0 units SC ACHS [facility] Stop: 05/21/21 20:59 Last Admin: 04/24/21 08:02 Dose: 13 units Documented by: Latanoprost (Latanoprost 0.005% Op Soln 2.5 Ml Btl) 1 drops OPB HS [facility] Stop: 05/21/21 20:59 Last Admin: 04/23/21 20:30 Dose: 1 drops Documented by: Miscellaneous (Carbohydrates For Hypoglycemia ) 15 - 30 gm PO UD PRN PRN Reason: Hypoglycemia Protocol Stop: 05/21/21 20:29 Nitroglycerin (Nitroglycerin Sl 0.4 Mg/Tab Tab) 0.4 mg SL UD PRN PRN Reason: Chest Pain Stop: 05/21/21 20:29 Olmesartan (Olmesartan Medoxomil 40 Mg Tab) 40 mg PO QAM [facility] Stop: 05/22/21 08:59 Last Admin: 04/24/21 08:04 Dose: 40 mg Documented by: Torsemide (Torsemide 20 Mg Tab) 40 mg PO BID [facility] Stop: 05/21/21 20:59 Last Admin: 04/24/21 08:03 Dose: 40 mg Documented by: Vitamin D (Cholecalciferol 1,000 Units 25 Mcg Tab) 4,000 units PO QAM [facility] Stop: 05/22/21 08:59 Last Admin: 04/22/21 08:18 Dose: 4,000 units Documented by:
[2021-04-24 08:41] LABS: BUN Creatinine Ratio 17.9 (10-20); Calcium 8.8 mg/dl (8.5-10.1); Creatinine Clr Calc Pharmacy 85.4 ml/min; Est GFR (Non-African American) 56.1 ml/min; Magnesium 1.9 mg/dl (1.8-2.4); Potassium 3.5 mmol/L (3.5-5.1)
[2021-04-24] MEDS ORDERED: carvediloL 12.5 MG TAB PO ONE (09:55)
[2021-04-24] MEDS ORDERED: POTASSIUM CHLORIDE CRTAB 20 MEQ TABCR PO SCH (10:00)
--- NOTE | 2021-04-24 10:55 | Hospitalist Progress Note ---
Date of Service April 24, 2021 Assessment & Plan (1) Precordial chest pain: Plan: Patient presents with acute onset of chest heaviness, SOB, left hand tingling, and lightheadedness this morning in the setting of markedly elevated blood pressure. Symptoms currently resolved except minimal residual tingling after nitro paste x 2 inches and aspirin 324 mg. Likely secondary to uncontrolled high blood pressure Cardiac enzymes negative ECHO:severe concentric LVH, LV cavity is small, EF 65 to 70%, RV systolic function is normal, left atrial size is normal and normal right atrial size Appreciate Cardiology Input Chest Pain resolved (2) Hypertension: Plan: Hypertensive urgency On losartan increased to 40 mg daily Carvedilol increased to 25 mg twice a day Also on torsemide 40 mg twice daily Needs follow-up with cardiology in 2 to 4 weeks (3) CKD (chronic kidney disease) stage 3, GFR 30-59 ml/min: Plan: Renal function stable Monitor (4) Diabetes mellitus, type II, insulin dependent: Plan: - Continue Insulin sliding scale - HbA1c 7.6 - diabetic diet, BSG ACHS - Continue other home meds as appropriate (5) MICAH (obstructive sleep apnea): Plan: - CPAP at with outpatient settings Advised to get repeat sleep study as outpatient (6) History of chronic atrial fibrillation: (7) CAD (coronary artery disease): Plan: DVT Px: on Eliquis, SCDs Code Status: Full code Admission and Anticipated Discharge Date Admission Date: April 21, 2021 Subjective Patient is seen and examined at bedside States feeling well today offers no complaints Denies chest pain, shortness breath, dizziness, nausea, abdominal pain, headache Review of Systems Review of Systems: All systems reviewed & are unremarkable except as noted in Subjective Physical Exam Physical Exam: Physical Exam: Vitals signs as noted above General Appearance:Morbidly Obese, no apparent distress Head: normocephalic, Atraumatic Eyes: normal inspection, EOMI Neck: supple, Trachea midline Respiratory/Chest: Normal breath sounds, CTA, No accessory muscle use Cardiovascular: S1, S2, No murmur Abdomen/GI:Soft, Non tender, Bowel sounds present Extremities/Musculoskeletal:normal inspection, Trace edema, +Chronic Venous stasis changes Neurologic/Psych:AAOX3, grossly no focal neurological deficits Skin: normal color, warm Results & Data Results & Data ([facility]) Vital Signs (Past 12 Hours) Vital Signs Temp Pulse Resp BP Pulse Ox 10/18/21 07:00 37.2 C 90 16 168/90 H 97 04/24/21 03:47 36.5 C 68 16 125/75 95 04/23/21 23:13 36.6 C 70 18 160/89 H 96 Laboratory Results BMP 04/24/21 07:56 Sodium 138 Potassium 3.5 Chloride 104 Carbon Dioxide 25 BUN 25 H Creatinine 1.37 Glucose 263 H Calcium 8.8 (1) Hypertension Hypertension type: unspecified Qualified Code(s): I10 - Essential (primary) hypertension
--- NOTE | 2021-04-24 11:00 | Discharge Summary ---
Date of Service April 24, 2021 Admission HPI Per Admitting Provider This is a 60 y/o male with a complicated PMH including CAD, hx IL, chronic atrial fibrillation on chronic AC, insulin-requiring diabetes with polyneuropathy and retinopathy, spina bifida, HTN, dyslipidemia, depression, CKD 3a, gout, and obesity who presented to the ED via EMS with chest heaviness, SOB, left arm tingling and elevated blood pressure. Pt notes that his BP meds were adjusted earlier this year after panniculectomy in August. He felt like he had been doing fine until the past week when he noticed markedly elevated BPs averaging 200/100 with associated headaches and lightheadedness at times. He is unsure what his BP was averaging before this as he just got this monitor but notes that his symptoms are new. He reached out to his PCP and freight team associate earlier in the week and his Benicar was increased from 10 mg to 20 mg daily yesterday. However, this morning he noticed some lightheadedness so he checked his BP and found it elevated. This worsened and he developed associated SEXTON, pain between his shoulder blades, chest heaviness/discomfort, and tingling in his left > right hand so he called 911. He was given nitro paste x 2 inches and aspirin 81 mg x 4 with improvement in his symptoms. The only residual symptom at present is minimal left hand tingling. Today's symptoms felt similar to his prior IL. Admission Exam Per Admitting Provider Physical Exam Constitutional: well developed and well nourished; no acute distress Eyes: + anicteric sclerae Neck: trachea midline Respiratory: no respiratory distress and no labored breathing Auscultation: lungs clear to auscultation bilaterally; no rales, no rhonchi and no wheezes Cardiovascular: Rate/Rhythm: regular rate and regular rhythm Heart Sounds: no gallop, no murmur and no cardiac rub Vessels: dorsalis pedis pulses present and radial pulses present; no carotid bruit Gastrointestinal (Abdomen): Inspection/Auscultation: normal bowel sounds; abdomen not distended Percussion/Palpation: abdomen soft; abdomen nontender Musculoskeletal: Head/Neck/Chest: normocephalic, head atraumatic and neck supple Skin: no jaundice Neurologic: moves all extremities; no focal motor deficits Psychiatric: A+Ox3, euthymic affect Principal Diagnosis Hypertensive urgency Precordial chest pain Discharge Data Allergies Allergy/AdvReac Type Severity Reaction Status Date / Time sulfamethoxazole Allergy Intermediate Rash Unverified 04/21/21 15:39 trimethoprim Allergy Intermediate Rash Unverified 04/21/21 15:39 AVIVA Inhibitors Allergy Unknown . Unverified 04/21/21 15:39 Bactrim Allergy Unknown . Unverified 12/06/17 15:09 lisinopril Allergy Unknown Unknown Verified 04/21/21 15:39 ceftriaxone AdvReac Mild Rash Verified 04/21/21 15:39 Consultations 04/21/21 15:42 ED Decision to Admit Stat 04/21/21 17:00 Consult Cardiology Routine Hospital Course (1) Precordial chest pain: Patient presents with acute onset of chest heaviness, SOB, left hand tingling, and lightheadedness this morning in the setting of markedly elevated blood pressure. Symptoms currently resolved except minimal residual tingling after nitro paste x 2 inches and aspirin 324 mg. Likely secondary to uncontrolled high blood pressure Cardiac enzymes negative ECHO:severe concentric LVH, LV cavity is small, EF 65 to 70%, RV systolic function is normal, left atrial size is normal and normal right atrial size Appreciate Cardiology Input Chest Pain resolved (2) Hypertension: Hypertensive urgency On losartan increased to 40 mg daily Carvedilol increased to 25 mg twice a day Also on torsemide 40 mg twice daily Needs follow-up with cardiology in 2 to 4 weeks (3) CKD (chronic kidney disease) stage 3, GFR 30-59 ml/min: Renal function stable Monitor (4) Diabetes mellitus, type II, insulin dependent: - Continue Insulin sliding scale - HbA1c 7.6 - diabetic diet, BSG ACHS - Continue other home meds as appropriate (5) MICAH (obstructive sleep apnea): - CPAP at with outpatient settings Advised to get repeat sleep study as outpatient (6) History of chronic atrial fibrillation: (7) CAD (coronary artery disease): DVT Px: on Eliquis, SCDs Code Status: Full code Total Time Total Time Spent Total Time Spent (In Minutes): 35 minutes Discharge Plan Discharge Items Patient Disposition: Home - Self-Care Reason For Visit: CHEST DISCOMFORT, HYPERTENSIVE URGENCY Discharge Diagnosis: Hypertensive urgency, precordial chest pain-no ACS Condition on Discharge: Fair Activity: Resume your previous activity Exercise/Sports: Gradually increase as tolerated Non-emergency contact: Primary Care Provider Call non-emergency contact if: you have any medication questions and your symptoms worsen Follow-up/Referrals: Gregory Botello MD [Primary Care Provider] - (Date & Time 04/28/2021 3:00 PM Provider Gregory Botello MD Department [facility] ) Diet: Heart Healthy and Low Sodium (2gm) Addtl Attending Provider Instructions: Please take precautions to avoid fall Take your medications as directed Please keep appointment with your healthcare provider Pending Studies at Discharge: No Stand-Alone Forms: My [facility] [place] [employer]ME, Smoking Cessation Medications and DC Order Prescriptions: New olmesartan [Benicar] 40 mg Tablet 40 mg PO QAM 30 Days Qty: 30 RF: 0 potassium chloride 20 mEq Tablet,Er Particles/Crystals 20 meq PO QAM Qty: 30 RF: 0 carvedilol [Coreg] 25 mg tablet 25 mg PO BID Qty: 60 RF: 1 Continued aspirin 81 mg tablet,delayed release (DR/EC) 81 mg PO QAM RF: 0 cholecalciferol (vitamin D3) 4,000 unit capsule 4,000 units PO QAM RF: 0 nitroglycerin [Nitrostat] 0.4 mg tablet, sublingual 0.4 mg SL Q5M PRN (Reason: Chest Pain) RF: 0 latanoprost 0.005 % drops 1 drops OPB HS RF: 0 allopurinol 300 mg tablet 300 mg PO QAM RF: 0 torsemide 20 mg tablet 40 mg PO BID RF: 0 docusate sodium 100 mg Capsule 100 mg PO DAILY RF: 0 ferrous sulfate 325 mg (65 mg iron) Tablet 325 mg PO BID RF: 0 folic acid 1 mg Tablet 1 mg PO QAM RF: 0 multivitamin with minerals [Multiple Vitamin-Minerals] Tablet 1 tab PO QAM RF: 0 atorvastatin 10 mg tablet 5 mg PO HS RF: 0 Ozempic 1 mg/dose (2 mg/1.5 mL) Pen Injector 2 mg SUBCUT Q7D RF: 0 ascorbic acid (vitamin C) 250 mg Tablet 250 mg PO BID RF: 0 Lantus U-100 Insulin 100 unit/mL Cartridge 24 unit SUBCUT HS RF: 0 Lactobacillus acidoph-L.bulgar [Floranex] 1 million cell Tablet 1 tab PO BID RF: 0 acetaminophen [Tylenol Extra Strength] 500 mg Tablet 1,000 mg PO HS PRN (Reason: Pain) RF: 0 Eliquis 5 mg tablet 5 mg PO BID RF: 0 Discontinued olmesartan 20 mg tablet 20 mg PO QAM RF: 0 carvedilol 6.25 mg tablet 6.25 mg PO BID RF: 0 Discharge Orders: Discharge Order (Routine); Ordered 04/24/21 Ordered By: Yimi Wills/Other Patient Handouts: A1C, Managing Type 2 Diabetes Admission Data Admit Date/Time: 04/21/21 16:23 Attending Provider: Yimi Garcia Admit Provider: Marjorie Johnson Primary Care Provider: Gregory Botello Other Providers: Apollo Ballesteros ; Marjorie Johnson
[2021-04-24] MEDS: CHOLECALCIFEROL 1,000 UNITS 25 MCG TAB PO SCH (11:13)
[2021-04-24] MEDS ORDERED: carvediloL 25 MG TAB PO SCH (21:00)
== END 2021-04-24 14:05 | disposition home or self-care (01) ==
LOC: ED 13:30 → 1E 13:30 → SUATTDRO 16:23 → 1E 20:23

== ENCOUNTER 2021-11-08 12:34 | Observation (INO) ==
[2021-11-08 13:12] LABS: Basophils # (auto) 0.02 K/uL (0-0.2); Basophils % (auto) 0.3 %; Eosinophils # (auto) 0.05 K/uL (0-0.5); Eosinophils % (auto) 0.7 %; Hematocrit (blood only) 41.8 % (42-52); Hemoglobin 14.5 g/dL (14.0-18.0); Immature Granulocytes # (auto) 0.03 K/uL (0.00-0.02); Immature Granulocytes % (auto) 0.4 %; Lymphocytes # (auto) 1.33 K/uL (1.2-3.4); Lymphocytes % (auto) 18.2 %; Mean Corpuscular Hemoglobin 31.3 pg (25-34); Mean Corpuscular Hgb Conc 34.7 g/dL (32-36); Mean Corpuscular Volume 90.3 fL (80-100); Mean Platelet Volume 10.2 fL (7.4-10.4); Monocytes # (auto) 0.78 K/uL (0.11-0.59); Monocytes % (auto) 10.7 %; Neutrophils # (auto) 5.09 K/uL (1.4-6.5); Neutrophils % (auto) 69.7 %; Platelet Count 175 K/uL (130-400); RDW Coefficient of Variation 13.3 % (11.5-14.5); RDW Standard Deviation 43.7 fL (36.4-46.3); Red Blood Count 4.63 M/uL (4.7-6.1)
[2021-11-08 13:41] LABS: Troponin I High Sensitivity 16.2 pg/ml (0-20)
[2021-11-08 13:50] LABS: Albumin Globulin Ratio 1.4 (0.9-2); BUN Creatinine Ratio 17.5 (10-20); Calcium 9.3 mg/dl (8.5-10.1); Creatinine Clr Calc Pharmacy 126.2 ml/min; Est GFR (African American) 91.1 ml/min; Est GFR (Non-African American) 78.6 ml/min; Globulin 2.8 gm/dl (2.5-4.0); Potassium 3.5 mmol/L (3.5-5.1); Total Protein 6.8 gm/dl (6.0-8.3)
[2021-11-08] MEDS ORDERED: OPTIRAY 320 125ml IV ONE (14:27)
--- NOTE | 2021-11-08 14:55 | CT Scan Report ---
CT SCAN OF THE ABDOMEN AND PELVIS WITH IV CONTRAST CLINICAL HISTORY: Nausea. Generalized abdominal pain. COMPARISON STUDY: Abdominal CT dated 08/27/2020. TECHNIQUE: Following the IV administration of 120 cc of Optiray 320, CT scan of the abdomen and pelv is is performed from the lung bases to the proximal femora. Images are reviewed in the axial, sagitta l, and coronal planes. IV contrast was administered without complication. A dose lowering technique w as utilized adhering to the principles of ALARA. The examination is degraded by large body habitus, a nd by streak artifact from the body wall abutting the CT gantry. CT DOSE: 2316.45 mGy.cm FINDINGS: Lung bases: The heart is enlarged noting a small pericardial effusion. The coronary arteries are dens terese calcified. There are scattered tiny calcified granulomas. The lung bases are otherwise clear. A s mall hiatal hernia is noted. Liver: The contrast-enhanced liver is mildly enlarged, measuring over 18.0 cm in length. The liver is otherwise normal in contour and attenuation. There is no intrahepatic biliary ductal dilatation. Pne umobilia is noted and suggests previous sphincterotomy. The hepatic veins and portal veins are patent . Gallbladder: Surgically absent noting clips in the gallbladder fossa. Spleen: The spleen is enlarged measuring 14 cm in length. Pancreas: Unremarkable. Adrenal glands: Unremarkable. Kidneys: The contrast enhanced kidneys are normal in size and without hydronephrosis. The kidneys enh ance symmetrically. Abdominal vasculature: The abdominal aorta is normal in course and caliber noting mild atheroscleroti c calcification. Bowel: There is mild to moderate colonic fecal retention. No bowel obstruction is identified. The serina endix is well-visualized and normal. Peritoneum: There is no intraperitoneal free air or abdominal ascites. A fat-containing supraumbilica l hernia is seen on image #206. Lymphadenopathy: None. Pelvic viscera: The prostate gland is diminutive and heterogeneous. The bladder is mildly distended b ut otherwise normal in appearance. The seminal vesicles are unremarkable. Skeletal structures: The skeletal structures are osteopenic. There is postoperative and spondylotic c hange noted in the lumbar spine. A large posterior disc osteophyte complex is seen at L3-L4. No lytic or blastic lesions are seen. Soft tissues: A subcutaneous fluid collection is partially visualized in the anterior perineal soft t issues above the base of the penis. This measures approximately 13.5 x 3.5 cm in axial dimension as s een on image #511. This is just deep to the dermal surface. IMPRESSION: 1. No acute infectious or inflammatory findings are identified in the abdomen or pelvis. 2. There is approximately 13.5 x 3.5 cm fluid collection partially visualized in the anterior perinea l soft tissues located above the base of the penis. This may be related to marked scrotal edema which was seen on the 09/04/2020 examination. This is located just deep to the dermal surface, and the ster ility of this fluid cannot be assessed by imaging. Clinical correlation will be essential. 3. Cardiomegaly with advanced coronary artery calcification. 4. Hepatosplenomegaly. 5. Additional findings as above. ACT 112: Negative or not required by law. Electronically signed by: Alberto Betts M.D. 11/08/2021 2:53 PM
[2021-11-08 14:56] LABS: Appearance Urine Clear (Clear); Bacteria Urine Automated Negative (Negative); Bilirubin Urine Negative (Negative); Blood Urine Trace (Negative); Cast Urine Automated 0 /lpf (0-5); Color Urine Yellow; Epithelial Cell Urine Auto 0-5 /lpf (0-5); Glucose Urine UA Trace (Negative); Ketones Urine Negative (Negative); Leukocyte Esterase Urine Negative (Negative); Nitrite Urine Negative (Negative); Protein Urine Negative (Negative); RBC Urine Automated 0-4 /hpf (0-4); Specific Gravity Urine 1.009 (1.000-1.030); Urobilinogen Urine Negative (Negative)
--- NOTE | 2021-11-08 15:08 | CT Scan Report ---
HEAD CT NONCONTRAST CT DOSE: 884.08 mGy.cm HISTORY: dizzy on AC, hx stroke, nausea, lightheaded TECHNIQUE: Multiaxial CT images of the head were performed without the use of intravenous contrast. A utomated exposure control was utilized for this study. A dose lowering technique was utilized adheri ng to the principles of ALARA. Comparison: Head CT 12/15/2019. Findings: The paranasal sinuses and mastoid air cells are clear. The calvarium and skull base are int act. There is no mass, hematoma, midline shift, acute infarct. White matter hypodensity is nonspecifi c but suggestive of microvascular ischemic change. The ventricles and sulci demonstrate mild age-rela chyna involutional changes. Impression: No significant change compared to the prior study. No acute intracranial abnormality. ACT 112: Negative or not required by law. Electronically signed by: Nacho Simmons M.D. 11/08/2021 3:06 PM
[2021-11-08] MEDS ORDERED: MECLIZINE HCL 25 MG TAB PO STA (15:40)
--- NOTE | 2021-11-08 15:48 | Emergency Department Note ---
Impression & Plan Near syncope, Abdominal pain, Nausea, Dizziness, Atrial flutter, chronic ED Provider Note Provider: Joseph Rangel MD DATE OF SERVICE: 11/08/2021 CHIEF COMPLAINT: Near syncope, dizzy, nausea, abdominal pain HISTORY OF PRESENT ILLNESS: Patient is a 61-year-old gentleman past medical history including CAD, atrial fibrillation on Eliquis, insulin-dependent diabetes with neuropathy, spina bifida, hypertension, CKD, and obesity presenting here today reporting around 830a this morning been experience some episodes of lightheadedness and dizziness. States has had bad vertigo in the past this was not quite the same like things were spinning. Reports that he had a brief episode that lasted very transiently about a week ago. States this was associate with some ear ringing today. 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 Denies any trauma or significant headache. Denies chest pain or shortness of breath. Reports some diffuse abdominal pain and some nausea like sensation where his stomach is unsettled. States he has some baseline leg swelling which is unchanged and he continues at home diuretics. Patient denies recent URI symptoms or fever. Patient states he still having ringing his right ear and f eeling a bit dizzy. Patient states just before being evaluated by myself he had an episode where he felt warm all over and has some palpitations and heaviness in his chest briefly. Lightheadedness was worse with this but he denies any syncope. No falls or trauma reported. Patient states he also noted his blood pressures been elevated today. Denies significant again chest pain but a bit of heaviness sometimes across the chest. He states it is a bit reproducible on the left upper chest. Patient denies new focal numbness or weakness today. REVIEW OF SYSTEMS: A total of 10 review of systems was obtained and negative except as stated above in the HPI. PAST MEDICAL HISTORY: As noted above MEDICATIONS: Reviewed home medications includes aspirin and Eliquis SOCIAL HISTORY: Patient lives by himself, former smoker PHYSICAL EXAM: GENERAL: alert and oriented in no acute distress on stretcher Head: normocephalic and atraumatic EYES: No injection, discharge or icterus. PERRL, EOMI. NECK: Trachea midline. Supple. ENT: Mucous membranes pink and moist. TMs clear bilaterally without large effusion noted. LUNGS: Airway patent. No retractions. Breath sounds clear with good air entry bilaterally. HEART: Regular rate and rhythm. Slight left upper chest wall tenderness. ABDOMEN: Soft and non-tender, without guarding or rebound. Some skin changes over the pubic region from prior panectomy SKIN: Warm and dry EXTREMITIES: 1-2+ edema bilateral lower extremities with chronic stasis changes. NEUROLOGICAL: No focal deficits. No aphasia. No facial droop or slurred speech. Normal strength and tone in the extremities. Sensation to gross touch normal. Ambulatory with walker. EK bpm atrial flutter with variable AV block. No acute ST segment elevation or depression with a QTC of 503 and a left axis and right bundle branch block. CONTINUOUS CARDIAC MONITORING: was ordered and showed a heart rate of 60s-70s bpm in atrial flutter with variable AV block Patient's laboratory studies and imaging reviewed. Differential includes Infection, dehydration, metabolic abnormality, h ypo/hyperglycemia, electrolyte disturbance, anemia, hypoxia, cardiac sources, intracerebral event, toxicologic, neurologic, as well as other pathologies. IMPRESSION/MEDICAL DECISION MAKING: Patient without significant focal neurological deficits complaining of some lightheadedness and dizziness associated abdominal pain and nausea. Some slight diffuse abdominal tenderness although no large focal masses with prior healed surgical site on the suprapubic region. CT the abdomen pelvis without s ignificant acute pathology. CT of the head given anticoagulation use and complaints without significant findings. Doubt PE given his anticoagulation use. Blood pressure is elevated here. EKG and troponin without evidence of acute ischemic change with a variable AV block. Telemetry here does capture the 3 to 4-second period of sinus pause and this does seem to correlate with when the patient reports he felt worse and symptoms. Lower suspicion for acute CVA given work-up at this time and doubt LVO given his symptoms. No recent URI symptoms to indicate eustachian tube dysfunction but trialed some meclizine to see if this would help with his symptoms. Given the telemetry changes in his s ymptoms of near syncope and multiple comorbidities and the fact he lives alone with his elevated blood pressure discussed with the patient further observation here in the hospital. DIAGNOSIS: Near syncope, nausea, dizziness, HTN, atrial flutter chronic DISPOSITION: Hospitalist will evaluate Patient was agreeable with this plan. Past Med/Surg History Medical History Abdominal pannus Acquired buried penis Allergic rhinitis Arthritis of knee B-complex deficiency Bilateral scrotal hernia CAD (coronary artery disease) CKD (chronic kidney disease) stage 3, GFR 30-59 ml/min Decreased ambulation status 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, with long-term current use of insulin Diabetic neuropathy Diabetic retinopathy Dyslipidemia GERD (gastroesophageal reflux disease) Glaucoma Gout Hearing loss of left ear History of chronic atrial fibrillation History of TIA (transient ischemic attack) HTN (hypertension) Hyperlipidemia Lymphedema Major depressive disorder Myocardial infarction H/o 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 MICAH (obstructive sleep apnea) Presence of bare metal stent in right coronary artery Sepsis Spina bifida Vitamin D deficiency Surgical History H/O cardiac catheterization H/O colonoscopy H/O nasal septoplasty Hx of tonsillectomy Previous back surgery S/P cholecystectomy S/P panniculectomy Status post uvulopalatopharyngoplasty Family History Mother Coronary heart disease Diabetes Hypertension Social History (Updated 11/08/21 @ 16:24 by Chelly Boone PA-C) Smoking Status: Never smoker Tobacco Type: Cigarettes packs per day: 1; Second Hand Exposure: No; Hx Alcohol Use: No Hx Substance Use: No Preferred Language: Omani Communication Ability: Effective Visual Impairment: Limited Hearing Ability: Hard of Hearing [employer] Required: No Beliefs That Will Affect Care: None marital status: Single Current Living Situation: Alone Current Living Situation Comment: ine apartment current occupational status: disabled Feels Safe at Home: Yes Childhood Exposure to Second-Hand Smoke: No Assistive Devices: Glasses Allergies Allergies Allergy/AdvReac Type Severity Reaction Status Date / Time sulfamethoxazole Allergy Intermediate Rash Verified 11/08/21 15:37 trimethoprim Allergy Intermediate Rash Verified 11/08/21 15:37 AVIVA Inhibitors Allergy Unknown Unknown Verified 11/08/21 15:37 lisinopril Allergy Unknown Unknown Verified 11/08/21 15:37 ceftriaxone AdvReac Mild Rash Verified 11/08/21 15:37 Home Meds Home Medications Medication Instructions Recorded Confirmed aspirin 81 mg tablet,delayed 81 mg PO QAM 09/24/18 11/08/21 release latanoprost 0.005 % eye drops 1 drops OPB HS 09/24/18 11/08/21 nitroglycerin 0.4 mg sublingual 0.4 mg SL Q5M PRN 09/24/18 11/08/21 tablet (Nitrostat) allopurinol 300 mg tablet 300 mg PO QAM 05/25/20 11/08/21 docusate sodium 100 mg capsule 100 mg PO DAILY 05/25/20 11/08/21 ferrous sulfate 325 mg (65 mg 325 mg PO BID 05/25/20 11/08/21 iron) tablet folic acid 1 mg tablet 1 mg PO QAM 05/25/20 11/08/21 multivitamin with minerals 1 tab PO QAM 05/25/20 11/08/21 (Multiple Vitamin-Minerals) torsemide 20 mg tablet 40 mg PO BID 05/25/20 11/08/21 Lactobacillus acidoph-L.bulgaricus 1 tab PO BID 09/04/20 11/08/21 1 million cell tablet (Floranex) ascorbic acid (vitamin C) 250 mg 250 mg PO BID 09/04/20 11/08/21 tablet atorvastatin 10 mg tablet 5 mg PO HS 09/04/20 11/08/21 acetaminophen 500 mg tablet 1,000 mg PO HS PRN 04/21/21 11/08/21 (Tylenol Extra Strength) apixaban 5 mg tablet (Eliquis) 5 mg PO BID 04/21/21 11/08/21 cholecalciferol (vitamin D3) 50 100 mcg PO DAILY 11/08/21 11/08/21 mcg (2,000 unit) capsule (Vitamin D3) insulin glargine 100 unit/mL (3 28 unit SUBCUT PM 11/08/21 11/08/21 mL) subcutaneous pen (Basaglar KwikPen U-100 Insulin) semaglutide 1 mg/dose (4 mg/3 mL) 1 mg SUBCUT WK 11/08/21 11/08/21 subcutaneous pen injector (Ozempic) Previous Rx's Medication Instructions Recorded carvedilol 25 mg tablet (Coreg) 25 mg PO BID #60 tab 04/24/21 potassium chloride 20 mEq 20 meq PO QAM #30 tab 04/24/21 tablet,extended release(part/cryst) Results & Data (ED) Vital Signs Vital Signs - 24 hr 11/08/21 12:25 11/08/21 12:57 11/08/21 14:47 Temperature 36.8 C 36.9 C Temperature Source Oral Oral Pulse Rate 65 Pulse Rate [Apical] 59 L 70 Pulse Rhythm [Apical] Regular Respiratory Rate 19 19 19 Respiratory Effort / Characteristics Non-Labored Respiratory Depth Normal Blood Pressure 171/85 H Blood Pressure [Left Arm] 171/85 H 191/103 H Blood Pressure Mean 113 Blood Pressure Mean [Left Arm] 113 132 Pulse Oximetry 98 96 96 Oxygen Delivery Method Room Air Room Air Room Air Sepsis Recent Fever Within 48 Hours No Sepsis New/Unexplained Change in Mental Status No Sepsis Action Taken by Nursing No Action Required Laboratory Data Result diagrams: 11/08/21 12:45 11/08/21 12:45 Lab Results 11/08/21 11/08/21 11/08/21 Range/Units 12:45 12:45 12:45 WBC 7.30 (4.8-10.8) K/uL RBC 4.63 L (4.7-6.1) M/uL Hgb 14.5 (14.0-18.0) g/dL Hct 41.8 L (42-52) % MCV 90.3 (80-100) fL MCH 31.3 (25-34) pg MCHC 34.7 (32-36) g/dL RDW Std Deviation 43.7 (36.4-46.3) fL RDW Coeff of Selvin 13.3 (11.5-14.5) % Plt Count 175 (130-400) K/uL MPV 10.2 (7.4-10.4) fL Immature Gran % (Auto) 0.4 % Neut % (Auto) 69.7 % Lymph % (Auto) 18.2 % [place] % (Auto) 10.7 % Eos % (Auto) 0.7 % Baso % (Auto) 0.3 % Neut # (Auto) 5.09 (1.4-6.5) K/uL Lymph # (Auto) 1.33 (1.2-3.4) K/uL [place] # (Auto) 0.78 H (0.11-0.59) K/uL Eos # (Auto) 0.05 (0-0.5) K/uL Baso # (Auto) 0.02 (0-0.2) K/uL Immature Gran # (Auto) 0.03 H (0.00-0.02) K/uL Sodium 138 (136-145) mmol/L Potassium 3.5 (3.5-5.1) mmol/L Chloride 101 (98-107) mmol/L Carbon Dioxide 29 (21-32) mmol/L Anion Gap 8 (3-11) BUN 18 (6-23) mg/dl Creatinine 1.03 (0.6-1.4) mg/dl Est Cr Clr Drug Dosing 126.2 ml/min Est GFR ( Amer) 91.1 ml/min Est GFR (Non-Af Amer) 78.6 ml/min BUN/Creatinine Ratio 17.5 (10-20) Glucose 245 H (70-99(Fasting)) mg/dl POC Glucose 243 H (70-99) mg/dl Calcium 9.3 (8.5-10.1) mg/dl Total Bilirubin 2.0 H (0.2-1.0) mg/dl AST 14 (13-39) U/L ALT 13 (7-52) U/L Alkaline Phosphatase 101 (34-104) U/L Troponin I High Sens 16.2 (0-20) pg/ml Total Protein 6.8 (6.0-8.3) gm/dl Albumin 4.0 (3.4-5.0) gm/dl Globulin 2.8 (2.5-4.0) gm/dl Albumin/Globulin Ratio 1.4 (0.9-2) TSH (0.300-4.500) uIu/ml Urine Color Urine Appearance (Clear) Urine pH (4.5-7.5) Ur Specific [place] (1.000-1.030) Urine Protein (Negative) Urine Glucose (UA) (Negative) Urine Ketones (Negative) Urine Blood (Negative) Urine Nitrite (Negative) Urine Bilirubin (Negative) Urine Urobilinogen (Negative) Ur Leukocyte Esterase (Negative) Urine WBC (Auto) (0-5) /hpf Urine RBC (Auto) (0-4) /hpf U Hyaline Cast (Auto) (0-5) /lpf U Epithel Cells (Auto) (0-5) /lpf Urine Bacteria (Auto) (Negative) 05/04/22 05/04/22 Range/Units 12:45 14:12 WBC (4.8-10.8) K/uL RBC (4.7-6.1) M/uL Hgb (14.0-18.0) g/dL Hct (42-52) % MCV (80-100) fL MCH (25-34) pg MCHC (32-36) g/dL RDW Std Deviation (36.4-46.3) fL RDW Coeff of Selvin (11.5-14.5) % Plt Count (130-400) K/uL MPV (7.4-10.4) fL Immature Gran % (Auto) % Neut % (Auto) % Lymph % (Auto) % [place] % (Auto) % Eos % (Auto) % Baso % (Auto) % Neut # (Auto) (1.4-6.5) K/uL Lymph # (Auto) (1.2-3.4) K/uL [place] # (Auto) (0.11-0.59) K/uL Eos # (Auto) (0-0.5) K/uL Baso # (Auto) (0-0.2) K/uL Immature Gran # (Auto) (0.00-0.02) K/uL Sodium (136-145) mmol/L Potassium (3.5-5.1) mmol/L Chloride (98-107) mmol/L Carbon Dioxide (21-32) mmol/L Anion Gap (3-11) BUN (6-23) mg/dl Creatinine (0.6-1.4) mg/dl Est Cr Clr Drug Dosing ml/min Est GFR ( Amer) ml/min Est GFR (Non-Af Amer) ml/min BUN/Creatinine Ratio (10-20) Glucose (70-99(Fasting)) mg/dl POC Glucose (70-99) mg/dl Calcium (8.5-10.1) mg/dl Total Bilirubin (0.2-1.0) mg/dl AST (13-39) U/L ALT (7-52) U/L Alkaline Phosphatase (34-104) U/L Troponin I High Sens (0-20) pg/ml Total Protein (6.0-8.3) gm/dl Albumin (3.4-5.0) gm/dl Globulin (2.5-4.0) gm/dl Albumin/Globulin Ratio (0.9-2) TSH 1.534 (0.300-4.500) uIu/ml Urine Color Yellow Urine Appearance Clear (Clear) Urine pH 8.0 H (4.5-7.5) Ur Specific [place] 1.009 (1.000-1.030) Urine Protein Negative (Negative) Urine Glucose (UA) Trace H (Negative) Urine Ketones Negative (Negative) Urine Blood Trace H (Negative) Urine Nitrite Negative (Negative) Urine Bilirubin Negative (Negative) Urine Urobilinogen Negative (Negative) Ur Leukocyte Esterase Negative (Negative) Urine WBC (Auto) 1-5 (0-5) /hpf Urine RBC (Auto) 0-4 (0-4) /hpf U Hyaline Cast (Auto) 0 (0-5) /lpf U Epithel Cells (Auto) 0-5 (0-5) /lpf Urine Bacteria (Auto) Negative (Negative) Administered Medications Discontinued Medications Ioversol (Optiray 320 125ml) 120 ml IV ONCE ONE Stop: 11/08/21 14:28 Last Admin: 11/08/21 14:27 Dose: 120 ml Documented by: [id number] Imaging Data Radiologist's Impression: Abdomen/Pelvis CT 11/08/21 14:04 CT SCAN OF THE ABDOMEN AND PELVIS WITH IV CONTRAST CLINICAL HISTORY: Nausea. Generalized abdominal pain. COMPARISON STUDY: Abdominal CT dated 08/27/2020. TECHNIQUE: Following the IV administration of 120 cc of Optiray 320, CT scan of the abdomen and pelvis is performed from the lung bases to the proximal femora. Images are reviewed in the axial, sagittal, and coronal planes. IV contrast was administered without complication. A dose lowering technique was utilized adhering to the principles of ALARA. The examination is degraded by large body habitus, and by streak artifact from the body wall abutting the CT gantry. CT DOSE: 2316.45 mGy.cm FINDINGS: Lung bases: The heart is enlarged noting a small pericardial effusion. The coronary arteries are densely calcified. There are scattered tiny calcified granulomas. The lung bases are otherwise clear. A small hiatal hernia is noted. Liver: The contrast-enhanced liver is mildly enlarged, measuring over 18.0 cm in length. The liver is otherwise normal in contour and attenuation. There is no intrahepatic biliary ductal dilatation. Pneumobilia is noted and suggests previous sphincterotomy. The hepatic veins and portal veins are patent. Gallbladder: Surgically absent noting clips in the gallbladder fossa. Spleen: The spleen is enlarged measuring 14 cm in length. Pancreas: Unremarkable. Adrenal glands: Unremarkable. Kidneys: The contrast enhanced kidneys are normal in size and without hydronephrosis. The kidneys enhance symmetrically. Abdominal vasculature: The abdominal aorta is normal in course and caliber noting mild atherosclerotic calcification. Bowel: There is mild to moderate colonic fecal retention. No bowel obstruction is identified. The appendix is well-visualized and normal. Peritoneum: There is no intraperitoneal free air or abdominal ascites. A fat- containing supraumbilical hernia is seen on image #206. Lymphadenopathy: None. Pelvic viscera: The prostate gland is diminutive and heterogeneous. The bladder is mildly distended but otherwise normal in appearance. The seminal vesicles are unremarkable. Skeletal structures: The skeletal structures are osteopenic. There is postoperative and spondylotic change noted in the lumbar spine. A large post erior disc osteophyte complex is seen at L3-L4. No lytic or blastic lesions are seen. Soft tissues: A subcutaneous fluid collection is partially visualized in the anterior perineal soft tissues above the base of the penis. This measures approximately 13.5 x 3.5 cm in axial dimension as seen on image #511. This is just deep to the dermal surface. IMPRESSION: 1. No acute infectious or inflammatory findings are identified in the abdomen or pelvis. 2. There is approximately 13.5 x 3.5 cm fluid collection partially visualized in the anterior perineal soft tissues located above the base of the penis. This may be related to marked scrotal edema which was seen on the 09/04/2020 examination. This is located just deep to the dermal surface, and the sterility of this fluid cannot be assessed by imaging. Clinical correlation will be essential. 3. Cardiomegaly with advanced coronary artery calcification. 4. Hepatosplenomegaly. 5. Additional findings as above. ACT 112: Negative or not required by law. Electronically signed by: Alberto Betts M.D. 11/08/2021 2:[address] 11/08/21 14:[address] DOSE: 884.08 mGy.cm HISTORY: dizzy on AC, hx stroke, nausea, lightheaded TECHNIQUE: Multiaxial CT images of the head were performed without the use of intravenous contrast. Automated exposure control was utilized for this study. A dose lowering technique was utilized adhering to the principles of ALARA. Comparison: Head CT 12/15/2019. Findings: The paranasal sinuses and mastoid air cells are clear. The calvarium and skull base are intact. There is no mass, hematoma, midline shift, acute infarct. White matter hypodensity is nonspecific but suggestive of microvascular ischemic change. The ventricles and sulci demonstrate mild age-related involutional changes. Impression: No significant change compared to the prior study. No acute intracranial ab normality. ACT 112: Negative or not required by law. Electronically signed by: Nacho Simmons M.D. 11/08/2021 3:06 PM Discharge Plan Visit Data Chief Complaint: Dizziness Stated Complaint: HTN, DIZZINESS ED Provider: Joseph Rangel Discharge Problem: Near syncope, Abdominal pain, Nausea, Dizziness, Atrial flutter, chronic Patient Disposition: Being Evaluated by Hospitalist Forms Stand Alone Forms: My [facility] Prescriptions Prescriptions: No Action aspirin 81 mg tablet,delayed release (DR/EC) 81 mg PO QAM RF: 0 nitroglycerin [Nitrostat] 0.4 mg tablet, sublingual 0.4 mg SL Q5M PRN (Reason: Chest Pain) RF: 0 latanoprost 0.005 % drops 1 drops OPB HS RF: 0 allopurinol 300 mg tablet 300 mg PO QAM RF: 0 torsemide 20 mg tablet 40 mg PO BID RF: 0 docusate sodium 100 mg Capsule 100 mg PO DAILY RF: 0 ferrous sulfate 325 mg (65 mg iron) Tablet 325 mg PO BID RF: 0 folic acid 1 mg Tablet 1 mg PO QAM RF: 0 Multiple Vitamin-Minerals Tablet 1 tab PO QAM RF: 0 atorvastatin 10 mg tablet 5 mg PO HS RF: 0 ascorbic acid (vitamin C) 250 mg Tablet 250 mg PO BID RF: 0 Lactobacillus acidoph-L.bulgar [Floranex] 1 million cell Tablet 1 tab PO BID RF: 0 acetaminophen [Tylenol Extra Strength] 500 mg Tablet 1,000 mg PO HS PRN (Reason: Pain) RF: 0 Eliquis 5 mg tablet 5 mg PO BID RF: 0 potassium chloride 20 mEq Tablet,Er Particles/Crystals 20 meq PO QAM Qty: 30 RF: 0 carvedilol [Coreg] 25 mg tablet 25 mg PO BID Qty: 60 RF: 1 Basaglar KwikPen U-100 Insulin 100 unit/mL (3 mL) Insulin Pen 28 unit SUBCUT PM RF: 0 cholecalciferol (vitamin D3) [Vitamin D3] 50 mcg (2,000 unit) Capsule 100 mcg PO DAILY RF: 0 Ozempic 1 mg/dose (4 mg/3 mL) pen injector 1 mg SUBCUT WK RF: 0 Referrals Referrals: Gregory Botello MD [Primary Care Provider] - Discharge Problem: Abdominal pain Qualifiers: Abdominal location: generalized Qualified Code(s): R10.84 - Generalized abdominal pain
--- NOTE | 2021-11-08 16:28 | History & Physical Report ---
Date of Service November 08, 2021 Assessment & Plan (1) Dizziness: (2) Hypertensive urgency: (3) Atrial flutter, chronic: (4) Diabetes mellitus, type II, insulin dependent: (5) CAD (coronary artery disease): (6) MICAH (obstructive sleep apnea): Plan: This is a 61-year-old male who has a significant past medical history of spina bifida, Insulin dependent T2DM, HTN, HLD, history of CVA, CAD with history of inferior STEMI and stent placed in 2008, MICAH on CPAP, chronic atrial fibrillation anticoagulated on Eliquis, CKD stage III, gout, depression who presents to ED secondary to dizziness and high blood pressure. Pt presents to ED with significantly elevated blood pressure in setting of poor dietary compliance. It was also associated with ringing to R ear and vertigo sensation. He has been compliant with olmesartan, coreg and torsemide. He admits to eating a processed food and last night fast food burger and fries. Initially BP 170-190/100s. Initial trop negative. EKG with chronic a flutter. In ED pt did experience, "flushing," that was associated with a 3 sec pause on the tele monitor. Hypertensive urgency Dizziness Admit to signal maintainer helper on telemetry for any further pauses, he is chronically in atrial flutter/fib Initiate amlodipine 5 mg x 1 now and then daily Continue Coreg and on losartan and torsemide Consult dietitian to assist with DASH diet Cycle troponins Repeat EKG in a.m. Goal is to achieve better blood pressure control Orthostatic vital signs ordered Last Echo 04/23/21 ECHO:severe concentric LVH, LV cavity is small, EF 65 to 70%, RV systolic function is normal, left atrial size is normal and normal right atrial size Chronic atrial fibrillation/flutter Continue Eliquis for anticoagulation, patient has been compliant Continue Coreg T2DM Last A1c 8.8 on 09/04/2021 On a daily Basaglar, Ozempic, metformin Lantus/NovoLog per protocol while inpatient Patient states previously he had improved control and he was on mealtime insulin CAD denies CP or SOB continue asa, statin, coreg, olmesartan cycle trops as above MICAH CPAP at bedtime CKD 3 bun/cr stable avoid nephrotoxic agents DVT ppx: eliquis Dispo: PCU for tele monitoring and better bp control, possible d/c in 24 hrs FULL CODE PCP: Rosmery Pt was seen and examined in collaboration with Dr. Mcintosh, please see addendum History of Present Illness Chief Complaint: Dizziness since 830 a.m. Primary Care Provider: Gregory Botello MD This is a 61-year-old male who has a significant past medical history of spina bifida, Insulin dependent T2DM, HTN, HLD, history of CVA, CAD with history of inferior STEMI and stent placed in 2008, MICAH on CPAP, chronic atrial fibrillation anticoagulated on Eliquis, CKD stage III, gout, depression who presents to ED secondary to dizziness and high blood pressure. This morning when he woke up he didn't feel well and BP was 211/118. He has been compliant with his medications. He felt his blood pressure had been doing good except last week he had an elevated reading of 200/105. He admits his diet is not really good. He does not get around much and he does not do much cooking. He uses the microwave. He drinks diet soda and has been cutting back chips. He has been monitoring his salt intake. He has been trying to drink regular water or sparkling water. Yesterday he splurged with burger and fries from fast food restaurant. He eats fast food 1-2/month. He was hospitalized last April for 3 days due to high blood pressure. He complains of dizziness/of balance that started with his elevated blood pressure. It was worse with quick movements and standing. 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 He has constant tinnitus in L ear and occasional in R when BP is up. He lives by himself. He denies URI sx, muscle pain, dysuria, hematuria, melena, hematochezia, diarrhea, or sob. He complains of mild frontal headache and pain in his chest when he touches he chest and jaw ache. He has had abdominal pain. This morning he ate breakfast and took meds then developed nausea and abdominal pain. When EMS came they gave him aspirin and the pain got worse and has persisted. He was a former smoker ~ 20 years ago. Denies alcohol use. In ED patient was significantly hypertensive with BP 191/103. He was otherwise hemodynamically stable. His CBC was relatively unremarkable and a CMP with a hyperglycemia with glucose 225, elevated total bilirubin at 2.0. His urinalysis revealed glucose and trace blood. CT head was negative for no acute intracranial abnormality, white matter hypodensity suggestive of microvascular ischemic change. CT abdomen pelvis with no acute infection inflammatory findings. A 13.5 x 3.5 cm fluid collection was partially visualized in the anterior perineal soft tissues of the base of penis. Per ED provider this correlates with patient's prior history of panniculectomy and no underlying infection is present. Hepatosplenomegaly noted as well. Allergies Allergy/AdvReac Type Severity Reaction Status Date / Time sulfamethoxazole Allergy Intermediate Rash Verified 11/08/21 15:37 trimethoprim Allergy Intermediate Rash Verified 11/08/21 15:37 AVIVA Inhibitors Allergy Unknown Unknown Verified 11/08/21 15:37 lisinopril Allergy Unknown Unknown Verified 11/08/21 15:37 ceftriaxone AdvReac Mild Rash Verified 11/08/21 15:37 Home Medications Medication Instructions Recorded Confirmed Type aspirin 81 mg tablet,delayed 81 mg PO QAM 09/24/18 11/08/21 History release latanoprost 0.005 % eye drops 1 drops OPB HS 09/24/18 11/08/21 History nitroglycerin 0.4 mg sublingual 0.4 mg SL Q5M PRN 09/24/18 11/08/21 History tablet (Nitrostat) allopurinol 300 mg tablet 300 mg PO QAM 05/25/20 11/08/21 History docusate sodium 100 mg capsule 100 mg PO DAILY 05/25/20 11/08/21 History ferrous sulfate 325 mg (65 mg 325 mg PO BID 05/25/20 11/08/21 History iron) tablet folic acid 1 mg tablet 1 mg PO QAM 05/25/20 11/08/21 History multivitamin with minerals 1 tab PO QAM 05/25/20 11/08/21 History (Multiple Vitamin-Minerals) torsemide 20 mg tablet 40 mg PO BID 05/25/20 11/08/21 History Lactobacillus acidoph-L.bulgaricus 1 tab PO BID 09/04/20 11/08/21 History 1 million cell tablet (Floranex) ascorbic acid (vitamin C) 250 mg 250 mg PO BID 09/04/20 11/08/21 History tablet atorvastatin 10 mg tablet 5 mg PO HS 09/04/20 11/08/21 History acetaminophen 500 mg tablet 1,000 mg PO HS PRN 04/21/21 11/08/21 History (Tylenol Extra Strength) apixaban 5 mg tablet (Eliquis) 5 mg PO BID 04/21/21 11/08/21 History carvedilol 25 mg tablet (Coreg) 25 mg PO BID #60 tab 04/24/21 11/08/21 Rx potassium chloride 20 mEq 20 meq PO QAM #30 tab 04/24/21 11/08/21 Rx tablet,extended release(part/cryst) cholecalciferol (vitamin D3) 50 100 mcg PO DAILY 11/08/21 11/08/21 History mcg (2,000 unit) capsule (Vitamin D3) insulin glargine 100 unit/mL (3 28 unit SUBCUT PM 11/08/21 11/08/21 History mL) subcutaneous pen (Basaglar KwikPen U-100 Insulin) olmesartan 40 mg tablet 40 mg PO DAILY 11/08/21 11/08/21 History semaglutide 1 mg/dose (4 mg/3 mL) 1 mg SUBCUT WK 11/08/21 11/08/21 History subcutaneous pen injector (Ozempic) Past Med/Surg History Medical History Abdominal pannus Acquired buried penis Allergic rhinitis Arthritis of knee B-complex deficiency Bilateral scrotal hernia CAD (coronary artery disease) CKD (chronic kidney disease) stage 3, GFR 30-59 ml/min Decreased ambulation status 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, with long-term current use of insulin Diabetic neuropathy Diabetic retinopathy Dyslipidemia GERD (gastroesophageal reflux disease) Glaucoma Gout Hearing loss of left ear History of chronic atrial fibrillation History of TIA (transient ischemic attack) HTN (hypertension) Hyperlipidemia Lymphedema Major depressive disorder Myocardial infarction H/o 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 MICAH (obstructive sleep apnea) Presence of bare metal stent in right coronary artery Sepsis Spina bifida Vitamin D deficiency Surgical History H/O cardiac catheterization H/O colonoscopy H/O nasal septoplasty Hx of tonsillectomy Previous back surgery S/P cholecystectomy S/P panniculectomy Status post uvulopalatopharyngoplasty Family History Mother Coronary heart disease Diabetes Hypertension Social History (Updated 11/08/21 @ 16:24 by Chelly Boone PA-C) Smoking Status: Former smoker Tobacco Type: Cigarettes packs per day: 1; Second Hand Exposure: No; Hx Alcohol Use: No Hx Substance Use: No Preferred Language: Khmer Communication Ability: Effective Visual Impairment: Limited Hearing Ability: Hard of Hearing Resident Associate Required: No Beliefs That Will Affect Care: None marital status: Single Current Living Situation: Alone Current Living Situation Comment: ine apartment current occupational status: disabled Other Information That Helps Us Care for You: No Feels Safe at Home: Yes Safety Concerns: Feels Safe At This Time Childhood Exposure to Second-Hand Smoke: No Assistive Devices: CPAP, Glasses, Special Shoe and Wheelchair Review of Systems Review of Systems: All systems reviewed & are unremarkable except as noted in HPI & below Physical Exam Physical Exam: Constitutional: WD/WN, morbidly obese, vitals as above, NAD, sitting up in bed, pleasant, conversing easily Head: Normocephalic, Atraumatic Eyes: PERRL, conjunctivae normal, anicteric sclerae ENMT: external ear and nose normal, oropharynx normal Neck: trachea midline, no thyromegaly normal visual inspection Respiratory: normal respiratory effort, lungs clear to auscultation, no wheeze, rales, rhonchi. Normal insp/exp effort, no accessory muscle use Cardiovascular: RRR, no murmur, b/l venous stasis changes with trace lower ext pre tibial edema Vessels: no JVD or carotid bruit Chest: normal inspection of chest , pain to palpation R and L chest wall Abdomen: normal bowel sounds, soft, nontender, no hepatosplenomegaly, obese abd Musculoskeletal: no cyanosis or clubbing, extremities motor strength 5/5 Skin: no rashes, warm and dry normal turgor Neurologic: PERRL, EOMI, accommodation nl, no face palsy, no dysarthria CN's II-XI intact bilaterally and moves all extremities Psychiatric: A+Ox3, euthymic affect Lymphatic: no cervical or axillary lymphadenopathy : 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 Results & Data Results & Data ([facility]) Vital Signs (Past 12 Hours) Vital Signs Temp Pulse Pulse Resp BP BP Pulse Ox 11/08/21 14:47 70 19 191/103 H 96 11/08/21 12:57 36.9 C 59 L 19 171/85 H 96 11/08/21 12:25 36.8 C 65 19 171/85 H 98 Diagnostic Findings Abdomen/Pelvis CT 11/08/21 14:04 CT SCAN OF THE ABDOMEN AND PELVIS WITH IV CONTRAST CLINICAL HISTORY: Nausea. Generalized abdominal pain. COMPARISON STUDY: Abdominal CT dated 08/27/2020. TECHNIQUE: Following the IV administration of 120 cc of Optiray 320, CT scan of the abdomen and pelvis is performed from the lung bases to the proximal femora. Images are reviewed in the axial, sagittal, and coronal planes. IV contrast was administered without complication. A dose lowering technique was utilized adhering to the principles of ALARA. The examination is degraded by large body habitus, and by streak artifact from the body wall abutting the CT gantry. CT DOSE: 2316.45 mGy.cm FINDINGS: Lung bases: The heart is enlarged noting a small pericardial effusion. The coronary arteries are densely calcified. There are scattered tiny calcified granulomas. The lung bases are otherwise clear. A small hiatal hernia is noted. Liver: The contrast-enhanced liver is mildly enlarged, measuring over 18.0 cm in length. The liver is otherwise normal in contour and attenuation. There is no intrahepatic biliary ductal dilatation. Pneumobilia is noted and suggests previous sphincterotomy. The hepatic veins and portal veins are patent. Gallbladder: Surgically absent noting clips in the gallbladder fossa. Spleen: The spleen is enlarged measuring 14 cm in length. Pancreas: Unremarkable. Adrenal glands: Unremarkable. Kidneys: The contrast enhanced kidneys are normal in size and without hydronephrosis. The kidneys enhance symmetrically. Abdominal vasculature: The abdominal aorta is normal in course and caliber noting mild atherosclerotic calcification. Bowel: There is mild to moderate colonic fecal retention. No bowel obstruction is identified. The appendix is well-visualized and normal. Peritoneum: There is no intraperitoneal free air or abdominal ascites. A fat- containing supraumbilical hernia is seen on image #[id number]. Lymphadenopathy: None. Pelvic viscera: The prostate gland is diminutive and heterogeneous. The bladder is mildly distended but otherwise normal in appearance. The seminal vesicles are unremarkable. Skeletal structures: The skeletal structures are osteopenic. There is postoperative and spondylotic change noted in the lumbar spine. A large posterior disc osteophyte complex is seen at L3-L4. No lytic or blastic lesions are seen. Soft tissues: A subcutaneous fluid collection is partially visualized in the anterior perineal soft tissues above the base of the penis. This measures approximately 13.5 x 3.5 cm in axial dimension as seen on image #511. This is just deep to the dermal surface. IMPRESSION: 1. No acute infectious or inflammatory findings are identified in the abdomen or pelvis. 2. There is approximately 13.5 x 3.5 cm fluid collection partially visualized in the anterior perineal soft tissues located above the base of the penis. This may be related to marked scrotal edema which was seen on the 09/04/2020 examination. This is located just deep to the dermal surface, and the sterility of this fluid cannot be assessed by imaging. Clinical correlation will be essential. 3. Cardiomegaly with advanced coronary artery calcification. 4. Hepatosplenomegaly. 5. Additional findings as above. ACT 112: Negative or not required by law. Electronically signed by: Alberto Betts M.D. 11/08/2021 2:[address] 11/08/21 14:[address] DOSE: 884.08 mGy.cm HISTORY: dizzy on AC, hx stroke, nausea, lightheaded TECHNIQUE: Multiaxial CT images of the head were performed without the use of intravenous contrast. Automated exposure control was utilized for this study. A dose lowering technique was utilized adhering to the principles of ALARA. Comparison: Head CT 12/15/2019. Findings: The paranasal sinuses and mastoid air cells are clear. The calvarium and skull base are intact. There is no mass, hematoma, midline shift, acute infarct. White matter hypodensity is nonspecific but suggestive of microvascular ischemic change. The ventricles and sulci demonstrate mild age-related involutional changes. Impression: No significant change compared to the prior study. No acute intracranial abnormality. ACT 112: Negative or not required by law. Electronically signed by: Nacho Simmons M.D. 11/08/2021 3:06 PM Medications Administered Medication List Discontinued Medications Ioversol (Optiray 320 125ml) 120 ml IV ONCE ONE Stop: 11/08/21 14:28 Last Admin: 11/08/21 14:27 Dose: 120 ml Documented by: [id number] ECG Rate (beats per minute): 70 Rhythm: atrial flutter Findings: + RBBB and + prolonged QT (qtc 503ms) COVID-19 Results Results COVID-19 Adm Lab Results: RBC 4.63 M/uL (4.7-6.1) L 11/08/21 WBC 7.30 K/uL (4.8-10.8) 11/08/21 Hgb 14.5 g/dL (14.0-18.0) 11/08/21 Hct 41.8 % (42-52) L 11/08/21 Plt Count 175 K/uL (130-400) 11/08/21 Neutrophils (%) (Auto) 69.7 % 11/08/21 Lymphocytes (%) (Auto) 18.2 % 11/08/21 Monocytes # (Auto) 0.78 K/uL (0.11-0.59) H 11/08/21 Eosinophils # (Auto) 0.05 K/uL (0-0.5) 11/08/21 Immature Granulocyte % (Auto) 0.4 % 11/08/21 Neutrophils # (Auto) 5.09 K/uL (1.4-6.5) 11/08/21 Lymphocytes # (Auto) 1.33 K/uL (1.2-3.4) 11/08/21 Monocytes # (Auto) 0.78 K/uL (0.11-0.59) H 11/08/21 Eosinophils # (Auto) 0.05 K/uL (0-0.5) 11/08/21 Basophils # (Auto) 0.02 K/uL (0-0.2) 11/08/21 Immature Granulocyte # (Auto) 0.03 K/uL (0.00-0.02) H 11/08/21 Na 138 mmol/L (136-145) 11/08/21 K 3.5 mmol/L (3.5-5.1) 11/08/21 Cl 101 mmol/L (98-107) 11/08/21 CO2 29 mmol/L (21-32) 11/08/21 Anion Gap 8 (3-11) 11/08/21 BUN 18 mg/dl (6-23) 11/08/21 Creatinine 1.03 mg/dl (0.6-1.4) 11/08/21 BUN/Creatinine Ratio 17.5 (10-20) 11/08/21 Glucose Level 245 mg/dl (70-99(Fasting)) H 11/08/21 Ca 9.3 mg/dl (8.5-10.1) 11/08/21 Total Bilirubin 2.0 mg/dl (0.2-1.0) H 11/08/21 Direct Bilirubin 0.3 mg/dl (0-0.2) H 11/08/21 AST/SGOT 14 U/L (13-39) 11/08/21 ALT/SGPT 13 U/L (7-52) 11/08/21 Alkaline Phosphatase 101 U/L (34-104) 11/08/21 Total Protein 6.8 gm/dl (6.0-8.3) 11/08/21 Albumin 4.0 gm/dl (3.4-5.0) 11/08/21 Globulin 2.8 gm/dl (2.5-4.0) 11/08/21 Albumin/Globulin Ratio 1.4 (0.9-2) 11/08/21 SARS-CoV-2, RNA, NAAT NEGATIVE (NEGATIVE) 11/08/21 Code Status & VTE Plan Code Status FULL CODE VTE Prophylaxis Plan VTE Prophylaxis will be ordered: No Supervising Physician Co-Signing Physician Notes 61-year-old gentleman with PMH of spina bifida, insulin-dependent T2DM, HTN, HLD, dietary indiscretion, CVA, CAD status post stent, MICAH on CPAP, chronic A. fib on Eliquis, CKD stage III, gout, depression presented to the ED 11/08 with complaint of high blood pressure and associated dizziness/ringing in the ears. Per patient, he has been trying to decrease his salt intake and chips/popsicles. Yesterday because he was craving, he went on to eat hamburger and fries. In the morning on the day of arrival, his blood pressure was very high 211/118, he also complained of associated lightheadedness and ringing sensation in the ears. With the associated symptoms improved with improving blood pressure. Admitting CT head was WNL. CTAP was suggestive of collection in the anterior perineal tissues which is chronic and is not suggestive of any infection/tenderness on examination. Patient is deaf in left ear. Admitting EKG showed a flutter. Dietitian consult, add amlodipine, monitor blood pressure closely, advised heart healthy diet, troponin trend negative. Patient does have chronic pain for which he uses Tylenol, we can use Voltaren gel for his chronic anterior bilateral lower ribs pain. Patient states that he quit smoking and drinking 20 years ago. Upon examination GENERAL: Alert and oriented x3. NAD, on RA. HEENT: No pallor, no icterus. Pupils equal, round and reactive to light. Oral mucosa moist. NECK: No JVD, no neck masses. HEART: S1 and S2 heard. Regular rate and rhythm. No murmur, no gallop. Bilateral lower anterior ribs tenderness, which is chronic per patient. RESPIRATORY SYSTEM: Normal AP diameter. No accessory muscle use. No wheezing, no crackles. ABDOMEN: Soft, bowel sounds present, nontender, no distention. CENTRAL NERVOUS SYSTEM: No facial droop. Speech is clear. Obeys simple commands. Moves extremities. EXTREMITIES: 1+ BLE edema, BLE chronic skin changes noted. Lower back with healed surgical scar. Genitourinary examination reveals pannus. No erythema or tenderness noted. I have seen and examined the patient and have discussed the case with the provider above. I agree with the assessment and plan as stated.
[2021-11-08] MEDS ORDERED: amLODIPine BESYLATE 5 MG TAB PO ONE (17:05)
[2021-11-08] MEDS ORDERED: ACETAMINOPHEN 325 MG TAB PO PRN (18:39)
[2021-11-08] MEDS ORDERED: GLUCOSE 40% GEL 15 GM TUBE PO PRN (18:39)
[2021-11-08] MEDS ORDERED: MECLIZINE HCL 25 MG TAB PO PRN (18:39)
[2021-11-08] MEDS ORDERED: POLYETHYLENE (MIRALAX) 17 GM PACK PO PRN (18:39)
[2021-11-08] MEDS ORDERED: GLUCOSE 10 TABS/TUBE PO PRN (18:39)
[2021-11-08] MEDS ORDERED: MAGNESIUM HYDROXIDE SUSP 30 ML UDC PO PRN (18:39)
[2021-11-08] MEDS ORDERED: CARBOHYDRATES FOR HYPOGLYCEMIA PO PRN (18:39)
[2021-11-08] MEDS ORDERED: ALUMINUM/MAGNESIUM SUSP 30 ML UDC PO PRN (18:39)
[2021-11-08] MEDS ORDERED: GLUCAGON FOR INJ 1 MG VIAL SQ PRN (18:39)
[2021-11-08] MEDS ORDERED: ACETAMINOPHEN 500 MG TAB PO PRN (18:39)
[2021-11-08] MEDS ORDERED: PROMETHAZINE HCL 12.5 MG in SODIUM CHLORIDE 0.9% 50 ML IV PRN (18:39)
[2021-11-08] MEDS ORDERED: DEXTROSE 50% 50 ML SYRINGE IV PRN (18:39)
[2021-11-08] MEDS ORDERED: POTASSIUM CHLORIDE CRTAB 20 MEQ TABCR PO STA (19:59)
[2021-11-08] MEDS: INSULIN ASPART PER UNIT SC SCH ×2 (20:01→20:06)
[2021-11-08] MEDS: ASCORBIC ACID 500 MG TAB PO SCH (20:07)
[2021-11-08] MEDS: APIXABAN 5 MG TABLET PO SCH (20:07)
[2021-11-08] MEDS: carvediloL 25 MG TAB PO SCH (20:08)
[2021-11-08] MEDS: ADVANCED PROBIOTIC 1250 MG CAPSULE PO SCH (20:09)
[2021-11-08] MEDS ORDERED: DICLOFENAC SOD 1% GEL 100 GM TUBE EXT PRN (20:09)
[2021-11-08] MEDS: FERROUS SULFATE 325 MG TAB PO SCH (20:22)
[2021-11-08] MEDS: TORSEMIDE 20 MG TAB PO SCH (20:24)
[2021-11-08] MEDS ORDERED: LATANOPROST 0.005% OP SOLN 2.5 ML BTL OPB SCH (21:00)
[2021-11-08] MEDS ORDERED: ATORVASTATIN 10 MG TAB PO SCH (21:00)
[2021-11-08] MEDS ORDERED: INSULIN GLARGINE SOLOSTAR 100 UNITS/ML 3 ML PEN SC SCH (21:00)
[2021-11-09] MEDS: INSULIN ASPART PER UNIT SC SCH ×2 (07:49→12:18)
[2021-11-09] MEDS: TORSEMIDE 20 MG TAB PO SCH (08:05)
[2021-11-09] MEDS: FERROUS SULFATE 325 MG TAB PO SCH (08:05)
[2021-11-09] MEDS: ASCORBIC ACID 500 MG TAB PO SCH (08:06)
[2021-11-09] MEDS: APIXABAN 5 MG TABLET PO SCH (08:06)
[2021-11-09] MEDS: ADVANCED PROBIOTIC 1250 MG CAPSULE PO SCH (08:06)
[2021-11-09] MEDS: carvediloL 25 MG TAB PO SCH (08:06)
[2021-11-09 08:48] LABS: Basophils # (auto) 0.01 K/uL (0-0.2); Basophils % (auto) 0.1 %; Eosinophils # (auto) 0.09 K/uL (0-0.5); Eosinophils % (auto) 1.3 %; Hemoglobin 13.6 g/dL (14.0-18.0); Immature Granulocytes # (auto) 0.03 K/uL (0.00-0.02); Immature Granulocytes % (auto) 0.4 %; Lymphocytes # (auto) 1.12 K/uL (1.2-3.4); Lymphocytes % (auto) 16.4 %; Mean Corpuscular Hemoglobin 31.2 pg (25-34); Mean Corpuscular Volume 91.7 fL (80-100); Mean Platelet Volume 9.6 fL (7.4-10.4); Monocytes # (auto) 0.76 K/uL (0.11-0.59); Monocytes % (auto) 11.1 %; Neutrophils # (auto) 4.82 K/uL (1.4-6.5); Neutrophils % (auto) 70.7 %; Platelet Count 155 K/uL (130-400); RDW Coefficient of Variation 13.6 % (11.5-14.5); RDW Standard Deviation 45.3 fL (36.4-46.3); Red Blood Count 4.36 M/uL (4.7-6.1); White Blood Count 6.83 K/uL (4.8-10.8)
[2021-11-09] MEDS ORDERED: FOLIC ACID 1 MG TAB PO SCH (09:00)
[2021-11-09] MEDS ORDERED: ASPIRIN 81 MG ECTAB PO SCH (09:00)
[2021-11-09] MEDS ORDERED: CEROVITE ADV FORMULA TAB PO SCH (09:00)
[2021-11-09] MEDS ORDERED: OLMESARTAN MEDOXOMIL 40 MG TAB PO SCH (09:00)
[2021-11-09] MEDS ORDERED: DOCUSATE SODIUM 100 MG CAP PO SCH (09:00)
[2021-11-09] MEDS ORDERED: amLODIPine BESYLATE 5 MG TAB PO SCH (09:00)
[2021-11-09] MEDS ORDERED: allopurinoL 300 MG TAB PO SCH (09:00)
[2021-11-09] MEDS ORDERED: CHOLECALCIFEROL 1,000 UNITS 25 MCG TAB PO SCH (09:00)
[2021-11-09] MEDS ORDERED: POTASSIUM CHLORIDE CRTAB 20 MEQ TABCR PO SCH (09:00)
[2021-11-09 09:09] LABS: Albumin Globulin Ratio 1.4 (0.9-2); Albumin Level 3.7 gm/dl (3.4-5.0); BUN Creatinine Ratio 15.1 (10-20); Bilirubin,Total 2.2 mg/dl (0.2-1.0); Calcium 8.9 mg/dl (8.5-10.1); Est GFR (African American) 76.5 ml/min; Globulin 2.6 gm/dl (2.5-4.0); Magnesium 1.7 mg/dl (1.7-2.4); Potassium 3.5 mmol/L (3.5-5.1); Total Protein 6.3 gm/dl (6.0-8.3)
--- NOTE | 2021-11-09 14:24 | Electrocardiogram Report ---
Test Reason : Blood Pressure : / mmHG Vent. Rate : 077 BPM Atrial Rate : 077 BPM P-R Int : 320 ms QRS Dur : 144 ms QT Int : 438 ms P-R-T Axes : 016 -34 016 degrees QTc Int : 495 ms Sinus rhythm with 1st degree A-V block Left axis deviation Right bundle branch block Inferior infarct (cited on or before 24-OCT-2017) Abnormal ECG When compared with ECG of 08-NOV-2021 12:42, (unconfirmed) Sinus rhythm has replaced Atrial flutter Confirmed by Hansel Ramirez ([id number]) on 11/09/2021 2:24:15 PM Referred By: REFERRED SELF Confirmed By:Hansel Ramirez
--- NOTE | 2021-11-09 14:30 | Hospitalist Progress Note ---
Date of Service November 09, 2021 Assessment & Plan (1) Dizziness: (2) Hypertensive urgency: (3) Atrial flutter, chronic: (4) Diabetes mellitus, type II, insulin dependent: (5) CAD (coronary artery disease): (6) MICAH (obstructive sleep apnea): Plan: Patient is a 61 yr male with H/O Spina bifida, Insulin dependent T2DM, HTN, HLD, history of CVA, CAD with history of inferior STEMI and stent placed in 2008, MICAH on CPAP, chronic atrial fibrillation anticoagulated on Eliquis, CKD stage III, gout, depression who presents to ED secondary to dizziness and high blood pressure. Hypertensive urgency Dizziness No issues on Monitor Last Echo 04/23/21 ECHO:severe concentric LVH, LV cavity is small, EF 65 to 70%, RV systolic function is normal, left atrial size is normal and normal right atrial size Troponin Negative Started on amlodipine Continue Coreg and on losartan and torsemide Consult dietitian to assist with DASH diet BP better Advised Healthy lifestyle changes Chronic atrial fibrillation/flutter Continue Eliquis for anticoagulation Continue Coreg DM II Last A1c 8.8 on 09/04/2021 On a daily Basaglar, Ozempic, metformin Lantus/NovoLog per protocol while inpatient Patient states previously he had improved control and he was on mealtime insulin CAD denies CP or SOB continue asa, statin, coreg, olmesartan MICAH CPAP at bedtime CKD III bun/cr stable avoid nephrotoxic agents Morbid Obesity BMI: 56 Advised Healthy lifestyle changes DVT Px: Eliquis Code Status FULL CODE Admission and Anticipated Discharge Date Admission Date: November 08, 2021 Subjective Patient is seen and examined at bedside States feeling well today Dizziness completely resolved Denies any chest pain, shortness of breath, dizziness, nausea, abdominal pain Offers no other complaints BP better today Review of Systems Review of Systems: All systems reviewed & are unremarkable except as noted in Subjective Physical Exam Physical Exam: Physical Exam: Vitals signs as noted above General Appearance:Morbidly Obese, no apparent distress Head: normocephalic, Atraumatic Eyes: normal inspection, EOMI Neck: supple, Trachea midline Respiratory/Chest: Normal breath sounds, CTA, No accessory muscle use Cardiovascular: S1, S2, No murmur Abdomen/GI:Soft, Non tender, Bowel sounds present Extremities/Musculoskeletal:normal inspection, Trace edema Neurologic/Psych:AAOX3, grossly no focal neurological deficits Skin: normal color, warm Results & Data Results & Data ([facility]) Vital Signs (Past 12 Hours) Vital Signs Temp Pulse Pulse Resp BP Pulse Ox 11/09/21 11:35 36.9 C 77 19 146/90 H 94 11/09/21 08:15 77 11/09/21 08:11 36.5 C 80 20 167/91 H 96 11/09/21 04:02 36.5 C 80 18 161/83 H 97 Laboratory Results Short CBC 11/09/21 Range/Units 08:27 WBC 6.83 (4.8-10.8) K/uL Hgb 13.6 L (14.0-18.0) g/dL Hct 40.0 L (42-52) % Plt Count 155 (130-400) K/uL BMP 11/09/21 08:27 Sodium 139 Potassium 3.5 Chloride 100 Carbon Dioxide 31 BUN 18 Creatinine 1.19 Glucose 227 H Calcium 8.9 Liver Function 11/08/21 11/09/21 Range/Units 12:45 08:27 Total Bilirubin 2.2 H (0.2-1.0) mg/dl Direct Bilirubin 0.3 H (0-0.2) mg/dl AST 19 (13-39) U/L ALT 13 (7-52) U/L Alkaline Phosphatase 88 (34-104) U/L Albumin 3.7 (3.4-5.0) gm/dl Urine 11/08/21 Range/Units 14:12 Urine Color Yellow Urine Appearance Clear (Clear) Urine pH 8.0 H (4.5-7.5) Ur Specific [place] 1.009 (1.000-1.030) Urine Protein Negative (Negative) Urine Glucose (UA) Trace H (Negative)
--- NOTE | 2021-11-09 14:44 | Discharge Summary ---
Date of Service November 09, 2021 Admission HPI Per Admitting Provider This is a 61-year-old male who has a significant past medical history of spina bifida, Insulin dependent T2DM, HTN, HLD, history of CVA, CAD with history of inferior STEMI and stent placed in 2008, MICAH on CPAP, chronic atrial fibrillation anticoagulated on Eliquis, CKD stage III, gout, depression who presents to ED secondary to dizziness and high blood pressure. This morning when he woke up he didn't feel well and BP was 211/118. He has been compliant with his medications. He felt his blood pressure had been doing good except last week he had an elevated reading of 200/105. He admits his diet is not really good. He does not get around much and he does not do much cooking. He uses the microwave. He drinks diet soda and has been cutting back chips. He has been monitoring his salt intake. He has been trying to drink regular water or sparkling water. Yesterday he splurged with burger and fries from fast food restaurant. He eats fast food 1-2/month. He was hospitalized last April for 3 days due to high blood pressure. He complains of dizziness/of balance that started with his elevated blood pressure. It was worse with quick movements and standing. 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 He has constant tinnitus in L ear and occasional in R when BP is up. He lives by himself. He denies URI sx, muscle pain, dysuria, hematuria, melena, hematochezia, diarrhea, or sob. He complains of mild frontal headache and pain in his chest when he touches he chest and jaw ache. He has had abdominal pain. This morning he ate breakfast and took meds then developed nausea and abdominal pain. When EMS came they gave him aspirin and the pain got worse and has persisted. He was a former smoker ~ 20 years ago. Denies alcohol use. In ED patient was significantly hypertensive with BP 191/103. He was otherwise hemodynamically stable. His CBC was relatively unremarkable and a CMP with a hyperglycemia with glucose 225, elevated total bilirubin at 2.0. His urinalysis revealed glucose and trace blood. CT head was negative for no acute intracranial abnormality, white matter hypodensity suggestive of microvascular ischemic change. CT abdomen pelvis with no acute infection inflammatory findings. A 13.5 x 3.5 cm fluid collection was partially visualized in the anterior perineal soft tissues of the base of penis. Per ED provider this correlates with patient's prior history of panniculectomy and no underlying infection is present. Hepatosplenomegaly noted as well. Admission Exam Per Admitting Provider Physical Exam Physical Exam: Constitutional: WD/WN, morbidly obese, vitals as above, NAD, sitting up in bed, pleasant, conversing easily Head: Normocephalic, Atraumatic Eyes: PERRL, conjunctivae normal, anicteric sclerae ENMT: external ear and nose normal, oropharynx normal Neck: trachea midline, no thyromegaly normal visual inspection Respiratory: normal respiratory effort, lungs clear to auscultation, no wheeze, rales, rhonchi. Normal insp/exp effort, no accessory muscle use Cardiovascular: RRR, no murmur, b/l venous stasis changes with trace lower ext pre tibial edema Vessels: no JVD or carotid bruit Chest: normal inspection of chest , pain to palpation R and L chest wall Abdomen: normal bowel sounds, soft, nontender, no hepatosplenomegaly, obese abd Musculoskeletal: no cyanosis or clubbing, extremities motor strength 5/5 Skin: no rashes, warm and dry normal turgor Neurologic: PERRL, EOMI, accommodation nl, no face palsy, no dysarthria CN's II-XI intact bilaterally and moves all extremities Psychiatric: A+Ox3, euthymic affect Lymphatic: no cervical or axillary lymphadenopathy : 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 Principal Diagnosis Hypertensive urgency Dizziness Discharge Data Allergies Allergy/AdvReac Type Severity Reaction Status Date / Time sulfamethoxazole Allergy Intermediate Rash Verified 11/08/21 15:37 trimethoprim Allergy Intermediate Rash Verified 11/08/21 15:37 AVIVA Inhibitors Allergy Unknown Unknown Verified 11/08/21 15:37 lisinopril Allergy Unknown Unknown Verified 11/08/21 15:37 ceftriaxone AdvReac Mild Rash Verified 11/08/21 15:37 Consultations 11/08/21 16:09 ED Decision to Admit Stat Ordered Studies 11/08/21 14:04 CT abd pelvis IV con only Stat CT head/brain wo con Stat Hospital Course (1) Dizziness: (2) Hypertensive urgency: (3) Atrial flutter, chronic: (4) Diabetes mellitus, type II, insulin dependent: (5) CAD (coronary artery disease): (6) MICAH (obstructive sleep apnea): Patient is a 61 yr male with H/O Spina bifida, Insulin dependent T2DM, HTN, HLD, history of CVA, CAD with history of inferior STEMI and stent placed in 2008, MICAH on CPAP, chronic atrial fibrillation anticoagulated on Eliquis, CKD stage III, gout, depression who presents to ED secondary to dizziness and high blood pressure. Hypertensive urgency Dizziness No issues on Monitor Last Echo 04/23/21 ECHO:severe concentric LVH, LV cavity is small, EF 65 to 70%, RV systolic function is normal, left atrial size is normal and normal right atrial size Troponin Negative Started on amlodipine Continue Coreg and on losartan and torsemide Consult dietitian to assist with DASH diet BP better Advised Healthy lifestyle changes Chronic atrial fibrillation/flutter Continue Eliquis for anticoagulation Continue Coreg DM II Last A1c 8.8 on 09/04/2021 On a daily Basaglar, Ozempic, metformin Lantus/NovoLog per protocol while inpatient Patient states previously he had improved control and he was on mealtime insulin CAD denies CP or SOB continue asa, statin, coreg, olmesartan MICAH CPAP at bedtime CKD III bun/cr stable avoid nephrotoxic agents Morbid Obesity BMI: 56 Advised Healthy lifestyle changes DVT Px: Eliquis Code Status FULL CODE Total Time Total Time Spent Total Time Spent (In Minutes): 44 minutes Discharge Plan Discharge Items Patient Disposition: Home - Self-Care Reason For Visit: DIZZINESS, HTN URGENCY Discharge Diagnosis: Hypertensive urgency Dizziness Activity: Per Instructions section Exercise/Sports: Gradually increase as tolerated Non-emergency contact: Primary Care Provider Call non-emergency contact if: you have any medication questions, your symptoms worsen, your pain is concerning for you and you have a fever Follow-up/Referrals: Gregory Botello MD [Primary Care Provider] - Diet: Carb Consistent or DM2, Heart Healthy and Low Sodium (2gm) Addtl Attending Provider Instructions: Follow-up with your primary care physician in 1 week as advised --- Monitor your blood pressure regularly as advised. Seek immediate medical attention if your symptoms reoccur or worsen Please take all medications as instructed on discharge list below. Please call if you have any questions or problems. You can reach a [facility] hospitalist on duty at [facility] 24 hours a day by calling [phone] Pending Studies at Discharge: No Stand-Alone Forms: My [facility], Smoking Cessation Medications and DC Order Prescriptions: New amlodipine [Norvasc] 5 mg Tablet 5 mg PO QAM Qty: 30 RF: 1 meclizine 25 mg Tablet 25 mg PO TID PRN (Reason: dizziness) Qty: 10 RF: 0 Continued aspirin 81 mg tablet,delayed release (DR/EC) 81 mg PO QAM RF: 0 nitroglycerin [Nitrostat] 0.4 mg tablet, sublingual 0.4 mg SL Q5M PRN (Reason: Chest Pain) RF: 0 latanoprost 0.005 % drops 1 drops OPB HS RF: 0 allopurinol 300 mg tablet 300 mg PO QAM RF: 0 torsemide 20 mg tablet 40 mg PO BID RF: 0 docusate sodium 100 mg Capsule 100 mg PO DAILY RF: 0 ferrous sulfate 325 mg (65 mg iron) Tablet 325 mg PO BID RF: 0 folic acid 1 mg Tablet 1 mg PO QAM RF: 0 Multiple Vitamin-Minerals Tablet 1 tab PO QAM RF: 0 atorvastatin 10 mg tablet 5 mg PO HS RF: 0 ascorbic acid (vitamin C) 250 mg Tablet 250 mg PO BID RF: 0 Lactobacillus acidoph-L.bulgar [Floranex] 1 million cell Tablet 1 tab PO BID RF: 0 acetaminophen [Tylenol Extra Strength] 500 mg Tablet 1,000 mg PO HS PRN (Reason: Pain) RF: 0 Eliquis 5 mg tablet 5 mg PO BID RF: 0 potassium chloride 20 mEq Tablet,Er Particles/Crystals 20 meq PO QAM Qty: 30 RF: 0 carvedilol [Coreg] 25 mg tablet 25 mg PO BID Qty: 60 RF: 1 Basaglar KwikPen U-100 Insulin 100 unit/mL (3 mL) Insulin Pen 28 unit SUBCUT PM RF: 0 cholecalciferol (vitamin D3) [Vitamin D3] 50 mcg (2,000 unit) Capsule 100 mcg PO DAILY RF: 0 Ozempic 1 mg/dose (4 mg/3 mL) pen injector 1 mg SUBCUT WK RF: 0 olmesartan 40 mg tablet 40 mg PO DAILY RF: 0 Discharge Orders: Discharge Order (Routine); Ordered 11/09/21 Ordered By: Yimi Garcia Admission Data Admit Date/Time: 11/08/21 16:20 Attending Provider: Yimi Garcia Admit Provider: Fantasma Mcintosh Primary Care Provider: Gregory Botello Other Providers: Fantasma Mcintosh
== END 2021-11-09 16:05 | disposition home or self-care (01) ==
LOC: ED 12:34 → 2S 12:34 → SUATTDRO 16:20 → 2S 18:16

== ENCOUNTER 2024-02-12 10:28 | Inpatient (IN) ==
[2024-02-12 12:24] LABS: Basophils # (auto) 0.03 K/uL (0.00-0.20); Basophils % (auto) 0.4 %; Eosinophils # (auto) 0.08 K/uL (0.00-0.50); Hematocrit (blood only) 38.4 % (42.0-52.0); Hemoglobin 12.6 g/dl (14.0-18.0); Immature Granulocytes # (auto) 0.04 K/uL (0.01-0.20); Immature Granulocytes % (auto) 0.5 %; Lymphocytes # (auto) 0.77 K/uL (1.20-3.40); Lymphocytes % (auto) 9.4 %; Mean Corpuscular Hemoglobin 29.6 pg (25.0-34.0); Mean Corpuscular Hgb Conc 32.8 g/dL (32.0-36.0); Mean Corpuscular Volume 90.1 fL (80.0-100.0); Mean Platelet Volume 9.8 fL (9.4-12.4); Monocytes # (auto) 0.72 K/uL (0.11-0.59); Monocytes % (auto) 8.7 %; Neutrophils # (auto) 6.59 K/uL (1.40-6.50); Platelet Count 194 K/uL (130-400); RDW Coefficient of Variation 13.9 % (11.5-14.5); RDW Standard Deviation 46.2 fL (36.4-46.3); Red Blood Count 4.26 M/uL (4.70-6.10); White Blood Count 8.23 K/ul (4.8-10.8)
[2024-02-12] MEDS ORDERED: VANCOMYCIN CONSULT ACTIVE PRN (12:34)
[2024-02-12 12:41] LABS: BUN Creatinine Ratio 15.3 (10-20); Calcium 9.3 mg/dl (8.6-10.3); Creatinine Clr Calc Pharmacy 103.1 ml/min; Est GFR (African American) 76.2 ml/min; Est GFR (Non-African American) 65.7 ml/min; Potassium 3.6 mmol/L (3.5-5.1)
--- NOTE | 2024-02-12 13:25 | History & Physical Report ---
Date of Service February 12, 2024 Assessment & Plan (1) Wound of lower extremity: (2) Diabetes mellitus, type II, insulin dependent: (3) Lymphedema: (4) CAD (coronary artery disease): (5) Hypertension: (6) History of chronic atrial fibrillation: (7) CKD (chronic kidney disease) stage 3, GFR 30-59 ml/min: (8) MICAH (obstructive sleep apnea): Plan Bilateral lower extremity wounds Lymphedema DM II - Admit to med surg - Previously followed with podiatry for initial consult January 2024 , Dr. Tena as outpatient, no mention of lower ext wounds in that note on review in [facility]. - Wound consult - elevation to assist with fluid accumulation, consider AVIVA wrap/compression for lymphedema, - Started on IV vanc in the ER, pt is allergic to bactrim, ceftriaxone -- will switch to aztreonam, check MRSA nasal swab and consider addition of daptomycin - BCx obtained, follow results, wound culture leg obtained Chronic Afib CAD HTN HLD - Anticoagulated on Eliquis 5 BID - May continue carvedilol, olmesartan, amlodipine and atorvastatin - On torsemide 40 mg BID, BNP is elevated to 186, give lasix 40 mg IV x 1, assess diuresis and will schedule lasix 40 mg IV daily instead of torsemide while here. - daily weights, strict i/os, fluid restriction 1500ml DM type II -Last A1c = 6.8 on 11/12/2023 -Hold home metformin -ISS with Accu-Cheks ACHS -Allow heart healthy diabetic diet DVT ppx: teds, scds Lines: PIV x 1 FEN/GI: HH/DM diet CODE: Full Dispo: From home, likely to remain in the hospital x 1-2 days A total of 75 minutes were spent with greater than 50% of that time face to face with the patient, personally reviewing all current laboratories, imaging studies, past medication reconciliation, outpatient chart review, and discussion with specialists to collaborate care for the patient with attending. Please see attending documentation for corrections and/or additions. - History of Present Illness Chief Complaint: Lower extremity wounds Primary Care Provider: Gregory Botello MD This is a 63-year-old male with PMHx of morbid obesity with a BMI of 56.8, DM type II, chronic lymphedema, CAD status post inferior wall STEMI with stent in February 2009, chronic A-fib, HTN, HLD, MICAH on CPAP, CKD stage III, spina bifida, who presents to the hospital with worsening lower extremity wound drainage on the right and left legs. He has recently been seen for initial consultation by podiatry, Dr. Corey Hurt as an outpatient on 01/27/2024. Noted callouses and toenail cut done at that time but there was no mention of other lower extremity wounds. Today there are no obvious wounds on the feet. He reports chills, no sweats or fevers but does not have a working thermometer at home. Pt lives alone, has aids who are in the house Sat-Sat daily for helping him get dressed/bathed but are not health aids and therefore do not assist with dressing changes/aviva wrap. He states that within the past week he was supposed to have motor home electrical foreman come to the house on Saturday to help him change close/socks, however due to a change of company, there was a miscommunication and somebody did not come to see him until today. Therefore the same pair of socks were on since Saturday morning. Today when they were removed the aide was concerned due to the significant wound near the sock line and EMS was called, ambulance brought the patient to the hospital. He reports the right lower leg extremity wound was not there a week ago. On the left, this blister like wound has been present for 1.5 weeks. He has mobility issues and is essentially wheelchair bound, cannot change his own socks due to spina bifida for about the past 2 years. He reports some moderate changes in shortness of breath in the past week, noticing slight worsening. Pt keeps his legs down mostly, not elevated. He denies any recent known weight changes. Allergies Allergy/AdvReac Type Severity Reaction Status Date / Time sulfamethoxazole Allergy Intermediate Rash Verified 02/12/24 12:31 trimethoprim Allergy Intermediate Rash Verified 02/12/24 12:31 AVIVA Inhibitors Allergy Unknown Unknown Verified 02/12/24 12:31 lisinopril Allergy Unknown Unknown Verified 02/12/24 12:31 ceftriaxone AdvReac Mild Rash Verified 02/12/24 12:31 Home Medications Medication Instructions Recorded Confirmed Type latanoprost 0.005 % eye drops 1 drops OPB HS 09/24/18 02/12/24 History nitroglycerin 0.4 mg sublingual 0.4 mg sublingual Q5M PRN Chest 09/24/18 02/12/24 History tablet (Nitrostat) Pain allopurinol 300 mg tablet 300 mg PO QAM 05/25/20 02/12/24 History ferrous sulfate 325 mg (65 mg 325 mg PO DAILY 05/25/20 02/12/24 History iron) tablet folic acid 1 mg tablet 1 mg PO QAM 05/25/20 02/12/24 History multivitamin with minerals 1 tab PO QAM 05/25/20 02/12/24 History (Multiple Vitamin-Minerals tablet) torsemide 20 mg tablet 40 mg PO BID 05/25/20 02/12/24 History Lactobacillus acidoph-L.bulgaricus 1 tab PO DAILY 09/04/20 02/12/24 History 1 million cell tablet (Floranex) atorvastatin 10 mg tablet 5 mg PO HS 09/04/20 02/12/24 History apixaban 5 mg tablet (Eliquis) 5 mg PO BID 04/21/21 02/12/24 History carvedilol 25 mg tablet (Coreg) 25 mg PO BID #60 tabs 04/24/21 02/12/24 Rx cholecalciferol (vitamin D3) 50 4,000 mcg PO DAILY 11/08/21 02/12/24 History mcg (2,000 unit) capsule (Vitamin D3) insulin glargine 100 unit/mL (3 28 unit subcut PM 11/08/21 02/12/24 History mL) subcutaneous pen (Basaglar KwikPen U-100 Insulin) olmesartan 40 mg tablet 40 mg PO DAILY 11/08/21 02/12/24 History semaglutide 1 mg/dose (4 mg/3 mL) 1 mg subcut WK 11/08/21 02/12/24 History subcutaneous pen injector (Ozempic) amlodipine 5 mg tablet (Norvasc) 5 mg PO QAM #30 tabs 11/09/21 02/12/24 Rx metformin 500 mg tablet,extended 500 mg PO QAM 05/27/23 02/12/24 History release 24 hr nystatin 100,000 unit/gram topical 1 applic topical DAILY PRN .flare 05/27/23 02/12/24 History powder (Nyamyc) ups sennosides 8.6 mg-docusate sodium 2 tab-cap PO BID PRN Constipation 05/27/23 02/12/24 History 50 mg tablet (Senna with Docusate Sodium) acetaminophen 325 mg tablet 650 mg PO QID PRN Pain 02/12/24 02/12/24 History (Tylenol) potassium chloride 20 mEq 20 meq PO DAILY 02/12/24 02/12/24 History tablet,extended release Past Med/Surg History Problem List (Updated 02/12/24 @ 13:17 by Olivia Martinez PA-C) Wound of lower extremity Atrial flutter, chronic (Acute) CKD (chronic kidney disease) stage 3, GFR 30-59 ml/min Warren catheter in place (Acute) Abdominal pannus (Chronic) Hypertension (Acute) Stage III pressure ulcer of left buttock (Acute) Open wound of groin (Chronic) Urinary retention Diabetes mellitus, type II, insulin dependent MICAH (obstructive sleep apnea) (Chronic) CAD (coronary artery disease) (Chronic) Abdominal pannus (Chronic) Acquired buried penis (Chronic) Medical History (Updated 02/12/24 @ 13:17 by Olivia Martinez PA-C) Myocardial infarction H/o 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 Hyperlipidemia Glaucoma Presence of bare metal stent in right coronary artery Decreased ambulation status Lymphedema Major depressive disorder B-complex deficiency Vitamin D deficiency History of TIA (transient ischemic attack) Hearing loss of left ear Allergic rhinitis Arthritis of knee Spina bifida GERD (gastroesophageal reflux disease) Bilateral scrotal hernia Dyslipidemia 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, with long-term current use of insulin Diabetic retinopathy Gout Diabetic neuropathy Surgical History S/P panniculectomy H/O nasal septoplasty H/O colonoscopy H/O cardiac catheterization Previous back surgery Status post uvulopalatopharyngoplasty Hx of tonsillectomy S/P cholecystectomy Family History Mother Coronary heart disease Diabetes Hypertension Social History Smoking Status: Former smoker Tobacco Type: Cigarettes packs per day: 1; Second Hand Exposure: No; Do You Dip or Chew Tobacco: No; Tobacco Cessation Education Requested by Patient: No Hx Alcohol Use: No Hx Substance Use: No Preferred Language: Burmese Communication Ability: Effective Visual Impairment: Limited Hearing Ability: Hard of Hearing Medical Librarian Required: No Beliefs That Will Affect Care: None marital status: Single Current Living Situation: Alone Current Living Situation Comment: ine apartment current occupational status: disabled Other Information That Helps Us Care for You: No Feels Safe at Home: Yes Safety Concerns: Feels Safe At This Time Childhood Exposure to Second-Hand Smoke: No Assistive Devices: Walker and Wheelchair Review of Systems Review of Systems: Constitutional: No fever, sweats , + chills Eyes: No diplopia, no worsening or blurred vision ENT: normal hearing, no trouble swallowing Respiratory: No cough, sputum, dyspnea at rest or on exertion Cardiovascular: No chest pain, tightness or palpitations Abdomen: No pain, nausea, vomiting, diarrhea, + pannus, + constipation, Last bowel movement was 3 days ago Musculoskeletal: No joint pain, calf pain, + chronic swelling Neurologic: No weakness, numbness/tingling, or balance problems, + wheelchair bound Psychiatric: No anxiety or depression Skin: No rash or itch Physical Exam Physical Exam: General: awake, alert, no apparent distress, morbidly obese white male with BMI of 56.8 Head: Normocephalic, atraumatic ENT: PERRL, EOMI, no pharyngeal exudate, mucous membranes moist Chest: Clear to auscultation, on room air, no adventitious breath sounds Cardiac: Irregularly irregular, rate controlled, no murmur, no JVD, normal peripheral pulses, good capillary refill Abdominal: Obese, pannus, NABS x 4 quadrants, soft, nondistended, nontender to palpation, no rebound or guarding Extremities:RLE with chronic venous stasis changes, surrounding erythema, large area over the medial calf of dark hemosiderin deposit, + laceration from positioning of sock which is 0.5cm deep and about 5 cm in length. LLE with similar venous stasis changes, and weeping blisters, no open wounds. Feet without wounds bilaterally. Upper extremities normal inspection Psych: Normal mood and affect Neuro: AAO x 3, strength intact bilaterally and rated 5/5, no motor deficits, speech is clear, no peripheral sensory deficits Results & Data Results & Data Vital Signs (Past 12 Hours) Vital Signs Temp Pulse Pulse Resp BP BP Pulse Ox 02/12/24 12:01 73 02/12/24 10:43 36.8 C 86 20 139/62 99 02/12/24 10:34 36.8 C 74 20 159/62 H 99 O2 Del Method 02/12/24 12:01 02/12/24 10:43 Room Air 02/12/24 10:34 Room Air Laboratory Results 02/12/24 Unknown Gram Stain - Pending Leg Wound Culture - Pending 02/12/24 11:46 Aerobic Blood Culture - Pending Blood Anaerobic Blood Culture - Pending 02/12/24 11:40 WBC 8.23 RBC 4.26 L Hgb 12.6 L Hct 38.4 L MCV 90.1 MCH 29.6 MCHC 32.8 RDW Std Deviation 46.2 RDW Coeff of Selvin 13.9 Plt Count 194 MPV 9.8 Immature Gran % (Auto) 0.5 Neut % (Auto) 80.0 Lymph % (Auto) 9.4 [place] % (Auto) 8.7 Eos % (Auto) 1.0 Baso % (Auto) 0.4 Neut # (Auto) 6.59 H Lymph # (Auto) 0.77 L [place] # (Auto) 0.72 H Eos # (Auto) 0.08 Baso # (Auto) 0.03 Immature Gran # (Auto) 0.04 Sodium 141 Potassium 3.6 Chloride 104 Carbon Dioxide 28 Anion Gap 9 BUN 18 Creatinine 1.18 Est Cr Clr Drug Dosing 103.1 Est GFR ( Amer) 76.2 Est GFR (Non-Af Amer) 65.7 BUN/Creatinine Ratio 15.3 Glucose 139 H Calcium 9.3 B-Natriuretic Peptide 186 H Code Status & VTE Plan Code Status Full code - discussed with pt at bedside. Reports eldest daughter would be decision maker if necessary. Supervising Physician Co-Signing Physician Notes Attending Addendum: Case reviewed with the advanced practitioner. I have personally performed a history and physical examination on the patient. I have reviewed the advanced practitioner's documentation on the date of service referenced in note, and I agree with, and take responsibility for the plan of care. please refer to her notes for full details patient seen and examined, records reviewed by myself as well on exam, patient Seen resting in bed, sitting up, comfortable Feels tired, has some lower extremity discomfort on the wound sites No chest pain, shortness of breath no other symptoms VS noted and reviewed oriented , not in distress, speaks in sentences with no effort nor accessory muscle use normal rate, regular rhythm, no murmurs clear breath sounds bilaterally non distended, soft, nontender Bilateral lower legs: Grade 1-2 edema with significant erythema, open wounds on the distal aspect, with mild warmth, tenderness no neuro deficits all labs, imaging noted and reviewed ASSESSMENT AND PLAN Bilateral lower leg infected wound with cellulitis Chronic lymphedema Blood culture: Pending Wound culture: Pending Nasal MRSA: Positive Daptomycin plus aztreonam IV Wound care consulted other diagnoses and plan of care as per advanced practitioner's notes Rodney Gallegos MD (5) Hypertension Hypertension type: unspecified Qualified Code(s): I10 - Essential (primary) hypertension
[2024-02-12] MEDS: VANCOMYCIN HCL 2,750 MG in SODIUM CHLORIDE 0.9% 500 ML IV ONE (13:39)
--- NOTE | 2024-02-12 14:22 | Emergency Department Note ---
Impression & Plan Open wound of both lower extremities, Wound of lower extremity, Lymphedema associated with obesity ED Provider Note NAME: ELBA GRAHAM AGE: 63 SEX: M : 1960 ARRIVES VIA: Ambulance INFORMANT: Patient, ED PROVIDER(S): Ti Driver MD CHIEF COMPLAINT: Lower extremity wounds HPI: This is an 63-year-old male with history of morbid obesity, CKD, atrial flutter, diabetes, CAD presenting for bilateral lower extremity wound. Patient states his left lower extremity has a chronic wound for the past 1+ month. He notes a new wound on his right lower extremity that is painful. He notes that due to the size he is unable to move his socks in the past 3+ days. He has no help at home and lives alone. He notes a new pain and warmth to these wounds on his leg. He notes no fever or chills. He notes he is unable to walk more than 5 to 10 feet at this time. ROS: See above HPI for pertinent positives & negatives. A total of 10 systems reviewed and were otherwise negative. PAST MEDICAL HISTORY: See Below PAST SURGICAL HISTORY: See Below FAMILY HISTORY: See Below SOCIAL HISTORY: See Below HOME MEDICATIONS: See Below ALLERGIES: See Below VITALS: See Below PHYSICAL EXAMINATION: General: Significant elevated BMI Head: Normocephalic and atraumatic Eyes: Normal inspection, extraocular muscles intact Ear, nose, throat: Normal external exam Neck: Normal range of motion Respiratory: lungs clear to auscultation bilaterally Cardiovascular: Regular rate/rhythm, no murmur GI: soft, nontender, no guarding or rebound Extremities: Fairly edematous bilateral lower extremities with excoriated wounds with deep margins from socks Neuro: The patient awake and alert, appropriately conversive, no focal deficits, symmetric faces Skin: Warm, dry, and intact MEDICAL DECISION MAKING: This is a 63-year-old male with history of morbid obesity, CKD, atrial flutter, diabetes, CAD presents for bilateral lower extremity wounds. Patient has deep excoriating wounds to bilateral lower extremities. His right lower extremity shows a large margin of ecchymosis as well. Left lower extremity shows chronic venous changes with overlying cellulitis. -Will begin patient on vancomycin at this time. Otherwise we will get basic blood work to help assess for lymphedema/fluid overload. -Bloodwork is reviewed showing slight anemia 12.6. Otherwise BNP is elevated slightly here. Overall reassuring blood work. -Due to the extensive nature of patient's current wounds as well as his limitations at home including difficulty walking more than 10 to 15 feet, inability to bend over and do wound care and no home resources, will admit the patient for IV antibiotics. Discussed care with YAW James, hospital service for admission. She will evaluate patient at bedside Differential diagnosis: Cellulitis, fluid overload, lymphedema ER treatment provided: See below Independent History obtained from: Patient Diagnostics interpreted by me: ECG: None Cardiac Monitoring: An order was placed for continuous cardiac monitoring. The monitor shows a rate of 70 with sinus rhythm. Laboratory studies: As stated above and show below. Imaging studies: See below. Past Med/Surg History Problem List (Updated 02/13/24 @ 16:28 by Ti Driver MD) Cellulitis of right leg Morbid obesity Open wound of both lower extremities (Acute) Lymphedema associated with obesity (Acute) Wound of lower extremity (Acute) Atrial flutter, chronic (Acute) CKD (chronic kidney disease) stage 3, GFR 30-59 ml/min Warren catheter in place (Acute) Abdominal pannus (Chronic) Hypertension (Acute) Stage III pressure ulcer of left buttock (Acute) Open wound of groin (Chronic) Urinary retention Diabetes mellitus, type II, insulin dependent MICAH (obstructive sleep apnea) (Chronic) CAD (coronary artery disease) (Chronic) Abdominal pannus (Chronic) Acquired buried penis (Chronic) Medical History (Updated 02/13/24 @ 16:28 by Ti Driver MD) Myocardial infarction H/o 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 Hyperlipidemia Glaucoma Presence of bare metal stent in right coronary artery Decreased ambulation status Lymphedema Major depressive disorder B-complex deficiency Vitamin D deficiency History of TIA (transient ischemic attack) Hearing loss of left ear Allergic rhinitis Arthritis of knee Spina bifida GERD (gastroesophageal reflux disease) Bilateral scrotal hernia Dyslipidemia 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, with long-term current use of insulin Diabetic retinopathy Gout Diabetic neuropathy Surgical History S/P panniculectomy H/O nasal septoplasty H/O colonoscopy H/O cardiac catheterization Previous back surgery Status post uvulopalatopharyngoplasty Hx of tonsillectomy S/P cholecystectomy Family History Mother Coronary heart disease Diabetes Hypertension Social History Smoking Status: Former smoker Tobacco Type: Cigarettes packs per day: 1; Second Hand Exposure: No; Do You Dip or Chew Tobacco: No; Tobacco Cessation Education Requested by Patient: No Hx Alcohol Use: No Hx Substance Use: No Preferred Language: Sudanese Communication Ability: Effective Visual Impairment: Limited Hearing Ability: Hard of Hearing Manager Sterile Required: No Beliefs That Will Affect Care: None marital status: Single Current Living Situation: Alone Current Living Situation Comment: ine apartment current occupational status: disabled Other Information That Helps Us Care for You: No Feels Safe at Home: Yes Safety Concerns: Feels Safe At This Time Childhood Exposure to Second-Hand Smoke: No Assistive Devices: CPAP, Walker and Wheelchair Allergies Allergies Allergy/AdvReac Type Severity Reaction Status Date / Time sulfamethoxazole Allergy Intermediate Rash Verified 02/12/24 12:31 trimethoprim Allergy Intermediate Rash Verified 02/12/24 12:31 AVIVA Inhibitors Allergy Unknown Unknown Verified 02/12/24 12:31 lisinopril Allergy Unknown Unknown Verified 02/12/24 12:31 ceftriaxone AdvReac Mild Rash Verified 02/12/24 12:31 Home Meds Home Medications Medication Instructions Recorded Confirmed latanoprost 0.005 % eye drops 1 drops OPB HS 09/24/18 02/12/24 nitroglycerin 0.4 mg sublingual 0.4 mg sublingual Q5M PRN Chest 09/24/18 02/12/24 tablet (Nitrostat) Pain allopurinol 300 mg tablet 300 mg PO QAM 05/25/20 02/12/24 ferrous sulfate 325 mg (65 mg 325 mg PO DAILY 05/25/20 02/12/24 iron) tablet folic acid 1 mg tablet 1 mg PO QAM 05/25/20 02/12/24 multivitamin with minerals 1 tab PO QAM 05/25/20 02/12/24 (Multiple Vitamin-Minerals tablet) torsemide 20 mg tablet 40 mg PO BID 05/25/20 02/12/24 Lactobacillus acidoph-L.bulgaricus 1 tab PO DAILY 09/04/20 02/12/24 1 million cell tablet (Floranex) atorvastatin 10 mg tablet 5 mg PO HS 09/04/20 02/12/24 apixaban 5 mg tablet (Eliquis) 5 mg PO BID 04/21/21 02/12/24 cholecalciferol (vitamin D3) 50 4,000 mcg PO DAILY 11/08/21 02/12/24 mcg (2,000 unit) capsule (Vitamin D3) insulin glargine 100 unit/mL (3 28 unit subcut PM 11/08/21 02/12/24 mL) subcutaneous pen (Basaglar KwikPen U-100 Insulin) olmesartan 40 mg tablet 40 mg PO DAILY 11/08/21 02/12/24 semaglutide 1 mg/dose (4 mg/3 mL) 1 mg subcut WK 11/08/21 02/12/24 subcutaneous pen injector (Ozempic) metformin 500 mg tablet,extended 500 mg PO QAM 05/27/23 02/12/24 release 24 hr nystatin 100,000 unit/gram topical 1 applic topical DAILY PRN .flare 05/27/23 02/12/24 powder (Nyamyc) ups sennosides 8.6 mg-docusate sodium 2 tab-cap PO BID PRN Constipation 05/27/23 02/12/24 50 mg tablet (Senna with Docusate Sodium) acetaminophen 325 mg tablet 650 mg PO QID PRN Pain 02/12/24 02/12/24 (Tylenol) potassium chloride 20 mEq 20 meq PO DAILY 02/12/24 02/12/24 tablet,extended release Previous Rx's Medication Instructions Recorded carvedilol 25 mg tablet (Coreg) 25 mg PO BID #60 tabs 04/24/21 amlodipine 5 mg tablet (Norvasc) 5 mg PO QAM #30 tabs 11/09/21 Results & Data (ED) Vital Signs Vital Signs - 24 hr 02/12/24 10:34 02/12/24 10:43 02/12/24 12:01 Temperature 36.8 C 36.8 C Temperature Source Oral Oral Pulse Rate 74 73 Pulse Rate [Right Finger] 86 Respiratory Rate 20 20 Respiratory Effort / Characteristics Non-Labored Non-Labored Respiratory Depth Normal Normal Respiratory Pattern Regular Regular Blood Pressure 159/62 H Blood Pressure [Left Arm] 139/62 Blood Pressure Mean 94 Blood Pressure Mean [Left Arm] 87 Pulse Oximetry 99 99 Oxygen Delivery Method Room Air Room Air Sepsis New/Unexplained Change in Mental Status No Sepsis Action Taken by Nursing No Action Required Laboratory Data 02/13/24 06:37 02/13/24 06:37 Lab Results 02/12/24 Range/Units 11:40 WBC 8.23 (4.8-10.8) K/ul RBC 4.26 L (4.70-6.10) M/uL Hgb 12.6 L (14.0-18.0) g/dl Hct 38.4 L (42.0-52.0) % MCV 90.1 (80.0-100.0) fL MCH 29.6 (25.0-34.0) pg MCHC 32.8 (32.0-36.0) g/dL RDW Std Deviation 46.2 (36.4-46.3) fL RDW Coeff of Selvin 13.9 (11.5-14.5) % Plt Count 194 (130-400) K/uL MPV 9.8 (9.4-12.4) fL Immature Gran % (Auto) 0.5 % Neut % (Auto) 80.0 % Lymph % (Auto) 9.4 % Pleas[place] % (Auto) 8.7 % Eos % (Auto) 1.0 % Baso % (Auto) 0.4 % Neut # (Auto) 6.59 H (1.40-6.50) K/uL Lymph # (Auto) 0.77 L (1.20-3.40) K/uL [place] # (Auto) 0.72 H (0.11-0.59) K/uL Eos # (Auto) 0.08 (0.00-0.50) K/uL Baso # (Auto) 0.03 (0.00-0.20) K/uL Immature Gran # (Auto) 0.04 (0.01-0.20) K/uL Sodium 141 (136-145) mmol/L Potassium 3.6 (3.5-5.1) mmol/L Chloride 104 (98-107) mmol/L Carbon Dioxide 28 (21-32) mmol/L Anion Gap 9 (3-11) BUN 18 (6-23) mg/dl Creatinine 1.18 (0.6-1.4) mg/dl Est Cr Clr Drug Dosing 103.1 ml/min Est GFR ( Amer) 76.2 ml/min Est GFR (Non-Af Amer) 65.7 ml/min BUN/Creatinine Ratio 15.3 (10-20) Glucose 139 H (70-99(Fasting)) mg/dl Calcium 9.3 (8.6-10.3) mg/dl B-Natriuretic Peptide 186 H (0-100) pg/ml Administered Medications Allopurinol (Allopurinol 300 Mg Tab) 300 mg PO QAM [facility] Stop: 03/14/24 08:59 Last Admin: 02/13/24 09:58 Dose: 300 mg Documented By: KAYLAR Amlodipine Besylate (Amlodipine Besylate 5 Mg Tab) 5 mg PO QAM [facility] [place] Stop: 03/14/24 08:59 Last Admin: 02/13/24 09:58 Dose: 5 mg Documented By: KAYLAR Apixaban (Apixaban 5 Mg Tablet) 5 mg PO BID [facility] [place] Stop: 03/13/24 20:59 Last Admin: 02/13/24 09:59 Dose: 5 mg Documented By: Admin: 02/12/24 21:02 Dose: 5 mg Documented By: DARREL Carvedilol (Carvedilol 25 Mg Tab) 25 mg PO BID [facility] [place] Stop: 03/13/24 20:59 Last Admin: 02/13/24 09:58 Dose: 25 mg Documented By: Admin: 02/12/24 21:02 Dose: 25 mg Documented By: DARREL Ferrous Sulfate (Ferrous Sulfate 325 Mg Tab) 325 mg PO DAILY [facility] [place] Stop: 03/14/24 08:59 Last Admin: 02/13/24 09:58 Dose: 325 mg Documented By: KAYLAR Folic Acid (Folic Acid 1 Mg Tab) 1 mg PO QAM [facility] [place] Stop: 03/14/24 08:59 Last Admin: 02/13/24 09:58 Dose: 1 mg Documented By: KAYLAR Furosemide (Furosemide 40 Mg/4 Ml Vial) 40 mg IV DAILY RAJWINDER Stop: 03/14/24 08:59 Last Admin: 02/13/24 09:57 Dose: 40 mg Documented By: KAYLAR Insulin Glargine (Lantus Per Unit Charge) 28 units SC PM [facility] [place] Stop: 03/13/24 20:59 Last Admin: 02/12/24 21:01 Dose: 28 units Documented By: DARREL Co-signed By: FATMATA Lactobacillus Acidophilus (Advanced Probiotic 625 Mg Capsule) 625 mg PO DAILY RAJWINDER Stop: 03/14/24 08:59 Last Admin: 02/13/24 09:57 Dose: 625 mg Documented By: CWR Latanoprost (Latanoprost 0.005% Op Soln 2.5 Ml Btl) 1 drops OPB HS RAJWINDER Stop: 03/13/24 20:59 Last Admin: 02/12/24 21:02 Dose: 1 drops Documented By: DARREL Losartan Potassium (Losartan Potassium 50 Mg Tab) 100 mg PO DAILY RAJWINDER Stop: 03/14/24 08:59 Last Admin: 02/13/24 09:58 Dose: 100 mg Documented By: TALI Miscellaneous (Do Not Tube~Ozempic~Order Awaiting Action) 1 each N/A QS RAJWINDER Stop: 03/14/24 00:00 Last Admin: 02/13/24 15:17 Dose: Not Given Documented By: Admin: 02/13/24 09:25 Dose: Not Given Documented By: Admin: 02/13/24 00:29 Dose: Not Given Documented By: DARREL Multivitamins/Minerals (Cerovite Adv Formula Tab) 1 tab PO QAM RAJWINDER Stop: 03/14/24 08:59 Last Admin: 02/13/24 09:57 Dose: 1 tab Documented By: TALI Potassium Chloride (Potassium Chloride Crtab 20 Meq Tabcr) 20 meq PO DAILY RAJWINDER Stop: 03/14/24 08:59 Last Admin: 02/13/24 09:57 Dose: 20 meq Documented By: TALI Vitamin D (Cholecalciferol 25 Mcg (1000 Units) Tab) 100 mcg PO DAILY RAJWINDER Stop: 03/14/24 08:59 Last Admin: 02/13/24 09:58 Dose: 100 mcg Documented By: TALI Discontinued Medications Furosemide (Furosemide 40 Mg/4 Ml Vial) 40 mg IV ONE ONE Stop: 02/12/24 14:07 Last Admin: 02/12/24 14:25 Dose: 40 mg Documented By: CAW Vancomycin HCl 2,750 mg/ (Sodium Chloride) 555 mls @ 200 mls/hr IV NOW ONE Stop: 02/12/24 15:20 Last Infusion: 02/12/24 17:13 Dose: Infused Documented By: Admin: 02/12/24 13:39 Dose: 200 mls/hr Documented By: CONNIE Aztreonam 1,000 mg/ Dextrose 100 mls @ 100 mls/hr IV Q8H RAJWINDER Stop: 02/19/24 16:29 Last Infusion: 02/13/24 16:20 Dose: Infused Documented By: Infusion: 02/13/24 16:20 Dose: 0 mls/hr Documented By: Infusion: 02/13/24 16:19 Dose: 0 mls/hr Documented By: Admin: 02/13/24 15:39 Dose: 100 mls/hr Documented By: Infusion: 02/13/24 11:22 Dose: Infused Documented By: Admin: 02/13/24 09:57 Dose: 100 mls/hr Documented By: Infusion: 02/13/24 01:46 Dose: Infused Documented By: Admin: 02/13/24 00:42 Dose: 100 mls/hr Documented By: Infusion: 02/12/24 18:36 Dose: Infused Documented By: Admin: 02/12/24 17:28 Dose: 100 mls/hr Documented By: TALI Daptomycin 650 mg/ Syringe 13 mls @ 6.5 mls/min IV Q24H RAJWINDER; Protocol Stop: 02/19/24 20:14 Last Admin: 02/12/24 21:01 Dose: 6.5 mls/min Documented By: DARREL Discharge Plan Visit Data Chief Complaint: Infection, Wound Stated Complaint: WOUNDS ON LEG, SOB, CHEST TIGHTNESS ED Provider: Ti Driver Discharge Problem: Open wound of both lower extremities, Wound of lower extremity, Lymphedema associated with obesity Patient Disposition: Admitted As Inpatient Discharge Instructions Interventions: ED Discharge Assessment Last Done: 02/12/24 15:12
[2024-02-12] MEDS: FUROSEMIDE 40 MG/4 ML VIAL IV ONE (14:25)
[2024-02-12] MEDS ORDERED: NYSTATIN POWDER 15GM BTL EXT PRN (15:51)
[2024-02-12] MEDS ORDERED: ACETAMINOPHEN 325 MG TAB PO PRN (15:51)
[2024-02-12] MEDS ORDERED: ONDANSETRON INJ 2 MG/ML 2 ML VIAL IV PRN (15:51)
[2024-02-12] MEDS: AZTREONAM 1,000 MG in DEXTROSE 5% MINI-B 100 ML IV SCH (17:28)
[2024-02-12] MEDS ORDERED: ATORVASTATIN 10 MG TAB PO SCH (21:00)
[2024-02-12] MEDS: LANTUS PER UNIT CHARGE SC SCH (21:01)
[2024-02-12] MEDS: DAPTOmycin 650 MG in SYRINGE 0 ML IV SCH (21:01)
[2024-02-12] MEDS: carvediloL 25 MG TAB PO SCH (21:02)
[2024-02-12] MEDS: LATANOPROST 0.005% OP SOLN 2.5 ML BTL OPB SCH (21:02)
[2024-02-12] MEDS: APIXABAN 5 MG TABLET PO SCH (21:02)
--- NOTE | 2024-02-13 00:59 | Ultrasound Report ---
Exam(s): US ARTERIAL BILATERAL LOWER EXTREMITIES EXAM: US Duplex Bilateral Lower Extremities Arteries CLINICAL HISTORY: Reason for exam: Eval, lower extremity wounds. TECHNIQUE: Real-time duplex ultrasound scan of the bilateral lower extremity arteries integrating B-mode two-dimensional vascular structure, Doppler spectral analysis and color flow Doppler imaging. COMPARISON: None FINDINGS: Right common femoral artery: No acute findings. No occlusion or significant stenosis on color flow and spectral Doppler imaging. Normal waveform. Right superficial femoral artery: No occlusion or significant stenosis on color flow and spectral Doppler imaging. Monophasic waveforms. Right popliteal artery: No occlusion or significant stenosis on color flow and spectral Doppler imaging. Monophasic waveforms. Right calf/foot arteries: No occlusion or significant stenosis on color flow and spectral Doppler imaging. Monophasic waveforms. Left common femoral artery: No acute findings. No occlusion or significant stenosis on color flow and spectral Doppler imaging. Normal waveform. Left superficial femoral artery: No occlusion or significant stenosis on color flow and spectral Doppler imaging. Biphasic waveforms in the proximal and mid left superficial femoral artery. Monophasic waveforms in the distal left superficial femoral artery. Left popliteal artery: No occlusion or significant stenosis on color flow and spectral Doppler imaging. Monophasic waveforms. Left calf/foot arteries: No occlusion or significant stenosis on color flow and spectral Doppler imaging. Monophasic waveforms. Soft tissues: Soft tissue edema. Other: Irregular heart rhythm noted. IMPRESSION: No hemodynamically significant stenosis identified, but there are monophasic waveforms in the right superficial femoral artery to calf arteries and left distal superficial femoral artery to calf arteries, suggesting upstream stenosis. Soft tissue edema. Electronically signed by: Winter Wu M.D. 02/13/24 00:57 AM
[2024-02-13 07:20] LABS: Hematocrit (blood only) 34.5 % (42.0-52.0); Hemoglobin 11.4 g/dl (14.0-18.0); Mean Corpuscular Hemoglobin 29.4 pg (25.0-34.0); Mean Corpuscular Volume 88.9 fL (80.0-100.0); Mean Platelet Volume 9.9 fL (9.4-12.4); Platelet Count 175 K/uL (130-400); RDW Coefficient of Variation 13.6 % (11.5-14.5); RDW Standard Deviation 44.3 fL (36.4-46.3); Red Blood Count 3.88 M/uL (4.70-6.10); White Blood Count 6.79 K/ul (4.8-10.8)
[2024-02-13 07:42] LABS: BUN Creatinine Ratio 13.8 (10-20); Calcium 8.5 mg/dl (8.6-10.3); Est GFR (African American) 77.8 ml/min; Est GFR (Non-African American) 67.1 ml/min; Potassium 3.6 mmol/L (3.5-5.1)
[2024-02-13] MEDS: ADVANCED PROBIOTIC 625 MG CAPSULE PO SCH (09:57)
[2024-02-13] MEDS: POTASSIUM CHLORIDE CRTAB 20 MEQ TABCR PO SCH (09:57)
[2024-02-13] MEDS: CEROVITE ADV FORMULA TAB PO SCH (09:57)
[2024-02-13] MEDS: FUROSEMIDE 40 MG/4 ML VIAL IV SCH (09:57)
[2024-02-13] MEDS: LOSARTAN POTASSIUM 50 MG TAB PO SCH (09:58)
[2024-02-13] MEDS: allopurinoL 300 MG TAB PO SCH (09:58)
[2024-02-13] MEDS: FERROUS SULFATE 325 MG TAB PO SCH (09:58)
[2024-02-13] MEDS: CHOLECALCIFEROL 25 MCG (1000 UNITS) TAB PO SCH (09:58)
[2024-02-13] MEDS: FOLIC ACID 1 MG TAB PO SCH (09:58)
[2024-02-13] MEDS: amLODIPine BESYLATE 5 MG TAB PO SCH (09:58)
--- NOTE | 2024-02-13 10:14 | Hospitalist Progress Note ---
Date of Service February 13, 2024 Assessment & Plan (1) Wound of lower extremity: (2) Diabetes mellitus, type II, insulin dependent: (3) Lymphedema: (4) CAD (coronary artery disease): (5) Hypertension: (6) History of chronic atrial fibrillation: (7) CKD (chronic kidney disease) stage 3, GFR 30-59 ml/min: (8) MICAH (obstructive sleep apnea): Plan This is a 63-year-old male with PMHx significant for morbid obesity with a BMI of 56.8, DM type II, chronic lymphedema, CAD status post inferior wall STEMI with stent in February 2009, chronic A-fib, HTN, HLD, MICAH on CPAP, CKD stage III, spina bifida who presents to the hospital with worsening lower extremity wound drainage on the right and left legs. Bilateral lower extremity cellulitis Chronic wounds Lymphedema DM II Pt not septic on admission Arterial Doppler US on admission with no noted stenosis but noted possible upstream vessel stenosis Leg Cx growing staph and gram negative bacilli currently Blood Cx pending MRI R and L leg pending to r/o osteomyelitis Wound Care consult, appreciate recs Pt Previously followed with podiatry for initial consult January 2024 , Dr. Tena as outpatient Initally treated with Aztreonam and Daptomycin Infectious Disease consulted, appreciate recs. Noted/Stated the following: -"Based on his body weight, the creatinine is pretty much normal. Since the patient does not have any acute changes in his kidney function, I would recommend changing daptomycin to vancomycin. -Also based on both, [facility] and [facility] records, he tolerated piperacillin tazobactam as well as amoxicillin very well in the past. Therefore, I would recommend changing aztreonam to piperacillin tazobactam. -We will follow up on the superficial culture obtained from the right leg wound and decide on the final option and duration of antibiotics. Continue with IV vancomycin and Zosyn Hold home torsemide, continue with IV Lasix in this setting Continue to monitor Chronic Afib/A flutter Continue Coreg and Eliquis ?CHF BNP elevated Echo pending Continue IV Lasix, hold home torsemide HTN continue carvedilol, olmesartan, amlodipine HLD continue atorvastatin DM type II Last A1c = 6.8 on 11/12/2023 Hold home metformin ISS with Accu-Cheks ACHS DVT ppx: on Eliquis Diet:HH/DMII, fluid restriction 1500ml Dispo: PT/OT Admission and Anticipated Discharge Date Admission Date: February 12, 2024 Subjective pt was seen laying in bed. Denied fevers,, chills or night sweats. States some slight pain to the wounds. Review of Systems Review of Systems: All systems reviewed & are unremarkable except as noted in Subjective Physical Exam Physical Exam: General: Alert, oriented. No acute distress Skin: erythema to lower extremities bilaterally, legs covered with bandages Psych: Appropriate mood and affect CV: Irregular Resp: Breath sounds clear bilaterally, no increased effort of breathing. Abdomen: Soft, nontender, nondistended Extremities: edema and erythema in lower extremities bilaterally Results & Data Results & Data Vital Signs (Past 12 Hours) Vital Signs Temp Pulse Pulse Resp BP Pulse Ox O2 Del Method 02/13/24 06:56 36.8 C 72 16 107/62 96 Room Air 02/13/24 03:36 80 25 H 96 02/13/24 01:31 80 20 97 FiO2 02/13/24 06:56 02/13/24 03:36 21 02/13/24 01:31 Diagnostic Findings Duplex Scan Lower Extremity Artery 02/12/24 14:02 Exam(s): US ARTERIAL BILATERAL LOWER EXTREMITIES EXAM: US Duplex Bilateral Lower Extremities Arteries CLINICAL HISTORY: Reason for exam: Eval, lower extremity wounds. TECHNIQUE: Real-time duplex ultrasound scan of the bilateral lower extremity arteries integrating B-mode two-dimensional vascular structure, Doppler spectral analysis and color flow Doppler imaging. COMPARISON: None FINDINGS: Right common femoral artery: No acute findings. No occlusion or significant stenosis on color flow and spectral Doppler imaging. Normal waveform. Right superficial femoral artery: No occlusion or significant stenosis on color flow and spectral Doppler imaging. Monophasic waveforms. Right popliteal artery: No occlusion or significant stenosis on color flow and spectral Doppler imaging. Monophasic waveforms. Right calf/foot arteries: No occlusion or significant stenosis on color flow and spectral Doppler imaging. Monophasic waveforms. Left common femoral artery: No acute findings. No occlusion or significant stenosis on color flow and spectral Doppler imaging. Normal waveform. Left superficial femoral artery: No occlusion or significant stenosis on color flow and spectral Doppler imaging. Biphasic waveforms in the proximal and mid left superficial femoral artery. Monophasic waveforms in the distal left superficial femoral artery. Left popliteal artery: No occlusion or significant stenosis on color flow and spectral Doppler imaging. Monophasic waveforms. Left calf/foot arteries: No occlusion or significant stenosis on color flow and spectral Doppler imaging. Monophasic waveforms. Soft tissues: Soft tissue edema. Other: Irregular heart rhythm noted. IMPRESSION: No hemodynamically significant stenosis identified, but there are monophasic waveforms in the right superficial femoral artery to calf arteries and left distal superficial femoral artery to calf arteries, suggesting upstream stenosis. Soft tissue edema. Electronically signed by: Winter Wu M.D. 02/13/24 00:57 AM (5) Hypertension Hypertension type: unspecified Qualified Code(s): I10 - Essential (primary) hypertension
--- NOTE | 2024-02-13 12:51 | Infectious Disease Consult ---
Date of Service February 13, 2024 Telehealth Information I performed this visit using a real-time telehealth connection between my location and the patients location ([facility]). After connecting through interactive tele-video, patient was identified by name and date of and/or wristband check.Patient (or authorized healthcare school admissions representative) was informed that this was a telemedicine visit and it was being conducted confidentially over secure lines. My office door was closed and no on e else was present in the room with me.Patient (or authorized healthcare school admissions representative) provided consent to proceed with the visit, expressed an understanding of privacy and security of the telemedicine visit, and gave permission to have a hospital school admissions representative in the room in order to assist with the visit and to conduct portions of the visit, as needed. I informed the patient (or authorized healthcare school admissions representative) that I reviewed their record and presented the opportunity for them to ask any questions regarding the visit today. The patient agreed to participate. Assessment & Plan (1) Cellulitis of right leg: (2) Lymphedema associated with obesity: (3) Open wound of both lower extremities: (4) Morbid obesity: Plan Based on his body weight, the creatinine is pretty much normal. Since the patient does not have any acute changes in his kidney function, I would recommend changing daptomycin to vancomycin. Also based on both, [facility] and [facility] records, he tolerated piperacillin tazobactam as well as amoxicillin very well in the past. Therefore, I would recommend changing aztreonam to piperacillin tazobactam. We will follow up on the superficial culture obtained from the right leg wound and decide on the final option and duration of antibiotics. Thank you for consulting ID. We will continue to follow. History of Present Illness History of Present Illness Mr. Morrison is a 63-year-old man with medical history of morbid obesity, type 2 diabetes, HTN, hyperlipidemia, CKD stage 3, CAD status post inferior wall STEMI with stenting, chronic atrial fibrillation, spina bifida, MICAH on CPAP, and bilateral lower extremity lymphedema who was admitted to [facility] on 02/12/2024 because of increased drainage from his lower extremity wounds. On presentation, he was afebrile but a little hypertensive at 159/62; otherwise, the rest of the vitals were within normal limits. Initial workup was not impressive except for normocytic anemia and positive MRSA screen. Superficial wound culture obtained from 1 of the legs (unknown laterality) growing Gram-negative bacilli and staph species. Id team was consulted for further recommendations and to help guide antibiotic treatment. Allergies Allergy/AdvReac Type Severity Reaction Status Date / Time sulfamethoxazole Allergy Intermediate Rash Verified 02/12/24 12:31 trimethoprim Allergy Intermediate Rash Verified 02/12/24 12:31 AVIVA Inhibitors Allergy Unknown Unknown Verified 02/12/24 12:31 lisinopril Allergy Unknown Unknown Verified 02/12/24 12:31 ceftriaxone AdvReac Mild Rash Verified 02/12/24 12:31 Home Medications Medication Instructions Recorded Confirmed Type latanoprost 0.005 % eye drops 1 drops OPB HS 09/24/18 02/12/24 History nitroglycerin 0.4 mg sublingual 0.4 mg sublingual Q5M PRN Chest 09/24/18 02/12/24 History tablet (Nitrostat) Pain allopurinol 300 mg tablet 300 mg PO QAM 05/25/20 02/12/24 History ferrous sulfate 325 mg (65 mg 325 mg PO DAILY 05/25/20 02/12/24 History iron) tablet folic acid 1 mg tablet 1 mg PO QAM 05/25/20 02/12/24 History multivitamin with minerals 1 tab PO QAM 05/25/20 02/12/24 History (Multiple Vitamin-Minerals tablet) torsemide 20 mg tablet 40 mg PO BID 05/25/20 02/12/24 History Lactobacillus acidoph-L.bulgaricus 1 tab PO DAILY 09/04/20 02/12/24 History 1 million cell tablet (Floranex) atorvastatin 10 mg tablet 5 mg PO HS 09/04/20 02/12/24 History apixaban 5 mg tablet (Eliquis) 5 mg PO BID 04/21/21 02/12/24 History carvedilol 25 mg tablet (Coreg) 25 mg PO BID #60 tabs 04/24/21 02/12/24 Rx cholecalciferol (vitamin D3) 50 4,000 mcg PO DAILY 11/08/21 02/12/24 History mcg (2,000 unit) capsule (Vitamin D3) insulin glargine 100 unit/mL (3 28 unit subcut PM 11/08/21 02/12/24 History mL) subcutaneous pen (Basaglar KwikPen U-100 Insulin) olmesartan 40 mg tablet 40 mg PO DAILY 11/08/21 02/12/24 History semaglutide 1 mg/dose (4 mg/3 mL) 1 mg subcut WK 11/08/21 02/12/24 History subcutaneous pen injector (Ozempic) amlodipine 5 mg tablet (Norvasc) 5 mg PO QAM #30 tabs 11/09/21 02/12/24 Rx metformin 500 mg tablet,extended 500 mg PO QAM 05/27/23 02/12/24 History release 24 hr nystatin 100,000 unit/gram topical 1 applic topical DAILY PRN .flare 05/27/23 02/12/24 History powder (Nyamyc) ups sennosides 8.6 mg-docusate sodium 2 tab-cap PO BID PRN Constipation 05/27/23 02/12/24 History 50 mg tablet (Senna with Docusate Sodium) acetaminophen 325 mg tablet 650 mg PO QID PRN Pain 02/12/24 02/12/24 History (Tylenol) potassium chloride 20 mEq 20 meq PO DAILY 02/12/24 02/12/24 History tablet,extended release Patient History Medical History (Updated 02/13/24 @ 13:35 by Shivani Gasca MD) Myocardial infarction H/o 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 Hyperlipidemia Glaucoma Presence of bare metal stent in right coronary artery Decreased ambulation status Lymphedema Major depressive disorder B-complex deficiency Vitamin D deficiency History of TIA (transient ischemic attack) Hearing loss of left ear Allergic rhinitis Arthritis of knee Spina bifida GERD (gastroesophageal reflux disease) Bilateral scrotal hernia Dyslipidemia 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, with long-term current use of insulin Diabetic retinopathy Gout Diabetic neuropathy Surgical History S/P panniculectomy H/O nasal septoplasty H/O colonoscopy H/O cardiac catheterization Previous back surgery Status post uvulopalatopharyngoplasty Hx of tonsillectomy S/P cholecystectomy Family History Mother Coronary heart disease Diabetes Hypertension Social History Smoking Status: Former smoker Tobacco Type: Cigarettes packs per day: 1; Second Hand Exposure: No; Do You Dip or Chew Tobacco: No; Tobacco Cessation Education Requested by Patient: No Hx Alcohol Use: No Hx Substance Use: No Preferred Language: Hong [place]er Communication Ability: Effective Visual Impairment: Limited Hearing Ability: Hard of Hearing Rubber And Pounder Required: No Beliefs That Will Affect Care: None marital status: Single Current Living Situation: Alone Current Living Situation Comment: ine apartment current occupational status: disabled Other Information That Helps Us Care for You: No Feels Safe at Home: Yes Safety Concerns: Feels Safe At This Time Childhood Exposure to Second-Hand Smoke: No Assistive Devices: CPAP, Walker and Wheelchair Review of Systems Negative except for what was mentioned in the H&P. Physical Exam Could not be performed as the visit was conducted via TeleMed. Results & Data Vital Signs (Past 12 Hours) Vital Signs Temp Pulse Pulse Resp BP Pulse Ox O2 Del Method 02/13/24 06:56 36.8 C 72 16 107/62 96 Room Air 02/13/24 03:36 80 25 H 96 02/13/24 01:31 80 20 97 FiO2 02/13/24 06:56 02/13/24 03:36 21 02/13/24 01:31 Laboratory Results Microbiology: 02/11: Superficial wound culture growing Gram-negative bacilli and staph species 02/11: 1 set of blood culture negative to date Diagnostic Findings Arterial duplex bilateral lower extremities on 02/12/2024: No hemodynamically significant stenosis identified, but there are monophasic waveforms in the right superficial femoral artery to calf arteries and left distal superficial femoral artery to calf arteries, suggesting upstream stenosis. Soft tissue edema.
[2024-02-13] MEDS ORDERED: VANCOMYCIN CONSULT ACTIVE PRN (15:58)
[2024-02-13] MEDS ORDERED: VANCOMYCIN HCL 2,750 MG in SODIUM CHLORIDE 0.9% 500 ML IV STA (16:06)
--- NOTE | 2024-02-13 16:24 | Pharmacy Report ---
Pharmacy PK ABX Note - Date of Service February 13, 2024 - Assessment and Plan Assessment 63 year old M receiving Vancomycin and Zosyn for treatment of cellulitis. * Day #2 of antimicrobial therapy. Was on Dapto and Aztreonam for 1 day but [facility] ID recommending switch to Vancomycin + Zosyn today. * Afebrile. No white count. Renal fxn at baseline. * Blood culture with no growth to date. Leg culture growing staph species and gram negative bacilli. * Patient's BMI is significantly elevated which may complicate vancomycin dosing. Loading dose of 2750 mg (~16 mg/kg) received yesterday afternoon. Plan Vancomycin * Loading dose: 2750 mg IV x 1 received 02/12/24 @ 1339. Predicted trough at this time is ~7 mcg/mL. Will not reload patient. * Maintenance dose: 1250 mg IV every 12 hours * Regimen is predicted to achieve target AUC/JOSE of 400-600 mg/L.hr * Random level ordered for: 02/13/24 Zosyn * 4.5 g IV every 8 hours Pharmacy will continue to follow and will adjust dose/frequency as necessary. Thank you. Pharmacy has transitioned to AUC monitoring for vancomycin. AUC/JOSE is the preferred PK/PD target and is associated with decreased risk of nephrotoxicity compared to traditional trough targets.
[2024-02-13] MEDS: PIPERACILLIN/TAZOBACTAM 4.5 GM in DEXTROSE 5% MINI-B 100 ML IV STA (16:32)
[2024-02-13] MEDS: VANCOMYCIN HCL 1,250 MG in SODIUM CHLORIDE 0.9% 250 ML IV SCH (17:15)
[2024-02-13] MEDS: DOCUSATE SODIUM/SENNA 50/8.6MG TAB PO PRN (20:42)
[2024-02-13] MEDS: GADOBUTROL 65ML VIAL IV ONE (22:19)
[2024-02-13] MEDS: PIPERACILLIN/TAZOBACTAM 4.5 GM in DEXTROSE 5% MINI-B 100 ML IV SCH (23:28)
--- NOTE | 2024-02-14 03:59 | Magnetic Resonance Report ---
Exam(s): MRI EXTREMITY W/WO Contrast IV Amt: 15cc gadavist EXAM: MR Right Lower Extremity Without and With Intravenous Contrast, Tibia and Fibula CLINICAL HISTORY: Reason for exam: r/o osteomyelitis. TECHNIQUE: Multiplanar magnetic resonance images of the right tibia and fibula without and with intravenous contrast. CONTRAST: Patient received 15cc gadavist of IV contrast COMPARISON: No relevant prior studies available. FINDINGS: There is no fracture or dislocation. There are no bone marrow signal changes to suggest osteomyelitis. There is diffuse and circumferential subcutaneous edema suggesting cellulitis. Postcontrast imaging demonstrates no evidence of soft tissue abscess. There is no fasciitis or myositis. IMPRESSION: 1. Diffuse cellulitis. 2. No fasciitis, myositis, or osteomyelitis. Electronically signed by: Aaron Willingham M.D. 02/14/24 03:58 AM
[2024-02-14 04:47] LABS: Basophils # (auto) 0.04 K/uL (0.00-0.20); Basophils % (auto) 0.6 %; Eosinophils # (auto) 0.13 K/uL (0.00-0.50); Eosinophils % (auto) 1.9 %; Hemoglobin 11.3 g/dl (14.0-18.0); Immature Granulocytes # (auto) 0.03 K/uL (0.01-0.20); Immature Granulocytes % (auto) 0.4 %; Lymphocytes # (auto) 0.91 K/uL (1.20-3.40); Lymphocytes % (auto) 13.4 %; Mean Corpuscular Hemoglobin 29.3 pg (25.0-34.0); Mean Corpuscular Hgb Conc 32.3 g/dL (32.0-36.0); Mean Corpuscular Volume 90.7 fL (80.0-100.0); Mean Platelet Volume 9.3 fL (9.4-12.4); Monocytes # (auto) 0.74 K/uL (0.11-0.59); Monocytes % (auto) 10.9 %; Neutrophils # (auto) 4.96 K/uL (1.40-6.50); Neutrophils % (auto) 72.8 %; Platelet Count 165 K/uL (130-400); RDW Coefficient of Variation 13.5 % (11.5-14.5); Red Blood Count 3.86 M/uL (4.70-6.10); White Blood Count 6.81 K/ul (4.8-10.8)
[2024-02-14 05:01] LABS: Albumin Level 3.1 gm/dl (3.4-5.0); Bilirubin,Total 1.9 mg/dl (0.2-1.0); Calcium 8.7 mg/dl (8.6-10.3); Creatinine Clr Calc Pharmacy 85.3 ml/min; Est GFR (Non-African American) 53.5 ml/min; Globulin 3.1 gm/dl (2.5-4.0); Magnesium 2.1 mg/dl (1.7-2.4); Phosphorus 3.9 mg/dl (2.5-4.9); Potassium 3.6 mmol/L (3.5-5.1); Total Protein 6.2 gm/dl (6.0-8.3)
[2024-02-14] MEDS: VANCOMYCIN LEVEL ONE ×2 (05:54→07:30)
--- NOTE | 2024-02-14 08:52 | Pharmacy Report ---
Pharmacy PK ABX Note - Date of Service February 14, 2024 - Assessment and Plan Assessment 02/13: Reviewed vancomycin level, predicting therapeutic AUC/JOSE, staph species sensitivities pending from leg culture, continue current regimen. serum creatinine slightly increased today (1.16--> 1.40). Will obtain another level tomorrow to continue to monitor. 02/12: 63 year old M receiving Vancomycin and Zosyn for treatment of cellulitis. * Day #2 of antimicrobial therapy. Was on Dapto and Aztreonam for 1 day but [facility] ID recommending switch to Vancomycin + Zosyn today. * Afebrile. No white count. Renal fxn at baseline. * Blood culture with no growth to date. Leg culture growing staph species and gram negative bacilli. * Patient's BMI is significantly elevated which may complicate vancomycin dosing. Loading dose of 2750 mg (~16 mg/kg) received yesterday afternoon. Plan Vancomycin * Maintenance dose: 1250 mg IV every 12 hours * Regimen is predicted to achieve target AUC/JOSE of 400-600 mg/L.hr * Trough level ordered for: 02/14/24 @0430 Zosyn * 4.5 g IV every 8 hours Pharmacy will continue to follow and will adjust dose/frequency as necessary. Thank you. Pharmacy has transitioned to AUC monitoring for vancomycin. AUC/JOSE is the preferred PK/PD target and is associated with decreased risk of nephrotoxicity compared to traditional trough targets.
[2024-02-14] MEDS: ACETAMINOPHEN 325 MG TAB PO PRN (12:39)
--- NOTE | 2024-02-14 16:39 | Hospitalist Progress Note ---
Date of Service February 14, 2024 Assessment & Plan (1) Wound of lower extremity: (2) Diabetes mellitus, type II, insulin dependent: (3) Lymphedema: (4) CAD (coronary artery disease): (5) Hypertension: (6) History of chronic atrial fibrillation: (7) CKD (chronic kidney disease) stage 3, GFR 30-59 ml/min: (8) MICAH (obstructive sleep apnea): Plan This is a 63-year-old male with PMHx significant for morbid obesity with a BMI of 56.8, DM type II, chronic lymphedema, CAD status post inferior wall STEMI with stent in February 2009, chronic A-fib, HTN, HLD, MICAH on CPAP, CKD stage III, spina bifida who presents to the hospital with worsening lower extremity wound drainage on the right and left legs. Bilateral lower extremity cellulitis Chronic wounds Lymphedema DM II Pt not septic on admission Arterial Doppler US on admission with no noted stenosis but noted possible upstream vessel stenosis Leg Cx growing staph and pseudomonas currently Blood Cx NGTD MRI R leg with cellulitis MRI L leg pending to r/o osteomyelitis Wound Care consult, appreciate recs Pt Previously followed with podiatry for initial consult January 2024 , Dr. Tena as outpatient Initially treated with Aztreonam and Daptomycin Infectious Disease consulted, appreciate recs. Noted/Stated the following: -"Based on his body weight, the creatinine is pretty much normal. Since the patient does not have any acute changes in his kidney function, I would recommend changing daptomycin to vancomycin. -Also based on both, [facility] and [facility] records, he tolerated piperacillin tazobactam as well as amoxicillin very well in the past. Therefore, I would recommend changing aztreonam to piperacillin tazobactam. -We will follow up on the superficial culture obtained from the right leg wound and decide on the final option and duration of antibiotics. Continue with IV vancomycin and Zosyn Hold home torsemide, continue with IV Lasix in this setting Continue to monitor Chronic Afib/A flutter Continue Coreg and Eliquis ?CHF BNP elevated Echo pending Continue IV Lasix, hold home torsemide HTN continue carvedilol, olmesartan, amlodipine HLD continue atorvastatin DM type II Last A1c = 6.8 on 11/12/2023 Hold home metformin ISS with Accu-Cheks ACHS DVT ppx: on Eliquis Diet:HH/DMII, fluid restriction 1500ml Dispo: PT/OT recommending rehab Admission and Anticipated Discharge Date Admission Date: February 12, 2024 Subjective pt was seen laying in bed. Denied fevers,, chills or night sweats. Feels like he is constipated Review of Systems Review of Systems: All systems reviewed & are unremarkable except as noted in Subjective Physical Exam Physical Exam: General: Alert, oriented. No acute distress Skin: erythema to lower extremities bilaterally, legs covered with bandages Psych: Appropriate mood and affect CV: Irregular Resp: Breath sounds clear bilaterally, no increased effort of breathing. Abdomen: Soft, nontender, nondistended Extremities: edema and erythema in lower extremities bilaterally Results & Data Results & Data Vital Signs (Past 12 Hours) Vital Signs Temp Pulse Pulse Pulse Resp BP BP 02/14/24 15:07 36.7 C 62 16 111/51 L 02/14/24 12:31 36.8 C 16 112/56 L 02/14/24 07:49 37.0 C 68 14 123/69 02/14/24 07:41 02/14/24 07:05 65 23 02/14/24 07:02 36.6 C 63 16 127/66 Pulse Ox O2 Del Method FiO2 02/14/24 15:07 95 Room Air 02/14/24 12:31 Room Air 02/14/24 07:49 97 Room Air 02/14/24 07:41 Room Air 02/14/24 07:05 96 21 02/14/24 07:02 98 CPAP Diagnostic Findings Duplex Scan Lower Extremity Artery 02/12/24 14:02 Exam(s): US ARTERIAL BILATERAL LOWER EXTREMITIES EXAM: US Duplex Bilateral Lower Extremities Arteries CLINICAL HISTORY: Reason for exam: Eval, lower extremity wounds. TECHNIQUE: Real-time duplex ultrasound scan of the bilateral lower extremity arteries integrating B-mode two-dimensional vascular structure, Doppler spectral analysis and color flow Doppler imaging. COMPARISON: None FINDINGS: Right common femoral artery: No acute findings. No occlusion or significant stenosis on color flow and spectral Doppler imaging. Normal waveform. Right superficial femoral artery: No occlusion or significant stenosis on color flow and spectral Doppler imaging. Monophasic waveforms. Right popliteal artery: No occlusion or significant stenosis on color flow and spectral Doppler imaging. Monophasic waveforms. Right calf/foot arteries: No occlusion or significant stenosis on color flow and spectral Doppler imaging. Monophasic waveforms. Left common femoral artery: No acute findings. No occlusion or significant stenosis on color flow and spectral Doppler imaging. Normal waveform. Left superficial femoral artery: No occlusion or significant stenosis on color flow and spectral Doppler imaging. Biphasic waveforms in the proximal and mid left superficial femoral artery. Monophasic waveforms in the distal left superficial femoral artery. Left popliteal artery: No occlusion or significant stenosis on color flow and spectral Doppler imaging. Monophasic waveforms. Left calf/foot arteries: No occlusion or significant stenosis on color flow and spectral Doppler imaging. Monophasic waveforms. Soft tissues: Soft tissue edema. Other: Irregular heart rhythm noted. IMPRESSION: No hemodynamically significant stenosis identified, but there are monophasic waveforms in the right superficial femoral artery to calf arteries and left distal superficial femoral artery to calf arteries, suggesting upstream stenosis. Soft tissue edema. Electronically signed by: Winter Wu M.D. 02/13/24 00:57 AM Lower Extremity MRI 02/13/24 15:57 Exam(s): MRI EXTREMITY W/WO Contrast IV Amt: 15cc gadavist EXAM: MR Right Lower Extremity Without and With Intravenous Contrast, Tibia and Fibula CLINICAL HISTORY: Reason for exam: r/o osteomyelitis. TECHNIQUE: Multiplanar magnetic resonance images of the right tibia and fibula without and with intravenous contrast. CONTRAST: Patient received 15cc gadavist of IV contrast COMPARISON: No relevant prior studies available. FINDINGS: There is no fracture or dislocation. There are no bone marrow signal changes to suggest osteomyelitis. There is diffuse and circumferential subcutaneous edema suggesting cellulitis. Postcontrast imaging demonstrates no evidence of soft tissue abscess. There is no fasciitis or myositis. IMPRESSION: 1. Diffuse cellulitis. 2. No fasciitis, myositis, or osteomyelitis. Electronically signed by: Aaron Willingham M.D. 02/14/24 03:58 AM (5) Hypertension Hypertension type: unspecified Qualified Code(s): I10 - Essential (primary) hypertension
[2024-02-14] MEDS: POLYETHYLENE (MIRALAX) 17 GM PACK PO SCH (21:23)
--- NOTE | 2024-02-15 01:56 | Magnetic Resonance Report ---
Exam(s): MRI EXTREMITY W/WO Contrast IV Amt: 15cc gadavist ADDENDUM - Added by Aaron Willingham M.D. on 02/14/2024 3:59 AM (-04:00) There is generalized muscle atrophy. EXAM: MR Left Lower Extremity Without and With Intravenous Contrast, Tibia and Fibula CLINICAL HISTORY: Reason for exam: r/o osteomyelitis. TECHNIQUE: Multiplanar magnetic resonance images of the left tibia and fibula without and with intravenous contrast. CONTRAST: Patient received 15cc gadavist of IV contrast COMPARISON: No relevant prior studies available. FINDINGS: There is diffuse and circumferential subcutaneous edema suggesting cellulitis. Postcontrast imaging demonstrates no evidence of soft tissue abscess. There is no evidence of fasciitis or myositis. There is generalized muscle atrophy. Bone marrow signal is normal. There is no fracture, dislocation, or osteomyelitis. IMPRESSION: 1. Diffuse cellulitis. 2. No fasciitis, myositis, abscess, or osteomyelitis. Electronically signed by: Aaron Willingham M.D. 02/14/24 03:59 AM
[2024-02-15 05:06] LABS: Basophils # (auto) 0.03 K/uL (0.00-0.20); Basophils % (auto) 0.5 %; Hematocrit (blood only) 35.1 % (42.0-52.0); Hemoglobin 11.5 g/dl (14.0-18.0); Immature Granulocytes # (auto) 0.02 K/uL (0.01-0.20); Immature Granulocytes % (auto) 0.3 %; Lymphocytes # (auto) 0.93 K/uL (1.20-3.40); Lymphocytes % (auto) 14.1 %; Mean Corpuscular Hemoglobin 29.4 pg (25.0-34.0); Mean Corpuscular Hgb Conc 32.8 g/dL (32.0-36.0); Mean Corpuscular Volume 89.8 fL (80.0-100.0); Mean Platelet Volume 9.7 fL (9.4-12.4); Monocytes # (auto) 0.68 K/uL (0.11-0.59); Monocytes % (auto) 10.3 %; Neutrophils # (auto) 4.75 K/uL (1.40-6.50); Neutrophils % (auto) 71.8 %; Platelet Count 188 K/uL (130-400); RDW Coefficient of Variation 13.5 % (11.5-14.5); RDW Standard Deviation 44.4 fL (36.4-46.3); Red Blood Count 3.91 M/uL (4.70-6.10); White Blood Count 6.61 K/ul (4.8-10.8)
[2024-02-15 05:22] LABS: Albumin Globulin Ratio 1.1 (0.9-2); Albumin Level 3.2 gm/dl (3.4-5.0); BUN Creatinine Ratio 16.2 (10-20); Bilirubin,Total 1.3 mg/dl (0.2-1.0); Calcium 8.6 mg/dl (8.6-10.3); Creatinine Clr Calc Pharmacy 87.8 ml/min; Est GFR (African American) 64.2 ml/min; Est GFR (Non-African American) 55.4 ml/min; Magnesium 2.1 mg/dl (1.7-2.4); Phosphorus 3.8 mg/dl (2.5-4.9); Potassium 3.4 mmol/L (3.5-5.1); Total Protein 6.2 gm/dl (6.0-8.3)
[2024-02-15] MEDS: POTASSIUM CHLORIDE CRTAB 20 MEQ TABCR PO STA (09:56)
--- NOTE | 2024-02-15 09:56 | Pharmacy Report ---
Pharmacy PK ABX Note - Date of Service February 15, 2024 - Assessment and Plan Assessment 02/14: Day # 3 vancomycin (+ zosyn). SCr stable today at 1.36. Surface leg culture (+) Pseudomonas and MRSA. 02/13: Reviewed vancomycin level, predicting therapeutic AUC/JOSE, staph species sensitivities pending from leg culture, continue current regimen. serum creatinine slightly increased today (1.16--> 1.40). Will obtain another level tomorrow to continue to monitor. 02/12: 63 year old M receiving Vancomycin and Zosyn for treatment of cellulitis. * Day #2 of antimicrobial therapy. Was on Dapto and Aztreonam for 1 day but [facility] ID recommending switch to Vancomycin + Zosyn today. * Afebrile. No white count. Renal fxn at baseline. * Blood culture with no growth to date. Leg culture growing staph species and gram negative bacilli. * Patient's BMI is significantly elevated which may complicate vancomycin dosing. Loading dose of 2750 mg (~16 mg/kg) received yesterday afternoon. Plan Vancomycin * Current regimen: 1250 mg IV every 12 hours * Trough level this AM (~11.5hr level) 14.2mcg/mL- predicted to achieve ssAUC slightly above 600mg/L.hr. * Given body habitus and changing renal function, at risk for accumulation. Will reduce to 1gm IV q12h which is predicted to achieve ssAUC ~500mg/L.hr. * Repeat level around steady state of new regimen, or sooner if renal function continues to decline. Pharmacy will continue to follow and will adjust dose/frequency as necessary. Thank you. Pharmacy has transitioned to AUC monitoring for vancomycin. AUC/JOSE is the preferred PK/PD target and is associated with decreased risk of nephrotoxicity compared to traditional trough targets.
--- NOTE | 2024-02-15 12:13 | Hospitalist Progress Note ---
Date of Service February 15, 2024 Assessment & Plan (1) Wound of lower extremity: (2) Diabetes mellitus, type II, insulin dependent: (3) Lymphedema: (4) CAD (coronary artery disease): (5) Hypertension: (6) History of chronic atrial fibrillation: (7) CKD (chronic kidney disease) stage 3, GFR 30-59 ml/min: (8) MICAH (obstructive sleep apnea): Plan This is a 63-year-old male with PMHx significant for morbid obesity with a BMI of 56.8, DM type II, chronic lymphedema, CAD status post inferior wall STEMI with stent in February 2009, chronic A-fib, HTN, HLD, MICAH on CPAP, CKD stage III, spina bifida who presents to the hospital with worsening lower extremity wound drainage on the right and left legs. Bilateral lower extremity cellulitis Chronic wounds Lymphedema DM II Pt not septic on admission Arterial Doppler US on admission with no noted stenosis but noted possible upstream vessel stenosis Leg Cx growing staph and pseudomonas currently Blood Cx NGTD MRI R leg with cellulitis MRI L leg pending to r/o osteomyelitis Wound Care consult, appreciate recs Pt Previously followed with podiatry for initial consult January 2024 , Dr. Tena as outpatient Initially treated with Aztreonam and Daptomycin Infectious Disease consulted, appreciate recs. Noted/Stated the following: -"Based on his body weight, the creatinine is pretty much normal. Since the patient does not have any acute changes in his kidney function, I would recommend changing daptomycin to vancomycin. -Also based on both, [facility] and [facility] records, he tolerated piperacillin tazobactam as well as amoxicillin very well in the past. Therefore, I would recommend changing aztreonam to piperacillin tazobactam. -We will follow up on the superficial culture obtained from the right leg wound and decide on the final option and duration of antibiotics. Continue with IV vancomycin and Zosyn, awaiting further ID recs Hold home torsemide, continue with IV Lasix in this setting Continue to monitor Chronic Afib/A flutter Continue Coreg and Eliquis ?CHF BNP elevated at 186 Echo noting EF 55-60%, no wall motion abnormality, mild LVH, no pulm HTN, could not assess diastolic dysfunction No evidence of systolic dysfunction but diastolic CHF still remains a possibility Continue IV Lasix, hold home torsemide at this time Monitor Is and Os HTN continue carvedilol, olmesartan, amlodipine HLD continue atorvastatin DM type II Last A1c = 6.8 on 11/12/2023 Hold home metformin ISS with Accu-Cheks ACHS DVT ppx: on Eliquis Diet:HH/DMII, fluid restriction 1500ml Dispo: PT/OT recommending rehab Admission and Anticipated Discharge Date Admission Date: February 12, 2024 Subjective pt was seen laying in bed. Denied fevers,, chills or night sweats. States he had a bowel movement. Review of Systems Review of Systems: All systems reviewed & are unremarkable except as noted in Subjective Physical Exam Physical Exam: General: Alert, oriented. No acute distress Skin: erythema to lower extremities bilaterally, legs covered with bandages Psych: Appropriate mood and affect CV: Irregular Resp: Breath sounds clear bilaterally, no increased effort of breathing. Abdomen: Soft, nontender, nondistended Extremities: edema and erythema in lower extremities bilaterally Results & Data Results & Data Vital Signs (Past 12 Hours) Vital Signs Temp Pulse Pulse Resp BP Pulse Ox O2 Del Method 02/15/24 07:56 36.9 C 62 18 146/74 H 96 Room Air 02/15/24 02:51 46 L 19 96 (5) Hypertension Hypertension type: unspecified Qualified Code(s): I10 - Essential (primary) hypertension
[2024-02-15] MEDS: VANCOMYCIN HCL 1,000 MG in SODIUM CHLORIDE 0.9% 250 ML IV SCH (18:06)
[2024-02-16 07:17] LABS: Basophils # (auto) 0.05 K/uL (0.00-0.20); Basophils % (auto) 0.8 %; Eosinophils # (auto) 0.18 K/uL (0.00-0.50); Eosinophils % (auto) 2.9 %; Hematocrit (blood only) 36.1 % (42.0-52.0); Hemoglobin 11.7 g/dl (14.0-18.0); Immature Granulocytes # (auto) 0.02 K/uL (0.01-0.20); Immature Granulocytes % (auto) 0.3 %; Lymphocytes # (auto) 0.88 K/uL (1.20-3.40); Lymphocytes % (auto) 14.3 %; Mean Corpuscular Hemoglobin 29.3 pg (25.0-34.0); Mean Corpuscular Hgb Conc 32.4 g/dL (32.0-36.0); Mean Corpuscular Volume 90.5 fL (80.0-100.0); Mean Platelet Volume 9.6 fL (9.4-12.4); Monocytes # (auto) 0.69 K/uL (0.11-0.59); Monocytes % (auto) 11.2 %; Neutrophils # (auto) 4.33 K/uL (1.40-6.50); Neutrophils % (auto) 70.5 %; Platelet Count 192 K/uL (130-400); RDW Coefficient of Variation 13.4 % (11.5-14.5); RDW Standard Deviation 44.4 fL (36.4-46.3); Red Blood Count 3.99 M/uL (4.70-6.10); White Blood Count 6.15 K/ul (4.8-10.8)
[2024-02-16 07:44] LABS: Albumin Globulin Ratio 1.1 (0.9-2); Albumin Level 3.2 gm/dl (3.4-5.0); BUN Creatinine Ratio 17.5 (10-20); Bilirubin,Total 1.1 mg/dl (0.2-1.0); Calcium 8.5 mg/dl (8.6-10.3); Creatinine Clr Calc Pharmacy 99.5 ml/min; Est GFR (African American) 74.7 ml/min; Est GFR (Non-African American) 64.4 ml/min; Phosphorus 3.3 mg/dl (2.5-4.9); Potassium 3.9 mmol/L (3.5-5.1); Total Protein 6.2 gm/dl (6.0-8.3)
--- NOTE | 2024-02-16 10:56 | Hospitalist Progress Note ---
Date of Service February 16, 2024 Assessment & Plan (1) Wound of lower extremity: (2) Diabetes mellitus, type II, insulin dependent: (3) Lymphedema: (4) CAD (coronary artery disease): (5) Hypertension: (6) History of chronic atrial fibrillation: (7) CKD (chronic kidney disease) stage 3, GFR 30-59 ml/min: (8) MICAH (obstructive sleep apnea): Plan This is a 63-year-old male with PMHx significant for morbid obesity with a BMI of 56.8, DM type II, chronic lymphedema, CAD status post inferior wall STEMI with stent in February 2009, chronic A-fib, HTN, HLD, MICAH on CPAP, CKD stage III, spina bifida who presents to the hospital with worsening lower extremity wound drainage on the right and left legs. Bilateral lower extremity cellulitis Chronic wounds Lymphedema DM II Pt not septic on admission Arterial Doppler US on admission with no noted stenosis but noted possible upstream vessel stenosis Leg Cx growing staph and pseudomonas currently Blood Cx NGTD MRI R leg with cellulitis MRI L leg pending to r/o osteomyelitis Wound Care consult, appreciate recs Pt Previously followed with podiatry for initial consult January 2024 , Dr. Tena as outpatient Initially treated with Aztreonam and Daptomycin Infectious Disease consulted, appreciate recs. Noted/Stated the following: -"Based on his body weight, the creatinine is pretty much normal. Since the patient does not have any acute changes in his kidney function, I would recommend changing daptomycin to vancomycin. -Also based on both, [facility] and [facility] records, he tolerated piperacillin tazobactam as well as amoxicillin very well in the past. Therefore, I would recommend changing aztreonam to piperacillin tazobactam. -We will follow up on the superficial culture obtained from the right leg wound and decide on the final option and duration of antibiotics. Continue with IV vancomycin and Zosyn, awaiting further ID recs Hold home torsemide, continue with IV Lasix in this setting Continue to monitor Chronic Afib/A flutter Continue Coreg and Eliquis ?CHF BNP elevated at 186 Echo noting EF 55-60%, no wall motion abnormality, mild LVH, no pulm HTN, could not assess diastolic dysfunction No evidence of systolic dysfunction but diastolic CHF still remains a possibility Continue IV Lasix, hold home torsemide at this time Monitor Is and Os HTN continue carvedilol, olmesartan, amlodipine HLD continue atorvastatin DM type II Last A1c = 6.8 on 11/12/2023 Hold home metformin ISS with Accu-Cheks ACHS DVT ppx: on Eliquis Diet:HH/DMII, fluid restriction 1500ml Dispo: PT/OT recommending rehab Admission and Anticipated Discharge Date Admission Date: February 12, 2024 Subjective pt was seen laying in bed. Denied fevers,, chills or night sweats. States he had 2 bowel movements the day before. Review of Systems Review of Systems: All systems reviewed & are unremarkable except as noted in Subjective Physical Exam Physical Exam: General: Alert, oriented. No acute distress Skin: erythema to lower extremities bilaterally, legs covered with bandages Psych: Appropriate mood and affect CV: Irregular Resp: Breath sounds clear bilaterally, no increased effort of breathing. Abdomen: Soft, nontender, nondistended Extremities: edema and erythema in lower extremities bilaterally Results & Data Results & Data Vital Signs (Past 12 Hours) Vital Signs Temp Pulse Resp BP Pulse Ox O2 Del Method FiO2 02/16/24 07:02 36.5 C 58 L 20 156/88 H 96 BiPAP 02/16/24 03:05 18 21 (5) Hypertension Hypertension type: unspecified Qualified Code(s): I10 - Essential (primary) hypertension
[2024-02-17 07:51] LABS: Basophils # (auto) 0.05 K/uL (0.00-0.20); Basophils % (auto) 0.8 %; Eosinophils # (auto) 0.19 K/uL (0.00-0.50); Eosinophils % (auto) 3.2 %; Hematocrit (blood only) 36.1 % (42.0-52.0); Hemoglobin 11.6 g/dl (14.0-18.0); Immature Granulocytes # (auto) 0.01 K/uL (0.01-0.20); Immature Granulocytes % (auto) 0.2 %; Lymphocytes # (auto) 0.82 K/uL (1.20-3.40); Lymphocytes % (auto) 13.9 %; Mean Corpuscular Hemoglobin 29.4 pg (25.0-34.0); Mean Corpuscular Hgb Conc 32.1 g/dL (32.0-36.0); Mean Corpuscular Volume 91.6 fL (80.0-100.0); Mean Platelet Volume 9.2 fL (9.4-12.4); Monocytes # (auto) 0.63 K/uL (0.11-0.59); Monocytes % (auto) 10.7 %; Neutrophils % (auto) 71.2 %; Platelet Count 194 K/uL (130-400); RDW Coefficient of Variation 13.3 % (11.5-14.5); RDW Standard Deviation 45.2 fL (36.4-46.3); Red Blood Count 3.94 M/uL (4.70-6.10)
[2024-02-17 08:07] LABS: Albumin Globulin Ratio 1.1 (0.9-2); Albumin Level 3.2 gm/dl (3.4-5.0); BUN Creatinine Ratio 14.7 (10-20); Bilirubin,Total 1.2 mg/dl (0.2-1.0); Calcium 8.7 mg/dl (8.6-10.3); Creatinine Clr Calc Pharmacy 87.8 ml/min; Est GFR (African American) 64.2 ml/min; Est GFR (Non-African American) 55.4 ml/min; Phosphorus 3.1 mg/dl (2.5-4.9); Potassium 4.3 mmol/L (3.5-5.1); Total Protein 6.2 gm/dl (6.0-8.3)
--- NOTE | 2024-02-17 10:00 | Hospitalist Progress Note ---
Date of Service February 17, 2024 Assessment & Plan (1) Wound of lower extremity: (2) Diabetes mellitus, type II, insulin dependent: (3) Lymphedema: (4) CAD (coronary artery disease): (5) Hypertension: (6) History of chronic atrial fibrillation: (7) CKD (chronic kidney disease) stage 3, GFR 30-59 ml/min: (8) MICAH (obstructive sleep apnea): Plan This is a 63-year-old male with PMHx significant for morbid obesity with a BMI of 56.8, DM type II, chronic lymphedema, CAD status post inferior wall STEMI with stent in February 2009, chronic A-fib, HTN, HLD, MICAH on CPAP, CKD stage III, spina bifida who presents to the hospital with worsening lower extremity wound drainage on the right and left legs. Bilateral lower extremity cellulitis Chronic wounds Lymphedema DM II Pt not septic on admission Arterial Doppler US on admission with no noted stenosis but noted possible upstream vessel stenosis Leg Cx growing staph and pseudomonas currently Blood Cx NGTD MRI R leg with cellulitis MRI L leg pending to r/o osteomyelitis Wound Care consult, appreciate recs Pt Previously followed with podiatry for initial consult January 2024 , Dr. Tena as outpatient Initially treated with Aztreonam and Daptomycin Infectious Disease consulted, appreciate recs. Noted/Stated the following: -"Based on his body weight, the creatinine is pretty much normal. Since the patient does not have any acute changes in his kidney function, I would recommend changing daptomycin to vancomycin. -Also based on both, [facility] and [facility] records, he tolerated piperacillin tazobactam as well as amoxicillin very well in the past. Therefore, I would recommend changing aztreonam to piperacillin tazobactam. -We will follow up on the superficial culture obtained from the right leg wound and decide on the final option and duration of antibiotics. Continue with IV vancomycin and Zosyn, awaiting further ID recs Hold home torsemide, continue with IV Lasix in this setting Continue to monitor Chronic Afib/A flutter Continue Coreg and Eliquis ?CHF BNP elevated at 186 Echo noting EF 55-60%, no wall motion abnormality, mild LVH, no pulm HTN, could not assess diastolic dysfunction No evidence of systolic dysfunction but diastolic CHF still remains a possibility Continue IV Lasix, hold home torsemide at this time Monitor Is and Os HTN continue carvedilol, olmesartan, amlodipine HLD continue atorvastatin DM type II Last A1c = 6.8 on 11/12/2023 Hold home metformin ISS with Accu-Cheks ACHS DVT ppx: on Eliquis Diet:HH/DMII, fluid restriction 1500ml Dispo: PT/OT recommending rehab Admission and Anticipated Discharge Date Admission Date: February 12, 2024 Subjective pt was seen laying in bed. Denied fevers, chills or night sweats. States he had 2 bowel movements the day before. Review of Systems Review of Systems: All systems reviewed & are unremarkable except as noted in Subjective Physical Exam Physical Exam: General: Alert, oriented. No acute distress Skin: erythema to lower extremities bilaterally, legs covered with bandages Psych: Appropriate mood and affect CV: Irregular Resp: Breath sounds clear bilaterally, no increased effort of breathing. Abdomen: Soft, nontender, nondistended Extremities: edema and erythema in lower extremities bilaterally Results & Data Results & Data Vital Signs (Past 12 Hours) Vital Signs Temp Pulse Resp BP Pulse Ox O2 Del Method FiO2 02/17/24 08:18 36.8 C 62 18 141/86 H 97 Room Air 02/17/24 03:25 19 21 02/16/24 22:39 17 96 21 (5) Hypertension Hypertension type: unspecified Qualified Code(s): I10 - Essential (primary) hypertension
[2024-02-18 07:10] VITALS: BP 138/72; RESP 18; TEMP 97.5; O2SAT 97
[2024-02-18 08:11] LABS: Basophils # (auto) 0.04 K/uL (0.00-0.20); Basophils % (auto) 0.6 %; Eosinophils % (auto) 2.9 %; Hematocrit (blood only) 34.4 % (42.0-52.0); Hemoglobin 11.4 g/dl (14.0-18.0); Immature Granulocytes # (auto) 0.02 K/uL (0.01-0.20); Immature Granulocytes % (auto) 0.3 %; Lymphocytes # (auto) 0.78 K/uL (1.20-3.40); Lymphocytes % (auto) 11.2 %; Mean Corpuscular Hemoglobin 29.2 pg (25.0-34.0); Mean Corpuscular Hgb Conc 33.1 g/dL (32.0-36.0); Mean Corpuscular Volume 88.2 fL (80.0-100.0); Mean Platelet Volume 9.6 fL (9.4-12.4); Monocytes # (auto) 0.66 K/uL (0.11-0.59); Monocytes % (auto) 9.5 %; Neutrophils # (auto) 5.28 K/uL (1.40-6.50); Neutrophils % (auto) 75.5 %; Platelet Count 203 K/uL (130-400); RDW Coefficient of Variation 13.4 % (11.5-14.5); RDW Standard Deviation 43.2 fL (36.4-46.3); White Blood Count 6.98 K/ul (4.8-10.8)
[2024-02-18 08:27] LABS: Albumin Globulin Ratio 1.1 (0.9-2); Albumin Level 3.2 gm/dl (3.4-5.0); BUN Creatinine Ratio 16.5 (10-20); Bilirubin,Total 1.2 mg/dl (0.2-1.0); Calcium 8.7 mg/dl (8.6-10.3); Creatinine Clr Calc Pharmacy 98.7 ml/min; Est GFR (African American) 73.9 ml/min; Est GFR (Non-African American) 63.8 ml/min; Phosphorus 2.8 mg/dl (2.5-4.9); Potassium 3.9 mmol/L (3.5-5.1); Total Protein 6.2 gm/dl (6.0-8.3)
--- NOTE | 2024-02-18 09:07 | Hospitalist Progress Note ---
Date of Service February 18, 2024 Assessment & Plan (1) Wound of lower extremity: (2) Diabetes mellitus, type II, insulin dependent: (3) Lymphedema: (4) CAD (coronary artery disease): (5) Hypertension: (6) History of chronic atrial fibrillation: (7) CKD (chronic kidney disease) stage 3, GFR 30-59 ml/min: (8) MICAH (obstructive sleep apnea): Plan This is a 63-year-old male with PMHx significant for morbid obesity with a BMI of 56.8, DM type II, chronic lymphedema, CAD status post inferior wall STEMI with stent in February 2009, chronic A-fib, HTN, HLD, MICAH on CPAP, CKD stage III, spina bifida who presents to the hospital with worsening lower extremity wound drainage on the right and left legs. Bilateral lower extremity cellulitis Chronic wounds Lymphedema DM II Pt not septic on admission Arterial Doppler US on admission with no noted stenosis but noted possible upstream vessel stenosis Leg Cx growing staph and pseudomonas currently Blood Cx NGTD MRI R leg with cellulitis MRI L leg pending to r/o osteomyelitis Wound Care consult, appreciate recs Pt Previously followed with podiatry for initial consult January 2024 , Dr. Tena as outpatient Initially treated with Aztreonam and Daptomycin Infectious Disease consulted, appreciate recs. Noted/Stated the following: -"Based on his body weight, the creatinine is pretty much normal. Since the patient does not have any acute changes in his kidney function, I would recommend changing daptomycin to vancomycin. -Also based on both, [facility] and [facility] records, he tolerated piperacillin tazobactam as well as amoxicillin very well in the past. Therefore, I would recommend changing aztreonam to piperacillin tazobactam. -We will follow up on the superficial culture obtained from the right leg wound and decide on the final option and duration of antibiotics. Continue with IV vancomycin and Zosyn, awaiting further ID recs Hold home torsemide, continue with IV Lasix in this setting Continue to monitor Chronic Afib/A flutter Continue Coreg and Eliquis ?CHF BNP elevated at 186 Echo noting EF 55-60%, no wall motion abnormality, mild LVH, no pulm HTN, could not assess diastolic dysfunction No evidence of systolic dysfunction but diastolic CHF still remains a possibility Continue IV Lasix, hold home torsemide at this time Monitor Is and Os HTN continue carvedilol, olmesartan, amlodipine HLD continue atorvastatin DM type II Last A1c = 6.8 on 11/12/2023 Hold home metformin ISS with Accu-Cheks ACHS DVT ppx: on Eliquis Diet:HH/DMII, fluid restriction 1500ml Dispo: PT/OT recommending rehab Admission and Anticipated Discharge Date Admission Date: February 12, 2024 Subjective pt was seen laying in bed. Denied fevers, chills or night sweats. States he had 2 bowel movements the day before. Physical Exam Physical Exam: General: Alert, oriented. No acute distress Skin: erythema to lower extremities bilaterally, legs covered with bandages Psych: Appropriate mood and affect CV: Irregular Resp: Breath sounds clear bilaterally, no increased effort of breathing. Abdomen: Soft, nontender, nondistended Extremities: edema and erythema in lower extremities bilaterally Results & Data Results & Data Vital Signs (Past 12 Hours) Vital Signs Temp Pulse Pulse Resp BP BP Pulse Ox 02/18/24 07:07 36.4 C L 68 18 138/72 97 02/18/24 03:07 15 02/17/24 22:18 84 21 98 02/17/24 22:11 36.7 C 77 14 154/93 H 96 O2 Del Method 02/18/24 07:07 CPAP 02/18/24 03:07 02/17/24 22:18 02/17/24 22:11 Room Air (5) Hypertension Hypertension type: unspecified Qualified Code(s): I10 - Essential (primary) hypertension
--- NOTE | 2024-02-18 12:56 | Discharge Summary ---
Discharge Summary Date of Service February 18, 2024 Principal Dx & Hospital Course #1 = Principal Diagnosis (1) Wound of lower extremity: (2) Diabetes mellitus, type II, insulin dependent: (3) Lymphedema: (4) CAD (coronary artery disease): (5) Hypertension: (6) History of chronic atrial fibrillation: (7) CKD (chronic kidney disease) stage 3, GFR 30-59 ml/min: (8) MICAH (obstructive sleep apnea): Plan This is a 63-year-old male with PMHx significant for morbid obesity with a BMI of 56.8, DM type II, chronic lymphedema, CAD status post inferior wall STEMI with stent in February 2009, chronic A-fib, HTN, HLD, MICAH on CPAP, CKD stage III, spina bifida who presents to the hospital with worsening lower extremity wound drainage on the right and left legs. Bilateral lower extremity cellulitis Chronic wounds Lymphedema DM II Pt not septic on admission Arterial Doppler US on admission with no noted stenosis but noted possible upstream vessel stenosis Leg Cx grew MRSA and pseudomonas Blood Cx NGTD MRI R leg with cellulitis. No osteomyelitis MRI L leg with diffuse cellulitis and leg atrophy. No osteomyelitis Wound Care consult, appreciate recs Pt previously followed with podiatry for initial consult January 2024 , Dr. Tena as outpatient Initially treated with Aztreonam and Daptomycin Infectious Disease consulted, appreciate recs. Noted/Stated the following: -"Based on his body weight, the creatinine is pretty much normal. Since the patient does not have any acute changes in his kidney function, I would recommend changing daptomycin to vancomycin. -Also based on both, [facility] and [facility] records, he tolerated piperacillin tazobactam as well as amoxicillin very well in the past. Therefore, I would recommend changing aztreonam to piperacillin tazobactam. -We will follow up on the superficial culture obtained from the right leg wound and decide on the final option and duration of antibiotics. Continue with IV vancomycin and Zosyn, awaiting further ID recs Followed up with Infectious Disease Dr Gasca on 02/17/24 and he advised the following for discharge: -"Cipro 500 mg BID and Doxycycline 100 mg BID for total of 14 days including inpatient antibiotic days" Held home torsemide and was treated with IV Lasix BID in this setting Resume home torsemide on discharge Pt discharged with 9 more days of oral oral ciprofloxacin and doxycycline as noted above. Pt discharged to acute rehab. Chronic Afib/A flutter Continue Coreg and Eliquis ?CHF BNP elevated at 186 Echo noting EF 55-60%, no wall motion abnormality, mild LVH, no pulm HTN, could not assess diastolic dysfunction No evidence of systolic dysfunction but diastolic CHF still remains a possibility Continued with IV Lasix, held home torsemide Monitor Is and Os Resume home torsemide on discharge PCP followup HTN continue carvedilol, olmesartan, amlodipine HLD continue atorvastatin DM type II Last A1c = 6.8 on 11/12/2023 Held home metformin ISS with Accu-Cheks ACHS Resume home regimen on discharge Notes For Next Care Provider Medication Changes From Visit ciprofloxacin 500mg BID x 9 more days doxycycline 100mg BID x 9 more days Admission HPI Per Admitting Provider This is a 63-year-old male with PMHx of morbid obesity with a BMI of 56.8, DM type II, chronic lymphedema, CAD status post inferior wall STEMI with stent in February 2009, chronic A-fib, HTN, HLD, MICAH on CPAP, CKD stage III, spina bifida, who presents to the hospital with worsening lower extremity wound drainage on the right and left legs. He has recently been seen for initial consultation by podiatry, Dr. Corey Hurt as an outpatient on 01/27/2024. Noted callouses and toenail cut done at that time but there was no mention of other lower extremity wounds. Today there are no obvious wounds on the feet. He reports chills, no sweats or fevers but does not have a working thermometer at home. Pt lives alone, has aids who are in the house Sat-Sat daily for helping him get dressed/bathed but are not h ealth aids and therefore do not assist with dressing changes/lamont wrap. He states that within the past week he was supposed to have psychometric examiner come to the house on Saturday to help him change close/socks, however due to a change of company, there was a miscommunication and somebody did not come to see him until today. Therefore the same pair of socks were on since Saturday morning. Today when they were removed the aide was concerned due to the significant wound near the sock line and EMS was called, ambulance brought the patient to the hospital. He reports the right lower leg extremity wound was not there a week ago. On the left, this blister like wound has been present for 1.5 weeks. He has mobility issues and is essentially wheelchair bound, cannot change his own socks due to spina bifida for about the past 2 years. He reports some moderate changes in shortness of breath in the past week, noticing slight worsening. Pt keeps his legs down mostly, not elevated. He denies any recent known weight changes. Admission Exam Per Admitting Provider General: awake, alert, no apparent distress, morbidly obese white male with BMI of 56.8 Head: Normocephalic, atraumatic ENT: PERRL, EOMI, no pharyngeal exudate, mucous membranes moist Chest: Clear to auscultation, on room air, no adventitious breath sounds Cardiac: Irregularly irregular, rate controlled, no murmur, no JVD, normal peripheral pulses, good capillary refill Abdominal: Obese, pannus, NABS x 4 quadrants, soft, nondistended, nontender to palpation, no rebound or guarding Extremities:RLE with chronic venous stasis changes, surrounding erythema, large area over the medial calf of dark hemosiderin deposit, + laceration from positioning of sock which is 0.5cm deep and about 5 cm in length. LLE with similar venous stasis changes, and weeping blisters, no open wounds. Feet without wounds bilaterally. Upper extremities normal inspection Psych: Normal mood and affect Neuro: AAO x 3, strength intact bilaterally and rated 5/5, no motor deficits, speech is clear, no peripheral sensory deficits Discharge Exam General: Alert, oriented. No acute distress Skin: erythema to lower extremities bilaterally, legs covered with bandages Psych: Appropriate mood and affect CV: Irregular Resp: Breath sounds clear bilaterally, no increased effort of breathing. Abdomen: Soft, nontender, nondistended Extremities: edema and erythema in lower extremities bilaterally Updated Medication List Medication Instructions Recorded Confirmed Type latanoprost 0.005 % eye drops 1 drops OPB HS 09/24/18 02/12/24 History nitroglycerin 0.4 mg sublingual 0.4 mg sublingual Q5M PRN Chest 09/24/18 02/12/24 History tablet (Nitrostat) Pain allopurinol 300 mg tablet 300 mg PO QAM 05/25/20 02/12/24 History ferrous sulfate 325 mg (65 mg 325 mg PO DAILY 05/25/20 02/12/24 History iron) tablet folic acid 1 mg tablet 1 mg PO QAM 05/25/20 02/12/24 History multivitamin with minerals 1 tab PO QAM 05/25/20 02/12/24 History (Multiple Vitamin-Minerals tablet) torsemide 20 mg tablet 40 mg PO BID 05/25/20 02/12/24 History Lactobacillus acidoph-L.bulgaricus 1 tab PO DAILY 09/04/20 02/12/24 History 1 million cell tablet (Floranex) atorvastatin 10 mg tablet 5 mg PO HS 09/04/20 02/12/24 History apixaban 5 mg tablet (Eliquis) 5 mg PO BID 04/21/21 02/12/24 History carvedilol 25 mg tablet (Coreg) 25 mg PO BID #60 tabs 04/24/21 02/12/24 Rx cholecalciferol (vitamin D3) 50 4,000 mcg PO DAILY 11/08/21 02/12/24 History mcg (2,000 unit) capsule (Vitamin D3) insulin glargine 100 unit/mL (3 28 unit subcut PM 11/08/21 02/12/24 History mL) subcutaneous pen (Basaglar KwikPen U-100 Insulin) olmesartan 40 mg tablet 40 mg PO DAILY 11/08/21 02/12/24 History semaglutide 1 mg/dose (4 mg/3 mL) 1 mg subcut WK 11/08/21 02/12/24 History subcutaneous pen injector (Ozempic) amlodipine 5 mg tablet (Norvasc) 5 mg PO QAM #30 tabs 11/09/21 02/12/24 Rx metformin 500 mg tablet,extended 500 mg PO QAM 05/27/23 02/12/24 History release 24 hr nystatin 100,000 unit/gram topical 1 applic topical DAILY PRN .flare 05/27/23 02/12/24 History powder (Nyamyc) ups sennosides 8.6 mg-docusate sodium 2 tab-cap PO BID PRN Constipation 05/27/23 02/12/24 History 50 mg tablet (Senna with Docusate Sodium) acetaminophen 325 mg tablet 650 mg PO QID PRN Pain 02/12/24 02/12/24 History (Tylenol) potassium chloride 20 mEq 20 meq PO DAILY 02/12/24 02/12/24 History tablet,extended release ciprofloxacin HCl 500 mg tablet 500 mg PO BID #18 tabs 02/18/24 Rx doxycycline hyclate 100 mg tablet 100 mg PO BID #18 tabs 02/18/24 Rx Hospital Stay Data Consultations 02/12/24 14:38 ED Decision to Admit Stat 02/12/24 19:31 Consult Infectious Diseases Routine Diagnostic Imagining Performed 02/12/24 14:02 US arterial duplex LE BI Stat 02/13/24 15:57 MRI Leg [MR lower leg LT wo/w con] Urgent MRI Leg [MR lower leg RT wo/w con] Urgent Duplex Scan Lower Extremity Artery 02/12/24 14:02 Exam(s): US ARTERIAL BILATERAL LOWER EXTREMITIES EXAM: US Duplex Bilateral Lower Extremities Arteries CLINICAL HISTORY: Reason for exam: Eval, lower extremity wounds. TECHNIQUE: Real-time duplex ultrasound scan of the bilateral lower extremity arteries integrating B-mode two-dimensional vascular structure, Doppler spectral analysis and color flow Doppler imaging. COMPARISON: None FINDINGS: Right common femoral artery: No acute findings. No occlusion or significant stenosis on color flow and spectral Doppler imaging. Normal waveform. Right superficial femoral artery: No occlusion or significant stenosis on color flow and spectral Doppler imaging. Monophasic waveforms. Right popliteal artery: No occlusion or significant stenosis on color flow and spectral Doppler imaging. Monophasic waveforms. Right calf/foot arteries: No occlusion or significant stenosis on color flow and spectral Doppler imaging. Monophasic waveforms. Left common femoral artery: No acute findings. No occlusion or significant stenosis on color flow and spectral Doppler imaging. Normal waveform. Left superficial femoral artery: No occlusion or significant stenosis on color flow and spectral Doppler imaging. Biphasic waveforms in the proximal and mid left superficial femoral artery. Monophasic waveforms in the distal left superficial femoral artery. Left popliteal artery: No occlusion or significant stenosis on color flow and spectral Doppler imaging. Monophasic waveforms. Left calf/foot arteries: No occlusion or significant stenosis on color flow and spectral Doppler imaging. Monophasic waveforms. Soft tissues: Soft tissue edema. Other: Irregular heart rhythm noted. IMPRESSION: No hemodynamically significant stenosis identified, but there are monophasic waveforms in the right superficial femoral artery to calf arteries and left distal superficial femoral artery to calf arteries, suggesting upstream stenosis. Soft tissue edema. Electronically signed by: Winter Wu M.D. 02/13/24 00:57 AM Lower Extremity MRI 02/13/24 15:57 Exam(s): MRI EXTREMITY W/WO Contrast IV Amt: 15cc gadavist EXAM: MR Right Lower Extremity Without and With Intravenous Contrast, Tibia and Fibula CLINICAL HISTORY: Reason for exam: r/o osteomyelitis. TECHNIQUE: Multiplanar magnetic resonance images of the right tibia and fibula without and with intravenous contrast. CONTRAST: Patient received 15cc gadavist of IV contrast COMPARISON: No relevant prior studies available. FINDINGS: There is no fracture or dislocation. There are no bone marrow signal changes to suggest osteomyelitis. There is diffuse and circumferential subcutaneous edema suggesting cellulitis. Postcontrast imaging demonstrates no evidence of soft tissue abscess. There is no fasciitis or myositis. IMPRESSION: 1. Diffuse cellulitis. 2. No fasciitis, myositis, or osteomyelitis. Electronically signed by: Aaron Willingham M.D. 02/14/24 03:58 AM Lower Extremity MRI 02/13/24 15:57 Exam(s): MRI EXTREMITY W/WO Contrast IV Amt: 15cc gadavist ADDENDUM - Added by Aaron Willingham M.D. on 02/14/2024 3:59 AM (-04:00) There is generalized muscle atrophy. EXAM: MR Left Lower Extremity Without and With Intravenous Contrast, Tibia and Fibula CLINICAL HISTORY: Reason for exam: r/o osteomyelitis. TECHNIQUE: Multiplanar magnetic resonance images of the left tibia and fibula without and with intravenous contrast. CONTRAST: Patient received 15cc gadavist of IV contrast COMPARISON: No relevant prior studies available. FINDINGS: There is diffuse and circumferential subcutaneous edema suggesting cellulitis. Postcontrast imaging demonstrates no evidence of soft tissue abscess. There is no evidence of fasciitis or myositis. There is generalized muscle atrophy. Bone marrow signal is normal. There is no fracture, dislocation, or osteomyelitis. IMPRESSION: 1. Diffuse cellulitis. 2. No fasciitis, myositis, abscess, or osteomyelitis. Electronically signed by: Aaron Willingham M.D. 02/14/24 03:59 AM Pending Results Patient Have Any Pending Studies at Discharge: No Discharge Instructions Given to Patient (Per Discharging Provider) Mr. Morrison, You are being discharged to acute rehab. You were seen by Infectious Disease who recommended treatment with IV antibiotics and discharge with oral antibiotics to complete 14 days of treatment. Please take the medications as prescribed. Please keep close follow up with your primary care provider after discharge. Please do not hesitate to come back to the emergency room if your symptoms worsen or return. It was a pleasure taking care of you while you were here. Total Time Total Time Spent Total Time Spent (In Minutes): 65
[2024-02-18 14:39] VITALS: PULSE 62
[2024-02-19] MEDS ORDERED: VANCOMYCIN LEVEL ONE (05:30)
--- NOTE | 2024-02-20 11:39 | Coding Query ---
CODING QUERY To promote full compliance with coding requirements relating to patient care, provider participation is requested in all cases of boat outboard engine mechanic uncertainty. Please assist us with the question(s) below: 02/13 IM PN ?CHF BNP elevated Echo pending Continue IV Lasix, hold home torsemide 02/14 IM PN ?CHF BNP elevated at 186 Echo noting EF 55-60%, no wall motion abnormality, mild LVH, no pulm HTN, could not assess diastolic dysfunction No evidence of systolic dysfunction but diastolic CHF still remains a possibility Continue IV Lasix, hold home torsemide at this time Monitor Is and Os no doc hx of chf Coding Question(s): Can you please provide the acuity of the diastolic CHF? [ ] Acute [ ] Chronic [ ] Acute on Chronic [ ] Other [ x ] Unable to determine Physician's Response(s): Thank you Jory Rodriguez Principal Diagnosis: "that condition established after study, to be chiefly responsible for occasioning the admission of the patient to the hospital for care." Co-Existing Principal Diagnosis: "when two or more diagnoses equally meet the criteria for principal diagnosis as determined by the circumstances of admission, diagnostic work up, and/or therapy provided, and the Alphabetic Index, Tabular List, or another coding guideline does not provide sequencing direction, any one of the diagnoses may be sequenced first." "When the physician has documented what appears to be a current diagnosis in the body of the record, but has not included the diagnosis in the final diagnostic statement, the physician should be asked whether the diagnosis should be added." (Source Coding [facility] 2 QTR90. p3-4) KARI
== END 2024-02-18 15:57 | DRG 603 ==
LOC: ED 10:28 → 3W 13:28 → SUATTDRO 13:28 → 3W 15:12

== ENCOUNTER 2024-12-27 13:10 | Inpatient (IN) ==
--- NOTE | 2024-12-27 13:31 | Emergency Department Note ---
Impression & Plan Fall, Acute knee pain, Diarrhea, Elevated bilirubin ED Provider Note NAME: ELBA GRAHAM AGE: 64 SEX: M : 1960 ARRIVES VIA: Ambulance INFORMANT: Patient ED PROVIDER(S): Dorian Portillo DO CHIEF COMPLAINT: Left knee pain HPI: Patient is a 64-year-old male who presents to the ER with a past medical history of diabetes, morbid obesity, CKD, A-fib, CAD who presents to the ER following a mechanical fall prior to arrival. He slipped and fell onto the armrest of his wheelchair. He did not hit the ground. No head or neck pain. No head or neck strike. He also notes that he fell on Saturday but did not hit his head. He was lowered to the ground. He has no pain from then. He does have diarrhea which started today. He is unable to get to the toilet has a 2- week. He does not feel safe at home. ADDITIONAL HISTORY OBTAINED: Per HPI Chronic Medical/Social Conditions Affecting Care: Per HPI PAST MEDICAL HISTORY:See Below PAST SURGICAL HISTORY:See Below FAMILY HISTORY:See Below SOCIAL HISTORY:See Below HOME MEDICATIONS:See Below ALLERGIES:See Below VITALS:See Below PHYSICAL EXAMINATION: GENERAL: Sitting up in bed, alert, no acute distress, stool on lower extremities HEAD: NC/AT EYE EXAM: normal conjunctiva. PERRL and EOM's grossly intact. OROPHARYNX: no exudate, no erythema, lips, buccal mucosa, and tongue normal and mucous membranes are moist NECK: supple, no nuchal rigidity, no adenopathy, non-tender LUNGS: Clear to auscultation. Normal chest wall mechanics HEART: no murmurs, S1 normal and S2 normal ABDOMEN: abdomen soft, non-tender, normo-active bowel sounds, no masses, no rebound or guarding. BACK: Back is symmetrical on inspection and there is no deformity, no midline tenderness, no CVA tenderness. UPPER EXTREMITIES: No pain on palpation of bilateral upper extremities LOWER EXTREMITIES: Flexion extension bilateral hips knees and ankles are intact but moderate pain with flexion extension of left knee. Abrasion over the left knee. NEURO EXAM: Normal sensorium, cranial nerves II-XII grossly intact, normal speech, no gross weakness of arms, no gross weakness of legs. No drift. Finger to nose intact. Gross sensation intact. MEDICAL DECISION MAKING: Patient is a 64-year-old male who presents ER for the above-stated complaint. IV was established and blood work was obtained. Labs show no significant leukocytosis. Mild anemia at 13.5. BMP with slightly elevated glucose. LFTs were reassuring. T. bili slightly elevated at 5.5 which has increased from previous. He has no belly pain. Lipase was normal. Is having diarrhea. Ordered stool cultures but were unable to obtain while in the ER. X-ray of the left knee shows no obvious fracture. He is unable to get to the bathroom and he has no one at home to help him out and consequently feels very weak and unsafe going home. He was discussed with the hospitalist for further evaluation management treatment. Consults/Care Managements Discussions: Per [facility] Triage Nursing notes reviewed. Limited review of prior medical records performed Vital Signs: reviewed and remarkable for no significant abnormalities Differential diagnosis: Infection, dehydration, metabolic abnormality, hypo/hyperglycemia, electrolyte disturbance, anemia, hypoxia, cardiac sources, intracerebral event, toxicologic, neurologic, as well as other pathologies. ER treatment provided: See below Diagnostics interpreted by me include EKG and cardiac monitoring as listed below: -Cardiac Monitoring: An order was placed for continuous cardiac monitoring. The monitor shows a rate of 80 with Afib rhythm. -ECG: A-fib rate of 76 PVCs QTc 522 -Laboratory studies:Interpreted by me as stated above in MDM and shown below. Imaging studies: Xrays: As interpreted by me: X-rays left knee showed no acute fracture CTs show: none Procedures:none Critical Care: None Past Med/Surg History Problem List (Updated 12/27/24 @ 17:18 by Dorian Portillo DO) Elevated bilirubin (Acute) Diarrhea (Acute) Acute knee pain (Acute) Fall (Acute) Diabetic ulcer of left foot MRSA (methicillin resistant Staphylococcus aureus) Chronic acquired lymphedema Chronic venous insufficiency of lower extremity Cellulitis of right leg Morbid obesity Open wound of both lower extremities (Acute) Lymphedema associated with obesity (Acute) Wound of lower extremity (Acute) Atrial flutter, chronic (Acute) CKD (chronic kidney disease) stage 3, GFR 30-59 ml/min Warren catheter in place (Acute) Abdominal pannus (Chronic) Hypertension (Acute) Stage III pressure ulcer of left buttock (Acute) Open wound of groin (Chronic) Urinary retention Diabetes mellitus, type II, insulin dependent MICAH (obstructive sleep apnea) (Chronic) CAD (coronary artery disease) (Chronic) Abdominal pannus (Chronic) Acquired buried penis (Chronic) Medical History Myocardial infarction H/o 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 Hyperlipidemia Glaucoma Presence of bare metal stent in right coronary artery Decreased ambulation status Lymphedema Major depressive disorder B-complex deficiency Vitamin D deficiency History of TIA (transient ischemic attack) Hearing loss of left ear Allergic rhinitis Arthritis of knee Spina bifida GERD (gastroesophageal reflux disease) Bilateral scrotal hernia Dyslipidemia 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, with long-term current use of insulin Diabetic retinopathy Gout Diabetic neuropathy Surgical History S/P panniculectomy H/O nasal septoplasty H/O colonoscopy H/O cardiac catheterization Previous back surgery Status post uvulopalatopharyngoplasty Hx of tonsillectomy S/P cholecystectomy Family History Mother Coronary heart disease Diabetes Hypertension Social History Smoking Status: Former smoker Tobacco Type: Cigarettes packs per day: 1; Second Hand Exposure: No; Do You Dip or Chew Tobacco: No; Hx Alcohol Use: No Hx Substance Use: No Preferred Language: B[place] Communication Ability: Effective Visual Impairment: Limited Hearing Ability: Hard of Hearing Maintenance Dispatcher Required: No Beliefs That Will Affect Care: None marital status: Single Current Living Situation: Alone Current Living Situation Comment: lives at home alone current occupational status: disabled Feels Safe at Home: Yes Childhood Exposure to Second-Hand Smoke: No Assistive Devices: Bedside Commode, CPAP, Lift Chair, Raised Toilet Seat and Walker Allergies Allergies Allergy/AdvReac Type Severity Reaction Status Date / Time lisinopril Allergy Intermediate Cough Verified 12/27/24 14:49 sulfamethoxazole Allergy Intermediate Rash Verified 12/27/24 14:49 trimethoprim Allergy Intermediate Rash Verified 12/27/24 14:49 vaccine adjuvant system, Allergy Intermediate PAIN, Verified 12/27/24 14:49 AS01B liposomal REDNESS, [From Shingrix (PF)] SWELLING OF INJECTED ARM varicella-zoster virus Allergy Intermediate PAIN, Verified 12/27/24 14:49 glycoprotein E, recombinant REDNESS, [From Shingrix (PF)] SWELLING OF INJECTED ARM AVIVA Inhibitors AdvReac Intermediate Cough Verified 12/27/24 14:49 ceftriaxone AdvReac Mild Rash Verified 12/27/24 14:49 Home Meds Home Medications Medication Instructions Recorded Confirmed allopurinol 300 mg tablet 300 mg PO QAM 05/25/20 12/27/24 atorvastatin 10 mg tablet 5 mg PO HS 09/04/20 12/27/24 apixaban 5 mg tablet (Eliquis) 5 mg PO BID 04/21/21 12/27/24 sennosides 8.6 mg-docusate sodium 1 tab-cap PO QAM Constipation 05/27/23 12/27/24 50 mg tablet (Senna with Docusate Sodium) acetaminophen 325 mg tablet 650 mg PO QID PRN Pain 02/12/24 12/27/24 (Tylenol) Lactobacillus acidophilus 10 10,000 mmu cells PO BID 12/27/24 12/27/24 billion cell capsule (Probiotic) aspirin 81 mg chewable tablet 81 mg PO DAILY 12/27/24 12/27/24 cholecalciferol (vitamin D3) 25 100 mcg PO DAILY 12/27/24 12/27/24 mcg (1,000 unit) capsule (Vitamin D3) ferrous sulfate 325 mg (65 mg 325 mg PO BID 12/27/24 12/27/24 iron) tablet folic acid 1 mg tablet 1 mg PO DAILY 12/27/24 12/27/24 insulin glargine 100 unit/mL (3 28 unit subcut PM 12/27/24 12/27/24 mL) subcutaneous pen (Basaglar KwikPen U-100 Insulin) latanoprost 0.005 % eye drops 1 drp OPB QPM 12/27/24 12/27/24 meclizine 25 mg tablet 25 mg PO TID PRN Dizziness 12/27/24 12/27/24 metformin 500 mg tablet,extended 500 mg PO DAILY 12/27/24 12/27/24 release 24 hr multivitamin,tx-minerals 1 tab PO QDL 12/27/24 12/27/24 nitroglycerin 0.4 mg sublingual 0.4 mg sublingual DIRECTED PRN 12/27/24 12/27/24 tablet (Nitrostat) Chest Pain nystatin 100,000 unit/gram topical 1 applic topical DAILY PRN SKIN 12/27/24 12/27/24 powder (Nyamyc) RASH olmesartan 40 mg tablet 40 mg PO QAM 12/27/24 12/27/24 potassium chloride 20 mEq 20 meq PO Q OTHER DAY 12/27/24 12/27/24 tablet,extended release(part/cryst) propylene glycol 1 %-glycerin 0.3 2 drp ophthalmic (eye) DIRECTED 12/27/24 12/27/24 % eye drops PRN NEEDED PER [facility] semaglutide 1 mg/dose (4 mg/3 mL) 1 mg subcut WK 12/27/24 12/27/24 subcutaneous pen injector (Ozempic) Previous Rx's Medication Instructions Recorded carvedilol 25 mg tablet (Coreg) 25 mg PO BID #60 tabs 04/24/21 amlodipine 5 mg tablet (Norvasc) 5 mg PO QAM #30 tabs 11/09/21 Results & Data (ED) Vital Signs Vital Signs - 24 hr 12/27/24 13:15 12/27/24 13:15 12/27/24 13:15 Temperature 36.9 C 36.9 C Temperature Source Oral Oral Pulse Rate 88 88 Pulse Rate [Finger] 88 Pulse Rate from SpO2 Sensor Pulse Rhythm Regular Regular Pulse Rhythm [Finger] Regular Pulse Strength Normal Pulse Strength [Finger] Normal Respiratory Rate 20 20 20 Respiratory Effort / Characteristics Non-Labored Spontaneous Non-Labored Spontaneous Respiratory Depth Normal Normal Blood Pressure 164/98 H Blood Pressure [Right Arm] 164/98 H Blood Pressure Mean 120 Blood Pressure Mean [Right Arm] 120 Blood Pressure Position Sitting Blood Pressure Position [Right Arm] Sitting Pulse Oximetry 97 97 97 Oxygen Delivery Method Room Air Room Air Room Air Sepsis Recent Fever Within 48 Hours No Sepsis New/Unexplained Change in Mental Status N/A Sepsis Action Taken by Nursing No Action Required 12/27/24 13:20 12/27/24 13:24 12/27/24 13:24 Temperature Temperature Source Pulse Rate 76 73 Pulse Rate [Finger] Pulse Rate from SpO2 Sensor 80 Pulse Rhythm Pulse Rhythm [Finger] Pulse Strength Pulse Strength [Finger] Respiratory Rate 22 Respiratory Effort / Characteristics Respiratory Depth Blood Pressure 127/80 Blood Pressure [Right Arm] Blood Pressure Mean 98 Blood Pressure Mean [Right Arm] Blood Pressure Position Blood Pressure Position [Right Arm] Pulse Oximetry 97 Oxygen Delivery Method Sepsis Recent Fever Within 48 Hours Sepsis New/Unexplained Change in Mental Status Sepsis Action Taken by Nursing 12/27/24 13:30 12/27/24 13:51 12/27/24 14:09 Temperature Temperature Source Pulse Rate 76 77 71 Pulse Rate [Finger] Pulse Rate from SpO2 Sensor 78 77 73 Pulse Rhythm Pulse Rhythm [Finger] Pulse Strength Pulse Strength [Finger] Respiratory Rate 16 14 15 Respiratory Effort / Characteristics Respiratory Depth Blood Pressure Blood Pressure [Right Arm] Blood Pressure Mean Blood Pressure Mean [Right Arm] Blood Pressure Position Blood Pressure Position [Right Arm] Pulse Oximetry 97 96 96 Oxygen Delivery Method Sepsis Recent Fever Within 48 Hours Sepsis New/Unexplained Change in Mental Status Sepsis Action Taken by Nursing 12/27/24 14:18 12/27/24 14:21 12/27/24 14:30 Temperature Temperature Source Pulse Rate 72 70 73 Pulse Rate [Finger] Pulse Rate from SpO2 Sensor 76 76 76 Pulse Rhythm Pulse Rhythm [Finger] Pulse Strength Pulse Strength [Finger] Respiratory Rate 12 14 19 Respiratory Effort / Characteristics Respiratory Depth Blood Pressure Blood Pressure [Right Arm] Blood Pressure Mean Blood Pressure Mean [Right Arm] Blood Pressure Position Blood Pressure Position [Right Arm] Pulse Oximetry 95 94 96 Oxygen Delivery Method Sepsis Recent Fever Within 48 Hours Sepsis New/Unexplained Change in Mental Status Sepsis Action Taken by Nursing 12/27/24 14:31 12/27/24 14:31 12/27/24 14:31 Temperature Temperature Source Pulse Rate Pulse Rate [Finger] Pulse Rate from SpO2 Sensor Pulse Rhythm Pulse Rhythm [Finger] Pulse Strength Pulse Strength [Finger] Respiratory Rate Respiratory Effort / Characteristics Respiratory Depth Blood Pressure 141/73 H 141/73 H 141/73 H Blood Pressure [Right Arm] Blood Pressure Mean 92 92 92 Blood Pressure Mean [Right Arm] Blood Pressure Position Blood Pressure Position [Right Arm] Pulse Oximetry Oxygen Delivery Method Sepsis Recent Fever Within 48 Hours Sepsis New/Unexplained Change in Mental Status Sepsis Action Taken by Nursing 12/27/24 14:48 12/27/24 14:54 Temperature Temperature Source Pulse Rate 76 74 Pulse Rate [Finger] Pulse Rate from SpO2 Sensor 83 79 Pulse Rhythm Pulse Rhythm [Finger] Pulse Strength Pulse Strength [Finger] Respiratory Rate 18 24 Respiratory Effort / Characteristics Respiratory Depth Blood Pressure Blood Pressure [Right Arm] Blood Pressure Mean Blood Pressure Mean [Right Arm] Blood Pressure Position Blood Pressure Position [Right Arm] Pulse Oximetry 94 96 Oxygen Delivery Method Sepsis Recent Fever Within 48 Hours Sepsis New/Unexplained Change in Mental Status Sepsis Action Taken by Nursing Laboratory Data 12/27/24 13:19 12/27/24 13:19 Lab Results 12/27/24 Range/Units 13:19 WBC 9.23 (4.8-10.8) K/ul RBC 4.41 L (4.70-6.10) M/uL Hgb 13.5 L (14.0-18.0) g/dl Hct 39.3 L (42.0-52.0) % MCV 89.1 (80.0-100.0) fL MCH 30.6 (25.0-34.0) pg MCHC 34.4 (32.0-36.0) g/dL RDW Std Deviation 47.9 H (36.4-46.3) fL RDW Coeff of Selvin 14.6 H (11.5-14.5) % Plt Count 161 (130-400) K/uL MPV 10.1 (9.4-12.4) fL Immature Gran % (Auto) 0.2 % Neut % (Auto) 83.8 % Lymph % (Auto) 8.1 % [place] % (Auto) 7.3 % Eos % (Auto) 0.3 % Baso % (Auto) 0.3 % Neut # (Auto) 7.73 H (1.40-6.50) K/uL Lymph # (Auto) 0.75 L (1.20-3.40) K/uL [place] # (Auto) 0.67 H (0.11-0.59) K/uL Eos # (Auto) 0.03 (0.00-0.50) K/uL Baso # (Auto) 0.03 (0.00-0.20) K/uL Immature Gran # (Auto) 0.02 (0.01-0.20) K/uL Sodium 140 (136-145) mmol/L Potassium 3.5 (3.5-5.1) mmol/L Chloride 105 (98-107) mmol/L Carbon Dioxide 25 (21-32) mmol/L Anion Gap 10 (3-11) BUN 14 (6-23) mg/dl Creatinine 1.09 (0.6-1.4) mg/dl Est Cr Clr Drug Dosing 101.0 ml/min eGFR 76.26 BUN/Creatinine Ratio 12.8 (10-20) Glucose 150 H (70-99(Fasting)) mg/dl Calcium 9.6 (8.6-10.3) mg/dl Total Bilirubin 5.5 H (0.2-1.0) mg/dl AST 19 (13-39) U/L ALT 12 (7-52) U/L Alkaline Phosphatase 109 H (34-104) U/L Total Protein 7.0 (6.0-8.3) gm/dl Albumin 3.9 (3.4-5.0) gm/dl Globulin 3.1 (2.5-4.0) gm/dl Albumin/Globulin Ratio 1.3 (0.9-2) Lipase 22 (11-82) U/L Administered Medications Discontinued Medications Sodium Chloride (Nss) 1,000 mls @ 999 mls/hr IV .Q1H1M ONE Stop: 12/27/24 14:18 Last Infusion: 12/27/24 16:09 Dose: Infused Documented By: Admin: 12/27/24 14:28 Dose: 999 mls/hr Documented By: Potassium Chloride (Potassium Chloride Crtab 20 Meq Tabcr) 40 meq PO NOW STA Stop: 12/27/24 15:40 Last Admin: 12/27/24 16:21 Dose: 40 meq Documented By: FERNANDO Imaging Data Radiologist's Impression: Knee X-Ray 12/27/24 13:18 XR knee LT 3V CLINICAL HISTORY: l knee pain COMPARISON: None FINDINGS: There is mild osteoarthritis. No fracture or dislocation. There is a mild joint effusion. There are atherosclerotic calcifications. IMPRESSION: Osteoarthritis with joint effusion. ACT 112: Negative or not required by law. Electronically signed by: Omari Farias M.D. 12/27/2024 1:54 PM Discharge Plan Visit Data Chief Complaint: Fall Stated Complaint: FALL, L KNEE PAIN ED Provider: Dorian Portillo Discharge Problem: Fall, Acute knee pain, Diarrhea, Elevated bilirubin Patient Disposition: Admitted As Inpatient Condition: Fair Discharge Instructions Interventions: ED Discharge Assessment Last Done: 12/27/24 16:18 Discharge Problem: Fall Qualifiers: Encounter type: initial encounter Qualified Code(s): W19.XXXA - Unspecified fall, initial encounter Acute knee pain Qualifiers: Laterality: left Qualified Code(s): M25.562 - Pain in left knee Diarrhea Qualifiers: Diarrhea type: unspecified type Qualified Code(s): R19.7 - Diarrhea, unspecified
[2024-12-27 13:34] LABS: Basophils # (auto) 0.03 K/uL (0.00-0.20); Basophils % (auto) 0.3 %; Eosinophils # (auto) 0.03 K/uL (0.00-0.50); Eosinophils % (auto) 0.3 %; Hematocrit (blood only) 39.3 % (42.0-52.0); Hemoglobin 13.5 g/dl (14.0-18.0); Immature Granulocytes # (auto) 0.02 K/uL (0.01-0.20); Immature Granulocytes % (auto) 0.2 %; Lymphocytes # (auto) 0.75 K/uL (1.20-3.40); Lymphocytes % (auto) 8.1 %; Mean Corpuscular Hemoglobin 30.6 pg (25.0-34.0); Mean Corpuscular Hgb Conc 34.4 g/dL (32.0-36.0); Mean Corpuscular Volume 89.1 fL (80.0-100.0); Mean Platelet Volume 10.1 fL (9.4-12.4); Monocytes # (auto) 0.67 K/uL (0.11-0.59); Monocytes % (auto) 7.3 %; Neutrophils # (auto) 7.73 K/uL (1.40-6.50); Neutrophils % (auto) 83.8 %; Platelet Count 161 K/uL (130-400); RDW Coefficient of Variation 14.6 % (11.5-14.5); RDW Standard Deviation 47.9 fL (36.4-46.3); Red Blood Count 4.41 M/uL (4.70-6.10); White Blood Count 9.23 K/ul (4.8-10.8)
[2024-12-27 13:50] LABS: Albumin Globulin Ratio 1.3 (0.9-2); Albumin Level 3.9 gm/dl (3.4-5.0); BUN Creatinine Ratio 12.8 (10-20); Bilirubin,Total 5.5 mg/dl (0.2-1.0); Calcium 9.6 mg/dl (8.6-10.3); Globulin 3.1 gm/dl (2.5-4.0); Potassium 3.5 mmol/L (3.5-5.1)
--- NOTE | 2024-12-27 13:55 | XRay Report ---
XR knee LT 3V CLINICAL HISTORY: l knee pain COMPARISON: None FINDINGS: There is mild osteoarthritis. No fracture or dislocation. There is a mild joint effusion. There are atherosclerotic calcifications. IMPRESSION: Osteoarthritis with joint effusion. ACT 112: Negative or not required by law. Electronically signed by: Omari Farias M.D. 12/27/2024 1:54 PM
[2024-12-27] MEDS: SODIUM CHLORIDE 0.9% 1,000 ML IV ONE (14:28)
--- NOTE | 2024-12-27 15:15 | History & Physical Report ---
Date of Service December 27, 2024 Assessment & Plan (1) Fall: Plan: Patient is a 63 year old M with a past medical history of CAD s/p STEMI s/p PTCA/stent 2008, HTN, CKD Stg III, dyslipidemia, insulin-dependent DM Type II, morbid obesity, MICAH, spina bifida, diabetic retinopathy, diabetic neuropathy, presenting with mechanical fall. Patient is wheelchair dependent, transfer with walker, fell on Saturday when in the bathroom injuring his left knee. He did not hit his head, but did suffer a "rug burn" like wound to his left knee when falling. Was unable to get himself up and needed EMS to help lift him up to his wheelchair. He was stable at that time with only minor pain to the left knee. He fell again this morning while in the bathroom. He reports having irregular bowels at baseline and now has diarrhea. He feels this may have contributed to his falls. Also noted to have foot ulcers to multiple toes from his new diabetic shows. Mechanical Fall #Spina Bifida * Admit for further management and CM consult for adequate placement pos rehab vs SNF * Xray Left knee showing OA and mild effusion- no further intervention needed * Treat pain prn with acetaminophen * No major injury following mechanical falls * PT/OT consult placed- wheelchair bound with use of walker for transfers #Diabetic Foot Ulcers * Multiple open, non-draining, non-infectious toe ulcers from diabetic shoes * Clean and dress daily * Wound consult placed for further recs #Diarrhea * Diarrhea x 1 day, not typical stool consistency * CDiff culture sent- results pending #CAD s/p STEMI s/p PTCA/stent #Chronic Atrial Fibrillation * Anticoagulated with Eliquis BID; On Aspirin at home * AFib with rate control BB * On diuretic at home; K+ 3.5 on admit, given KCL 40 meq today and continue home regimen of KCL 20 meq QOD; supplement prn * EKG as needed #Hyperlipidemia * Continue home statin #Hypertension * Controlled BP 140's/70's * Continue home olmesartan, amlodipine, torsemide #Diabetes Mellitus Type II insulin-dependent #CKD III * Insulin-dependent with long-acting Basaglar at home plus metformin * Holding metformin * Sliding scale insulin while inpatient--> Goal 110-140; adjust as needed * Will check BMP/A1C with AM labs #MICAH * Uses CPAP at home; unsure of settings * Agreeable to CPAP inpatient-order placed * Oxygen as needed for sats <92% DVT Ppx: On Eliquis; SCDs Code status: Full PCP: Dr. Gregory Akhtar Dispo: Admit to Med Surg Tele for further management Patient seen in collaboration with Dr. Johnson. Please see addendum.I spent a total of 65 minutes coordinating, documenting and providing care for this patient excluding time spent in the performance of separately billed services or time spent by another provider/QHP. (2) Spina bifida: (3) CAD (coronary artery disease): (4) History of chronic atrial fibrillation: (5) Hyperlipidemia: (6) Diabetes mellitus, type II, insulin dependent: (7) Hypertension: (8) CKD (chronic kidney disease) stage 3, GFR 30-59 ml/min: (9) MICAH (obstructive sleep apnea): History of Present Illness Primary Care Provider: Gregory Botello MD Patient is a 63 year old M with a past medical history of CAD s/p STEMI s/p PTCA/stent 2008, HTN, CKD Stg III, dyslipidemia, insulin-dependent DM Type II, morbid obesity, MICAH, spina bifida, diabetic retinopathy, diabetic neuropathy, presenting with mechanical fall. Patient is wheelchair dependent, transfer with walker, fell on Saturday when in the bathroom injuring his left knee. He did not hit his head, but did suffer a "rug burn" like wound to his left knee when falling. Was unable to get himself up and needed EMS to help lift him up to his wheelchair. He was stable at that time with only minor pain to the left knee. He fell again this morning while in the bathroom. He reports having irregular bowels at baseline and now has diarrhea. He feels this may have contributed to his falls. Also noted to have foot ulcers to multiple toes from his new diabetic shows. Denies fever, chills, weight loss, cognitive changes, vision/hearing changes, chest pain, SOB, swelling, difficulty breathing, urinary concerns, skin rashes, lesions, bleeding, bruising. In the emergency department, patient was hemodynamically stable with NAD or sepsis. Labs unremarkable. Knee XRay showing OA with mild joint effusion to left knee. 1L fluid bolus given in the ED. He feels unsafe at home d/t multiple mechanical falls. He receives in-home assistance through a waiver program M-F 9a-3p via [employer]. Has a Loan Counselor via [employer] ([phone]). History obtained primarily from the patient and via hospitalization record. Allergies Allergy/AdvReac Type Severity Reaction Status Date / Time lisinopril Allergy Intermediate Cough Verified 12/27/24 14:49 sulfamethoxazole Allergy Intermediate Rash Verified 12/27/24 14:49 trimethoprim Allergy Intermediate Rash Verified 12/27/24 14:49 vaccine adjuvant system, Allergy Intermediate PAIN, Verified 12/27/24 14:49 AS01B liposomal REDNESS, [From Shingrix (PF)] SWELLING OF INJECTED ARM varicella-zoster virus Allergy Intermediate PAIN, Verified 12/27/24 14:49 glycoprotein E, recombinant REDNESS, [From Shingrix (PF)] SWELLING OF INJECTED ARM AVIVA Inhibitors AdvReac Intermediate Cough Verified 12/27/24 14:49 ceftriaxone AdvReac Mild Rash Verified 12/27/24 14:49 Home Medications Medication Instructions Recorded Confirmed Type allopurinol 300 mg tablet 300 mg PO QAM 05/25/20 12/27/24 History atorvastatin 10 mg tablet 5 mg PO HS 09/04/20 12/27/24 History apixaban 5 mg tablet (Eliquis) 5 mg PO BID 04/21/21 12/27/24 History carvedilol 25 mg tablet (Coreg) 25 mg PO BID #60 tabs 04/24/21 12/27/24 Rx amlodipine 5 mg tablet (Norvasc) 5 mg PO QAM #30 tabs 11/09/21 12/27/24 Rx sennosides 8.6 mg-docusate sodium 1 tab-cap PO QAM Constipation 05/27/23 12/27/24 History 50 mg tablet (Senna with Docusate Sodium) acetaminophen 325 mg tablet 650 mg PO QID PRN Pain 02/12/24 12/27/24 History (Tylenol) Lactobacillus acidophilus 10 10,000 mmu cells PO BID 12/27/24 12/27/24 History billion cell capsule (Probiotic) aspirin 81 mg chewable tablet 81 mg PO DAILY 12/27/24 12/27/24 History cholecalciferol (vitamin D3) 25 100 mcg PO DAILY 12/27/24 12/27/24 History mcg (1,000 unit) capsule (Vitamin D3) ferrous sulfate 325 mg (65 mg 325 mg PO BID 12/27/24 12/27/24 History iron) tablet folic acid 1 mg tablet 1 mg PO DAILY 12/27/24 12/27/24 History insulin glargine 100 unit/mL (3 28 unit subcut PM 12/27/24 12/27/24 History mL) subcutaneous pen (Basaglar KwikPen U-100 Insulin) latanoprost 0.005 % eye drops 1 drp OPB QPM 12/27/24 12/27/24 History meclizine 25 mg tablet 25 mg PO TID PRN Dizziness 12/27/24 12/27/24 History metformin 500 mg tablet,extended 500 mg PO DAILY 12/27/24 12/27/24 History release 24 hr multivitamin,tx-minerals 1 tab PO QDL 12/27/24 12/27/24 History nitroglycerin 0.4 mg sublingual 0.4 mg sublingual DIRECTED PRN 12/27/24 12/27/24 History tablet (Nitrostat) Chest Pain nystatin 100,000 unit/gram topical 1 applic topical DAILY PRN SKIN 12/27/24 12/27/24 History powder (Nyamyc) RASH olmesartan 40 mg tablet 40 mg PO QAM 12/27/24 12/27/24 History potassium chloride 20 mEq 20 meq PO Q OTHER DAY 12/27/24 12/27/24 History tablet,extended release(part/cryst) propylene glycol 1 %-glycerin 0.3 2 drp ophthalmic (eye) DIRECTED 12/27/24 12/27/24 History % eye drops PRN NEEDED PER [facility] semaglutide 1 mg/dose (4 mg/3 mL) 1 mg subcut WK 12/27/24 12/27/24 History subcutaneous pen injector (Ozempic) Past Med/Surg History Problem List (Updated 04/20/24 @ 14:56 by NAYLA Mendez) Diabetic ulcer of left foot MRSA (methicillin resistant Staphylococcus aureus) Chronic acquired lymphedema Chronic venous insufficiency of lower extremity Cellulitis of right leg Morbid obesity Open wound of both lower extremities (Acute) Lymphedema associated with obesity (Acute) Wound of lower extremity (Acute) Atrial flutter, chronic (Acute) CKD (chronic kidney disease) stage 3, GFR 30-59 ml/min Warren catheter in place (Acute) Abdominal pannus (Chronic) Hypertension (Acute) Stage III pressure ulcer of left buttock (Acute) Open wound of groin (Chronic) Urinary retention Diabetes mellitus, type II, insulin dependent MICAH (obstructive sleep apnea) (Chronic) CAD (coronary artery disease) (Chronic) Abdominal pannus (Chronic) Acquired buried penis (Chronic) Medical History Myocardial infarction H/o 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 Hyperlipidemia Glaucoma Presence of bare metal stent in right coronary artery Decreased ambulation status Lymphedema Major depressive disorder B-complex deficiency Vitamin D deficiency History of TIA (transient ischemic attack) Hearing loss of left ear Allergic rhinitis Arthritis of knee Spina bifida GERD (gastroesophageal reflux disease) Bilateral scrotal hernia Dyslipidemia 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, with long-term current use of insulin Diabetic retinopathy Gout Diabetic neuropathy Surgical History S/P panniculectomy H/O nasal septoplasty H/O colonoscopy H/O cardiac catheterization Previous back surgery Status post uvulopalatopharyngoplasty Hx of tonsillectomy S/P cholecystectomy Family History Mother Coronary heart disease Diabetes Hypertension Social History Smoking Status: Former smoker Tobacco Type: Cigarettes packs per day: 1; Second Hand Exposure: No; Do You Dip or Chew Tobacco: No; Hx Alcohol Use: No Hx Substance Use: No Preferred Language: Pakistani Communication Ability: Effective Visual Impairment: Limited Hearing Ability: Hard of Hearing Lokie Driver Required: No Beliefs That Will Affect Care: None marital status: Single Current Living Situation: Alone Current Living Situation Comment: ine apartment current occupational status: disabled Feels Safe at Home: No Is there a partner from a previous relationship who is making you feel unsafe now?: No Childhood Exposure to Second-Hand Smoke: No Assistive Devices: CPAP, Walker and Wheelchair Review of Systems Review of Systems: All systems reviewed & are unremarkable except as noted in HPI & below Physical Exam Physical Exam: VITALS: Reviewed. GEN: Morbidly obese, NAD. PSYCH: Good Judgment. AOx4. Normal memory, mood, and affect. HEENT -Head: NC/AT; -Eyes: PERRL, EOMI. No discharge or redn ess; -Ears: External ears are normal. -Nose: Normal nares. -Mouth and throat: MMM. Normal gums, muc micah, palate,. Good dentition. NECK: Supple, with no masses. CV: Irregular rhythm, no murmurs, no swelling, perfusing well LUNGS: Diminished, clear, no distress symptoms ABD: Soft, obese, hyperactive BS, mild tenderness to right sided of abdomen : N/A SKIN: Warm, well perfused. ulcers to tips of multiple toes, no drainage, healthy granulation tissue MSK: Moving all extremities, repositioning self with upper extremities, strength BLE 2/5 EXT: No clubbing, cyanosis, or edema. NEURO: Speech clear. CN II-XII grossly intact Results & Data Results & Data Vital Signs (Past 12 Hours) Vital Signs Temp Pulse Pulse Resp BP BP Pulse Ox 12/27/24 13:24 76 12/27/24 13:15 36.9 C 88 20 164/98 H 97 12/27/24 13:15 88 20 97 12/27/24 13:15 36.9 C 88 20 164/98 H 97 O2 Del Method 12/27/24 13:24 12/27/24 13:15 Room Air 12/27/24 13:15 Room Air 12/27/24 13:15 Room Air Laboratory Results Short CBC 12/27/24 Range/Units 13:19 WBC 9.23 (4.8-10.8) K/ul Hgb 13.5 L (14.0-18.0) g/dl Hct 39.3 L (42.0-52.0) % Plt Count 161 (130-400) K/uL BMP 12/27/24 13:19 Sodium 140 Potassium 3.5 Chloride 105 Carbon Dioxide 25 BUN 14 Creatinine 1.09 Glucose 150 H Calcium 9.6 Liver Function 12/27/24 Range/Units 13:19 Total Bilirubin 5.5 H (0.2-1.0) mg/dl AST 19 (13-39) U/L ALT 12 (7-52) U/L Alkaline Phosphatase 109 H (34-104) U/L Albumin 3.9 (3.4-5.0) gm/dl Diagnostic Findings Knee X-Ray 12/27/24 13:18 XR knee LT 3V CLINICAL HISTORY: l knee pain COMPARISON: None FINDINGS: There is mild osteoarthritis. No fracture or dislocation. There is a mild joint effusion. There are atherosclerotic calcifications. IMPRESSION: Osteoarthritis with joint effusion. ACT 112: Negative or not required by law. Electronically signed by: Omari Farias M.D. 12/27/2024 1:54 PM Code Status & VTE Plan VTE Prophylaxis Plan VTE Prophylaxis will be ordered: Yes Supervising Physician Co-Signing Physician Notes Attending addendum: The patient was seen and examined in emergency room He was brought in with a fall and injuring left knee with a fall on Saturday as well without any significant injury and loss of consciousness He is mobile with a wheelchair and has been having problem to move around since the fall this morning Denies any other significant symptoms On examination Lying in bed without any acute distress Hemodynamically stable with a blood pressure on the higher side at 164/98 Chestdecreased breath sounds due to thickened chest wall HeartS1-S2, irregular Abdomenbenign Extremitieschronic skin changes and no edema Examination of the left knee showed minimal bruising and a skin laceration involving the anterior part His admission labs and imaging studies, medications reviewed Assessment and plan Recurrent mechanical fall with morbid obesity without significant injury and a loss of consciousness Significant medical history including CAD, atrial fibrillation type 2 diabetes, sleep apnea and history of spina bifida which are stable at this time Will need PT OT evaluation and may need placementhe is wheelchair-bound at home Agree with assessment and plan as outlined above by Lamar WINSLOW and take the full responsibility of care in the hospital DR Freddy Johnson (1) Fall Encounter type: initial encounter Qualified Code(s): W19.XXXA - Unspecified fall, initial encounter (7) Hypertension Hypertension type: unspecified Qualified Code(s): I10 - Essential (primary) hypertension
[2024-12-27] MEDS: POTASSIUM CHLORIDE CRTAB 20 MEQ TABCR PO STA (16:21)
[2024-12-27] MEDS ORDERED: ALUMINUM/MAGNESIUM SUSP 30 ML UDC PO PRN (16:50)
[2024-12-27] MEDS ORDERED: GLUCOSE 40% GEL 15 GM TUBE PO PRN (16:50)
[2024-12-27] MEDS ORDERED: GLUCOSE 10 TAB/TUBE PO PRN (16:50)
[2024-12-27] MEDS ORDERED: GLUCAGON FOR INJ 1 MG VIAL SQ PRN (16:50)
[2024-12-27] MEDS ORDERED: MAGNESIUM HYDROXIDE SUSP 30 ML UDC PO PRN (16:50)
[2024-12-27] MEDS ORDERED: PHARMACY GLYCEMIC MGMT CONSULT PRN (16:50)
[2024-12-27] MEDS ORDERED: CARBOHYDRATES FOR HYPOGLYCEMIA PO PRN (16:50)
[2024-12-27] MEDS ORDERED: DEXTROSE 50% 50 ML SYRINGE IV PRN (16:50)
[2024-12-27] MEDS ORDERED: ONDANSETRON INJ 2 MG/ML 2 ML VIAL IV PRN (16:50)
[2024-12-27] MEDS ORDERED: ARTIFICIAL TEARS OPB PRN (17:01)
[2024-12-27 17:15] LABS: C. diff 027-NAP1-BI NEGATIVE; Cdiff Toxin B Gene (2yr or >) Negative Cdiff Gene (Neg)
[2024-12-27] MEDS: INSULIN ASPART PER UNIT CHARGE SC SCH (17:15)
[2024-12-27] MEDS: carvediloL 25 MG TAB PO SCH (17:30)
[2024-12-27] MEDS: ACETAMINOPHEN 325 MG TAB PO PRN (19:46)
[2024-12-27] MEDS: APIXABAN 5 MG TABLET PO SCH (19:49)
[2024-12-27] MEDS: ATORVASTATIN 10 MG TAB PO SCH (19:50)
[2024-12-27] MEDS: LATANOPROST 0.005% OP SOLN 2.5 ML BTL OPB SCH (19:50)
[2024-12-27] MEDS: FERROUS SULFATE 325 MG TAB PO SCH (19:50)
[2024-12-27] MEDS: LANTUS PER UNIT CHARGE SC SCH (20:59)
[2024-12-27] MEDS ORDERED: NON-FORMULARY MEDICATION (Insulin Glargine [Basaglar Kwikpen U-100 Insulin] 100 unit/mL (3 SQ SCH (21:00)
[2024-12-28 06:26] LABS: Hematocrit (blood only) 34.9 % (42.0-52.0); Hemoglobin 11.8 g/dl (14.0-18.0); Mean Corpuscular Hemoglobin 30.7 pg (25.0-34.0); Mean Corpuscular Hgb Conc 33.8 g/dL (32.0-36.0); Mean Corpuscular Volume 90.9 fL (80.0-100.0); Mean Platelet Volume 10.4 fL (9.4-12.4); Platelet Count 134 K/uL (130-400); RDW Coefficient of Variation 14.9 % (11.5-14.5); RDW Standard Deviation 49.4 fL (36.4-46.3); Red Blood Count 3.84 M/uL (4.70-6.10); White Blood Count 7.03 K/ul (4.8-10.8)
[2024-12-28 06:44] LABS: BUN Creatinine Ratio 12.3 (10-20); Calcium 8.6 mg/dl (8.6-10.3); Creatinine Clr Calc Pharmacy 96.6 ml/min; Magnesium 1.8 mg/dl (1.7-2.4); Phosphorus 3.4 mg/dl (2.5-4.9); Potassium 3.4 mmol/L (3.5-5.1)
[2024-12-28 08:36] LABS: Estimated Average Glucose 126 mg/dl
[2024-12-28] MEDS: CHOLECALCIFEROL 25 MCG (1000 UNITS) TAB PO SCH (08:56)
[2024-12-28] MEDS: ASPIRIN 81 MG CHEW PO SCH (08:56)
[2024-12-28] MEDS: FOLIC ACID 1 MG TAB PO SCH (08:57)
[2024-12-28] MEDS: amLODIPine BESYLATE 5 MG TAB PO SCH (08:57)
[2024-12-28] MEDS: allopurinoL 300 MG TAB PO SCH (08:57)
[2024-12-28] MEDS: LOSARTAN POTASSIUM 50 MG TAB PO SCH (08:57)
[2024-12-28] MEDS: POTASSIUM CHLORIDE CRTAB 20 MEQ TABCR PO SCH (09:00)
--- NOTE | 2024-12-28 09:39 | Pharmacy Report ---
Pharmacy Glycemic Short Note 2 - Date of Service December 28, 2024 - Glycemic Short BSG Results (Last 24 hours): 12/27/24 12/27/24 12/27/24 13:19 17:00 20:32 Glucose 150 H POC Glucose 109 H 116 H 12/28/24 12/28/24 05:20 08:16 Glucose 108 H POC Glucose 115 H OUTPATIENT ANTIDIABETIC REGIMEN: * Basaglar 28 units SQ QPM * metformin 500mg PO daily * HbA1c 6.0% (12/28/24) ASSESSMENT: * Perry is a 64 year old male admitted status post mechanical fall with a history of spina bifida and type 2 insulin dependent diabetes mellitus. Pharmacy has been consulted to assist with glycemic management while inpatient. * Fasting BSG this AM within goal range, will continue Lantus at approximately 50% of home dosage * NovoLog at a weight based stress of 1.5, appears appropriate at this time. Will continue to trend PLAN FOR INPATIENT GLYCEMIC CONTROL: * Hold outpatient oral diabetes medications * Basal insulin * Lantus 15 units SQ HS * Bolus insulin * NovoLog per scale ACHS or Q6hrs while NPO * Goal Range: Low 110 mg/dL - High 140 mg/dL * Correction Factor: 20 mg/dL/unit * Nutritional / Prandial insulin per carb ratio of 1 unit per 7 grams CHO consumed
[2024-12-28 12:12] LABS: Adenovirus F 40/41 PCR Not Detected (NotDetected); Astrovirus PCR Not Detected (NotDetected); Campylobacter PCR Not Detected (NotDetected); Cryptosporidium PCR Not Detected (NotDetected); Cyclospora cayetanensis PCR Not Detected (NotDetected); Entamoeba histolytica PCR Not Detected (NotDetected); Enteroaggregative E.coli(EAEC) Not Detected (NotDetected); Enteropathogenic E.coli (EPEC) Not Detected (NotDetected); Enterotoxigenic E.coli (ETEC) Not Detected (NotDetected); Giardia lamblia PCR Not Detected (NotDetected); Norovirus GI/GII PCR Not Detected (NotDetected); Plesiomonas shigelloides PCR Not Detected (NotDetected); Rotavirus A PCR Not Detected (NotDetected); Salmonella PCR Not Detected (NotDetected); Sapovirus PCR Not Detected (NotDetected); Shiga-like Toxin E.coli (STEC) Not Detected (NotDetected); Shigella/Enteroinvasive E.coli Not Detected (NotDetected); Vibrio cholerae PCR Not Detected (NotDetected); Vibrio species PCR Not Detected (NotDetected); Yersinia enterocolitica PCR Not Detected (NotDetected)
--- NOTE | 2024-12-28 14:49 | Hospitalist Progress Note ---
Date of Service December 28, 2024 Assessment & Plan (1) Fall: Plan: Patient is a 63 year old M with a past medical history of CAD s/p STEMI s/p PTCA/stent 2008, HTN, CKD Stg III, dyslipidemia, insulin-dependent DM Type II, morbid obesity, MICAH, spina bifida, diabetic retinopathy, diabetic neuropathy, presenting with mechanical fall. Patient is wheelchair dependent, transfer with walker, fell on Saturday when in the bathroom injuring his left knee. He did not hit his head, but did suffer a "rug burn" like wound to his left knee when falling. Was unable to get himself up and needed EMS to help lift him up to his wheelchair. He was stable at that time with only minor pain to the left knee. He fell again this morning while in the bathroom. He reports having irregular bowels at baseline and now has diarrhea. He feels this may have contributed to his falls. Also noted to have foot ulcers to multiple toes from his new diabetic shows. Mechanical Fall #Spina Bifida * Admitted for further management and CM consult for adequate placement pos rehab vs SNF * Xray Left knee showing OA and mild effusion- no further intervention needed * Treat pain prn with acetaminophen * No major injury following mechanical falls * PT/OT consult placed- wheelchair bound with use of walker for transfers #Diabetic Foot Ulcers * Multiple open, non-draining, non-infectious toe ulcers from diabetic shoes * Clean and dress daily * Wound consult placed for further recs #Diarrhea * Diarrhea x 1 day, not typical stool consistency * Stool pct - obtained negative * CDiff - negative #CAD s/p STEMI s/p PTCA/stent #Chronic Atrial Fibrillation episode of NSVT - asymptomatic * Anticoagulated with Eliquis BID; On Aspirin at home * AFib with rate control BB * On diuretic at home; monitor K, Mag, replace and monitor * cont. Coreg, amlodipine statin * EKG as needed #Hyperlipidemia * Continue home statin #Hypertension * Controlled BP 140's/70's * Continue home olmesartan, amlodipine, torsemide #Diabetes Mellitus Type II insulin-dependent #CKD III * Insulin-dependent with long-acting Basaglar at home plus metformin * Holding metformin * Sliding scale insulin while inpatient--> Goal 110-140; adjust as needed * current A1c 6.0% * monitor BMP #MICAH * Uses CPAP at home; unsure of settings * Agreeable to CPAP inpatient-order placed * Oxygen as needed for sats <92% DVT Ppx: On Eliquis; SCDs Code status: Full PCP: Dr. Gregory Akhtar Dispo: med/ tele (2) Spina bifida: (3) CAD (coronary artery disease): (4) History of chronic atrial fibrillation: (5) Hyperlipidemia: (6) Diabetes mellitus, type II, insulin dependent: (7) Hypertension: (8) CKD (chronic kidney disease) stage 3, GFR 30-59 ml/min: (9) MICAH (obstructive sleep apnea): Admission and Anticipated Discharge Date Admission Date: December 27, 2024 Subjective Pt seen in follow up of falls, diarrhea, knee pain w/c bound, obesity, spina bifida - complicating ambulation No fever, chills, chest pain, shortness of breath, no cough Reports was constipated for 5 days then developed loose stools after each meal Says he did not have loose stool today after lunch stool pcr negative Review of Systems Review of Systems: All systems reviewed & are unremarkable except as noted in Subjective Physical Exam Physical Exam: GEN: Morbidly obese M in NAD. HEENT: NC/AT; PERRL, EOMI. MMM. NECK: Supple CV: Irregular rhythm, no murmurs LUNGS: Diminished, clear, no distress symptoms ABD: Soft, obese, hyperactive BS, mild tenderness to right sided of abdomen SKIN: Warm, dry. ulcers to tips of multiple toes MSK: Moving all extremities EXT: No clubbing, cyanosis, or edema. NEURO: awake, alert, answers appropriately, speech clear. moves extremities Results & Data Results & Data Vital Signs (Past 12 Hours) Vital Signs Temp Pulse Pulse Resp BP Pulse Ox O2 Del Method 12/28/24 13:00 63 12/28/24 11:09 36.8 C 68 18 138/69 94 Room Air 12/28/24 08:19 36.8 C 62 18 167/79 H 97 Room Air 12/28/24 05:47 53 L 12/28/24 03:54 36.8 C 62 18 146/68 H 95 Room Air, CPAP 12/28/24 02:55 82 19 94 Laboratory Results 12/28/24 12/28/24 12/28/24 Range/Units 14:50 11:58 10:21 WBC (4.8-10.8) K/ul RBC (4.70-6.10) M/uL Hgb (14.0-18.0) g/dl Hct (42.0-52.0) % MCV (80.0-100.0) fL MCH (25.0-34.0) pg MCHC (32.0-36.0) g/dL RDW Std Deviation (36.4-46.3) fL RDW Coeff of Selvin (11.5-14.5) % Plt Count (130-400) K/uL MPV (9.4-12.4) fL Sodium (136-145) mmol/L Potassium (3.5-5.1) mmol/L Chloride (98-107) mmol/L Carbon Dioxide (21-32) mmol/L Anion Gap (3-11) BUN (6-23) mg/dl Creatinine (0.6-1.4) mg/dl Est Cr Clr Drug Dosing ml/min eGFR BUN/Creatinine Ratio (10-20) Glucose (70-99(Fasting)) mg/dl POC Glucose 151 H (70-99) mg/dl Estimat Average Glucose mg/dl Hemoglobin A1c (4.5-5.6) % Calcium (8.6-10.3) mg/dl Phosphorus (2.5-4.9) mg/dl Magnesium (1.7-2.4) mg/dl Total Bilirubin Pending Stl C. cayetanensis PCR Not Detected (NotDetected) Stool Rotavirus A PCR Not Detected (NotDetected) Stl Adenov F 40/41 PCR Not Detected (NotDetected) Stool Astrovirus (PCR) Not Detected (NotDetected) Stool Campylobacter PCR Not Detected (NotDetected) Stl C. diff Tox B Gene (Neg) Stl C. diff 027-NAP1-BI Stool Cryptosporidium PCR Not Detected (NotDetected) Stl E.coli Shiga Tox PCR Not Detected (NotDetected) Stl Enterotoxigenic E PCR Not Detected (NotDetected) Stool EPEC (PCR) Not Detected (NotDetected) Stool EAEC (PCR) Not Detected (NotDetected) Stl E. histolytica PCR Not Detected (NotDetected) Stool Giardia Lamblia PCR Not Detected (NotDetected) Stool Salmonella PCR Not Detected (NotDetected) Stool Sapovirus (PCR) Not Detected (NotDetected) Stl P. shigelloides PCR Not Detected (NotDetected) Stl Shigella/EIEC PCR Not Detected (NotDetected) St Y.enterocolitica PCR Not Detected (NotDetected) Stool Vibrio (PCR) Not Detected (NotDetected) Stl Vibrio cholerae PCR Not Detected (NotDetected) Stl Norovirus GI/GII PCR Not Detected (NotDetected) 12/28/24 12/28/24 12/27/24 Range/Units 08:16 05:20 20:32 WBC 7.03 (4.8-10.8) K/ul RBC 3.84 L (4.70-6.10) M/uL Hgb 11.8 L (14.0-18.0) g/dl Hct 34.9 L (42.0-52.0) % MCV 90.9 (80.0-100.0) fL MCH 30.7 (25.0-34.0) pg MCHC 33.8 (32.0-36.0) g/dL RDW Std Deviation 49.4 H (36.4-46.3) fL RDW Coeff of Selvin 14.9 H (11.5-14.5) % Plt Count 134 (130-400) K/uL MPV 10.4 (9.4-12.4) fL Sodium 140 (136-145) mmol/L Potassium 3.4 L (3.5-5.1) mmol/L Chloride 108 H (98-107) mmol/L Carbon Dioxide 24 (21-32) mmol/L Anion Gap 8 (3-11) BUN 14 (6-23) mg/dl Creatinine 1.14 (0.6-1.4) mg/dl Est Cr Clr Drug Dosing 96.6 ml/min eGFR 72.27 BUN/Creatinine Ratio 12.3 (10-20) Glucose 108 H (70-99(Fasting)) mg/dl POC Glucose 115 H 116 H (70-99) mg/dl Estimat Average Glucose 126 mg/dl Hemoglobin A1c 6.0 H (4.5-5.6) % Calcium 8.6 (8.6-10.3) mg/dl Phosphorus 3.4 (2.5-4.9) mg/dl Magnesium 1.8 (1.7-2.4) mg/dl Total Bilirubin Stl C. cayetanensis PCR (NotDetected) Stool Rotavirus A PCR (NotDetected) Stl Adenov F PCR (NotDetected) Stool Astrovirus (PCR) (NotDetected) Stool Campylobacter PCR (NotDetected) Stl C. diff Tox B Gene (Neg) Stl C. diff 027-NAP1-BI Stool Cryptosporidium PCR (NotDetected) Stl E.coli Shiga Tox PCR (NotDetected) Stl Enterotoxigenic E PCR (NotDetected) Stool EPEC (PCR) (NotDetected) Stool EAEC (PCR) (NotDetected) Stl E. histolytica PCR (NotDetected) Stool Giardia Lamblia PCR (NotDetected) Stool Salmonella PCR (NotDetected) Stool Sapovirus (PCR) (NotDetected) Stl P. shigelloides PCR (NotDetected) Stl Shigella/EIEC PCR (NotDetected) St Y.enterocolitica PCR (NotDetected) Stool Vibrio (PCR) (NotDetected) Stl Vibrio cholerae PCR (NotDetected) Stl Norovirus GI/GII PCR (NotDetected) 12/27/24 12/27/24 Range/Units 17:00 15:30 WBC (4.8-10.8) K/ul RBC (4.70-6.10) M/uL Hgb (14.0-18.0) g/dl Hct (42.0-52.0) % MCV (80.0-100.0) fL MCH (25.0-34.0) pg MCHC (32.0-36.0) g/dL RDW Std Deviation (36.4-46.3) fL RDW Coeff of Selvin (11.5-14.5) % Plt Count (130-400) K/uL MPV (9.4-12.4) fL Sodium (136-145) mmol/L Potassium (3.5-5.1) mmol/L Chloride (98-107) mmol/L Carbon Dioxide (21-32) mmol/L Anion Gap (3-11) BUN (6-23) mg/dl Creatinine (0.6-1.4) mg/dl Est Cr Clr Drug Dosing ml/min eGFR BUN/Creatinine Ratio (10-20) Glucose (70-99(Fasting)) mg/dl POC Glucose 109 H (70-99) mg/dl Estimat Average Glucose mg/dl Hemoglobin A1c (4.5-5.6) % Calcium (8.6-10.3) mg/dl Phosphorus (2.5-4.9) mg/dl Magnesium (1.7-2.4) mg/dl Total Bilirubin Stl C. cayetanensis PCR (NotDetected) Stool Rotavirus A PCR (NotDetected) Stl Adenov F 40/41 PCR (NotDetected) Stool Astrovirus (PCR) (NotDetected) Stool Campylobacter PCR (NotDetected) Stl C. diff Tox B Gene Negative Cdiff Gene (Neg) Stl C. diff 027-NAP1-BI NEGATIVE Stool Cryptosporidium PCR (NotDetected) Stl E.coli Shiga Tox PCR (NotDetected) Stl Enterotoxigenic E PCR (NotDetected) Stool EPEC (PCR) (NotDetected) Stool EAEC (PCR) (NotDetected) Stl E. histolytica PCR (NotDetected) Stool Giardia Lamblia PCR (NotDetected) Stool Salmonella PCR (NotDetected) Stool Sapovirus (PCR) (NotDetected) Stl P. shigelloides PCR (NotDetected) Stl Shigella/EIEC PCR (NotDetected) St Y.enterocolitica PCR (NotDetected) Stool Vibrio (PCR) (NotDetected) Stl Vibrio cholerae PCR (NotDetected) Stl Norovirus GI/GII PCR (NotDetected) Medications Administered Current Inpatient Medications Acetaminophen (Acetaminophen 325 Mg Tab) 650 mg PO Q4H PRN PRN Reason: Pain or Fever Stop: 01/26/25 16:49 Last Admin: 12/27/24 19:46 Dose: 650 mg Al Hydrox/Mg Hydrox/Simethicone (Aluminum/Magnesium Susp 30 Ml Udc) 15 ml PO Q4H PRN PRN Reason: Dyspepsia Stop: 01/26/25 16:49 Allopurinol (Allopurinol 300 Mg Tab) 300 mg PO QAM RAJWINDER Stop: 01/27/25 08:59 Last Admin: 12/28/24 08:57 Dose: 300 mg Amlodipine Besylate (Amlodipine Besylate 5 Mg Tab) 5 mg PO QAM RAJWINDER Stop: 01/27/25 08:59 Last Admin: 12/28/24 08:57 Dose: 5 mg Apixaban (Apixaban 5 Mg Tablet) 5 mg PO BID RAJWINDER Stop: 01/26/25 20:59 Last Admin: 12/28/24 08:57 Dose: 5 mg Artificial Tears (Artificial Tears) 1 drops OPB Q4H PRN PRN Reason: Dryness Stop: 01/26/25 17:00 Aspirin (Aspirin 81 Mg Chew) 81 mg PO DAILY [facility] Stop: 01/27/25 08:59 Last Admin: 12/28/24 08:56 Dose: 81 mg Atorvastatin Calcium (Atorvastatin 10 Mg Tab) 5 mg PO HS [facility] Stop: 01/26/25 20:59 Last Admin: 12/27/24 19:50 Dose: 5 mg Carvedilol (Carvedilol 25 Mg Tab) 25 mg PO BIDM RAJWINDER Stop: 01/26/25 16:59 Last Admin: 12/28/24 08:57 Dose: 25 mg Dextrose (Dextrose 50% 50 Ml Syringe) 25 - 50 ml IV UD PRN; Protocol PRN Reason: Hypoglycemia Protocol Stop: 01/26/25 16:49 Ferrous Sulfate (Ferrous Sulfate 325 Mg Tab) 325 mg PO BID RAJWINDER Stop: 01/26/25 20:59 Last Admin: 12/28/24 08:56 Dose: 325 mg Folic Acid (Folic Acid 1 Mg Tab) 1 mg PO DAILY RAJWINDER Stop: 01/27/25 08:59 Last Admin: 12/28/24 08:57 Dose: 1 mg Glucagon (Glucagon For Inj 1 Mg Vial) 1 mg SQ UD PRN; Protocol PRN Reason: Hypoglycemia Protocol Stop: 01/26/25 16:49 Glucose (Glucose 40% Gel 15 Gm Tube) 15 - 30 gm PO UD PRN; Protocol PRN Reason: Hypoglycemia Protocol Stop: 01/26/25 16:49 Glucose (Glucose 10 Tab/Tube) 4 - 8 tab PO UD PRN; Protocol PRN Reason: Hypoglycemia Protocol Stop: 01/26/25 16:49 Magnesium Sulfate/Dextrose (Magnesium Sulfate / D5w) 1 gm in 100 mls @ 50 mls/hr IV ONE ONE Stop: 12/28/24 17:02 Insulin Aspart (Insulin Aspart Per Unit Charge) 0 units SC ACHS RAJWINDER Stop: 01/26/25 16:49 Last Admin: 12/28/24 12:25 Dose: 6 units Insulin Glargine (Lantus Per Unit Charge) 15 units SC HS [facility] Stop: 01/27/25 20:59 Latanoprost (Latanoprost 0.005% Op Soln 2.5 Ml Btl) 1 drops OPB QPM RAJWINDER Stop: 01/26/25 20:59 Last Admin: 12/27/24 19:50 Dose: 1 drops Losartan Potassium (Losartan Potassium 50 Mg Tab) 100 mg PO QAM RAJWINDER; Protocol Stop: 01/27/25 08:59 Last Admin: 12/28/24 08:57 Dose: 100 mg Magnesium Hydroxide (Magnesium Hydroxide Susp 30 Ml Udc) 30 ml PO Q12H PRN PRN Reason: Constipation Stop: 01/26/25 16:49 Miscellaneous (Carbohydrates For Hypoglycemia ) 15 - 30 gm PO UD PRN PRN Reason: Hypoglycemia Protocol Stop: 01/26/25 16:49 Miscellaneous Information (Pharmacy Glycemic Mgmt Consult) 1 each N/A UD PRN PRN Reason: Consult Stop: 01/26/25 16:49 Ondansetron HCl (Ondansetron Inj 2 Mg/Ml 2 Ml Vial) 4 mg IV Q6H PRN PRN Reason: Nausea Stop: 01/26/25 16:49 Potassium Chloride (Potassium Chloride Crtab 20 Meq Tabcr) 20 meq PO Q2D RAJWINDER Stop: 01/27/25 08:59 Last Admin: 12/28/24 09:00 Dose: 20 meq Vitamin D (Cholecalciferol 25 Mcg (1000 Units) Tab) 100 mcg PO DAILY [facility] Stop: 01/27/25 08:59 Last Admin: 12/28/24 08:56 Dose: 100 mcg (1) Fall Encounter type: initial encounter Qualified Code(s): W19.XXXA - Unspecified fall, initial encounter (7) Hypertension Hypertension type: unspecified Qualified Code(s): I10 - Essential (primary) hypertension
--- NOTE | 2024-12-28 15:43 | XRay Report ---
KUB HISTORY: abd. pain, GI issues COMPARISON STUDY: 11/08/2021 FINDINGS: Stable right upper quadrant surgical clips. There is moderate retained stool. No bowel obst ruction seen. No gross free air. IMPRESSION: No acute findings. ACT 112: Negative or not required by law. The above report was generated using voice recognition software. It may contain grammatical, syntax o r spelling errors. Electronically signed by: Omari Farias M.D. 12/28/2024 3:42 PM
[2024-12-28] MEDS: POTASSIUM CHLORIDE CRTAB 20 MEQ TABCR PO STA (15:45)
[2024-12-28] MEDS: MAGNESIUM SULFATE / D5W 1 GM/100 ML BAG IV ONE (15:45)
[2024-12-28 19:01] LABS: Appearance Urine Clear (Clear); Bacteria Urine Automated None Seen (None Seen); Bilirubin Urine 1+ (Negative); Blood Urine Negative (Negative); Color Urine Dark Yellow; Epithelial Cell Urine Auto 0-2 /hpf (0-2); Glucose Urine UA Negative (Negative); Hyaline Casts Urine Present /lpf (None Presnt); Ketones Urine 1+ (Negative); Leukocyte Esterase Urine Trace (Negative); Nitrite Urine Negative (Negative); Protein Urine Trace (Negative); RBC Urine Automated 0-2 /hpf (0-2); Specific Gravity Urine 1.025 (1.000-1.030); Urobilinogen Urine Negative (Negative); WBC Urine Automated 0-5 /hpf (0-5); pH Urine 5.5 (4.5-7.5)
[2024-12-28] MEDS: LANTUS PER UNIT CHARGE SC SCH (21:23)
--- NOTE | 2024-12-29 00:53 | Ultrasound Report ---
Exam(s): US LIVER EXAM: US Abdomen Limited CLINICAL HISTORY: Reason for exam: elevated Tbili. TECHNIQUE: Real-time ultrasound of the abdomen with image documentation. COMPARISON: CT abdomen: 11/08/2021 FINDINGS: No gallstones. Surgically absent. No biliary dilatation. CBD: 5 mm in diameter. Liver: 18.7 cm in length increased in echogenicity/fatty infiltration. Small free fluid is seen around the liver., RIGHT kidney 10.4 cm in length. IMPRESSION: Mild fatty hepatic infiltration. Small perihepatic free fluid. Prior cholecystectomy. No biliary ductal dilation. . Electronically signed by: Eloy Alatorre MD, DABR 12/29/24 00:52 AM
[2024-12-29 06:26] LABS: Hematocrit (blood only) 35.3 % (42.0-52.0); Hemoglobin 11.7 g/dl (14.0-18.0); Mean Corpuscular Hemoglobin 30.5 pg (25.0-34.0); Mean Corpuscular Hgb Conc 33.1 g/dL (32.0-36.0); Mean Corpuscular Volume 91.9 fL (80.0-100.0); Mean Platelet Volume 10.8 fL (9.4-12.4); Platelet Count 140 K/uL (130-400); RDW Coefficient of Variation 15.1 % (11.5-14.5); RDW Standard Deviation 50.4 fL (36.4-46.3); Red Blood Count 3.84 M/uL (4.70-6.10); White Blood Count 7.44 K/ul (4.8-10.8)
[2024-12-29 06:58] LABS: Albumin Level 3.5 gm/dl (3.4-5.0); Bilirubin,Total 3.9 mg/dl (0.2-1.0); Calcium 8.8 mg/dl (8.6-10.3); Magnesium 2.1 mg/dl (1.7-2.4); Potassium 3.4 mmol/L (3.5-5.1)
[2024-12-29 07:04] LABS: Albumin Globulin Ratio 1.5 (0.9-2); BUN Creatinine Ratio 13.1 (10-20); Globulin 2.3 gm/dl (2.5-4.0); Phosphorus 3.7 mg/dl (2.5-4.9); Total Protein 5.8 gm/dl (6.0-8.3)
--- NOTE | 2024-12-29 09:37 | Gastrointestinal Consultation ---
Date of Consultation December 29, 2024 Assessment & Plan (1) Elevated bilirubin: Patient admitted s/p a fall he sustained at home. GI asked to see due to an elevated T bili and abdominal pain. He has had elevated T bili in the past and it is possible that this is related to gilberts though bili was higher than would be suspected. He may have even passed a stone, though there were no stones or biliary dilation seen on imaging. Abdominal pain has resolved. - check d bili. - continue to trend bili, suspect that this will continue to trend downwards. - if ongoing concern, could consider MRCP to further evaluate. Patient would like to hold off on further imaging at this time. - start protonix 40mg once daily. Supervising Physician Co-Signing Physician Notes I agree with the advanced practitioner's documentation above regarding review of case, evaluation, and assessment and plan unless outlined below. This was a shared visit in which I was present during all aspects of the case including evaluation, discussion of case, review of data and test results, interpretation of data and test results, complex medical decision making, coordination of care, and direction of ancillary services. The patient has significant but transient elevation in bilirubin as well as a history of elevated bilirubin. This could represent Aurora syndrome but the extent of elevation is slightly above what normally is seen even in the setting of acute infection. The patient has symptoms of abdominal pain and diarrhea which could represent acute infectious enterocolitis or gastroenteritis which could have precipitated the elevated nate irubin. He does not have any evidence of suspected choledocholithiasis or significant gallbladder disease given normal liver function test. He is clinically asymptomatic at this time and therefore further investigation with MRCP is of extremely low yield. If symptoms recur then I would have a low threshold for this exam. Kindly recall the GI service as needed. History of Present Illness Reason for Consultation: Elevated bili / RUQ pain Requesting Physician: Koko Galloway MD Attending Physician: Koko Galloway MD History of Present Illness Patient is a 63 year old male with a past medical history of CAD s/p STEMI s/p PTCA/stent 2008, HTN, CKD Stg III, dyslipidemia, insulin-dependent DM Type II, morbid obesity, MICAH, spina bifida, diabetic retinopathy, diabetic neuropathy, who presented to the ED on 12/27 after a fall he sustained at home while using the bathroom. He was unable to get himself up and needed EMS to help lift him up to his wheelchair. He tells me that after admission he had developed some RUQ/mid epigastric discomfort that would come on after eating. He is s/p cholecystectomy that he had a few years ago. no nausea/vomiting. he tells me that yesterday he still had some pain, but overall improved. He was able to eat breakfast this morning without any pain and this has seemingly resolved. When he was admitted he did have a t bili of 5.5 but this has been trending downward. Rest of LFTs unremarkable. US was done and shown mild fatty liver but no biliary dilation. The remainder of the GI ROS were unremarkable. 12/27/24 T bili 5.5, rest of LFTs unremarkable. 12/29/24 T bili 3.9, rest of LFTs unremarkable. US 12/28/24 Mild fatty hepatic infiltration. Small perihepatic free fluid. Prior cholecystectomy. No biliary ductal dilation. Allergies Allergy/AdvReac Type Severity Reaction Status Date / Time lisinopril Allergy Intermediate Cough Verified 12/27/24 14:49 sulfamethoxazole Allergy Intermediate Rash Verified 12/27/24 14:49 trimethoprim Allergy Intermediate Rash Verified 12/27/24 14:49 vaccine adjuvant system, Allergy Intermediate PAIN, Verified 12/27/24 14:49 AS01B liposomal REDNESS, [From Shingrix (PF)] SWELLING OF INJECTED ARM varicella-zoster virus Allergy Intermediate PAIN, Verified 12/27/24 14:49 glycoprotein E, recombinant REDNESS, [From Shingrix (PF)] SWELLING OF INJECTED ARM AVIVA Inhibitors AdvReac Intermediate Cough Verified 12/27/24 14:49 ceftriaxone AdvReac Mild Rash Verified 12/27/24 14:49 Home Medications Medication Instructions Recorded Confirmed Type allopurinol 300 mg tablet 300 mg PO QAM 05/25/20 12/27/24 History atorvastatin 10 mg tablet 5 mg PO HS 09/04/20 12/27/24 History apixaban 5 mg tablet (Eliquis) 5 mg PO BID 04/21/21 12/27/24 History carvedilol 25 mg tablet (Coreg) 25 mg PO BID #60 tabs 04/24/21 12/27/24 Rx amlodipine 5 mg tablet (Norvasc) 5 mg PO QAM #30 tabs 11/09/21 12/27/24 Rx sennosides 8.6 mg-docusate sodium 1 tab-cap PO QAM Constipation 05/27/23 12/27/24 History 50 mg tablet (Senna with Docusate Sodium) acetaminophen 325 mg tablet 650 mg PO QID PRN Pain 02/12/24 12/27/24 History (Tylenol) Lactobacillus acidophilus 10 10,000 mmu cells PO BID 12/27/24 12/27/24 History billion cell capsule (Probiotic) aspirin 81 mg chewable tablet 81 mg PO DAILY 12/27/24 12/27/24 History cholecalciferol (vitamin D3) 25 100 mcg PO DAILY 12/27/24 12/27/24 History mcg (1,000 unit) capsule (Vitamin D3) ferrous sulfate 325 mg (65 mg 325 mg PO BID 12/27/24 12/27/24 History iron) tablet folic acid 1 mg tablet 1 mg PO DAILY 12/27/24 12/27/24 History insulin glargine 100 unit/mL (3 28 unit subcut PM 12/27/24 12/27/24 History mL) subcutaneous pen (Aniya GoinsPen U-100 Insulin) latanoprost 0.005 % eye drops 1 drp OPB QPM 12/27/24 12/27/24 History meclizine 25 mg tablet 25 mg PO TID PRN Dizziness 12/27/24 12/27/24 History metformin 500 mg tablet,extended 500 mg PO DAILY 12/27/24 12/27/24 History release 24 hr multivitamin,tx-minerals 1 tab PO QDL 12/27/24 12/27/24 History nitroglycerin 0.4 mg sublingual 0.4 mg sublingual DIRECTED PRN 12/27/24 12/27/24 History tablet (Nitrostat) Chest Pain nystatin 100,000 unit/gram topical 1 applic topical DAILY PRN SKIN 12/27/24 12/27/24 History powder (Nyamyc) RASH olmesartan 40 mg tablet 40 mg PO QAM 12/27/24 12/27/24 History potassium chloride 20 mEq 20 meq PO Q OTHER DAY 12/27/24 12/27/24 History tablet,extended release(part/cryst) propylene glycol 1 %-glycerin 0.3 2 drp ophthalmic (eye) DIRECTED 12/27/24 12/27/24 History % eye drops PRN NEEDED PER [facility] semaglutide 1 mg/dose (4 mg/3 mL) 1 mg subcut WK 12/27/24 12/27/24 History subcutaneous pen injector (Ozempic) Patient History Medical History Myocardial infarction H/o 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 Hyperlipidemia Glaucoma Presence of bare metal stent in right coronary artery Decreased ambulation status Lymphedema Major depressive disorder B-complex deficiency Vitamin D deficiency History of TIA (transient ischemic attack) Hearing loss of left ear Allergic rhinitis Arthritis of knee Spina bifida GERD (gastroesophageal reflux disease) Bilateral scrotal hernia Dyslipidemia 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, with long-term current use of insulin Diabetic retinopathy Gout Diabetic neuropathy Surgical History S/P panniculectomy H/O nasal septoplasty H/O colonoscopy H/O cardiac catheterization Previous back surgery Status post uvulopalatopharyngoplasty Hx of tonsillectomy S/P cholecystectomy Family History Mother Coronary heart disease Diabetes Hypertension Social History Smoking Status: Former smoker Tobacco Type: Cigarettes packs per day: 1; Second Hand Exposure: No; Do You Dip or Chew Tobacco: No; Hx Alcohol Use: No Hx Substance Use: No Preferred Language: Taiwanese Communication Ability: Effective Visual Impairment: Limited Hearing Ability: Hard of Hearing Environmental Tech Required: No Beliefs That Will Affect Care: None marital status: Single Current Living Situation: Alone Current Living Situation Comment: lives at home alone current occupational status: disabled Feels Safe at Home: Yes Childhood Exposure to Second-Hand Smoke: No Assistive Devices: CPAP, Hospital Bed, Lift Chair, Raised Toilet Seat, Stair Lift, Walker and Wheelchair Review of Systems Review of Systems: All systems reviewed & are unremarkable except as noted in HPI & below Physical Exam Constitutional: WD/WN, vitals as above Respiratory: normal respiratory effort, lungs clear to auscultation Cardiovascular: Rate/Rhythm: regular rate and regular rhythm Gastrointestinal (Abdomen): normal bowel sounds, soft, nontender, no hepatosplenomegaly Psychiatric: Orientation: alert and oriented x 3 Affect: euthymic affect Results & Data Vital Signs (Past 12 Hours) Vital Signs Temp Pulse Pulse Resp BP Pulse Ox O2 Del Method 12/29/24 07:35 98.1 F 61 18 140/82 97 Room Air 12/29/24 07:00 38 L 12/29/24 03:45 97.7 F 71 19 136/80 96 CPAP 12/29/24 02:23 20 12/29/24 00:10 60 19 98 12/29/24 00:00 98.2 F 61 18 110/74 97 CPAP 12/28/24 21:44 58 L Coding Level of Care Code 68540 INT INP/OBS CARE 2/55MIN Diagnoses Elevated bilirubin R17
[2024-12-29] MEDS: PANTOprazole 40 MG TAB PO SCH (10:13)
--- NOTE | 2024-12-29 11:05 | Hospitalist Progress Note ---
Date of Service December 29, 2024 Assessment & Plan (1) Fall: Plan: Patient is a 63 year old M with a past medical history of CAD s/p STEMI s/p PTCA/stent 2008, HTN, CKD Stg III, dyslipidemia, insulin-dependent DM Type II, morbid obesity, MICAH, spina bifida, diabetic retinopathy, diabetic neuropathy, presenting with mechanical fall. Patient is wheelchair dependent, transfer with walker, fell on Saturday when in the bathroom injuring his left knee. He did not hit his head, but did suffer a "rug burn" like wound to his left knee when falling. Was unable to get himself up and needed EMS to help lift him up to his wheelchair. He was stable at that time with only minor pain to the left knee. He fell again this morning while in the bathroom. He reports having irregular bowels at baseline and now has diarrhea. He feels this may have contributed to his falls. Also noted to have foot ulcers to multiple toes from his new diabetic shows. Mechanical Fall #Spina Bifida * Admitted for further management and CM consult for adequate placement pos rehab vs SNF * Xray Left knee showing OA and mild effusion- no further intervention needed * Treat pain prn with acetaminophen * No major injury following mechanical falls * PT/OT consult placed- wheelchair bound with use of walker for transfers #Diabetic Foot Ulcers * Multiple open, non-draining, non-infectious toe ulcers from diabetic shoes * Clean and dress daily * Wound consult placed for further recs #Diarrhea * Diarrhea - says for past 4 days, after each meal, previously constipated for 5 days * Stool PCR - obtained negative * CDiff - negative * Elevated Tbili Tbili on admission 5.5, other LFTs ok Pt has hx of cholecystectomy Reports RUQ pain after meal (now resolved but still had pain yesterday) Repeat Tbili is trending down now to 3.9 KUB, liver US unremarkable Will further discuss w/ GI HARINDER Cr today elevated at 1.45 - hold ACEi - pt reports good oral intake, diarrhea improved - will further discuss w/ nephrology #CAD s/p STEMI s/p PTCA/stent #Chronic Atrial Fibrillation episode of NSVT - asymptomatic * Anticoagulated with Eliquis BID; On Aspirin at home * AFib with rate control BB * On diuretic at home; monitor K, Mag, replace and monitor * cont. Coreg, amlodipine statin * EKG as needed #Hyperlipidemia * Continue home statin #Hypertension * Controlled BP 140's/70's * Continue home olmesartan, amlodipine, torsemide #Diabetes Mellitus Type II insulin-dependent #CKD III * Insulin-dependent with long-acting Basaglar at home plus metformin * Holding metformin * Sliding scale insulin while inpatient--> Goal 110-140; adjust as needed * current A1c 6.0% * monitor BMP #MICAH * Uses CPAP at home; unsure of settings * Agreeable to CPAP inpatient-order placed * Oxygen as needed for sats <92% DVT Ppx: On Eliquis; SCDs Code status: Full PCP: Dr. Gregory Akhtar Dispo: med/ tele (2) Spina bifida: (3) CAD (coronary artery disease): (4) History of chronic atrial fibrillation: (5) Hyperlipidemia: (6) Diabetes mellitus, type II, insulin dependent: (7) Hypertension: (8) CKD (chronic kidney disease) stage 3, GFR 30-59 ml/min: (9) MICAH (obstructive sleep apnea): Admission and Anticipated Discharge Date Admission Date: December 27, 2024 Subjective Pt seen in follow up of falls, diarrhea, knee pain w/c bound, obesity, spina bifida - complicating ambulation No fever, chills, chest pain, shortness of breath, no cough Reports was constipated for 5 days then developed loose stools after each meal stool pcr obtained and negative Says loose stools now improved but pt continued to have RUQ pain , says it was worse yesterday, however pain now improved/ resolved. Pt also had tbili on admission elevated at 5.5 -> now downtrending. KUB and liver US unremarkable, will discus further w/ GI. Cr elevated today - unclear etiology, pt repots good po intake, ? will discuss w/ nephrology. cont. monitor bmp Review of Systems Review of Systems: All systems reviewed & are unremarkable except as noted in Subjective Physical Exam Physical Exam: GEN: Morbidly obese M in NAD. HEENT: NC/AT; PERRL, EOMI. MMM. NECK: Supple CV: Irregular rhythm, no murmurs LUNGS: Diminished, clear, no distress symptoms ABD: Soft, obese, hyperactive BS, mild tenderness to right sided of abdomen SKIN: Warm, dry. ulcers to tips of multiple toes MSK: Moving all extremities EXT: No LE edema. NEURO: awake, alert, speech fluent, answers appropriately, speech clear. moves extremities Results & Data Results & Data Vital Signs (Past 12 Hours) Vital Signs Temp Pulse Pulse Resp BP Pulse Ox O2 Del Method 12/29/24 10:00 Room Air 12/29/24 07:35 36.7 C 61 18 140/82 97 Room Air 12/29/24 07:00 38 L 12/29/24 03:45 36.5 C 71 19 136/80 96 CPAP 12/29/24 02:23 20 12/29/24 00:10 60 19 98 12/29/24 00:00 36.8 C 61 18 110/74 97 CPAP Laboratory Results 12/29/24 12/29/24 12/29/24 Range/Units 10:17 08:21 05:24 WBC 7.44 (4.8-10.8) K/ul RBC 3.84 L (4.70-6.10) M/uL Hgb 11.7 L (14.0-18.0) g/dl Hct 35.3 L (42.0-52.0) % MCV 91.9 (80.0-100.0) fL MCH 30.5 (25.0-34.0) pg MCHC 33.1 (32.0-36.0) g/dL RDW Std Deviation 50.4 H (36.4-46.3) fL RDW Coeff of Selvin 15.1 H (11.5-14.5) % Plt Count 140 (130-400) K/uL MPV 10.8 (9.4-12.4) fL Sodium 140 (136-145) mmol/L Potassium 3.4 L (3.5-5.1) mmol/L Chloride 107 (98-107) mmol/L Carbon Dioxide 28 (21-32) mmol/L Anion Gap 5 (3-11) BUN 19 (6-23) mg/dl Creatinine 1.45 H D (0.6-1.4) mg/dl Est Cr Clr Drug Dosing 75.0 ml/min eGFR 54.15 BUN/Creatinine Ratio 13.1 (10-20) Glucose 88 (70-99(Fasting)) mg/dl POC Glucose 106 H (70-99) mg/dl Calcium 8.8 (8.6-10.3) mg/dl Phosphorus 3.7 (2.5-4.9) mg/dl Magnesium 2.1 (1.7-2.4) mg/dl Total Bilirubin 3.9 H (0.2-1.0) mg/dl Direct Bilirubin 0.9 H (0-0.2) mg/dl AST 13 (13-39) U/L ALT 9 (7-52) U/L Alkaline Phosphatase 83 (34-104) U/L Total Protein 5.8 L (6.0-8.3) gm/dl Albumin 3.5 (3.4-5.0) gm/dl Globulin 2.3 L (2.5-4.0) gm/dl Albumin/Globulin Ratio 1.5 (0.9-2) Urine Color Urine Appearance (Clear) Urine pH (4.5-7.5) Ur Specific Blaine (1.000-1.030) Urine Protein (Negative) Urine Glucose (UA) (Negative) Urine Ketones (Negative) Urine Blood (Negative) Urine Nitrite (Negative) Urine Bilirubin (Negative) Urine Urobilinogen (Negative) Ur Leukocyte Esterase (Negative) Urine WBC (Auto) (0-5) /hpf Urine RBC (Auto) (0-2) /hpf U Hyaline Cast (Auto) (0-2) /lpf U Epithel Cells (Auto) (0-2) /hpf Urine Bacteria (Auto) (None Seen) Hyaline Casts (None Presnt) /lpf Urine Comment Stl C. cayetanensis PCR (NotDetected) Stool Rotavirus A PCR (NotDetected) Stl Adenov F 40/41 PCR (NotDetected) Stool Astrovirus (PCR) (NotDetected) Stool Campylobacter PCR (NotDetected) Stool Cryptosporidium PCR (NotDetected) Stl E.coli Shiga Tox PCR (NotDetected) Stl Enterotoxigenic E PCR (NotDetected) Stool EPEC (PCR) (NotDetected) Stool EAEC (PCR) (NotDetected) Stl E. histolytica PCR (NotDetected) Stool Giardia Lamblia PCR (NotDetected) Stool Salmonella PCR (NotDetected) Stool Sapovirus (PCR) (NotDetected) Stl P. shigelloides PCR (NotDetected) Stl Shigella/EIEC PCR (NotDetected) St Y.enterocolitica PCR (NotDetected) Stool Vibrio (PCR) (NotDetected) Stl Vibrio cholerae PCR (NotDetected) Stl Norovirus GI/GII PCR (NotDetected) 12/28/24 12/28/24 12/28/24 Range/Units 20:19 18:32 17:11 WBC (4.8-10.8) K/ul RBC (4.70-6.10) M/uL Hgb (14.0-18.0) g/dl Hct (42.0-52.0) % MCV (80.0-100.0) fL MCH (25.0-34.0) pg MCHC (32.0-36.0) g/dL RDW Std Deviation (36.4-46.3) fL RDW Coeff of Selvin (11.5-14.5) % Plt Count (130-400) K/uL MPV (9.4-12.4) fL Sodium (136-145) mmol/L Potassium (3.5-5.1) mmol/L Chloride (98-107) mmol/L Carbon Dioxide (21-32) mmol/L Anion Gap (3-11) BUN (6-23) mg/dl Creatinine (0.6-1.4) mg/dl Est Cr Clr Drug Dosing ml/min eGFR BUN/Creatinine Ratio (10-20) Glucose (70-99(Fasting)) mg/dl POC Glucose 120 H 121 H (70-99) mg/dl Calcium (8.6-10.3) mg/dl Phosphorus (2.5-4.9) mg/dl Magnesium (1.7-2.4) mg/dl Total Bilirubin (0.2-1.0) mg/dl Direct Bilirubin (0-0.2) mg/dl AST (13-39) U/L ALT (7-52) U/L Alkaline Phosphatase (34-104) U/L Total Protein (6.0-8.3) gm/dl Albumin (3.4-5.0) gm/dl Globulin (2.5-4.0) gm/dl Albumin/Globulin Ratio (0.9-2) Urine Color Dark Yellow Urine Appearance Clear (Clear) Urine pH 5.5 (4.5-7.5) Ur Specific Blaine 1.025 (1.000-1.030) Urine Protein Trace H (Negative) Urine Glucose (UA) Negative (Negative) Urine Ketones 1+ H (Negative) Urine Blood Negative (Negative) Urine Nitrite Negative (Negative) Urine Bilirubin 1+ H (Negative) Urine Urobilinogen Negative (Negative) Ur Leukocyte Esterase Trace H (Negative) Urine WBC (Auto) 0-5 (0-5) /hpf Urine RBC (Auto) 0-2 (0-2) /hpf U Hyaline Cast (Auto) 6-10 H (0-2) /lpf U Epithel Cells (Auto) 0-2 (0-2) /hpf Urine Bacteria (Auto) None Seen (None Seen) Hyaline Casts Present A (None Presnt) /lpf Urine Comment Stl C. cayetanensis PCR (NotDetected) Stool Rotavirus A PCR (NotDetected) Stl Adenov F 40/41 PCR (NotDetected) Stool Astrovirus (PCR) (NotDetected) Stool Campylobacter PCR (NotDetected) Stool Cryptosporidium PCR (NotDetected) Stl E.coli Shiga Tox PCR (NotDetected) Stl Enterotoxigenic E PCR (NotDetected) Stool EPEC (PCR) (NotDetected) Stool EAEC (PCR) (NotDetected) Stl E. histolytica PCR (NotDetected) Stool Giardia Lamblia PCR (NotDetected) Stool Salmonella PCR (NotDetected) Stool Sapovirus (PCR) (NotDetected) Stl P. shigelloides PCR (NotDetected) Stl Shigella/EIEC PCR (NotDetected) St Y.enterocolitica PCR (NotDetected) Stool Vibrio (PCR) (NotDetected) Stl Vibrio cholerae PCR (NotDetected) Stl Norovirus GI/GII PCR (NotDetected) 12/28/24 12/28/24 12/28/24 Range/Units 14:50 11:58 10:21 WBC (4.8-10.8) K/ul RBC (4.70-6.10) M/uL Hgb (14.0-18.0) g/dl Hct (42.0-52.0) % MCV (80.0-100.0) fL MCH (25.0-34.0) pg MCHC (32.0-36.0) g/dL RDW Std Deviation (36.4-46.3) fL RDW Coeff of Selvin (11.5-14.5) % Plt Count (130-400) K/uL MPV (9.4-12.4) fL Sodium (136-145) mmol/L Potassium (3.5-5.1) mmol/L Chloride (98-107) mmol/L Carbon Dioxide (21-32) mmol/L Anion Gap (3-11) BUN (6-23) mg/dl Creatinine (0.6-1.4) mg/dl Est Cr Clr Drug Dosing ml/min eGFR BUN/Creatinine Ratio (10-20) Glucose (70-99(Fasting)) mg/dl POC Glucose 151 H (70-99) mg/dl Calcium (8.6-10.3) mg/dl Phosphorus (2.5-4.9) mg/dl Magnesium (1.7-2.4) mg/dl Total Bilirubin 4.7 H (0.2-1.0) mg/dl Direct Bilirubin (0-0.2) mg/dl AST (13-39) U/L ALT (7-52) U/L Alkaline Phosphatase (34-104) U/L Total Protein (6.0-8.3) gm/dl Albumin (3.4-5.0) gm/dl Globulin (2.5-4.0) gm/dl Albumin/Globulin Ratio (0.9-2) Urine Color Urine Appearance (Clear) Urine pH (4.5-7.5) Ur Specific Blaine (1.000-1.030) Urine Protein (Negative) Urine Glucose (UA) (Negative) Urine Ketones (Negative) Urine Blood (Negative) Urine Nitrite (Negative) Urine Bilirubin (Negative) Urine Urobilinogen (Negative) Ur Leukocyte Esterase (Negative) Urine WBC (Auto) (0-5) /hpf Urine RBC (Auto) (0-2) /hpf U Hyaline Cast (Auto) (0-2) /lpf U Epithel Cells (Auto) (0-2) /hpf Urine Bacteria (Auto) (None Seen) Hyaline Casts (None Presnt) /lpf Urine Comment Stl C. cayetanensis PCR Not Detected (NotDetected) Stool Rotavirus A PCR Not Detected (NotDetected) Stl Adenov F 40/41 PCR Not Detected (NotDetected) Stool Astrovirus (PCR) Not Detected (NotDetected) Stool Campylobacter PCR Not Detected (NotDetected) Stool Cryptosporidium PCR Not Detected (NotDetected) Stl E.coli Shiga Tox PCR Not Detected (NotDetected) Stl Enterotoxigenic E PCR Not Detected (NotDetected) Stool EPEC (PCR) Not Detected (NotDetected) Stool EAEC (PCR) Not Detected (NotDetected) Stl E. histolytica PCR Not Detected (NotDetected) Stool Giardia Lamblia PCR Not Detected (NotDetected) Stool Salmonella PCR Not Detected (NotDetected) Stool Sapovirus (PCR) Not Detected (NotDetected) Stl P. shigelloides PCR Not Detected (NotDetected) Stl Shigella/EIEC PCR Not Detected (NotDetected) St Y.enterocolitica PCR Not Detected (NotDetected) Stool Vibrio (PCR) Not Detected (NotDetected) Stl Vibrio cholerae PCR Not Detected (NotDetected) Stl Norovirus GI/GII PCR Not Detected (NotDetected) Medications Administered Current Inpatient Medications Acetaminophen (Acetaminophen 325 Mg Tab) 650 mg PO Q4H PRN PRN Reason: Pain or Fever Stop: 01/26/25 16:49 Last Admin: 12/29/24 09:17 Dose: 650 mg Al Hydrox/Mg Hydrox/Simethicone (Aluminum/Magnesium Susp 30 Ml Udc) 15 ml PO Q4H PRN PRN Reason: Dyspepsia Stop: 01/26/25 16:49 Allopurinol (Allopurinol 300 Mg Tab) 300 mg PO QAM [facility] Stop: 01/27/25 08:59 Last Admin: 12/29/24 09:19 Dose: 300 mg Amlodipine Besylate (Amlodipine Besylate 5 Mg Tab) 5 mg PO QAM [facility] Stop: 01/27/25 08:59 Last Admin: 12/29/24 09:20 Dose: 5 mg Apixaban (Apixaban 5 Mg Tablet) 5 mg PO BID [facility] Stop: 01/26/25 20:59 Last Admin: 12/29/24 09:19 Dose: 5 mg Artificial Tears (Artificial Tears) 1 drops OPB Q4H PRN PRN Reason: Dryness Stop: 01/26/25 17:00 Aspirin (Aspirin 81 Mg Chew) 81 mg PO DAILY RAJWINDER Stop: 01/27/25 08:59 Last Admin: 12/29/24 09:18 Dose: 81 mg Atorvastatin Calcium (Atorvastatin 10 Mg Tab) 5 mg PO HS [facility] Stop: 01/26/25 20:59 Last Admin: 12/28/24 21:24 Dose: 5 mg Carvedilol (Carvedilol 25 Mg Tab) 25 mg PO BIDM RAJWINDER Stop: 01/26/25 16:59 Last Admin: 12/29/24 09:19 Dose: 25 mg Dextrose (Dextrose 50% 50 Ml Syringe) 25 - 50 ml IV UD PRN; Protocol PRN Reason: Hypoglycemia Protocol Stop: 01/26/25 16:49 Ferrous Sulfate (Ferrous Sulfate 325 Mg Tab) 325 mg PO BID RAJWINDER Stop: 01/26/25 20:59 Last Admin: 12/29/24 09:19 Dose: 325 mg Folic Acid (Folic Acid 1 Mg Tab) 1 mg PO DAILY RAJWINDER Stop: 01/27/25 08:59 Last Admin: 12/29/24 09:20 Dose: 1 mg Glucagon (Glucagon For Inj 1 Mg Vial) 1 mg SQ UD PRN; Protocol PRN Reason: Hypoglycemia Protocol Stop: 01/26/25 16:49 Glucose (Glucose 40% Gel 15 Gm Tube) 15 - 30 gm PO UD PRN; Protocol PRN Reason: Hypoglycemia Protocol Stop: 01/26/25 16:49 Glucose (Glucose 10 Tab/Tube) 4 - 8 tab PO UD PRN; Protocol PRN Reason: Hypoglycemia Protocol Stop: 01/26/25 16:49 Insulin Aspart (Insulin Aspart Per Unit Charge) 0 units SC ACHS RAJWINDER Stop: 01/26/25 16:49 Last Admin: 12/29/24 09:17 Dose: 5 units Insulin Glargine (Lantus Per Unit Charge) 15 units SC HS [facility]JWINDER Stop: 01/27/25 20:59 Last Admin: 12/28/24 21:23 Dose: 15 units Latanoprost (Latanoprost 0.005% Op Soln 2.5 Ml Btl) 1 drops OPB QPM [facility]JWINDER Stop: 01/26/25 20:59 Last Admin: 12/28/24 21:27 Dose: 1 drops Losartan Potassium (Losartan Potassium 50 Mg Tab) 100 mg PO QAM RAJWINDER; Protocol Stop: 01/27/25 08:59 Last Admin: 12/29/24 09:19 Dose: 100 mg Magnesium Hydroxide (Magnesium Hydroxide Susp 30 Ml Udc) 30 ml PO Q12H PRN PRN Reason: Constipation Stop: 01/26/25 16:49 Miscellaneous (Carbohydrates For Hypoglycemia ) 15 - 30 gm PO UD PRN PRN Reason: Hypoglycemia Protocol Stop: 01/26/25 16:49 Miscellaneous Information (Pharmacy Glycemic Mgmt Consult) 1 each N/A UD PRN PRN Reason: Consult Stop: 01/26/25 16:49 Ondansetron HCl (Ondansetron Inj 2 Mg/Ml 2 Ml Vial) 4 mg IV Q6H PRN PRN Reason: Nausea Stop: 01/26/25 16:49 Pantoprazole Sodium (Pantoprazole 40 Mg Tab) 40 mg PO QAM RAJWINDER Stop: 01/28/25 09:44 Last Admin: 12/29/24 10:13 Dose: 40 mg Potassium Chloride (Potassium Chloride Crtab 20 Meq Tabcr) 20 meq PO Q2D RAJWINDER Stop: 01/27/25 08:59 Last Admin: 12/28/24 09:00 Dose: 20 meq Vitamin D (Cholecalciferol 25 Mcg (1000 Units) Tab) 100 mcg PO DAILY RAJWINDER Stop: 01/27/25 08:59 Last Admin: 12/29/24 09:18 Dose: 100 mcg (1) Fall Encounter type: initial encounter Qualified Code(s): W19.XXXA - Unspecified fall, initial encounter (7) Hypertension Hypertension type: unspecified Qualified Code(s): I10 - Essential (primary) hypertension
[2024-12-29] MEDS: POTASSIUM CHLORIDE CRTAB 20 MEQ TABCR PO STA (11:52)
--- NOTE | 2024-12-29 14:09 | Nephrology Consultation ---
Date of Consultation December 29, 2024 Assessment & Plan (1) Acute renal failure: Stage 1 HARINDER, ? oliguria status >> would rule out prerenal baseline creatinine 1.1 w/o albuminuria (eGFR low 70s as OP) >> at baseline on presentation now to 1.5 12/29 abruptly. urine concentrated and w/ ketonuria, bilirubinuria; no e/o infection or significant inflammation >>intermittent transient bradycardia since admission >>? borderline oliguria versus non strict I/O >> reviewed w/ RN who reports he's getting strict UOP measured >continue to hold losartan >trial 1/2 L 0.45% NS > so ordered >>>lowered coreg to 12.5 mg bid for this evening's dose given bradycardia -daily BMP, mag, phos for now start tomorrow; will also check ck -for now strict I/O, mariluz O > reviewed w/ RN History of Present Illness Reason for Consultation: HARINDER Requesting Physician: Dr Galloway Attending Physician: Koko Galloway MD History of Present Illness 64 y/o M whom I'm asked to see for HARINDER was admitted 12/27 after a mechanical fall at home in the bathroom w/ L knee injury. PMH CAD s/p STEMI s/p PTCA/stent 2008, a fib on eliquis, HTN, dyslipidemia, insulin-dependent DM Type II c/b retinopathy/neuropathy, morbid obesity, MICAH on CPAP, spina bifida and w/c bound, chronic foot ulcers. His presenting creatinine was 1.1; stable until today when bumped up to 1.5. His OP baseline creatinine is 1.1 (not CKD) w/o albuminuria. he had 4 days of diarrhea prior to admission which per admission notes may have contributed to his fall. diarrhea has since admission stabilized. he has been hemodynamically stable since admission w/o e/o sepsis. Received 1L of fluid at intake. He has required frequent potassium supplementation since arrival but no further fluids. he received his customary OP losartan dose 100 mg daily since admission (today's dose held). No NSAIDS or IV contrast given since admission. Also presented w/ elevated total bilirubin 5.5, down to 3.9 since admission w/ ongoing mild RUQ pain postprandial; GI following w/ labs possible further w/u planned depending on trends. Denies fever, chills, weight loss, worsening cognition/vision/hearing, chest pain/palpitations, SOB, swelling, difficulty breathing, urinary concerns, skin rashes, lesions, bleeding, bruising. Allergies Allergy/AdvReac Type Severity Reaction Status Date / Time lisinopril Allergy Intermediate Cough Verified 12/27/24 14:49 sulfamethoxazole Allergy Intermediate Rash Verified 12/27/24 14:49 trimethoprim Allergy Intermediate Rash Verified 12/27/24 14:49 vaccine adjuvant system, Allergy Intermediate PAIN, Verified 12/27/24 14:49 AS01B liposomal REDNESS, [From Shingrix (PF)] SWELLING OF INJECTED ARM varicella-zoster virus Allergy Intermediate PAIN, Verified 12/27/24 14:49 glycoprotein E, recombinant REDNESS, [From Shingrix (PF)] SWELLING OF INJECTED ARM AVIVA Inhibitors AdvReac Intermediate Cough Verified 12/27/24 14:49 ceftriaxone AdvReac Mild Rash Verified 12/27/24 14:49 Home Medications Medication Instructions Recorded Confirmed Type allopurinol 300 mg tablet 300 mg PO QAM 05/25/20 12/27/24 History atorvastatin 10 mg tablet 5 mg PO HS 09/04/20 12/27/24 History apixaban 5 mg tablet (Eliquis) 5 mg PO BID 04/21/21 12/27/24 History carvedilol 25 mg tablet (Coreg) 25 mg PO BID #60 tabs 04/24/21 12/27/24 Rx amlodipine 5 mg tablet (Norvasc) 5 mg PO QAM #30 tabs 11/09/21 12/27/24 Rx sennosides 8.6 mg-docusate sodium 1 tab-cap PO QAM Constipation 05/27/23 12/27/24 History 50 mg tablet (Senna with Docusate Sodium) acetaminophen 325 mg tablet 650 mg PO QID PRN Pain 02/12/24 12/27/24 History (Tylenol) Lactobacillus acidophilus 10 10,000 mmu cells PO BID 12/27/24 12/27/24 History billion cell capsule (Probiotic) aspirin 81 mg chewable tablet 81 mg PO DAILY 12/27/24 12/27/24 History cholecalciferol (vitamin D3) 25 100 mcg PO DAILY 12/27/24 12/27/24 History mcg (1,000 unit) capsule (Vitamin D3) ferrous sulfate 325 mg (65 mg 325 mg PO BID 12/27/24 12/27/24 History iron) tablet folic acid 1 mg tablet 1 mg PO DAILY 12/27/24 12/27/24 History insulin glargine 100 unit/mL (3 28 unit subcut PM 12/27/24 12/27/24 History mL) subcutaneous pen (Basaglar KwikPen U-100 Insulin) latanoprost 0.005 % eye drops 1 drp OPB QPM 12/27/24 12/27/24 History meclizine 25 mg tablet 25 mg PO TID PRN Dizziness 12/27/24 12/27/24 History metformin 500 mg tablet,extended 500 mg PO DAILY 12/27/24 12/27/24 History release 24 hr multivitamin,tx-minerals 1 tab PO QDL 12/27/24 12/27/24 History nitroglycerin 0.4 mg sublingual 0.4 mg sublingual DIRECTED PRN 12/27/24 12/27/24 History tablet (Nitrostat) Chest Pain nystatin 100,000 unit/gram topical 1 applic topical DAILY PRN SKIN 12/27/24 12/27/24 History powder (Nyamyc) RASH olmesartan 40 mg tablet 40 mg PO QAM 12/27/24 12/27/24 History potassium chloride 20 mEq 20 meq PO Q OTHER DAY 12/27/24 12/27/24 History tablet,extended release(part/cryst) propylene glycol 1 %-glycerin 0.3 2 drp ophthalmic (eye) DIRECTED 12/27/24 12/27/24 History % eye drops PRN NEEDED PER [facility] semaglutide 1 mg/dose (4 mg/3 mL) 1 mg subcut WK 12/27/24 12/27/24 History subcutaneous pen injector (Ozempic) Patient History Medical History Myocardial infarction H/o 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 Hyperlipidemia Glaucoma Presence of bare metal stent in right coronary artery Decreased ambulation status Lymphedema Major depressive disorder B-complex deficiency Vitamin D deficiency History of TIA (transient ischemic attack) Hearing loss of left ear Allergic rhinitis Arthritis of knee Spina bifida GERD (gastroesophageal reflux disease) Bilateral scrotal hernia Dyslipidemia 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, with long-term current use of insulin Diabetic retinopathy Gout Diabetic neuropathy Surgical History S/P panniculectomy H/O nasal septoplasty H/O colonoscopy H/O cardiac catheterization Previous back surgery Status post uvulopalatopharyngoplasty Hx of tonsillectomy S/P cholecystectomy Family History Mother Coronary heart disease Diabetes Hypertension Social History Smoking Status: Former smoker Tobacco Type: Cigarettes packs per day: 1; Second Hand Exposure: No; Do You Dip or Chew Tobacco: No; Hx Alcohol Use: No Hx Substance Use: No Preferred Language: Lithuanian Communication Ability: Effective Visual Impairment: Limited Hearing Ability: Hard of Hearing Manual Arts Therapy Teacher Required: No Beliefs That Will Affect Care: None marital status: Single Current Living Situation: Alone Current Living Situation Comment: lives at home alone current occupational status: disabled Feels Safe at Home: Yes Childhood Exposure to Second-Hand Smoke: No Assistive Devices: CPAP, Hospital Bed, Lift Chair, Raised Toilet Seat, Stair Lift, Walker and Wheelchair Review of Systems 2 Review of Systems: All systems reviewed & are unremarkable except as noted in HPI & below Physical Exam 2 Constitutional: well developed, well nourished and + obese; no acute distress Eyes: EOM intact bilaterally ENMT: Mouth: + dry oral mucous membranes and + poor dentition Respiratory: normal respiratory effort Auscultation: + diminished lung sounds Cardiovascular: Rate/Rhythm: regular rhythm and + bradycardic Extremities: no edema Gastrointestinal (Abdomen): Inspection/Auscultation: normal bowel sounds P ercussion/Palpation: abdomen soft; abdomen nontender Musculoskeletal: Extremities: strength 5/5 throughout Skin: no rashes, warm and dry very shiny skin BL shins; 3 x 2 cm healing scab L knee Neurologic: palma, fluent speech, no tremor Psychiatric: Orientation: alert and oriented x 3 Results & Data Vital Signs (Past 12 Hours) Vital Signs Temp Pulse Pulse Resp BP Pulse Ox O2 Del Method 12/29/24 11:49 36.7 C 72 18 135/57 L 94 Room Air 12/29/24 10:00 Room Air 12/29/24 07:35 36.7 C 61 18 140/82 97 Room Air 12/29/24 07:00 38 L 12/29/24 03:45 36.5 C 71 19 136/80 96 CPAP 12/29/24 02:23 20 Laboratory Results 12/29/24 05:24 12/29/24 05:24 ua yesterday pm dark yellow 1025 trace protein 1+ ketones, 1+ bilirubin; al indices negative Diagnostic Findings liver u/s > mild fatty liver; no biliary duct dilatation; R kidney wnl
[2024-12-29] MEDS: carvediloL 12.5 MG TAB PO SCH (16:27)
[2024-12-29] MEDS: LANTUS PER UNIT CHARGE SC SCH (20:53)
[2024-12-29] MEDS: SODIUM CHLORIDE 0.45 % 1,000 ML IV SCH (21:26)
[2024-12-30 07:18] LABS: Hematocrit (blood only) 36.2 % (42.0-52.0); Hemoglobin 12.4 g/dl (14.0-18.0); Mean Corpuscular Hemoglobin 30.8 pg (25.0-34.0); Mean Corpuscular Hgb Conc 34.3 g/dL (32.0-36.0); Mean Platelet Volume 10.5 fL (9.4-12.4); Platelet Count 164 K/uL (130-400); RDW Coefficient of Variation 14.6 % (11.5-14.5); RDW Standard Deviation 48.4 fL (36.4-46.3); Red Blood Count 4.02 M/uL (4.70-6.10); White Blood Count 6.72 K/ul (4.8-10.8)
[2024-12-30 07:38] LABS: Albumin Globulin Ratio 1.4 (0.9-2); Albumin Level 3.6 gm/dl (3.4-5.0); BUN Creatinine Ratio 15.3 (10-20); Bilirubin,Total 3.8 mg/dl (0.2-1.0); Creatinine Clr Calc Pharmacy 92.2 ml/min; Globulin 2.5 gm/dl (2.5-4.0); Phosphorus 3.9 mg/dl (2.5-4.9); Potassium 4.2 mmol/L (3.5-5.1); Total Protein 6.1 gm/dl (6.0-8.3)
[2024-12-30 08:02] VITALS: RESP 16; TEMP 97.9; O2SAT 97
--- NOTE | 2024-12-30 08:22 | Nephrology Progress Note ---
Date of Service December 30, 2024 Assessment & Plan (1) Acute renal failure: Plan: improved/resolving Stage 1 HARINDER, borderline oliguric as RN reports I/O accurate >> prerenal baseline creatinine 1.1 w/o albuminuria (eGFR low 70s as OP) >> at baseline on presentation then to 1.5 12/29 abruptly. urine concentrated and w/ ketonuria, bilirubinuria; no e/o infection or significant inflammation chemistries acceptable; no indication for imaging though could consider bladder scan > 2.7L positive on admission >>intermittent transient bradycardia since admission to mid/low 50s (new from prev admissions) >>? borderline oliguria versus non strict I/O >> reviewed w/ RN who reports he's getting strict UOP measured >continue to hold losartan one more day at least >will give another 1/2 L 0.45% NS > so ordered >>>cont lowered coreg to 12.5 mg bid given bradycardia -daily BMP, mag, phos for now start tomorrow; will also check ck -for now strict I/O, mariluz O to continue -ordered PVR From neph standpoint ok to d/c to [facility] as soon as today; would resume olmesartan tomorrow and have facility check BMP on 01/04; no need for OP nephro f/u >>>note he takes torsemide 40 mg daily andK 20 mEq every other day << NOT ON MED LISt for admission/d-c >> start torsemide tomorrow w/ olmesartan care coordinated w/ Dr Vega re d/c meds including torse) and f/u labs, appts as above; we are amy greement. Admission and Anticipated Discharge Date Admission Date: December 27, 2024 Subjective renal function improved today; no sob, no uncontrolled pain (unless trying to move/ambulate), no edema; no voiding concerns; PVR negative Review of Systems 2 Review of Systems: All systems reviewed & are unremarkable except as noted in Subjective Physical Exam 2 Constitutional: well developed, well nourished and + obese; no acute distress Eyes: EOM intact bilaterally ENMT: Mouth: + dry oral mucous membranes and + poor dentition Respiratory: normal respiratory effort Auscultation: + diminished lung sounds Cardiovascular: Rate/Rhythm: regular rhythm and + bradycardic Extremities: no edema Gastrointestinal (Abdomen): Inspection/Auscultation: normal bowel sounds P ercussion/Palpation: abdomen soft; abdomen nontender Musculoskeletal: Extremities: strength 5/5 throughout Skin: no rashes, warm and dry Psychiatric: Orientation: alert and oriented x 3 Results & Data Vital Signs (Past 12 Hours) Vital Signs Temp Pulse Pulse Resp BP Pulse Ox O2 Del Method 12/30/24 08:02 36.6 C 59 L 16 144/78 H 97 Room Air 12/30/24 06:59 50 L 12/30/24 04:00 36.3 C L 61 20 139/74 95 CPAP 12/29/24 23:42 36.9 C 62 20 137/69 94 Room Air 12/29/24 22:00 56 L Laboratory Results 12/30/24 06:56 12/30/24 06:56
[2024-12-30] MEDS: SODIUM CHLORIDE 0.45 % 500 ML IV SCH (09:07)
[2024-12-30] MEDS ORDERED: MICONAZOLE NITRATE POWDER 85 GM EXT PRN (09:49)
[2024-12-30 11:06] VITALS: BP 136/64
--- NOTE | 2024-12-30 12:12 | Discharge Summary ---
Discharge Summary Date of Service December 30, 2024 Principal Dx & Hospital Course #1 = Principal Diagnosis (1) Fall: (2) Spina bifida: (3) CAD (coronary artery disease): (4) History of chronic atrial fibrillation: (5) Hyperlipidemia: (6) Diabetes mellitus, type II, insulin dependent: (7) Hypertension: (8) CKD (chronic kidney disease) stage 3, GFR 30-59 ml/min: (9) MICAH (obstructive sleep apnea): Plan Patient is a 63 year old M with a past medical history significant for CAD s/p STEMI s/p PTCA/stent 2008, HTN, CKD Stg III, dyslipidemia, insulin-dependent DM Type II, morbid obesity, MICAH, spina bifida, diabetic retinopathy, diabetic neuropathy, presenting with a mechanical fall. Patient is wheelchair dependent, transfer with walker, fell on Saturday when in the bathroom injuring his left knee. He did not hit his head, but did suffer a "rug burn" like wound to his left knee when falling. Was unable to get himself up and needed EMS to help lift him up to his wheelchair. He was stable at that time with only minor pain to the left knee. He fell again this morning while in the bathroom. He reports having irregular bowels at baseline and now has diarrhea. He feels this may have contributed to his falls. Also noted to have foot ulcers to multiple toes from his new diabetic shoes. Mechanical Fall Spina Bifida Left Knee Abrasion Admitted for further management and CM consult for adequate placement- pos rehab vs SNF. Pt discharged to SNF Xray Left knee showing OA and mild effusion- no further intervention needed PRN pain meds wound care prn PT/OT consult placed- wheelchair bound with use of walker for transfers. Discharged to SNF Diabetic Foot Ulcers Multiple open, non-draining, non-infectious toe ulcers from diabetic shoes Wound consult Diarrhea says for past 4 days, after each meal, previously constipated for 5 days Stool PCR - obtained negative CDiff - negative Resolved on discharge Elevated Tbili Tbili on admission 5.5, other LFTs ok. Direct bilirubin also elevated at 0.9 Pt has hx of cholecystectomy Reports RUQ pain after meal (now resolved but still had pain yesterday) Repeat Tbili is trending down now to 3.8 KUB, liver US unremarkable except for fatty infiltration and noted cholecystectomy Close GI followup as an outpt. HARINDER Cr elevated at 1.45 hold ACEi pt reports good oral intake, diarrhea improved Nephrology consulted, recommended the following on discharge: "...From neph standpoint ok to d/c to [facility] as soon as today; would resume olmesartan tomorrow and have facility check BMP on 01/04; no need for OP nephro f/u >>>note he takes torsemide 40 mg daily andK 20 mEq every other day << NOT ON MED LISt for admission/d-c >> start torsemide tomorrow w/ olmesartan..." CAD s/p STEMI s/p PTCA/stent Chronic Atrial Fibrillation episode of NSVT - asymptomatic Anticoagulated with Eliquis BID; On Aspirin at home AFib with rate control BB. Per Nephrology: cont lowered coreg to 12.5 mg bid given bradycardia On diuretic at home- per nephrology continue to hold with ARB for one more day; monitor K, Mag, replace and monitor cont amlodipine, statin Hyperlipidemia Continue home statin Hypertension Controlled BP Hold home olmesartan and torsemide on dc per Nephrology recs, Continue home amlodipine Diabetes Mellitus Type II insulin-dependent CKD III Insulin-dependent with long-acting Basaglar at home plus metformin Sliding scale insulin while inpatient--> Goal 110-140; adjust as needed current A1c 6.0% monitor BMP resume home meds on discharge MICAH Uses CPAP at home; unsure of settings Agreeable to CPAP inpatient-order placed Oxygen as needed for sats <92% Notes For Next Care Provider As above Needs followup of elevated bilirubin levels Medication Changes From Visit Per Nephrology: -resume torsemide and olmesartan tomorrow 12/31 -coreg dose decreased to 12.5mg BID Admission HPI Per Admitting Provider Patient is a 63 year old M with a past medical history of CAD s/p STEMI s/p PTCA/stent 2008, HTN, CKD Stg III, dyslipidemia, insulin-dependent DM Type II, morbid obesity, MICAH, spina bifida, diabetic retinopathy, diabetic neuropathy, presenting with mechanical fall. Patient is wheelchair dependent, transfer with walker, fell on Saturday when in the bathroom injuring his left knee. He did not hit his head, but did suffer a "rug burn" like wound to his left knee when falling. Was unable to get himself up and needed EMS to help lift him up to his wheelchair. He was stable at that time with only minor pain to the left knee. He fell again this morning while in the bathroom. He reports having irregular bowels at baseline and now has diarrhea. He feels this may have contributed to his falls. Also noted to have foot ulcers to multiple toes from his new diabetic shows. Denies fever, chills, weight loss, cognitive changes, vision/hearing changes, chest pain, SOB, swelling, difficulty breathing, urinary concerns, skin rashes, lesions, bleeding, bruising. In the emergency department, patient was hemodynamically stable with NAD or sepsis. Labs unremarkable. Knee XRay showing OA with mild joint effusion to left knee. 1L fluid bolus given in the ED. He feels unsafe at home d/t multiple mechanical falls. He receives in-home assistance through a waiver program M- 9a-3p via [employer]. Has a Fire Technology Instructor via [employer] ([phone]). History obtained primarily from the patient and via hospitalization record. Admission Exam Per Admitting Provider VITALS: Reviewed. GEN: Morbidly obese, NAD. PSYCH: Good Judgment. AOx4. Normal memory, mood, and affect. HEENT -Head: NC/AT; -Eyes: PERRL, EOMI. No discharge or redness; -Ears: External ears are normal. -Nose: Normal nares. -Mouth and throat: MMM. Normal gums, mucosa, palate,. Good dentition. NECK: Supple, with no masses. CV: Irregular rhythm, no murmurs, no swelling, perfusing well LUNGS: Diminished, clear, no distress symptoms ABD: Soft, obese, hyperactive BS, mild tenderness to right sided of abdomen : N/A SKIN: Warm, well perfused. ulcers to tips of multiple toes, no drainage, healthy granulation tissue MSK: Moving all extremities, repositioning self with upper extremities, strength BLE 2/5 EXT: No clubbing, cyanosis, or edema. NEURO: Speech clear. CN II-XII grossly intact Discharge Exam General: Alert, oriented. No acute distress HEENT: NC/AT CV: RRR Resp: Breath sounds clear bilaterally, no increased effort of breathing Abdomen: Soft, nontender Extremities: edema in lower extremities bilaterally, left knee healed abrasion noted Updated Medication List Medication Instructions Recorded Confirmed Type allopurinol 300 mg tablet 300 mg PO QAM 05/25/20 12/27/24 History atorvastatin 10 mg tablet 5 mg PO HS 09/04/20 12/27/24 History apixaban 5 mg tablet (Eliquis) 5 mg PO BID 04/21/21 12/27/24 History carvedilol 25 mg tablet (Coreg) 25 mg PO BID #60 tabs 04/24/21 12/27/24 Rx amlodipine 5 mg tablet (Norvasc) 5 mg PO QAM #30 tabs 11/09/21 12/27/24 Rx sennosides 8.6 mg-docusate sodium 1 tab-cap PO QAM Constipation 05/27/23 12/27/24 History 50 mg tablet (Senna with Docusate Sodium) acetaminophen 325 mg tablet 650 mg PO QID PRN Pain 02/12/24 12/27/24 History (Tylenol) Lactobacillus acidophilus 10 10,000 mmu cells PO BID 12/27/24 12/27/24 History billion cell capsule (Probiotic) aspirin 81 mg chewable tablet 81 mg PO DAILY 12/27/24 12/27/24 History cholecalciferol (vitamin D3) 25 100 mcg PO DAILY 12/27/24 12/27/24 History mcg (1,000 unit) capsule (Vitamin D3) ferrous sulfate 325 mg (65 mg 325 mg PO BID 12/27/24 12/27/24 History iron) tablet folic acid 1 mg tablet 1 mg PO DAILY 12/27/24 12/27/24 History insulin glargine 100 unit/mL (3 28 unit subcut PM 12/27/24 12/27/24 History mL) subcutaneous pen (Aniya Weiss U-100 Insulin) latanoprost 0.005 % eye drops 1 drp OPB QPM 12/27/24 12/27/24 History meclizine 25 mg tablet 25 mg PO TID PRN Dizziness 12/27/24 12/27/24 History metformin 500 mg tablet,extended 500 mg PO DAILY 12/27/24 12/27/24 History release 24 hr multivitamin,tx-minerals 1 tab PO QDL 12/27/24 12/27/24 History nitroglycerin 0.4 mg sublingual 0.4 mg sublingual DIRECTED PRN 12/27/24 12/27/24 History tablet (Nitrostat) Chest Pain nystatin 100,000 unit/gram topical 1 applic topical DAILY PRN SKIN 12/27/24 12/27/24 History powder (Nyamyc) RASH olmesartan 40 mg tablet 40 mg PO QAM 12/27/24 12/27/24 History potassium chloride 20 mEq 20 meq PO Q OTHER DAY 12/27/24 12/27/24 History tablet,extended release(part/cryst) propylene glycol 1 %-glycerin 0.3 2 drp ophthalmic (eye) DIRECTED 12/27/24 12/27/24 History % eye drops PRN NEEDED PER [facility] semaglutide 1 mg/dose (4 mg/3 mL) 1 mg subcut WK 12/27/24 12/27/24 History subcutaneous pen injector (Ozempic) torsemide 40 mg tablet 40 mg PO DAILY 12/30/24 12/30/24 History Hospital Stay Data Consultations 12/27/24 14:17 ED Decision to Admit Stat 12/29/24 08:48 Consult Gastroenterology Routine Consult Nephrology Routine Diagnostic Imagining Performed 12/28/24 16:15 US liver Routine Knee X-Ray 12/27/24 13:18 XR knee LT 3V CLINICAL HISTORY: l knee pain COMPARISON: None FINDINGS: There is mild osteoarthritis. No fracture or dislocation. There is a mild joint effusion. There are atherosclerotic calcifications. IMPRESSION: Osteoarthritis with joint effusion. ACT 112: Negative or not required by law. Electronically signed by: Omari Farias M.D. 12/27/2024 1:54 PM KUB X-Ray 12/28/24 14:47 KUB HISTORY: abd. pain, GI issues COMPARISON STUDY: 11/08/2021 FINDINGS: Stable right upper quadrant surgical clips. There is moderate retained stool. No bowel obstruction seen. No gross free air. IMPRESSION: No acute findings. ACT 112: Negative or not required by law. The above report was generated using voice recognition software. It may contain grammatical, syntax or spelling errors. Electronically signed by: Omari Farias M.D. 12/28/2024 3:42 PM Liver Ultrasound 12/28/24 16:15 Exam(s): US LIVER EXAM: US Abdomen Limited CLINICAL HISTORY: Reason for exam: elevated Tbili. TECHNIQUE: Real-time ultrasound of the abdomen with image documentation. COMPARISON: CT abdomen: 11/08/2021 FINDINGS: No gallstones. Surgically absent. No biliary dilatation. CBD: 5 mm in diameter. Liver: 18.7 cm in length increased in echogenicity/fatty infiltration. Small free fluid is seen around the liver., RIGHT kidney 10.4 cm in length. IMPRESSION: Mild fatty hepatic infiltration. Small perihepatic free fluid. Prior cholecystectomy. No biliary ductal dilation. . Electronically signed by: Eloy Alatorre MD, HESHAM 12/29/24 00:52 AM Discharge Instructions Given to Patient (Per Discharging Provider) Perry, You were seen and treated after a fall. You are being discharged to a [facility] facility. You were also seen by the Fx Artist who recommends that you do not take your home Olmesartan and torsemide medications until tomorrow December 31. Your home Coreg/carvedilol dose was also decreased by Nephrology to 12.5mg twice a day. Please keep close follow up with your primary care provider and specialists after discharge. Please do not hesitate to come back to the emergency room if your symptoms worsen or return. It was a pleasure taking care of you while you were here. Total Time Total Time Spent Total Time Spent (In Minutes): 60
--- NOTE | 2024-12-30 12:36 | Electrocardiogram Report ---
Test Reason : Blood Pressure : */* mmHG Vent. Rate : 76 BPM Atrial Rate : * BPM P-R Int : * ms QRS Dur : 136 ms QT Int : 464 ms P-R-T Axes : * -69 50 degrees QTcB Int : 522 ms Atrial fibrillation with premature ventricular or aberrantly conducted complexes Right bundle branch block Left anterior fascicular block Bifascicular block Cannot rule out Inferior infarct (cited on or before 24-Oct-2017) Abnormal ECG When compared with ECG of 01-Apr-2022 10:00, Atrial fibrillation has replaced Sinus rhythm Left anterior fascicular block is now Present Confirmed by Hansel Ramirez ([id number]) on 12/30/2024 12:35:49 PM Referred By: REFERRED SELF Confirmed By: Hansel Ramirez
[2024-12-30 15:43] VITALS: PULSE 68
== END 2024-12-30 16:30 | DRG 638 ==
LOC: ED 13:10 → SUATTDRO 15:01 → 2N 15:01